=== PATIENT | male | born 1940 | race Caucasian/White ===

== ENCOUNTER → 2016-09-13 | Day surgery (SDC) | payer OTHER, MEDICARE ==
[2016-09-13 12:55] VITALS: BP 158/74; PULSE 74; RESP 18; TEMP 98.2
--- NOTE | 2016-09-13 13:55 | P.PCN ---
Date of Procedure: 09/13/16 Procedure(s) Performed: OPERATION: Intrathecal pain pump analysis, programming and reprogramming, and intrathecal pain pump refill. PREOPERATIVE DIAGNOSES: 1. near empty intrathecal pain pump time for refill. 2. 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 near empty intrathecal pain pump time for refill. 2. 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 CONDITION: Stable. Description of the procedure; Intrathecal pain pump analysed ,it showed patient currently had reservoir volume[ ] mL. The patient is receiving medication PF morphine sulfate 7 mg/ ml, and bupivacaine concentration 3 mg/ml. Patient receiving daily dose of PF morphine 1.2 mg/day and bupivacaine 0.5 mg/ day. Pain is well controlled , patient using medication for breakthrough pain Dilaudid 4 mg orally U6 hours when necessary. The location of the pump ( Right Buttuck ) Prepped with chlorhexidine x3 , then using 22-gauge needle [employer] kit advanced through the pump port, Total of 5 ml removed from the pump, the pump refills with the new medication total volume [ 20] ml . The concentration PF morphine 7 mg /ml , and the bupivacaine concentration 3 mg/ml. The patient will get the daily dose 1.3 mg/day and bupivacaine 0.5 5 mg/day ( 8 % increase in the daily dose) and patient will follow up with the pain clinic in 2 months. Patient given prescription refill for Dilaudid 4 mg every 6 hours when necessary for pain dispense 120 with 2 refills And prescription for Neurontin 300 mg every 8 hours dispense 90 with 2 refills HEENT intrathecal pain pump dose increased today because patient reported that his pain increased muscle the time around 4 to increase to 6-8 when he is doing any activity, and we discussed with the patient the option of increasing intrathecal pain medication, fully increasing the dose percent with help and with activity of daily livings, and improve his functional
== END ==
LOC: PNWHC3 12:00
PROVIDERS: ATTEND Specialist
DX: Z45.49 Encounter for adjustment and management of other implanted nervous system device (principal); M96.1 Postlaminectomy syndrome, not elsewhere classified; Z79.891 Long term (current) use of opiate analgesic
CPT/HCPCS: 62370

== ENCOUNTER → 2016-09-15 | Outpatient (CLI) | payer MEDICARE, BC ==
[2016-09-15 12:24] LABS: Basophils # (A) 0.1 k/uL (0-0.2); Basophils % (A) 1 %; CH 33.1; CHCM 34.2; Eosinophils # (A) 0.3 k/uL (0-0.7); Eosinophils % (A) 4 %; HCT 42.1 % (39.0-53.0); Luc # (Auto) 0.17; Luc % (Auto) 3; Lymphocytes # (A) 1.1 k/uL (1.0-4.8); Lymphocytes % (A) 17 %; MCH 32.6 pg (25.0-35.0); MCHC 33.4 g/dL (31.0-37.0); MCV 97.5 fL (80.0-100.0); Monocytes # (A) 0.3 k/uL (0-1.0); Monocytes % (A) 5 %; Neutrophils # (A) 4.5 k/uL (1.3-7.7); Neutrophils % (A) 71 %; RBC 4.31 m/uL (4.30-5.90); RDW 13.6 % (11.5-15.5); WBC 6.4 k/uL (3.8-10.6); WBC (Perox) 6.61
[2016-09-15 12:26] LABS: Appearance,Urine Clear (Clear); Bacteria,Urine Rare /hpf; Bilirubin,Urine Negative (Negative); Glucose,Urine (UA) Trace (Negative); Ketones,Urine Trace (Negative); Leukocyte Esterase,Urine Negative (Negative); Mucus,Urine Moderate /hpf; Nitrite,Urine Negative (Negative); PH, Urine 6.5 (5.0-8.0); Particle Count 3480; Protein,Urine 1+ (Negative); Specific Gravity,Urine 1.021 (1.001-1.035); UA Billing (MACRO vs. MICRO) MICRO; WBC,Urine <1 /hpf (0-5)
[2016-09-15 12:35] LABS: Anion Gap 10 mmol/L; Blood Urea Nitrogen 20 mg/dL (9-20); Calcium 9.3 mg/dL (8.4-10.2); Carbon Dioxide 30 mmol/L (22-30); Chloride 103 mmol/L (98-107); Glucose 96 mg/dL (74-99); Iron 87 ug/dL (49-181); Magnesium 1.6 mg/dL (1.6-2.3); Non-African American GFR(MDRD) 54 (>60 ml/min/1.73 sqM); Phosphorous 3.5 mg/dL (2.5-4.5); Potassium 4.5 mmol/L (3.5-5.1); Sodium 143 mmol/L (137-145); Uric Acid 5.7 mg/dL (3.5-8.5)
[2016-09-15 12:44] LABS: % Iron Saturation 33.3 % (20-50); Total Iron Binding Capacity 261 ug/dL (261-462)
[2016-09-18 14:37] LABS: Mis test requested (Non-blood) TP Urine 24Hr
== END | disposition home or self-care (01) ==
LOC: LABWHC1 11:44
PROVIDERS: ATTEND Nurse Practitioner Family
DX: N18.3 Chronic kidney disease, stage 3 (moderate) (principal); R80.9 Proteinuria, unspecified; D64.9 Anemia, unspecified; E55.9 Vitamin D deficiency, unspecified; E21.3 Hyperparathyroidism, unspecified; M10.9 Gout, unspecified; N39.0 Urinary tract infection, site not specified
CPT/HCPCS: 36415; 80048; 81001; 81050; 82306; 82728; 83540; 83550; 83735; 83970; 84100; 84156; 84550; 85025

== ENCOUNTER → 2016-12-06 | Day surgery (SDC) | payer OTHER, MEDICARE, BC ==
[2016-12-06 13:42] VITALS: BP 174/92; PULSE 71; RESP 16; TEMP 99.2
--- NOTE | 2016-12-06 14:20 | P.PCN ---
Date of Procedure: 12/06/16 Preoperative Diagnosis: Postoperative Diagnosis: Procedure(s) Performed: OPERATION: Intrathecal pain pump analysis, programming and reprogramming, and intrathecal pain pump refill. PREOPERATIVE DIAGNOSES: 1. near empty intrathecal pain pump time for refill. 2. 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 near empty intrathecal pain pump time for refill. 2. 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 CONDITION: Stable. Description of the procedure; Intrathecal pain pump analysed ,it showed patient currently had reservoir volume[ 4.4 ] mL. The patient is receiving medication morphine [7 ] mg/ ml, and bupivacaine concentration [ 3 ] mg/ml. Patient receiving daily dose of morphine 1.3 mg/day and bupivacaine [ 0.55 ] mg/day. Pain is well controlled , patient using medication for breakthrough pain [ Dilaudid 4 mg] orally . Every 4 hours when necessary The location of the pump ( Right Buttuck ) Prepped with chlorhexidine x3 , then using 22-gauge needle [employer] kit advanced through the pump port, Total of [ 4 ] ml removed from the pump, the pump refills with the new medication total volume [40 ] ml . The concentration morphin [ 7 ] mg /ml , and the bupivacaine concentration [ 3 ] mg/ml. The patient will continue to see the daily dose morphine 1.3 mg/day and bupivacaine [ 0.55 ] mg/day and patient will follow up with the pain clinic in 3 months. Patient denies any side effects of the medication and he reported the current management and control his pain, Discussion refill for Neurontin 300 mg every 8 hours dispense 90 with 2 refill , Dilaudid 4 mg every 4 hours dispense 120 with 2 refill Implants: Indications for Procedure: Operative Findings: Description of Procedure:
== END ==
LOC: PNWHC3 12:47
PROVIDERS: ATTEND Specialist
DX: M96.1 Postlaminectomy syndrome, not elsewhere classified (principal); Z45.1 Encounter for adjustment and management of infusion pump; Z79.891 Long term (current) use of opiate analgesic
CPT/HCPCS: 62370; 99211

== ENCOUNTER → 2017-02-21 | Day surgery (SDC) | payer MEDICARE, BC ==
[2017-02-21 12:40] VITALS: BP 170/76; PULSE 70; RESP 16; TEMP 98.5
--- NOTE | 2017-02-21 13:07 | P.PN ---
Progress Note - Text PROCEDURE: Intrathecal pain pump analysis, programming and reprogramming, and intrathecal pain pump refill. PREOPERATIVE DIAGNOSES: 1. near empty intrathecal pain pump time for refill. 2. 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 CONDITION: Stable. Description of the procedure; Intrathecal pain pump analyzed, demonstrated reservoir volume of [25.8] mL. Concentration of medications: morphine sulfate [7] mg/ ml, and bupivacaine [3 ] mg/ml. Patient receiving daily dose of morphine sulfate [1.29] mg/day and bupivacaine [0.55] mg/day. In addition to ITP, patient using medication for breakthrough pain [Dilaudid 4 mg every 6 hours when necessary] and Neurontin orally . The location of the pump ( Right Buttock ) was prepped with chlorhexidine x3, and draped in the usual sterile fashion. The 22-gauge needle from the [employer] kit was advanced through the pump port with one attempt. Total of [26] ml removed from the pump, the pump refills with the new medication total volume [40] ml. Same concentration: morphine sulfate [7] mg /ml, and the bupivacaine concentration [3] mg/ml. Today I will maintain the daily dose morphine sulfate [1.29] mg/day and bupivacaine [0.55] mg/day. New alarm date is in 2018. Prescription also given for Dilaudid 4 mg every 6 hours (#90 with two refills) and Neurontin 300 mg #90 with five refills. Patient will follow up in the pain clinic for ITP refill in 3 months.
== END ==
LOC: PNWHC3 12:03
PROVIDERS: ATTEND Anesthesiology
DX: M96.1 Postlaminectomy syndrome, not elsewhere classified (principal); Z79.891 Long term (current) use of opiate analgesic
CPT/HCPCS: 62370

== ENCOUNTER → 2017-08-08 | Day surgery (SDC) | payer MEDICARE, BC ==
[2017-08-08 11:40] VITALS: BP 151/79; PULSE 46; RESP 18; TEMP 97.6
--- NOTE | 2017-08-08 12:10 | P.PN ---
Progress Note - Text Progress Note Date: 08/08/17 PROCEDURE: Intrathecal pain pump analysis, programming and reprogramming, and intrathecal pain pump refill. PREOPERATIVE DIAGNOSES: 1. near empty intrathecal pain pump time for refill. 2. 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 POSTOPERATIVE DIAGNOSES: same ANESTHESIA: None. CONDITION: Stable. Description of the procedure; Intrathecal pain pump analyzed, demonstrated reservoir volume of [24.5] mL. Concentration of medications: morphine sulfate [7] mg/ ml, and bupivacaine [3 ] mg/ml. Patient receiving daily dose of morphine sulfate [1.29] mg/day and bupivacaine [0.55] mg/day. In addition to ITP, patient using medication for breakthrough pain [Dilaudid 4 mg every 8 hours when necessary] and Neurontin orally . The location of the pump (Right Buttock) was prepped with chlorhexidine x3, and draped in the usual sterile fashion. The 22-gauge needle from the [employer] kit was advanced through the pump port with one attempt. Total of [25] ml removed from the pump, the pump refills with the new medication total volume [32] ml. 8 ml spilled from syringe Same concentration: morphine sulfate [7] mg /ml, and the bupivacaine concentration [3] mg/ml. Today I will maintain the daily dose morphine sulfate [1.29] mg/day and bupivacaine [0.55] mg/day. New alarm date is in December 2017. Prescription also given for Dilaudid 4 mg every 8 hours (#90 with two refills) as patient has enough gabapentin. Patient will follow up in the pain clinic for ITP refill in 3 months.
== END ==
LOC: PNWHC3 11:26
PROVIDERS: ATTEND Anesthesiology
DX: M96.1 Postlaminectomy syndrome, not elsewhere classified (principal); Z45.1 Encounter for adjustment and management of infusion pump; Z79.891 Long term (current) use of opiate analgesic
CPT/HCPCS: 62370

== ENCOUNTER → 2017-10-31 | Day surgery (SDC) | payer BC, MEDICARE, OTHER ==
[2017-10-31 12:29] VITALS: BP 160/77; PULSE 72; RESP 18; TEMP 97.7
--- NOTE | 2017-10-31 12:50 | P.PN ---
Progress Note - Text Progress Note Date: 10/31/17 PROCEDURE: Intrathecal pain pump analysis, programming and reprogramming, and intrathecal pain pump refill. PREOPERATIVE DIAGNOSES: 1. near empty intrathecal pain pump time for refill. 2. 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 POSTOPERATIVE DIAGNOSES: same ANESTHESIA: None. CONDITION: Stable. Description of the procedure; Intrathecal pain pump analyzed, demonstrated reservoir volume of [16.5] mL. Concentration of medications: morphine sulfate [7] mg/ ml, and bupivacaine [3 ] mg/ml. Patient receiving daily dose of morphine sulfate [1.29] mg/day and bupivacaine [0.55] mg/day. In addition to ITP, patient using medication for breakthrough pain [Dilaudid 4 mg every 8 hours when necessary] and Neurontin orally. The location of the pump (Right Buttock) was prepped with chlorhexidine x3, and draped in the usual sterile fashion. The 22-gauge needle from the [employer] kit was advanced through the pump port with one attempt. Total of [17] ml removed from the pump, the pump refills with the new medication total volume [40] ml. Same concentration: morphine sulfate [7] mg /ml, and the bupivacaine concentration [3] mg/ml. Today I will maintain the daily dose morphine sulfate [1.29] mg/day and bupivacaine [0.55] mg/day. New alarm date is in May 2018. Prescription also given for Dilaudid 4 mg every 8 hours (#90 with two refills) and gabapentin. Patient will follow up in the pain clinic for ITP refill in 3 months.
== END ==
LOC: PNWHC3 11:55
PROVIDERS: ATTEND Anesthesiology
DX: Z45.49 Encounter for adjustment and management of other implanted nervous system device (principal); M96.1 Postlaminectomy syndrome, not elsewhere classified; Z79.891 Long term (current) use of opiate analgesic
CPT/HCPCS: 62370

== ENCOUNTER → 2018-01-30 | Day surgery (SDC) | payer OTHER ==
[2018-01-30 12:33] VITALS: BP 107/70; RESP 16
--- NOTE | 2018-01-30 14:35 | P.PCN ---
Date of Procedure: 01/30/18 Procedure(s) Performed: PROCEDURE: Intrathecal pain pump analysis, programming and reprogramming, and intrathecal pain pump refill. PREOPERATIVE DIAGNOSES: 1. near empty intrathecal pain pump time for refill. 2. 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 He reported that most of the time a few his pain increased and he complaining of pain in low back area with radiation to the lower extremity POSTOPERATIVE DIAGNOSES: same ANESTHESIA: None. CONDITION: Stable. Description of the procedure; Intrathecal pain pump analyzed, demonstrated reservoir volume of [16.5] mL. Concentration of medications: morphine sulfate [7] mg/ ml, and bupivacaine [3 ] mg/ml. Patient receiving daily dose of morphine sulfate [1.29] mg/day and bupivacaine [0.55] mg/day. In addition to ITP, patient using medication for breakthrough pain [Dilaudid 4 mg every 8 hours when necessary] and Neurontin orally. The location of the pump (Right Buttock) was prepped with chlorhexidine x3, and draped in the usual sterile fashion. The 22-gauge needle from the [employer] kit was advanced through the pump port with one attempt. Total of [23] ml removed from the pump, the pump refills with the new medication total volume [40] ml. Same concentration: morphine sulfate [7] mg /ml, and the bupivacaine concentration [3] mg/ml. Today I will increase the daily dose morphine sulfate [1.4] mg/day and bupivacaine [0.6] mg/day. New alarm date is in May 2018. Prescription also given for Dilaudid 4 mg every 8 hours (#90 with two refills) and gabapentin. Patient will follow up in the pain clinic for ITP refill in 3 months.
== END ==
LOC: PNWHC3 11:49
PROVIDERS: ATTEND Specialist
DX: Z45.49 Encounter for adjustment and management of other implanted nervous system device (principal); Z79.891 Long term (current) use of opiate analgesic; M96.1 Postlaminectomy syndrome, not elsewhere classified
CPT/HCPCS: 62370

== ENCOUNTER → 2018-05-08 | Day surgery (SDC) | payer OTHER ==
[2018-05-08 14:51] VITALS: RESP 16
--- NOTE | 2018-05-08 15:48 | P.PCN ---
Date of Procedure: 05/08/18 Procedure(s) Performed: PROCEDURE: Intrathecal pain pump analysis, programming and reprogramming, and intrathecal pain pump refill. PREOPERATIVE DIAGNOSES: 1. near empty intrathecal pain pump time for refill. 2. 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 He reported that he had some low back pain which is managed with the breakthrough medication, currently he uses Dilaudid 4 mg every 8 hours when necessary, and he is on Neurontin 300 mg 3 times a day POSTOPERATIVE DIAGNOSES: same ANESTHESIA: None. CONDITION: Stable. Description of the procedure; Intrathecal pain pump analyzed, demonstrated reservoir volume of [20.3 ] mL. Concentration of medications: morphine sulfate [7] mg/ ml, and bupivacaine [3 ] mg/ml. Patient receiving daily dose of morphine sulfate [1.29] mg/day and bupivacaine [0.55] mg/day. In addition to ITP, patient using medication for breakthrough pain [Dilaudid 4 mg every 8 hours when necessary] and Neurontin orally. The location of the pump (Right Buttock) was prepped with chlorhexidine x3, and draped in the usual sterile fashion. The 22-gauge needle from the [employer] kit was advanced through the pump port with one attempt. Total of [20] ml removed from the pump, the pump refills with the new medication total volume [40] ml. Same concentration: morphine sulfate [7] mg /ml, and the bupivacaine concentration [3] mg/ml. Today I will continue the same daily dose morphine sulfate [1.4] mg/day and bupivacaine [0.6] mg/day. New alarm date is in May 2018. Prescription also given for Dilaudid 4 mg every 8 hours (#90 with two refills) and gabapentin. Patient will follow up in the pain clinic for ITP refill in 3 months.
== END | disposition home or self-care (01) ==
LOC: PNWHC3 12:53
PROVIDERS: ATTEND Specialist
DX: Z45.1 Encounter for adjustment and management of infusion pump (principal); M96.1 Postlaminectomy syndrome, not elsewhere classified; Z79.899 Other long term (current) drug therapy
CPT/HCPCS: 62370; 99211

== ENCOUNTER → 2018-07-24 | Day surgery (SDC) | payer OTHER ==
[2018-07-24 13:42] VITALS: BP 167/83; PULSE 72; RESP 18
--- NOTE | 2018-07-25 06:04 | P.PCN ---
Date of Procedure: 07/24/18 Procedure(s) Performed: PROCEDURE: Intrathecal pain pump analysis, programming and reprogramming, and intrathecal pain pump refill. PREOPERATIVE DIAGNOSES: 1. near empty intrathecal pain pump time for refill. 2. 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 He reported that he had some low back pain which is managed with the breakthrough medication, currently he uses Dilaudid 4 mg every 8 hours when necessary, and he is on Neurontin 300 mg 3 times a day POSTOPERATIVE DIAGNOSES: same ANESTHESIA: None. CONDITION: Stable. Description of the procedure; Intrathecal pain pump analyzed, demonstrated reservoir volume of [20.3 ] mL. Concentration of medications: morphine sulfate [7] mg/ ml, and bupivacaine [3 ] mg/ml. Patient receiving daily dose of morphine sulfate [1.4] mg/day and bupivacaine [ 0.55] mg/day. In addition to ITP, patient using medication for breakthrough pain [Dilaudid 4 mg every 8 hours when necessary] and Neurontin orally. The location of the pump (Right Buttock) was prepped with chlorhexidine x3, and draped in the usual sterile fashion. The 22-gauge needle from the [employer] kit was advanced through the pump port with one attempt. Total of [24] ml removed from the pump, the pump refills with the new medication total volume [40] ml. Same concentration: morphine sulfate [7] mg /ml, and the bupivacaine concentration [3] mg/ml. Today I will continue the same daily dose morphine sulfate [1.4] mg/day and bupivacaine [0.55] mg/day. Prescription also given for Dilaudid 4 mg every 8 hours (#90 with two refills) and gabapentin. Patient will follow up in the pain clinic for ITP refill in 3 months.
== END | disposition home or self-care (01) ==
LOC: PNWHC3 12:02
PROVIDERS: ATTEND Specialist
DX: Z45.1 Encounter for adjustment and management of infusion pump (principal); M96.1 Postlaminectomy syndrome, not elsewhere classified; Z79.899 Other long term (current) drug therapy
CPT/HCPCS: 62370

== ENCOUNTER → 2018-10-16 | Day surgery (SDC) | payer OTHER ==
[2018-10-16 12:17] VITALS: BP 177/87; PULSE 90; RESP 18
--- NOTE | 2018-10-16 12:37 | P.PCN ---
Date of Procedure: 10/16/18 Operative Findings: OPERATION: Intrathecal pain pump analysis, programming and reprogramming, and intrathecal pain pump refill. PREOPERATIVE DIAGNOSES: 1. near empty intrathecal pain pump time for refill. 2. opioid tolerance POSTOPERATIVE DIAGNOSES: 1. near empty intrathecal pain pump time for refill. 2. opioid tolerance ANESTHESIA: None. CONDITION: Stable. Description of the procedure; Intrathecal pain pump analysed ,it showed patient currently had reservoir volume[23 ] mL. The patient is receiving medication morphine [ 7] mg/ ml, and bupivacaine concentration [3 ] mg/ml. Patient receiving daily dose of [1.4086 ] mg/day and bupivacaine [0.6037 ] mg/day. Pain is well controlled , patient using medication for breakthrough pain [ 4 mg of hydromorphone 3 times a day when necessary] orally . The location of the pump ( Right Buttuck ) Prepped with chlorhexidine x3 , then using 22-gauge needle [employer] kit advanced through the pump port, Total of [ 23] ml removed from the pump, the pump refilled with the new medication total volume [40 ] ml . The concentration and the dose was unchanged. For the next visit we will decrease the concentration from 7 mg of morphine to 4 mg of morphine Maps was checked, opioid start talking forms in the chart, narcotics agreement in the chart. patient will follow up with the pain clinic in 3 months.
== END ==
LOC: PNWHC3 11:55
PROVIDERS: ATTEND Hospitalist
DX: Z45.1 Encounter for adjustment and management of infusion pump (principal)
CPT/HCPCS: 62370

== ENCOUNTER → 2019-01-08 | Day surgery (SDC) | payer OTHER ==
[2019-01-08 12:11] VITALS: BP 177/77; PULSE 77; RESP 18
--- NOTE | 2019-01-08 14:26 | P.PCN ---
Date of Procedure: 01/08/19 Surgeon: Rojas Hedrick Description of Procedure: Procedure: Intrathecal pump refill with analysis and reprogramming Preoperative diagnosis: Post laminectomy syndrome, need for medication change in intrathecal pump Postoperative diagnosis: Same Surgeon: Rojas Hedrick M.D. Anesthesia: Skin local Indication for procedure: This is a pleasant 78-year-old gentleman with a history of post laminectomy syndrome who has an implanted intrathecal pump and reports that this helps control his pain. He also takes oral medication. He is near the end of his reservoir presents today for refill. Procedure in detail: After potential risks and benefits reviewed the patient, the patient signed informed consent. The area over the intrathecal pump was then prepped and draped in the usual sterile fashion. The pump was accessed using the [employer] refill kit. Their refill protocol was followed. Contents of the pump were aspirated. The new solution was then verified in then injected through a bacteriostatic filter into the pump with aspiration occurring every 3- 5 mL to confirm intrathecal placement. The needle was then withdrawn once the entire volume was injected and a Band-Aid was applied. Amount of fluid removed: 23 mL Current medications solution: Bupivacaine 3 mg per mL and morphine 7 mg per mL Current medication dosage: 1.4 mg per day. Refill solution injected: Bupivacaine 3 mg per mL and morphine 4 mg per mL Low reservoir refill date: 04/24/19
== END ==
LOC: PNWHC3 11:56
PROVIDERS: ATTEND Pain Medicine Pain Medicine
DX: Z45.1 Encounter for adjustment and management of infusion pump (principal); G89.4 Chronic pain syndrome; M96.1 Postlaminectomy syndrome, not elsewhere classified
CPT/HCPCS: 62370

== ENCOUNTER → 2019-01-14 | Outpatient (CLI) | payer MEDICARE, BC ==
--- NOTE | 2019-01-14 14:11 | US ---
EXAMINATION TYPE: US kidneys/renal and bladder DATE OF EXAM: 01/14/2019 COMPARISON: 12/22/2015 CLINICAL HISTORY: N18.3 Chronic kidney disease Stage 3. EXAM MEASUREMENTS: Right Kidney: 10.2 x 5.0 x 4.8 cm Left Kidney: 11.7 x 5.0 x 5.9 cm Right Kidney: No hydronephrosis, nephrolithiasis or masses seen Left Kidney: 1.8 x 1.5 x 1.7cm simple renal cyst. No hydronephrosis or nephrolithiasis. Renal cortex is somewhat thin bilaterally. Bladder: wnl Bilateral Jets seen: YES IMPRESSION: 1. Correlate for chronic medical renal disease. 2. Simple left renal cyst measuring 1.8 cm.
== END | disposition home or self-care (01) ==
LOC: RADUSWWP 12:53
PROVIDERS: ATTEND Internal Medicine Nephrology
DX: N28.1 Cyst of kidney, acquired (principal)
CPT/HCPCS: 76770

== ENCOUNTER → 2019-04-02 | Day surgery (SDC) | payer OTHER, MEDICARE, BC ==
--- NOTE | 2019-04-02 13:34 | P.PCN ---
Date of Procedure: 04/02/19 Procedure(s) Performed: Procedure: Intrathecal pump refill with analysis and reprogramming Preoperative diagnosis: Post laminectomy syndrome, need for medication change in intrathecal pump Postoperative diagnosis: Same Surgeon: Dom Fall M.D. Anesthesia: None Indication for procedure: This is a pleasant 78-year-old gentleman with a history of post laminectomy syndrome who has an implanted intrathecal pump and reports that this helps control his pain. He also takes oral medication. He is near the end of his reservoir presents today for refill. Procedure in detail: After potential risks and benefits reviewed the patient, the patient signed informed consent. The area over the intrathecal pump was then prepped and draped in the usual sterile fashion. The pump was accessed using the [employer] refill kit. Their refill protocol was followed. Contents of the pump were aspirated. The new solution was then verified in then injected through a bacteriostatic filter into the pump. The needle was then withdrawn once the entire volume was injected and a Band-Aid was applied. Amount of fluid removed: 13 mL Current medications solution: Bupivacaine 3 mg per mL and morphine 4 mg per mL Current medication dosage: 1.4233 mg per day. (increased by 1.5%) Refill solution injected: Bupivacaine 3 mg per mL and morphine 4 mg per mL Low reservoir refill date: 07/14/19
== END | disposition home or self-care (01) ==
LOC: PNWHC3 12:24
PROVIDERS: ATTEND Anesthesiology
DX: M96.1 Postlaminectomy syndrome, not elsewhere classified (principal); Z45.1 Encounter for adjustment and management of infusion pump
CPT/HCPCS: 62370; 99211

== ENCOUNTER 2019-04-04 10:35 | Inpatient (IN) | payer MEDICARE, BC ==
[2019-04-04] MEDS ORDERED: NITROGLYCERIN OINT 1 INCH/GM PACKET TOPICAL STA (10:59)
[2019-04-04] MEDS ORDERED: SODIUM CHLORIDE 0.9% 500 ML 500 ML IV STA (10:59)
[2019-04-04] MEDS ORDERED: ASPIRIN 81 MG PO STA (10:59)
--- NOTE | 2019-04-04 11:01 | ED ---
General Adult HPI - General Chief complaint: Chest Pain Stated complaint: Chest Pain Time Seen by Provider: 04/04/19 10:35 Source: patient, RN notes reviewed Mode of arrival: wheelchair Limitations: no limitations - History of Present Illness Initial comments: This is an 78-year-old male who presents emergency Department complaining of chest pain. Patient states he has past medical history significant for heart attack with stent placement. Patient also states he has diabetes high blood pressure high cholesterol. Patient states he's been dealing with intermittent chest pressure for the last week. Patient states that lasted last night for about 3 hours it radiated to his left shoulder and his neck. Patient states she was also short of breath diaphoretic and mildly nauseated. Patient states currently he still having some chest pain. Patient denies any abdominal pain patient denies any diarrhea. Patient denies any recent fever chills or cough per patient denies being lightheaded or dizzy. Patient denies any headache. Patient denies numbness weakness. Patient denies any leg swelling or calf tenderness. - Related Data Home Medications Medication Instructions Recorded Confirmed Aspirin 81 mg PO DAILY 12/09/13 04/04/19 Omeprazole [PriLOSEC] 20 mg PO DAILY 09/25/14 04/04/19 Metoprolol Succinate (ER) [Toprol 50 mg PO DAILY 10/29/14 04/04/19 XL] Cholecalciferol [Vitamin D3] 1,000 units PO DAILY 05/05/15 04/04/19 Intrathecal Opioid Pain Pump 1 dose INTRATHECA CONTINUOUS 07/28/15 04/04/19 metFORMIN HCL [Glucophage] 500 mg PO BID 07/28/15 04/04/19 Hydrochlorothiazide [Hydrodiuril] 25 mg PO DAILY 12/29/15 04/04/19 Vit C/E/Zn/Coppr/Lutein/Zeaxan 2 cap PO DAILY 02/21/17 04/04/19 [Preservision Areds 2 Softgel] Amitriptyline HCl [Elavil] 50 mg PO HS 10/31/17 04/04/19 Lisinopril 20 mg PO DAILY 05/08/18 04/04/19 glipiZIDE [Glucotrol] 5 mg PO AC-BRKFST 03/31/19 04/04/19 Atorvastatin Calcium [Lipitor] 80 mg PO HS 04/04/19 04/04/19 Latanoprost/Pf [Latanoprost 0.005% 2 - 3 drop BOTH EYES HS 04/04/19 04/04/19 Eye Drop] Magnesium Oxide [Mag-Ox] 400 mg PO DAILY 04/04/19 04/04/19 Testosterone Cypionate 200 mg IM Q21D 04/04/19 04/04/19 [Depo-Testosterone] Previous Rx's Medication Instructions Recorded Dicyclomine [Bentyl] 10 mg PO TID #60 cap 08/06/14 HYDROmorphone HCL [Dilaudid] 4 mg PO Q8HR PRN #90 tab 10/31/17 Gabapentin [Neurontin] 300 mg PO TID #90 cap 05/08/18 Allergies Allergy/AdvReac Type Severity Reaction Status Date / Time No Known Allergies Allergy Verified 04/04/19 11:14 Review of Systems ROS Statement: Those systems with pertinent positive or pertinent negative responses have been documented in the HPI. ROS Other: All systems not noted in ROS Statement are negative. Past Medical History Past Medical History: Coronary Artery Disease (CAD), Myocardial Infarction ([place]) Additional Past Medical History / Comment(s): back pain (has morphine pump), tinnitus, head injury, TIA, glasses, anuyrsm left groin Last Myocardial Infarction Date:: unknown History of Any Multi-Drug Resistant Organisms: None Reported Past Surgical History: Heart Catheterization With Stent Additional Past Surgical History / Comment(s): pain pump with morphine and another medication, colonoscopy. Past Anesthesia/Blood Transfusion Reactions: No Reported Reaction Date of Last Stent Placement:: 1990 Past Psychological History: No Psychological Hx Reported Smoking Status: Former smoker Past Alcohol Use History: None Reported Past Drug Use History: None Reported - Past Family History Father Family Medical History: Cancer Brother(s) Family Medical History: Cancer General Exam - General Exam Comments Initial Comments: GENERAL: Patient is well-developed and well-nourished. Patient is nontoxic and well- hydrated and is in mild distress. ENT: Neck is soft and supple. No significant lymphadenopathy is noted. Oropharynx is clear. Moist mucous membranes. Neck has full range of motion without eliciting any pain. EYES: The sclera were anicteric and conjunctiva were pink and moist. Extraocular movements were intact and pupils were equal round and reactive to light. Eyelids were unremarkable. PULMONARY: Unlabored respirations. Good breath sounds bilaterally. No audible rales rhonchi or wheezing was noted. CARDIOVASCULAR: There is a regular rate and rhythm without any murmurs gallops or rubs. Femoral pulses are equal bilaterally ABDOMEN: Soft and nontender with normal bowel sounds. No palpable organomegaly was noted. There is no palpable pulsatile mass. SKIN: Skin is clear with no lesions or rashes and otherwise unremarkable. NEUROLOGIC: Patient is alert and oriented x3. Cranial nerves II through XII are grossly in tact. Motor and sensory are also intact. Normal speech, volume and content. Symmetrical smile. MUSCULOSKELETAL: Normal extremities with adequate strength and full range of motion. No lower extremity swelling or edema. No calf tenderness. LYMPHATICS: No significant lymphadenopathy is noted PSYCHIATRIC: Normal psychiatric evaluation. Limitations: no limitations Course Vital Signs 04/04/19 04/04/19 04/04/19 10:37 10:53 11:00 Temperature 97.4 F L Pulse Rate 72 89 Pulse Rate [ 67 Heel Padder ] Respiratory 18 16 Rate Blood Pressure 116/78 101/71 O2 Sat by Pulse 91 L 85 L Oximetry 04/04/19 04/04/19 04/04/19 11:30 12:00 12:30 Temperature Pulse Rate 80 79 Pulse Rate [ Heel Padder ] Respiratory 18 14 Rate Blood Pressure 103/68 103/68 97/62 O2 Sat by Pulse 98 98 Oximetry Medical Decision Making - Medical Decision Making EKG shows sinus rhythm with occasional PAC at 93 bpm DE interval is 180 QRSs 102 QT interval 358 QTC is 445. Patient has no ST segment elevation or depression Chest x-ray shows no acute abnormality. Patient's chest pain was improved I gave the patient heparin. I spoke with Dr. Small he agreed to admit the patient admitted the patient wrote admitting orders I consult cardiology continued heparin has been Nitropaste on the floor. - Lab Data Result diagrams: 04/04/19 11:16 04/04/19 11:16 Lab Results 04/04/19 04/04/19 04/04/19 Range/Units 11:16 11:16 11:16 WBC 8.4 (3.8-10.6) k/uL RBC 4.35 (4.30-5.90) m/uL Hgb 14.3 (13.0-17.5) gm/dL Hct 40.7 (39.0-53.0) % MCV 93.4 (80.0-100.0) fL MCH 33.0 (25.0-35.0) pg MCHC 35.3 (31.0-37.0) g/dL RDW 13.7 (11.5-15.5) % Plt Count 274 (150-450) k/uL Neutrophils % 77 % Lymphocytes % 13 % Monocytes % 6 % Eosinophils % 3 % Basophils % 1 % Neutrophils # 6.5 (1.3-7.7) k/uL Lymphocytes # 1.1 (1.0-4.8) k/uL Monocytes # 0.5 (0-1.0) k/uL Eosinophils # 0.2 (0-0.7) k/uL Basophils # 0.1 (0-0.2) k/uL PT 10.2 (9.0-12.0) sec INR 0.9 (<1.2) APTT 27.3 (22.0-30.0) sec Sodium 138 (137-145) mmol/L Potassium 4.7 (3.5-5.1) mmol/L Chloride 104 (98-107) mmol/L Carbon Dioxide 21 L (22-30) mmol/L Anion Gap 13 mmol/L BUN 52 H (9-20) mg/dL Creatinine 2.07 H (0.66-1.25) mg/dL Est GFR (CKD-EPI)AfAm 34 (>60 ml/min/1.73 sqM) Est GFR (CKD-EPI)NonAf 29 (>60 ml/min/1.73 sqM) Glucose 132 H (74-99) mg/dL Calcium 9.8 (8.4-10.2) mg/dL Magnesium 1.5 L (1.6-2.3) mg/dL Total Bilirubin 0.8 (0.2-1.3) mg/dL AST 23 (17-59) U/L ALT 20 L (21-72) U/L Alkaline Phosphatase 93 (38-126) U/L Troponin I (0.000-0.034) ng/mL Total Protein 6.7 (6.3-8.2) g/dL Albumin 3.9 (3.5-5.0) g/dL 04/04/19 Range/Units 11:16 WBC (3.8-10.6) k/uL RBC (4.30-5.90) m/uL Hgb (13.0-17.5) gm/dL Hct (39.0-53.0) % MCV (80.0-100.0) fL MCH (25.0-35.0) pg MCHC (31.0-37.0) g/dL RDW (11.5-15.5) % Plt Count (150-450) k/uL Neutrophils % % Lymphocytes % % Monocytes % % Eosinophils % % Basophils % % Neutrophils # (1.3-7.7) k/uL Lymphocytes # (1.0-4.8) k/uL Monocytes # (0-1.0) k/uL Eosinophils # (0-0.7) k/uL Basophils # (0-0.2) k/uL PT (9.0-12.0) sec INR (<1.2) APTT (22.0-30.0) sec Sodium (137-145) mmol/L Potassium (3.5-5.1) mmol/L Chloride (98-107) mmol/L Carbon Dioxide (22-30) mmol/L Anion Gap mmol/L BUN (9-20) mg/dL Creatinine (0.66-1.25) mg/dL Est GFR (CKD-EPI)AfAm (>60 ml/min/1.73 sqM) Est GFR (CKD-EPI)NonAf (>60 ml/min/1.73 sqM) Glucose (74-99) mg/dL Calcium (8.4-10.2) mg/dL Magnesium (1.6-2.3) mg/dL Total Bilirubin (0.2-1.3) mg/dL AST (17-59) U/L ALT (21-72) U/L Alkaline Phosphatase (38-126) U/L Troponin I 0.068 H* (0.000-0.034) ng/mL Total Protein (6.3-8.2) g/dL Albumin (3.5-5.0) g/dL Disposition Clinical Impression: Unstable angina pectoris, Acute renal failure Disposition: ADMITTED IP TO THIS [facility] Referrals: Boom Cooper DO [Primary Care Provider] - 1-2 days Time of Disposition: 13:13
--- NOTE | 2019-04-04 11:33 | XR ---
EXAMINATION TYPE: XR chest 2V DATE OF EXAM: 04/04/2019 COMPARISON: 11/12/2015 HISTORY: Shortness of breath TECHNIQUE: Frontal and lateral views of the chest are obtained. FINDINGS: Scattered senescent parenchymal changes noted. Hyperinflation compatible with COPD. No evidence for infiltrate. No evidence for atelectasis. Heart size is stable. Mediastinal structures are stable and grossly unremarkable. No evidence for hilar prominence. Degenerative changes dorsal spine. IMPRESSION: 1. No evidence for acute pulmonary disease.
[2019-04-04 11:50] LABS: Basophils # (A) 0.1 k/uL (0-0.2); Basophils % (A) 1 %; Eosinophils # (A) 0.2 k/uL (0-0.7); Eosinophils % (A) 3 %; HCT 40.7 % (39.0-53.0); HGB 14.3 gm/dL (13.0-17.5); Lymphocytes # (A) 1.1 k/uL (1.0-4.8); Lymphocytes % (A) 13 %; MCHC 35.3 g/dL (31.0-37.0); MCV 93.4 fL (80.0-100.0); Mean Platelet Volume 7.7; Monocytes # (A) 0.5 k/uL (0-1.0); Monocytes % (A) 6 %; Neutrophils # (A) 6.5 k/uL (1.3-7.7); Neutrophils % (A) 77 %; Platelet Count 274 k/uL (150-450); RBC 4.35 m/uL (4.30-5.90); RDW 13.7 % (11.5-15.5); WBC 8.4 k/uL (3.8-10.6)
[2019-04-04 12:01] LABS: INR 0.9 (<1.2); Partial Thromboplastin Time 27.3 sec (22.0-30.0); Prothrombin Time 10.2 sec (9.0-12.0)
[2019-04-04 12:05] LABS: Albumin 3.9 g/dL (3.5-5.0); Calcium 9.8 mg/dL (8.4-10.2); Magnesium 1.5 mg/dL (1.6-2.3); Potassium 4.7 mmol/L (3.5-5.1); Total Bilirubin 0.8 mg/dL (0.2-1.3); Total Protein 6.7 g/dL (6.3-8.2)
[2019-04-04] MEDS ORDERED: HEPARIN SODIUM,PORCINE 5,000 UNIT/ML 1 ML VIAL IV ONE (13:09)
[2019-04-04] MEDS ORDERED: NITROGLYCERIN SL TABS 0.4 MG TAB SUBLINGUAL PRN (13:14)
[2019-04-04] MEDS: HEPARIN SOD,PORK IN 0.45% NACL 25,000 UNIT in 0.45% NACL 1 250ML.BAG IV SCH (13:33)
[2019-04-04] MEDS ORDERED: HYDROmorphone 2 MG TAB PO STA (17:01)
[2019-04-04] MEDS ORDERED: HYDROmorphone 4 MG TABLET PO PRN (17:26)
[2019-04-04] MEDS: NITROGLYCERIN OINT 1 INCH/GM PACKET TOPICAL SCH ×2 (18:05→23:43)
--- NOTE | 2019-04-04 18:09 | P.HPIM ---
History of Present Illness This is a pleasant 78 years old male with past medical history of coronary artery disease status post cardiac cath and stent placement, TIA, chronic back pain status post morphine pump. Presents because of chest pain of more than one week duration, chest pain central radiating to the left shoulder and arm, of one week duration about 4-5/10 in severity felt like sharp increase by walking, patient status similar to his heart attack pain in 1993, associated with dyspnea, patient has chronic dyspnea for 6 month but recently got worse for more than one week he follows up with Dr. Lundy and last time he saw him about 2-3 weeks ago for follow-up. Patient denies a smoking alcohol or illicit tracts On admission his vital signs stable, showing unremarkable CBC, INR, liver enzymes. His creatinine is elevated at 2.0, baseline 1.1-1.5. Troponin is elevated at 0.068. Patient has chronically elevated troponin ranging between 0.04-0.05. EKG showing T-wave inversion in lead 1 and aVL with heart rate of 93 sinus rhythm, QTC is 445. Chest x-ray: No acute process. In the emergency room, patient was given hydration and started on heparin drip as well as aspirin. Review of Systems CONSTITUTIONAL: No fever, no malaise, no fatigue. HEENT: No recent visual problems or hearing problems. Denied any sore throat. CARDIOVASCULAR: No orthopnea, PND, no palpitations, no syncope. PULMONARY: No shortness of breath, no cough, no hemoptysis. GASTROINTESTINAL: No diarrhea, no nausea, no vomiting, no abdominal pain. Normoactive bowel sounds. NEUROLOGICAL: No headaches, no weakness, no numbness. HEMATOLOGICAL: Denies any bleeding or petechiae. GENITOURINARY: Denies any burning micturition, frequency, or urgency. MUSCULOSKELETAL/RHEUMATOLOGICAL: Denies any joint pain, swelling, or any muscle pain. ENDOCRINE: Denies any polyuria or polydipsia. Past Medical History Past Medical History: Coronary Artery Disease (CAD), Myocardial Infarction ([place]) Additional Past Medical History / Comment(s): back pain (has morphine pump), tin nitus, head injury, TIA, glasses, anuyrsm left groin Last Myocardial Infarction Date:: unknown History of Any Multi-Drug Resistant Organisms: None Reported Past Surgical History: Heart Catheterization With Stent Additional Past Surgical History / Comment(s): pain pump with morphine and another medication, colonoscopy. Past Anesthesia/Blood Transfusion Reactions: No Reported Reaction Date of Last Stent Placement:: 1990 Past Psychological History: No Psychological Hx Reported Smoking Status: Former smoker Past Alcohol Use History: None Reported Past Drug Use History: None Reported - Past Family History Father Family Medical History: Cancer Brother(s) Family Medical History: Cancer Medications and Allergies Home Medications Medication Instructions Recorded Confirmed Type Aspirin 81 mg PO DAILY 12/09/13 04/04/19 History Dicyclomine [Bentyl] 10 mg PO TID #60 cap 08/06/14 04/04/19 Rx Omeprazole [PriLOSEC] 20 mg PO DAILY 09/25/14 04/04/19 History Metoprolol Succinate (ER) [Toprol 50 mg PO DAILY 10/29/14 04/04/19 History XL] Cholecalciferol [Vitamin D3] 1,000 units PO DAILY 05/05/15 04/04/19 History Intrathecal Opioid Pain Pump 1 dose INTRATHECA CONTINUOUS 07/28/15 04/04/19 History metFORMIN HCL [Glucophage] 500 mg PO BID 07/28/15 04/04/19 History Hydrochlorothiazide [Hydrodiuril] 25 mg PO DAILY 12/29/15 04/04/19 History Vit C/E/Zn/Coppr/Lutein/Zeaxan 2 cap PO DAILY 02/21/17 04/04/19 History [Preservision Areds 2 Softgel] Amitriptyline HCl [Elavil] 50 mg PO HS 10/31/17 04/04/19 History HYDROmorphone HCL [Dilaudid] 4 mg PO Q8HR PRN #90 tab 10/31/17 04/04/19 Rx Gabapentin [Neurontin] 300 mg PO TID #90 cap 05/08/18 04/04/19 Rx Lisinopril 20 mg PO DAILY 05/08/18 04/04/19 History glipiZIDE [Glucotrol] 5 mg PO AC-BRKFST 03/31/19 04/04/19 History Atorvastatin Calcium [Lipitor] 80 mg PO HS 04/04/19 04/04/19 History Latanoprost/Pf [Latanoprost 0.005% 2 - 3 drop BOTH EYES HS 04/04/19 04/04/19 History Eye Drop] Magnesium Oxide [Mag-Ox] 400 mg PO DAILY 04/04/19 04/04/19 History Testosterone Cypionate 200 mg IM Q21D 04/04/19 04/04/19 History [Depo-Testosterone] Allergies Allergy/AdvReac Type Severity Reaction Status Date / Time No Known Allergies Allergy Verified 04/04/19 11:14 Physical Exam Vitals: Vital Signs Temp Pulse Pulse Resp BP Pulse Ox 04/04/19 17:00 72 18 104/57 93 L 04/04/19 16:30 71 12 105/71 93 L 04/04/19 16:00 73 10 L 93/65 93 L 04/04/19 15:31 73 8 L 110/75 94 L 04/04/19 15:01 76 12 105/68 99 04/04/19 14:30 75 12 105/68 94 L 04/04/19 14:00 75 0 L 110/80 96 04/04/19 13:30 80 18 89/58 96 04/04/19 12:30 79 14 97/62 98 04/04/19 12:00 80 18 103/68 98 04/04/19 11:30 103/68 04/04/19 11:00 89 16 101/71 85 L 04/04/19 10:53 67 04/04/19 10:37 97.4 F L 72 18 116/78 91 L Intake and Output 04/04/19 04/04/19 04/04/19 06:59 14:59 22:59 Other: Weight 88.451 kg GENERAL: The patient is alert and oriented x3, not in any acute distress. Well developed, well nourished. HEENT: Pupils are round and equally reacting to light. EOMI. No scleral icterus. No conjunctival pallor. Normocephalic, atraumatic. No pharyngeal erythema. No thyromegaly. CARDIOVASCULAR: S1 and S2 present. No murmurs, rubs, or gallops. PULMONARY: Chest is clear to auscultation, no wheezing or crackles. ABDOMEN: Soft, nontender, nondistended, normoactive bowel sounds. No palpable organomegaly. MUSCULOSKELETAL: No joint swelling or deformity. EXTREMITIES: No cyanosis, clubbing, or pedal edema. NEUROLOGICAL: Gross neurological examination did not reveal any focal deficits. SKIN: No rashes. No petechiae Results CBC & Chem 7: 09/20/19 11:16 04/04/19 11:16 Labs: Abnormal Lab Results - Last 24 Hours (Table) 04/04/19 04/04/19 Range/Units 11:16 11:16 Carbon Dioxide 21 L (22-30) mmol/L BUN 52 H (9-20) mg/dL Creatinine 2.07 H (0.66-1.25) mg/dL Glucose 132 H (74-99) mg/dL Magnesium 1.5 L (1.6-2.3) mg/dL ALT 20 L (21-72) U/L Troponin I 0.068 H* (0.000-0.034) ng/mL Assessment and Plan Assessment: Chest pain, rule out cardiac causes Acute kidney injury History of coronary artery disease status post cardiac cath and stent placement TIA Chronic back pain on morphine pump Chronic kidney disease stage II to 3 Depression Plan: this is a pleasant 78 years old male who presents with chest pain and acute kidney injury. Cartilage consult, serial troponin, hold lisinopril and metformin view of his kidney injury, gentle hydration, hold diuretic, lower the dose of gabapentin. Continue with heparin drip, monitor hemoglobin rate without consult nephrologists as they have evaluated the patient for Labs and medication were reviewed.. Continue same treatment. Continue with symptomatic treatment. Resume home medication. Monitor lytes and vitals. DVT and GI prophylaxis. Further recommendations of the clinical course of the patient DVT prophylaxis: heparin GI Prophylaxis: Pepcid PT/OT: Pending Prognosis is guarded
[2019-04-04] MEDS: FAMOTIDINE 20 MG/2 ML VIAL IV SCH (20:41)
[2019-04-04] MEDS: AMITRIPTYLINE HCL 50 MG TAB PO SCH (20:41)
[2019-04-04] MEDS: ATORVASTATIN 80 MG TAB PO SCH (20:42)
[2019-04-04] MEDS: DICYCLOMINE 10 MG CAP PO SCH (20:42)
[2019-04-04] MEDS: LATANOPROST 0.005% OPHTH DROPS 2.5 ML BTL BOTH EYES SCH (20:43)
[2019-04-04] MEDS: GABAPENTIN 100 MG CAP PO SCH (20:43)
[2019-04-05 04:36] LABS: Cholesterol 142 mg/dL (<200); HDL Cholesterol 26 mg/dL (40-60); LDL Cholesterol,Calculated 58 mg/dL (0-99); Triglycerides 290 mg/dL (<150)
[2019-04-05 06:50] LABS: Basophils % (A) 1 %; Eosinophils # (A) 0.2 k/uL (0-0.7); Eosinophils % (A) 4 %; HCT 36.7 % (39.0-53.0); HGB 12.3 gm/dL (13.0-17.5); Lymphocytes # (A) 1.2 k/uL (1.0-4.8); Lymphocytes % (A) 19 %; MCH 31.8 pg (25.0-35.0); MCHC 33.6 g/dL (31.0-37.0); MCV 94.7 fL (80.0-100.0); Monocytes # (A) 0.3 k/uL (0-1.0); Monocytes % (A) 5 %; Neutrophils # (A) 4.2 k/uL (1.3-7.7); Neutrophils % (A) 70 %; Platelet Count 221 k/uL (150-450); RBC 3.88 m/uL (4.30-5.90); RDW 13.7 % (11.5-15.5)
[2019-04-05] MEDS: PANTOPRAZOLE 40 MG TABLET PO SCH (06:50)
[2019-04-05] MEDS: NITROGLYCERIN OINT 1 INCH/GM PACKET TOPICAL SCH (06:50)
[2019-04-05] MEDS ORDERED: glipiZIDE 5 MG TAB PO SCH (07:30)
[2019-04-05 07:32] LABS: Calcium 9.2 mg/dL (8.4-10.2); Potassium 4.4 mmol/L (3.5-5.1)
[2019-04-05] MEDS: DICYCLOMINE 10 MG CAP PO SCH ×3 (08:48→21:17)
[2019-04-05] MEDS: GABAPENTIN 100 MG CAP PO SCH ×3 (08:48→21:17)
[2019-04-05] MEDS: CHOLECALCIFEROL 1,000 UNIT TAB PO SCH (08:48)
[2019-04-05] MEDS: METOPROLOL SUCCINATE (ER) 50 MG TAB.ER.24H PO SCH (08:48)
[2019-04-05] MEDS: MAGNESIUM OXIDE 400 MG TAB PO SCH (08:48)
[2019-04-05] MEDS: FAMOTIDINE 20 MG/2 ML VIAL IV SCH ×2 (08:48→21:17)
--- NOTE | 2019-04-05 08:54 | P.NPCON ---
History of Present Illness - Reason for Consult Consult date: 04/05/19 acute renal failure - Chief Complaint Chest pain - History of Present Illness This is an 78-year-old male seen in consultation because of acute kidney injury, he was admitted with chest pain. He has chronic kidney disease with a baseline creatinine of about 1.[address] Kaplan in the past. The chest pain is on the left side arm as well as the neck and shoulder. Last about 15 minutes In the past she's had coronary artery disease and stenting in the remote past. Denies taking any nonsteroidals. He is on a morphine pump for the last 15 years for low back pain. No history of any prostatism. He is known with diabetes. Currently on metformin. On medication also included lisinopril. Past Medical History Past Medical History: Coronary Artery Disease (CAD), Myocardial Infarction ([place]) Additional Past Medical History / Comment(s): back pain (has morphine pump), tinnitus, head injury, TIA, glasses, anuyrsm left groin Last Myocardial Infarction Date:: unknown History of Any Multi-Drug Resistant Organisms: None Reported Past Surgical History: Heart Catheterization With Stent Additional Past Surgical History / Comment(s): pain pump with morphine and another medication, colonoscopy. Past Anesthesia/Blood Transfusion Reactions: No Reported Reaction Date of Last Stent Placement:: 1990 Past Psychological History: No Psychological Hx Reported Smoking Status: Former smoker Past Alcohol Use History: None Reported Past Drug Use History: None Reported - Past Family History Father Family Medical History: Cancer Brother(s) Family Medical History: Cancer Medications and Allergies Home Medications Medication Instructions Recorded Confirmed Type Aspirin 81 mg PO DAILY 12/09/13 04/04/19 History Dicyclomine [Bentyl] 10 mg PO TID #60 cap 08/06/14 04/04/19 Rx Omeprazole [PriLOSEC] 20 mg PO DAILY 09/25/14 04/04/19 History Metoprolol Succinate (ER) [Toprol 50 mg PO DAILY 10/29/14 04/04/19 History XL] Cholecalciferol [Vitamin D3] 1,000 units PO DAILY 05/05/15 04/04/19 History Intrathecal Opioid Pain Pump 1 dose INTRATHECA CONTINUOUS 07/28/15 04/04/19 History metFORMIN HCL [Glucophage] 500 mg PO BID 07/28/15 04/04/19 History Hydrochlorothiazide [Hydrodiuril] 25 mg PO DAILY 12/29/15 04/04/19 History Vit C/E/Zn/Coppr/Lutein/Zeaxan 2 cap PO DAILY 02/21/17 04/04/19 History [Preservision Areds 2 Softgel] Amitriptyline HCl [Elavil] 50 mg PO HS 10/31/17 04/04/19 History HYDROmorphone HCL [Dilaudid] 4 mg PO Q8HR PRN #90 tab 10/31/17 04/04/19 Rx Gabapentin [Neurontin] 300 mg PO TID #90 cap 05/08/18 04/04/19 Rx Lisinopril 20 mg PO DAILY 05/08/18 04/04/19 History glipiZIDE [Glucotrol] 5 mg PO AC-BRKFST 03/31/19 04/04/19 History Atorvastatin Calcium [Lipitor] 80 mg PO HS 04/04/19 04/04/19 History Latanoprost/Pf [Latanoprost 0.005% 2 - 3 drop BOTH EYES HS 04/04/19 04/04/19 H istory Eye Drop] Magnesium Oxide [Mag-Ox] 400 mg PO DAILY 04/04/19 04/04/19 History Testosterone Cypionate 200 mg IM Q21D 04/04/19 04/04/19 History [Depo-Testosterone] Allergies Allergy/AdvReac Type Severity Reaction Status Date / Time No Known Allergies Allergy Verified 04/04/19 11:14 Physical Exam Vitals: Vital Signs Temp Pulse Pulse Pulse Resp BP BP 04/05/19 04:35 97.6 F 65 16 118/69 04/04/19 23:35 97.7 F 65 18 109/64 04/04/19 20:10 97.7 F 75 18 117/66 04/04/19 17:00 72 18 104/57 04/04/19 16:30 71 12 105/71 04/04/19 16:00 73 10 L 93/65 04/04/19 15:31 73 8 L 110/75 04/04/19 15:01 76 12 105/68 04/04/19 14:30 75 12 105/68 04/04/19 14:00 75 0 L 110/80 04/04/19 13:30 80 18 89/58 04/04/19 12:30 79 14 97/62 04/04/19 12:00 80 18 103/68 04/04/19 11:30 103/68 04/04/19 11:00 89 16 101/71 04/04/19 10:53 67 04/04/19 10:37 97.4 F L 72 18 116/78 Pulse Ox 04/05/19 04:35 98 04/04/19 23:35 96 04/04/19 20:10 95 04/04/19 17:00 93 L 04/04/19 16:30 93 L 04/04/19 16:00 93 L 04/04/19 15:31 94 L 04/04/19 15:01 99 04/04/19 14:30 94 L 04/04/19 14:00 96 04/04/19 13:30 96 04/04/19 12:30 98 04/04/19 12:00 98 04/04/19 11:30 04/04/19 11:00 85 L 04/04/19 10:53 04/04/19 10:37 91 L Intake and Output 04/04/19 04/05/19 04/05/19 22:59 06:59 14:59 Output Total 400 Balance -400 Output: Urine 400 Other: Voiding Method Toilet Toilet Urinal # Voids 1 Weight 88.2 kg Examination is awake alert oriented comfortable pain-free currently Denies any shortness of breath HEENT exam no JVP no carotid bruit neck is supple no facial asymmetry no lymphadenopathy. Eyes are unremarkable Lungs are clear to auscultation good air entry bilaterally Heart sounds are unremarkable for any murmur rub gallop Abdomen soft nontender no organomegaly status masses Extremity exam was no edema somewhat cool to touch Neurologically awake alert oriented but has generalized weakness Results - Lab Results Most recent lab results Calcium 9.2 mg/dL (8.4-10.2) 04/05/19 06:20 Magnesium 1.5 mg/dL (1.6-2.3) L 04/04/19 11:16 04/05/19 06:20 04/05/19 06:20 Assessment and Plan Assessment: Impression 1. Acute kidney injury secondary to low blood pressure. The cause of the low blood pressures is likely from coronary artery disease with chest pain. This may add a prerenal component from the coronary artery disease and any coronary event. Creatinine went up a baseline 1.5-2.07 and is slightly better 1.79 this morning 2. Chronic kidney disease, stage III with GFR of 47 mL per minute, creatinine of 1.4, secondary to nephrosclerosis with normal urinalysis and ultrasound showing 10.2 and 11.7 cm states 01/14/2019. 3. Mild degree of non-gap acidosis from chronic kidney disease, bicarb is improved from 21-27 over night 4. Chronic low magnesium state on magnesium replacement. Likely is from diuretics no other usual causes. 5. Coronary artery disease with chest pain Recommendation 1. Continue gentle IV hydration, with lactated Ringer's at 60 an hour, and an attempt to maintain blood pressure. 2. Avoid any lowering of blood pressures. For now avoid JOVI inhibitor. 3. Cardiology workup including echocardiogram possible cardiac catheterization. 4. Monitor labs. Thank you for this consultation
[2019-04-05] MEDS ORDERED: ASPIRIN 325 MG TAB PO SCH (09:00)
--- NOTE | 2019-04-05 09:14 | P.CRDCN ---
History of Present Illness Consult date: 04/05/19 Reason for Consult (text): [place] History of present illness: This is an 78-year-old male patient of Dr. VC Lundy with history of coronary artery disease and prior myocardial infarction with PTCA in approximately [address] Sandhu, hypertension, diabetes mellitus type 2, hyperlipidemia, abdominal aortic aneurysm followed by Dr. Aragon, chronic back pain with multiple pain management procedures including pain pump, chronic kidn ey disease stage III under the care of Dr. Kaplan. The patient last saw Dr. Lundy about 3 weeks ago. At that time he did not have any new complaints. He states he has been having intermittent episodes of chest pain for the past week. Chest pain is across to his anterior chest, into left shoulder possibly both shoulders, neck along with diaphoresis, shortness of breath and nausea. Patient is having chronic pain in his right shoulder and he feels this is different from the pain in his left shoulder with chest pain. Patient states he was getting out of the shower yesterday and sometime after he left Dr. Callahan's office he was having episodes of chest pain and came into [facility] emergency center for evaluation. Initial blood pressure 116/78. His EKG was a sinus rhythm with PACs, no acute ST-T wave changes. Chest x-ray showed no acute cardio pulmonary findings. BUN 52 and creatinine 2.07. Troponin 0.068, 0.106, 0.085. Patient was started on heparin drip and admitted to the selective care unit. His last echocardiogram in 2014 revealed EF of 50-55%, mild mitral regurgitation, mild aortic regurgitation. He states he last had a stress test echocardiogram about 3 years ago and these were normal as reported by the patient. At the time of this evaluation, patient is chest pain-free. Review Of Systems: At the time of evaluation: Constitutional: No fever, no chills, no night sweats. No weight change. No weakness, fatigue or lethargy. No daytime sleepiness. EENT: No headache. No loss of Hearing, no ringing in the ears, no dizziness. Lungs: No shortness of breath, cough, no sputum production. No wheezing. Cardiovascular: No chest pain, no lower extremity edema. No palpitations. No paroxysmal nocturnal dyspnea. No orthopnea. No lightheadedness or dizziness. No syncopal episodes. Abdominal: No abdominal pain. No nausea, vomiting. No diarrhea. No constipation. No bloody or tarry stools.. No loss of appetite. Genitourinary: No dysuria, increased frequency, urgency. No urinary retention. Musculoskeletal: No myalgias. No muscle weakness, no gait dysfunction, no frequent falls. No back pain. No neck pain. Integumentary: No wounds, no lesions. No rash or pruritus. No unusual bruising. No change in hair or nails. Neurologic: No aphasia. No facial droop. No change in mentation. No head injury. No headache. No paralysis. No paresthesia. Psychiatric: No depression. No anxiety. No mood swings. Endocrine: No abnormal blood sugars. No weight change. No excessive sweating or thirst. No cold intolerance. No weight change. Afebrile, blood pressure 92/53, heart rate in the 50s and 60s, pulse ox 94% on room air. Gen: This is an 78-year-old male. He is resting in bed and appears to be comfortable and in no acute distress. HEENT: Head is atraumatic, normocephalic. Pupils equal, round. Sclerae is anicteric. NECK: Supple. No JVD. No lymphadenopathy. No thyromegaly. LUNGS: Clear to auscultation. No wheezes or rhonchi. No intercostal retractions. HEART: Regular rate and rhythm. No murmur. ABDOMEN: Soft. Bowel sounds are present. No masses. No tenderness. EXTREMITIES: No pedal edema. No calf tenderness. Dorsalis pedis +2 bilaterally. NEUROLOGICAL: Patient is awake, alert and oriented x3. Cranial nerves 2 through 12 are grossly intact. Assessment: Chest pain with abnormal troponins History of coronary artery disease with previous [place] and PTCA Hypertension Hyperlipidemia Diabetes mellitus type 2 Chronic kidney disease stage III Abdominal aortic aneurysm under the care of Dr. Aragon Chronic pain management with multiple procedures including pain pump Plan: Patient is on Nitropaste which will be transitioned to Imdur 30 mg daily. Obtain 2-D echocardiogram and Doppler study to assess cardiac structure and function Decrease aspirin to 81 mg daily Continue atorvastatin 80 mg at bedtime Hold lisinopril and hydrochlorothiazide until patient evaluated by nephrology Continue Toprol-XL 50 mg Plan to ambulate patient and if he remains chest pain free, patient is cleared for discharge from cardiology. Follow-up with Dr. VC Lundy in the next 1-2 weeks. Further recommendations to follow based upon clinical course. Thank you kindly for this consultation. Nurse practitioner note has been reviewed, I agree with documented findings and plan of care. Patient was seen and examined. Past Medical History Past Medical History: Coronary Artery Disease (CAD), Myocardial Infarction ([place]) Additional Past Medical History / Comment(s): back pain (has morphine pump), tinnitus, head injury, TIA, glasses, anuyrsm left groin Last Myocardial Infarction Date:: unknown History of Any Multi-Drug Resistant Organisms: None Reported Past Surgical History: Heart Catheterization With Stent Additional Past Surgical History / Comment(s): pain pump with morphine and another medication, colonoscopy. Past Anesthesia/Blood Transfusion Reactions: No Reported Reaction Date of Last Stent Placement:: 1990 Past Psychological History: No Psychological Hx Reported Smoking Status: Former smoker Past Alcohol Use History: None Reported Past Drug Use History: None Reported - Past Family History Father Family Medical History: Cancer Brother(s) Family Medical History: Cancer Medications and Allergies Home Medications Medication Instructions Recorded Confirmed Type Aspirin 81 mg PO DAILY 12/09/13 04/04/19 History Dicyclomine [Bentyl] 10 mg PO TID #60 cap 08/06/14 04/04/19 Rx Omeprazole [PriLOSEC] 20 mg PO DAILY 09/25/14 04/04/19 History Metoprolol Succinate (ER) [Toprol 50 mg PO DAILY 10/29/14 04/04/19 History XL] Cholecalciferol [Vitamin D3] 1,000 units PO DAILY 05/05/15 04/04/19 History Intrathecal Opioid Pain Pump 1 dose INTRATHECA CONTINUOUS 07/28/15 04/04/19 History metFORMIN HCL [Glucophage] 500 mg PO BID 07/28/15 04/04/19 History Hydrochlorothiazide [Hydrodiuril] 25 mg PO DAILY 12/29/15 04/04/19 History Vit C/E/Zn/Coppr/Lutein/Zeaxan 2 cap PO DAILY 02/21/17 04/04/19 History [Preservision Areds 2 Softgel] Amitriptyline HCl [Elavil] 50 mg PO HS 10/31/17 04/04/19 History HYDROmorphone HCL [Dilaudid] 4 mg PO Q8HR PRN #90 tab 10/31/17 04/04/19 Rx Gabapentin [Neurontin] 300 mg PO TID #90 cap 05/08/18 04/04/19 Rx Lisinopril 20 mg PO DAILY 05/08/18 04/04/19 History glipiZIDE [Glucotrol] 5 mg PO AC-BRKFST 03/31/19 04/04/19 History Atorvastatin Calcium [Lipitor] 80 mg PO HS 04/04/19 04/04/19 History Latanoprost/Pf [Latanoprost 0.005% 2 - 3 drop BOTH EYES HS 04/04/19 04/04/19 History Eye Drop] Magnesium Oxide [Mag-Ox] 400 mg PO DAILY 04/04/19 04/04/19 History Testosterone Cypionate 200 mg IM Q21D 04/04/19 04/04/19 History [Depo-Testosterone] Allergies Allergy/AdvReac Type Severity Reaction Status Date / Time No Known Allergies Allergy Verified 04/04/19 11:14 Physical Exam Vitals: Vital Signs Temp Pulse Pulse Pulse Resp BP BP 04/05/19 08:00 97.8 F 58 L 18 92/53 04/05/19 04:35 97.6 F 65 16 118/69 04/04/19 23:35 97.7 F 65 18 109/64 04/04/19 20:10 97.7 F 75 18 117/66 04/04/19 17:00 72 18 104/57 04/04/19 16:30 71 12 105/71 04/04/19 16:00 73 10 L 93/65 04/04/19 15:31 73 8 L 110/75 04/04/19 15:01 76 12 105/68 04/04/19 14:30 75 12 105/68 04/04/19 14:00 75 0 L 110/80 04/04/19 13:30 80 18 89/58 04/04/19 12:30 79 14 97/62 04/04/19 12:00 80 18 103/68 04/04/19 11:30 103/68 04/04/19 11:00 89 16 101/71 04/04/19 10:53 67 04/04/19 10:37 97.4 F L 72 18 116/78 Pulse Ox 04/05/19 08:00 94 L 04/05/19 04:35 98 04/04/19 23:35 96 04/04/19 20:10 95 04/04/19 17:00 93 L 04/04/19 16:30 93 L 04/04/19 16:00 93 L 04/04/19 15:31 94 L 04/04/19 15:01 99 04/04/19 14:30 94 L 04/04/19 14:00 96 04/04/19 13:30 96 04/04/19 12:30 98 04/04/19 12:00 98 04/04/19 11:30 04/04/19 11:00 85 L 04/04/19 10:53 04/04/19 10:37 91 L Intake and Output 04/04/19 04/05/19 04/05/19 22:59 06:59 14:59 Output Total 400 Balance -400 Output: Urine 400 Other: Voiding Method Toilet Toilet Urinal # Voids 1 Weight 88.2 kg Results 04/05/19 06:20 04/05/19 06:20 Cardiac Enzymes 04/04/19 04/04/19 04/04/19 Range/Units 11:16 11:16 18:12 AST 23 (17-59) U/L Troponin I 0.068 H* 0.106 H* (0.000-0.034) ng/mL 04/04/19 Range/Units 23:31 AST (17-59) U/L Troponin I 0.085 H* (0.000-0.034) ng/mL Coagulation 04/04/19 04/04/19 04/05/19 Range/Units 11:16 19:21 06:20 PT 10.2 (9.0-12.0) sec APTT 27.3 54.3 H 65.5 H (22.0-30.0) sec Lipids 04/04/19 Range/Units 11:16 Triglycerides 290 H (<150) mg/dL Cholesterol 142 (<200) mg/dL HDL Cholesterol 26 L (40-60) mg/dL CBC 04/04/19 04/05/19 Range/Units 11:16 06:20 WBC 8.4 6.0 (3.8-10.6) k/uL RBC 4.35 3.88 L (4.30-5.90) m/uL Hgb 14.3 12.3 L (13.0-17.5) gm/dL Hct 40.7 36.7 L (39.0-53.0) % Plt Count 274 221 (150-450) k/uL Comprehensive Metabolic Panel 04/04/19 04/05/19 Range/Units 11:16 06:20 Sodium 138 141 (137-145) mmol/L Potassium 4.7 4.4 (3.5-5.1) mmol/L Chloride 104 103 (98-107) mmol/L Carbon Dioxide 21 L 27 (22-30) mmol/L BUN 52 H 47 H (9-20) mg/dL Creatinine 2.07 H 1.79 H (0.66-1.25) mg/dL Glucose 132 H 112 H (74-99) mg/dL Calcium 9.8 9.2 (8.4-10.2) mg/dL AST 23 (17-59) U/L ALT 20 L (21-72) U/L Alkaline Phosphatase 93 (38-126) U/L Total Protein 6.7 (6.3-8.2) g/dL Albumin 3.9 (3.5-5.0) g/dL Current Medications Generic Name Dose Route Start Last Admin Trade Name Jamarcusq PRN Reason Stop Dose Admin Amitriptyline HCl 50 mg 04/04/19 21:00 04/04/19 20:41 Elavil PO 50 mg HS MICHELLE Administration Aspirin 325 mg 04/05/19 09:00 04/05/19 08:48 Aspirin PO 325 mg DAILY MICHELLE Administration Atorvastatin Calcium 80 mg 04/04/19 21:00 04/04/19 20:42 Lipitor PO 80 mg HS MICHELLE Administration Cholecalciferol 1,000 unit 04/05/19 09:00 04/05/19 08:48 Vitamin D3 (25 Mcg = 1000 Iu) PO 1,000 unit DAILY MICHELLE Administration Dicyclomine HCl 10 mg 04/04/19 22:00 04/05/19 08:48 Bentyl PO 10 mg TID MICHELLE Administration Famotidine 20 mg 04/04/19 21:00 04/05/19 08:48 Pepcid IV 20 mg Q12HR MICHELLE Administration Gabapentin 100 mg 04/04/19 22:00 04/05/19 08:48 Neurontin PO 100 mg TID MICHELLE Administration Hydromorphone HCl 4 mg 04/04/19 17:26 04/04/19 23:42 Dilaudid PO 4 mg Q8HR PRN Administration Pain Heparin Sodium/Sodium Chloride 250 mls @ 10 mls/hr 04/04/19 13:15 04/04/19 13:33 25,000 unit/ Sodium Chloride IV 11.306 units/kg/hr .Q24H MICHELLE 10 mls/hr Administration Protocol 11.306 UNITS/KG/HR Lactated Ringer's 1,000 mls @ 60 mls/hr 04/05/19 09:00 Lactated Ringers IV .[id number] [facility] Latanoprost 2 drops 04/04/19 21:00 04/04/19 20:43 Xalatan 0.005% BOTH EYES 2 drops HS MICHELLE Administration Magnesium Oxide 400 mg 04/05/19 09:00 04/05/19 08:48 Mag-Ox PO 400 mg DAILY [facility] Administration Metoprolol Succinate 50 mg 04/05/19 09:00 04/05/19 08:48 Toprol Xl PO 50 mg DAILY [facility] Administration Nitroglycerin 0.4 mg 04/04/19 13:14 Nitrostat SUBLINGUAL Q5M PRN Chest Pain Nitroglycerin 1 inch 04/04/19 18:00 04/05/19 06:50 Nitro-Bid Oint TOPICAL 1 inch Q6HR [facility] Administration Pantoprazole Sodium 40 mg 04/05/19 07:30 04/05/19 06:50 Protonix PO 40 mg AC-BRKFST [facility] Administration Testosterone Cypionate 200 mg 04/25/19 12:00 Depo-Testosterone IM Q21D [facility] Intake and Output 04/04/19 04/05/19 04/05/19 22:59 06:59 14:59 Output Total 400 Balance -400 Output: Urine 400 Other: Voiding Method Toilet Toilet Urinal # Voids 1 Weight 88.2 kg 04/05/19 06:20 04/05/19 06:20
[2019-04-05] MEDS: LACTATED RINGERS 1,000 ML IV SCH (10:27)
[2019-04-05] MEDS: ISOSORBIDE MONONITRATE ER 30 MG TAB.ER.24H PO SCH (10:53)
--- NOTE | 2019-04-05 12:34 | P.PN ---
Subjective Progress Note Date: 04/05/19 Principal diagnosis: Chest pain with elevated troponins Mr. Hanks is an 78-year-old male with a past medical history of coronary artery disease status post a cardiac cath and stent placement, TIA, chronic low back pain coming in with a chief complaint of chest pain. Patient had elevated troponins. He was also having elevated creatinine from his baseline. He is admitted to the cardiac floor for ACS rule out. This morning patient is comfortably lying in bed appears to be no acute distress. Patient states that his chest pain resolved completely. He denies having any difficulty in breathing. On review of systems constitutional he denies having any fevers chills or rigors. Respiratory no cough or difficulty in breathing. GI no abdominal pain nausea vomiting or diarrhea. no dysuria or hematuria. Patient's medications have been reviewed. Objective - Vital Signs Vital signs: Vital Signs Temp 97.8 F 04/05/19 08:00 Pulse 58 L 04/05/19 08:00 Resp 18 04/05/19 08:00 BP 92/53 04/05/19 08:00 Pulse Ox 94 L 04/05/19 08:00 Intake & Output 04/04/19 04/05/19 04/05/19 18:59 06:59 18:59 Intake Total 100 Output Total 400 400 Balance -400 -300 Weight 88.451 kg 88.2 kg Intake: Oral 100 Output: Urine 400 400 Other: Voiding Method Toilet Toilet Urinal Urinal # Voids 1 - Exam GENERAL: Well developed, well nourished. HEENT: Pupils are round and equally reacting to light. EOMI. No scleral icterus. No conjunctival pallor. Normocephalic, atraumatic. No pharyngeal erythema. No thyromegaly. CARDIOVASCULAR: S1 and S2 present. No murmurs, rubs, or gallops. PULMONARY: Chest is clear to auscultation, no wheezing or crackles. ABDOMEN: Soft, nontender, nondistended, normoactive bowel sounds. No palpable organomegaly. MUSCULOSKELETAL: No joint swelling or deformity. EXTREMITIES: No cyanosis, clubbing, or pedal edema. NEUROLOGICAL: Gross neurological examination did not reveal any focal deficits. SKIN: No rashes. No petechiae - Labs CBC & Chem 7: 04/05/19 06:20 04/05/19 06:20 Labs: Abnormal Lab Results - Last 24 Hours (Table) 04/04/19 04/04/19 04/04/19 Range/Units 11:16 18:12 19:21 RBC (4.30-5.90) m/uL Hgb (13.0-17.5) gm/dL Hct (39.0-53.0) % APTT 54.3 H (22.0-30.0) sec BUN (9-20) mg/dL Creatinine (0.66-1.25) mg/dL Glucose (74-99) mg/dL Troponin I 0.106 H* (0.000-0.034) ng/mL Triglycerides 290 H (<150) mg/dL HDL Cholesterol 26 L (40-60) mg/dL 04/04/19 04/05/19 04/05/19 Range/Units 23:31 06:20 06:20 RBC 3.88 L (4.30-5.90) m/uL Hgb 12.3 L (13.0-17.5) gm/dL Hct 36.7 L (39.0-53.0) % APTT 65.5 H (22.0-30.0) sec BUN (9-20) mg/dL Creatinine (0.66-1.25) mg/dL Glucose (74-99) mg/dL Troponin I 0.085 H* (0.000-0.034) ng/mL Triglycerides (<150) mg/dL HDL Cholesterol (40-60) mg/dL 04/05/19 Range/Units 06:20 RBC (4.30-5.90) m/uL Hgb (13.0-17.5) gm/dL Hct (39.0-53.0) % APTT (22.0-30.0) sec BUN 47 H (9-20) mg/dL Creatinine 1.79 H (0.66-1.25) mg/dL Glucose 112 H (74-99) mg/dL Troponin I (0.000-0.034) ng/mL Triglycerides (<150) mg/dL HDL Cholesterol (40-60) mg/dL Assessment and Plan Assessment: Chest pain, rule out cardiac causes Acute kidney injury - prerenal- probably secondary to hypotension History of coronary artery disease status post cardiac cath and stent placement TIA Chronic back pain on morphine pump Chronic kidney disease stage II to 3 Depression PLAN: Patient had serial troponins that are elevated. He was started on heparin that was discontinued by cardiology this morning. He was started on Imdur. Patient's creatinine started trending on with IV fluids. We will hold off on hydrochlorothiazide and lisinopril. Nephrology following the patient closely. Will repeat the lytes for tomorrow morning. Further recommendations to follow depending on the progress of the patient.
[2019-04-05] MEDS: HEPARIN SOD,PORK IN 0.45% NACL 25,000 UNIT in 0.45% NACL 1 250ML.BAG IV SCH (15:16)
--- NOTE | 2019-04-05 15:56 | ECHOF ---
Referral Reason:LVF MEASUREMENTS -------- HEIGHT: 180.3 cm WEIGHT: 88.0 kg BP: 92/53 RVIDd: 3.4 cm (< 3.3) IVSd: 1.4 cm (0.6 - 1.1) LVIDd: 4.5 cm (3.9 - 5.3) LVPWd: 1.6 cm (0.6 - 1.1) IVSs: 1.9 cm LVIDs: 2.9 cm LVPWs: 1.8 cm LA Diam: 3.4 cm (2.7 - 3.8) LAESV Index (A-L): 26.79 ml/m Ao Diam: 3.8 cm (2.0 - 3.7) AV Cusp: 2.2 cm (1.5 - 2.6) MV EXCURSION: 15.271 mm (> 18.000) MV EF SLOPE: 61 mm/s (70 - 150) EPSS: 0.5 cm MV E Saeed: 0.83 m/s MV DecT: 209 ms MV A Saeed: 0.61 m/s MV E/A Ratio: 1.35 AR PHT: 574 ms TAPSE: 10.72 mm FINDINGS -------- Sinus rhythm. This was a technically adequate study. The left ventricular size is normal. There is moderate concentric left ventricular hypertrophy. O verall left ventricular systolic function is low-normal with, an EF between 50 - 55 %. Basal inferi or LV wall motion is hypokinetic. The right ventricle is mildly enlarged. Normal LA size by volume 22+/-6 ml/m2. The right atrium is normal in size. Interatrial and interventricular septum intact. There is mild aortic valve sclerosis. There is [id number] aortic regurgitation. Mild mitral annular calcification present. Mild mitral regurgitation is present. The tricuspid valve appears structurally normal. Trace/mild (physiologic) pulmonic regurgitation. The aortic root is dilated measuring 3.8cm. Normal inferior vena cava with normal inspiratory collapse consistent with estimated right atrial pre ssure of 5 mmHg. There is no pericardial effusion. CONCLUSIONS -------- 1. Sinus rhythm. 2. This was a technically adequate study. 3. The left ventricular size is normal. 4. There is moderate concentric left ventricular hypertrophy. 5. Overall left ventricular systolic function is low-normal with, an EF between 50 - 55 %. 6. Basal inferior LV wall motion is hypokinetic. 7. The right ventricle is mildly enlarged. 8. Normal LA size by volume 22+/-6 ml/m2. 9. The right atrium is normal in size. 10. Interatrial and interventricular septum intact. 11. There is mild aortic valve sclerosis. 12. There is [id number] aortic regurgitation. 13. Mild mitral annular calcification present. 14. Mild mitral regurgitation is present. 15. The tricuspid valve appears structurally normal. 16. Trace/mild (physiologic) pulmonic regurgitation. 17. The aortic root is dilated measuring 3.8cm. 18. Normal inferior vena cava with normal inspiratory collapse consistent with estimated right atrial pressure of 5 mmHg. 19. There is no pericardial effusion. MERCHANDISER: Jerrica Francisco RDCS
[2019-04-05] MEDS: ALPRAZolam 0.25 MG TAB PO PRN (18:44)
[2019-04-05] MEDS: LATANOPROST 0.005% OPHTH DROPS 2.5 ML BTL BOTH EYES SCH (21:16)
[2019-04-05] MEDS: ATORVASTATIN 80 MG TAB PO SCH (21:17)
[2019-04-05] MEDS: AMITRIPTYLINE HCL 50 MG TAB PO SCH (21:17)
[2019-04-06] MEDS: ALPRAZolam 0.25 MG TAB PO PRN (00:22)
[2019-04-06] MEDS: LACTATED RINGERS 1,000 ML IV SCH ×2 (04:46→22:29)
[2019-04-06 05:59] LABS: Basophils % (A) 1 %; Eosinophils # (A) 0.2 k/uL (0-0.7); Eosinophils % (A) 4 %; HGB 11.6 gm/dL (13.0-17.5); Lymphocytes # (A) 1.1 k/uL (1.0-4.8); Lymphocytes % (A) 24 %; MCH 32.2 pg (25.0-35.0); MCHC 34.1 g/dL (31.0-37.0); MCV 94.4 fL (80.0-100.0); Mean Platelet Volume 6.9; Monocytes # (A) 0.3 k/uL (0-1.0); Monocytes % (A) 6 %; Neutrophils # (A) 2.9 k/uL (1.3-7.7); Neutrophils % (A) 65 %; Platelet Count 211 k/uL (150-450); RDW 13.8 % (11.5-15.5); WBC 4.5 k/uL (3.8-10.6)
[2019-04-06 06:14] LABS: Calcium 9.4 mg/dL (8.4-10.2); Potassium 4.1 mmol/L (3.5-5.1)
[2019-04-06] MEDS: PANTOPRAZOLE 40 MG TABLET PO SCH (06:48)
[2019-04-06] MEDS ORDERED: LORazepam 2 MG/ML INJ IV PRN (07:05)
[2019-04-06] MEDS ORDERED: HALOPERIDOL LACTATE 5 MG/ML 1 ML VIAL IVP ONE ×2 (09:05→13:03)
[2019-04-06] MEDS: FAMOTIDINE 20 MG/2 ML VIAL IV SCH ×2 (09:33→21:18)
--- NOTE | 2019-04-06 10:28 | P.PN ---
Subjective Progress Note Date: 04/06/19 Principal diagnosis: This is a 78-year-old male seen in consultation because of acute kidney injury and was somewhat hypotensive with blood pressures in the 80s. He came in with c hest pain. His baseline creatinine is 1.5-, went up to 2 on admission and was 1.79 yesterday and is 1.8 this morning. He has been on a chronic morphine pump for years. Yesterday he had difficulty w ith agitation and confusion and now is on Ativan and Haldol. He is somewhat obtunded arousable. The details of the morphine pump are not available His blood pressure remains somewhat low in the 80s to 120s is afebrile. He is on restraints currently Objective - Vital Signs Vital signs: Vital Signs Temp 97.7 F 04/06/19 00:00 Pulse 63 04/06/19 04:00 Resp 18 04/06/19 04:00 BP 126/64 04/06/19 00:00 Pulse Ox 98 04/05/19 20:00 Intake & Output 04/05/19 04/06/19 04/06/19 18:59 06:59 18:59 Intake Total 350 600 Output Total 400 Balance -50 600 Weight 87.5 kg Intake: Intake, IV Titration 250 600 Amount Heparin Sod,Pork in 0.45% 250 NaCl 25,000 unit In 0.45 % NaCl 1 250ml.bag @ 11. 306 UNITS/KG/HR 10 mls/hr IV .Q24H MICHELLE Rx#: [id number] Lactated Ringers 1,000 ml 600 @ 60 mls/hr IV .[id number] MICHELLE Rx#:[id number] Oral 100 Output: Urine 400 Other: Voiding Method Toilet Toilet Urinal # Voids 4 Examination sleepy but arousable is confused. HEENT exam no JVP neck is supple no facial asymmetry Lungs are clear to auscultation but less than optimal air entry because of the obtundation. Heart sounds are unremarkable for any murmur rub gallop Abdomen soft nontender Extremity exam reveals no edema Neurologically as mentioned above. Moves all his extremities but is obtunded - Labs CBC & Chem 7: 04/06/19 05:11 04/06/19 05:11 Labs: Abnormal Lab Results - Last 24 Hours (Table) 04/06/19 04/06/1904/06/19 Range/Units 05:11 05:11 05:11 RBC 3.60 L (4.30-5.90) m/uL Hgb 11.6 L (13.0-17.5) gm/dL Hct 34.0 L (39.0-53.0) % APTT 53.2 H (22.0-30.0) sec BUN 43 H (9-20) mg/dL Creatinine 1.82 H (0.66-1.25) mg/dL Glucose 147 H (74-99) mg/dL Assessment and Plan Assessment: Impression 1. Acute kidney injury secondary to low blood pressure. The cause of the low blood pressures is likely from coronary artery disease with chest pain. This may add a prerenal component from the coronary artery disease and any coronary event. Creatinine went up a baseline 1.5-2.07 and is slightly better 1.79 yesterday and is is 1.82. this morning. 2. Chronic kidney disease, stage III with GFR of 47 mL per minute, creatinine of 1.4, secondary to nephrosclerosis with normal urinalysis and ultrasound show ing 10.2 and 11.7 cm states 01/14/2019. 3. Mild degree of non-gap acidosis from chronic kidney disease, bicarb is improved from 21-27 4. Chronic low magnesium state on magnesium replacement. Likely is from diuretics no other usual causes. 5. Coronary artery disease with chest pain. Troponins minimally elevated at 0.1 max 6. New obtundation and agitation is morning. Possible morphine pump. Has chronically 7. Admitted chest pain, troponin slightly elevated cardiology is on the case. Echocardiogram shows ejection fraction 50-55% Recommendation 1. Continue gentle IV hydration, with lactated Ringer's at 60 an hour, and an attempt to maintain blood pressure. 2. Avoid any lowering of blood pressures. For now avoid JOVI inhibitor. 3. Cardiology workup including echocardiogram possible cardiac catheterization. 4. Monitor labs. 5. Consider obtaining computed tomography scan to rule out a CVA
[2019-04-06 11:32] LABS: Appearance,Urine Clear (Clear); Bilirubin,Urine Negative (Negative); Blood,Urine Negative (Negative); Color,Urine Light Yellow; Glucose,Urine (UA) Negative (Negative); Ketones,Urine Negative (Negative); Leukocyte Esterase,Urine Negative (Negative); Nitrite,Urine Negative (Negative); PH, Urine 6.5 (5.0-8.0); Protein,Urine Negative (Negative); Specific Gravity,Urine 1.008 (1.001-1.035); Urobilinogen,Urine <2.0 mg/dL (<2.0)
--- NOTE | 2019-04-06 13:15 | P.PN ---
Subjective Progress Note Date: 04/06/19 This is an 78-year-old male patient of Dr. VC Lundy with history of coronary artery disease and prior myocardial infarction with PTCA in approximately [address] Sandhu, hypertension, diabetes mellitus type 2, hyperlipidemia, abdominal aortic aneurysm followed by Dr. Aragon, chronic back pain with multiple pain management procedures including pain pump, chronic kidney disease stage III under the care of Dr. Kaplan. The patient last saw Dr. Lundy about 3 weeks ago. At that time he did not have any new complaints. He states he has been having intermittent episodes of chest pain for the past week. Chest pain is across to his anterior chest, into left shoulder possibly both shoulders, neck along with diaphoresis, shortness of breath and nausea. Patient is having chronic pain in his right shoulder and he feels this is different from the pain in his left shoulder with chest pain. Patient states he was getting out of the shower yesterday and sometime after he left Dr. Callahan's office he was having episodes of chest pain and came into [facility] emergency center for evaluation. Initial blood pressure 116/78. His EKG was a sinus rhythm with PACs, no acute ST-T wave changes. Chest x-ray showed no acute cardio pulmonary findings. BUN 52 and creatinine 2.07. Troponin 0.068, 0.106, 0.085. Patient was started on heparin drip and admitted to the selective care unit. His last echocardiogram in 2014 revealed EF of 50-55%, mild mitral regurgitation, mild aortic regurgitation. He states he last had a stress test echocardiogram about 3 years ago and these were normal as reported by the patient. At the time of this evaluation, patient is chest pain-free. 04/06: During the night, patient became very confused was pulling his IVs out. A Mr. sharp was called this morning and patient has been placed in medical restraints. He has been medicated with Haldol. Repeat lab work reveals BUN 43, creatinine 1.82, hemoglobin 11.6. He has continued on IV fluids. Heparin drip has been discontinued. Prior to mental status changes, patient was doing well after Imdur was started. He was not experiencing any chest pain and was ambulatory. At this time, patient is obtunded and unable to obtain information from the patient himself. 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 Afebrile, blood pressure 116/72, heart rate 87, pulse ox 98% on room air. Gen: This is an 78-year-old male. Patient is in bed in restraints. HEENT: Head is atraumatic, normocephalic. Pupils equal, round. Sclerae is anicteric. NECK: Supple. No JVD. No lymphadenopathy. No thyromegaly. LUNGS: Clear to auscultation. No wheezes or rhonchi. No intercostal retractions. HEART: Regular rate and rhythm. No murmur. ABDOMEN: Soft. Bowel sounds are present. No masses. No tenderness. EXTREMITIES: No pedal edema. No calf tenderness. Dorsalis pedis +2 bilaterally. NEUROLOGICAL: Patient is awake, alert and oriented x3. Cranial nerves 2 through 12 are grossly intact. Assessment: Chest pain with abnormal troponins History of coronary artery disease with previous VT and PTCA Hypertension Hyperlipidemia Diabetes mellitus type 2 Acute kidney injury and chronic kidney disease stage III Abdominal aortic aneurysm under the care of Dr. Aragon Chronic pain management with multiple procedures including pain pump Metabolic encephalopathy of unclear etiology possibly related to his morphine pump Plan: Continue Imdur 30 mg daily and aspirin to 81 mg daily Continue atorvastatin 80 mg at bedtime Hold lisinopril and hydrochlorothiazide due to renal failure Continue Toprol-XL 50 mg Plan to continue Imdur at discharge. Follow-up with Dr. VC Lundy in the next 1-2 weeks. Further recommendations to follow based upon clinical course. Thank you kindly for this consultation. Nurse practitioner note has been reviewed, I agree with documented findings and plan of care. Patient was seen and examined. Objective - Vital Signs Vital signs: Vital Signs Temp 97.6 F 04/06/19 11:56 Pulse 63 04/06/19 11:56 Resp 18 04/06/19 11:56 BP 116/72 04/06/19 11:56 Pulse Ox 98 04/06/19 11:56 Intake & Output 04/05/19 04/06/19 04/06/19 18:59 06:59 18:59 Intake Total 350 600 Output Total 400 Balance -50 600 Weight 87.5 kg Intake: Intake, IV Titration 250 600 Amount Heparin Sod,Pork in 0.45% 250 NaCl 25,000 unit In 0.45 % NaCl 1 250ml.bag @ 11. 306 UNITS/KG/HR 10 mls/hr IV .Q24H MICHELLE Rx#: [id number] Lactated Ringers 1,000 ml 600 @ 60 mls/hr IV .[id number] MICHELLE Rx#:[id number] Oral 100 Output: Urine 400 Other: Voiding Method Toilet Toilet Toilet Urinal # Voids 4 - Labs CBC & Chem 7: 04/06/19 05:11 04/06/19 05:11 Labs: Abnormal Lab Results - Last 24 Hours (Table) 04/06/19 04/06/19 04/06/19 Range/Units 05:11 05:11 05:11 RBC 3.60 L (4.30-5.90) m/uL Hgb 11.6 L (13.0-17.5) gm/dL Hct 34.0 L (39.0-53.0) % APTT 53.2 H (22.0-30.0) sec BUN 43 H (9-20) mg/dL Creatinine 1.82 H (0.66-1.25) mg/dL Glucose 147 H (74-99) mg/dL
--- NOTE | 2019-04-06 13:30 | P.PN ---
Subjective Progress Note Date: 04/06/19 Principal diagnosis: Chest pain with elevated troponins Mr. Hanks is an 78-year-old male with a past medical history of coronary artery disease status post a cardiac cath and stent placement, TIA, chronic low back pain coming in with a chief complaint of chest pain. Patient had elevated troponins. He was also having elevated creatinine from his baseline. He is admitted to the cardiac floor for ACS rule out. On 04/06/2019- last night the patient became very confused and he pulled out 6 IVs. He was given Ativan but patient became agitated. This morning patient had to be placed in 4 point restraints as he was very combative and trying to hit the staff. Patient's is at the bedside and states that he never had these complaints in the past. He does not have history of alcohol intake. The patient's looks like a completely different person compared to yesterday. Patient has a morphine pump in his right hip. He heard a stroke about the morphine pump and states that he had the pump in there for almost 12 years. He knows that he is in the hospital. On asking him how he feels he said he feels crappy. But he does not have any chest pain or difficulty in breathing. He denies having any abdominal pain. He has been tossing and turning in the bed with his restraints in place. Active Medications Amitriptyline HCl (Elavil) 50 mg PO HS [facility] Last Admin: 04/05/19 21:17 Dose: 50 mg Documented by: Aspirin (Aspirin) 81 mg PO DAILY [facility] Atorvastatin Calcium (Lipitor) 80 mg PO HS [facility] Last Admin: 04/05/19 21:17 Dose: 80 mg Documented by: Cholecalciferol (Vitamin D3 (25 Mcg = 1000 Iu)) 1,000 unit PO DAILY [facility] Last Admin: 04/05/19 08:48 Dose: 1,000 unit Documented by: Dicyclomine HCl (Bentyl) 10 mg PO TID [facility] Last Admin: 04/05/19 21:17 Dose: 10 mg Documented by: Famotidine (Pepcid) 20 mg IV Q12HR [facility] Last Admin: 04/06/19 09:33 Dose: 20 mg Documented by: Gabapentin (Neurontin) 100 mg PO TID [facility] Last Admin: 04/05/19 21:17 Dose: 100 mg Documented by: Lactated Ringer's (Lactated Ringers) 1,000 mls @ 60 mls/hr IV .[id number] [facility] Last Admin: 04/06/19 04:46 Dose: 60 mls/hr Documented by: Isosorbide Mononitrate (Imdur) 30 mg PO DAILY [facility] Last Admin: 04/05/19 10:53 Dose: 30 mg Documented by: Latanoprost (Xalatan 0.005%) 2 drops BOTH EYES HS [facility] Last Admin: 04/05/19 21:16 Dose: 2 drops Documented by: Magnesium Oxide (Mag-Ox) 400 mg PO DAILY [facility] Last Admin: 04/05/19 08:48 Dose: 400 mg Documented by: Metoprolol Succinate (Toprol Xl) 50 mg PO DAILY [facility] Last Admin: 04/05/19 08:48 Dose: 50 mg Documented by: Nitroglycerin (Nitrostat) 0.4 mg SUBLINGUAL Q5M PRN PRN Reason: Chest Pain Pantoprazole Sodium (Protonix) 40 mg PO AC-BRKFST [facility] Last Admin: 04/06/19 06:48 Dose: Not Given Documented by: Testosterone Cypionate (Depo-Testosterone) 200 mg IM Q21D [facility] Objective - Vital Signs Vital signs: Vital Signs Temp 97.6 F 04/06/19 11:56 Pulse 63 04/06/19 11:56 Resp 18 04/06/19 11:56 BP 116/72 04/06/19 11:56 Pulse Ox 98 04/06/19 11:56 Intake & Output 04/05/19 04/06/19 04/06/19 18:59 06:59 18:59 Intake Total 350 600 Output Total 400 Balance -50 600 Weight 87.5 kg Intake: Intake, IV Titration 250 600 Amount Heparin Sod,Pork in 0.45% 250 NaCl 25,000 unit In 0.45 % NaCl 1 250ml.bag @ 11. 306 UNITS/KG/HR 10 mls/hr IV .Q24H [facility] Rx#: [id number] Lactated Ringers 1,000 ml 600 @ 60 mls/hr IV .[id number] [facility] Rx#:[id number] Oral 100 Output: Urine 400 Other: Voiding Method Toilet Toilet Toilet Urinal # Voids 4 - Exam GENERAL: Agitated. He is in the 4 point restraints. His IV site is slightly bleeding. HEENT: Pupils are round and equally reacting to light. CARDIOVASCULAR: S1 and S2 present. No murmurs, rubs, or gallops. PULMONARY: Chest is clear to auscultation, no wheezing or crackles. ABDOMEN: Soft, nontender, nondistended, normoactive bowel sounds. No palpable organomegaly. MUSCULOSKELETAL: No joint swelling or deformity. EXTREMITIES: No cyanosis, clubbing, or pedal edema. He has a pump in the right hip area. Site looks okay. No redness or warmth or tenderness. NEUROLOGICAL: Patient is alert. Could not follow commands. He knows that he is in the hospital. Moving all 4 extremities. SKIN: No rashes. No petechiae - Labs CBC & Chem 7: 04/06/19 05:11 04/06/19 05:11 Labs: Abnormal Lab Results - Last 24 Hours (Table) 04/06/19 04/06/19 04/06/19 Range/Units 05:11 05:11 05:11 RBC 3.60 L (4.30-5.90) m/uL Hgb 11.6 L (13.0-17.5) gm/dL Hct 34.0 L (39.0-53.0) % APTT 53.2 H (22.0-30.0) sec BUN 43 H (9-20) mg/dL Creatinine 1.82 H (0.66-1.25) mg/dL Glucose 147 H (74-99) mg/dL Assessment and Plan Assessment: ASSESSMENT Acute encephalopathy - unclear etiology - workup in progress Chest pain, rule out cardiac causes Acute kidney injury - prerenal- probably secondary to hypotension History of coronary artery disease status post cardiac cath and stent placement TIA Chronic back pain on morphine pump Chronic kidney disease stage II to 3 Depression PLAN: Patient started to have his agitation since last night and this morning he is put in a 4 point restraints. He received 2 mg of Haldol around 9:00 this morning . Patient's medications have been reviewed, discontinued Ativan and Dilaudid. Patient had a CT of the head, the patient does not have any focal neurological deficits stress likely that it would be a stroke. We will check compensative metabolic panel. We will check ammonia levels. Patient has a m orphine pump in the right hip, so pain speciality has been consulted to evaluate the pump. Neurology consult has been placed. The treatment plan was discussed with the patient and his at the bedside in detail. Overall prognosis is guarded. Further recommendations depending on the progress of the patient.
[2019-04-06 13:55] LABS: Calcium 9.8 mg/dL (8.4-10.2); Potassium 4.1 mmol/L (3.5-5.1); Total Bilirubin 0.5 mg/dL (0.2-1.3); Total Protein 6.9 g/dL (6.3-8.2)
[2019-04-06] MEDS: DICYCLOMINE 10 MG CAP PO SCH ×3 (14:57→21:18)
[2019-04-06] MEDS: ASPIRIN 81 MG PO SCH (14:57)
[2019-04-06] MEDS: CHOLECALCIFEROL 1,000 UNIT TAB PO SCH (14:57)
[2019-04-06] MEDS: ISOSORBIDE MONONITRATE ER 30 MG TAB.ER.24H PO SCH ×2 (14:57→21:31)
[2019-04-06] MEDS: GABAPENTIN 100 MG CAP PO SCH ×3 (14:57→22:27)
[2019-04-06] MEDS: METOPROLOL SUCCINATE (ER) 50 MG TAB.ER.24H PO SCH (14:58)
[2019-04-06] MEDS: MAGNESIUM OXIDE 400 MG TAB PO SCH (14:58)
--- NOTE | 2019-04-06 20:56 | P.CNNES ---
History of Present Illness Consult date: 04/06/19 Requesting physician: Karen Samaniego Reason for Consult: Altered mental status Chief complaint: Confused since last night History of Present Illness: This is an 78 RH male h/o CAD s/p angioplasty, TIA and CLBP initially admitted for CP. The night of 04/05/19 into 04/06/19, he was noted to be confused and increasingly agitated. He pulled out 6 IVs. He was given alprazolam 0.25mg at 0022 of 04/06/19 and lorazepam at 0722am 04/06/19. He had also been receiving hydromorphone 4mg po on 04/04/19 in addition to having a MSO4 pump in place for CLBP. His benzos and opiate were all discontinued. Son at bedside states that his father is definitely not acting right and that he was perfectly fine before he went into the hospital. No report of head trauma or seizure. Many of his PO meds have had to be held today due to his confusion. Patient's AMS precludes detailed medical history taking. My historical information was obtained by reviewing medical records in EMR and discussing case with patient's son at bedside and patient's RN. Review of Systems Unable to obtain reliably from patient due to AMS Past Medical History Past Medical History: Coronary Artery Disease (CAD), Myocardial Infarction ([place]) Additional Past Medical History / Comment(s): back pain (has morphine pump), tinnitus, head injury, TIA, glasses, anuyrsm left groin Last Myocardial Infarction Date:: unknown History of Any Multi-Drug Resistant Organisms: None Reported Past Surgical History: Heart Catheterization With Stent Additional Past Surgical History / Comment(s): pain pump with morphine and another medication, colonoscopy. Past Anesthesia/Blood Transfusion Reactions: No Reported Reaction Date of Last Stent Placement:: 1990 Past Psychological History: No Psychological Hx Reported Smoking Status: Former smoker Past Alcohol Use History: None Reported Past Drug Use History: None Reported - Past Family History Father Family Medical History: Cancer Brother(s) Family Medical History: Cancer Medications and Allergies Home Medications Medication Instructions Recorded Confirmed Type Aspirin 81 mg PO DAILY 12/09/13 04/04/19 History Dicyclomine [Bentyl] 10 mg PO TID #60 cap 08/06/14 04/04/19 Rx Omeprazole [PriLOSEC] 20 mg PO DAILY 09/25/14 04/04/19 History Metoprolol Succinate (ER) [Toprol 50 mg PO DAILY 10/29/14 04/04/19 History XL] Cholecalciferol [Vitamin D3] 1,000 units PO DAILY 05/05/15 04/04/19 History Intrathecal Opioid Pain Pump 1 dose INTRATHECA CONTINUOUS 07/28/15 04/04/19 History metFORMIN HCL [Glucophage] 500 mg PO BID 07/28/15 04/04/19 History Hydrochlorothiazide [Hydrodiuril] 25 mg PO DAILY 12/29/15 04/04/19 History Vit C/E/Zn/Coppr/Lutein/Zeaxan 2 cap PO DAILY 02/21/17 04/04/19 History [Preservision Areds 2 Softgel] Amitriptyline HCl [Elavil] 50 mg PO HS 10/31/17 04/04/19 History HYDROmorphone HCL [Dilaudid] 4 mg PO Q8HR PRN #90 tab 10/31/17 04/04/19 Rx Gabapentin [Neurontin] 300 mg PO TID #90 cap 05/08/18 04/04/19 Rx Lisinopril 20 mg PO DAILY 05/08/18 04/04/19 History glipiZIDE [Glucotrol] 5 mg PO AC-BRKFST 03/31/19 04/04/19 History Atorvastatin Calcium [Lipitor] 80 mg PO HS 04/04/19 04/04/19 History Latanoprost/Pf [Latanoprost 0.005% 2 - 3 drop BOTH EYES HS 04/04/19 04/04/19 History Eye Drop] Magnesium Oxide [Mag-Ox] 400 mg PO DAILY 04/04/19 04/04/19 History Testosterone Cypionate 200 mg IM Q21D 04/04/19 04/04/19 History [Depo-Testosterone] Allergies Allergy/AdvReac Type Severity Reaction Status Date / Time No Known Allergies Allergy Verified 04/04/19 11:14 Physical Examination - Vital Signs Vital Signs: Vital Signs Temp Pulse Pulse Resp BP Pulse Ox 04/06/19 16:00 97.4 F L 63 70 18 110/78 100 04/06/19 11:56 97.6 F 63 87 18 116/72 98 04/06/19 09:30 97.9 F 75 18 120/65 98 04/06/19 04:00 63 18 04/06/19 00:00 97.7 F 65 18 126/64 Intake and Output 04/06/19 04/06/19 04/06/19 06:59 14:59 22:59 Intake Total 600 Balance 600 Intake: Intake, IV Titration 600 Amount Lactated Ringers 1,000 ml 600 @ 60 mls/hr IV .[id number] MICHELLE Rx#:[id number] Other: Voiding Method Toilet Toilet # Voids 4 2 Weight 87.5 kg Gen NAD Pleasant and cooperative HEENT NCAT Sclera without icterus O/P clear Neck Supple No carotid bruit Cor RRR no m/r/g Lungs CTAB Abd Soft NTND +BS Ext Warm to touch No edema Neuro MS A+Ox3 Able to state his birthdate, year, month, [employer] Cigar Processing correctly Also able to give thumbs up in non-dominant hand without finger agnosia or left-right disorientation. Able to follow 2-step commands Then he starts speaking about his aortic aneurysm, which his son denies patient has. Waxing and waning mental status CN PERRL VFF no APD EOMI no nystagmus or TRACI No facial asymmetry Masseter's symmetric Hearing intact to normal voice bilaterally Speech not dysarthric Equal elevation of palate Tongue midline Sym shrug and SCM bilaterally Motor Normal bulk/tone No pronator drift No tremors or asterixis Strength 5/5 sym throughout Sens Intact to LT x4 No neglect or extinction Coord No dysmetria on FTN bilaterally DTRs 2+/4 sym throughout Toes downgoing bilaterally No clonus at achilles Gait Deferred Results - Laboratory Findings CBC and BMP: 04/06/19 05:11 04/06/19 13:15 Abnormal Lab Findings: Abnormal Labs 04/04/19 04/04/19 04/04/19 11:16 11:16 11:16 RBC Hgb Hct APTT Carbon Dioxide 21 L BUN 52 H Creatinine 2.07 H Glucose 132 H Magnesium 1.5 L ALT 20 L Troponin I 0.068 H* Triglycerides 290 H HDL Cholesterol 26 L 04/04/19 04/04/19 04/04/19 18:12 19:21 23:31 RBC Hgb Hct APTT 54.3 H Carbon Dioxide BUN Creatinine Glucose Magnesium ALT Troponin I 0.106 H* 0.085 H* Triglycerides HDL Cholesterol 04/05/19 04/05/19 04/05/19 06:20 06:20 06:20 RBC 3.88 L Hgb 12.3 L Hct 36.7 L APTT 65.5 H Carbon Dioxide BUN 47 H Creatinine 1.79 H Glucose 112 H Magnesium ALT Troponin I Triglycerides HDL Cholesterol 04/06/19 04/06/19 04/06/19 05:11 05:11 05:11 RBC 3.60 L Hgb 11.6 L Hct 34.0 L APTT 53.2 H Carbon Dioxide BUN 43 H Creatinine 1.82 H Glucose 147 H Magnesium ALT Troponin I Triglycerides HDL Cholesterol 04/06/19 13:15 RBC Hgb Hct APTT Carbon Dioxide BUN 37 H Creatinine 1.69 H Glucose 126 H Magnesium ALT 20 L Troponin I Triglycerides HDL Cholesterol - Diagnostic Findings Additional findings: CT Head ordered and pending Assessment and Plan Assessment: Altered mental status- clinical presentation is consistent with toxic-metabolic encephalopathy, possibly due to benzodiazepine and extra opiate. Cannot exclude sundowning from early onset dementia, which we cannot diagnose in the acute setting and will need to follow up as outpatient Plan: -CT Head ordered and pending -EEG in am -TSH and B12; NH3 <9 -Benzodiazepine and PO opiate discontinued. Pain management consulted as he uses a MSO4 pump. Would also be careful with use of amitriptyline (which he takes as outpatient) due to its anticholinergic properties especially in the elderly -Would recommend outpatient follow-up to r/o early dementia after discharge -d/w patient's son and RN in detail. All questions answered. Thank you for this consultation. Please call with ?. Time with Patient: Greater than 30 (Time spent in direct patient care, greater than 50% of which was spent in [id number] counseling and coordination of care: 70 minutes)
[2019-04-06] MEDS: ATORVASTATIN 80 MG TAB PO SCH (21:18)
[2019-04-06] MEDS: AMITRIPTYLINE HCL 50 MG TAB PO SCH (21:18)
[2019-04-06] MEDS: LATANOPROST 0.005% OPHTH DROPS 2.5 ML BTL BOTH EYES SCH (22:28)
[2019-04-07 06:11] LABS: Basophils % (A) 1 %; Eosinophils # (A) 0.2 k/uL (0-0.7); Eosinophils % (A) 3 %; HCT 34.2 % (39.0-53.0); HGB 11.8 gm/dL (13.0-17.5); Lymphocytes # (A) 0.7 k/uL (1.0-4.8); Lymphocytes % (A) 13 %; MCH 32.3 pg (25.0-35.0); MCHC 34.5 g/dL (31.0-37.0); MCV 93.4 fL (80.0-100.0); Mean Platelet Volume 7.3; Monocytes # (A) 0.3 k/uL (0-1.0); Monocytes % (A) 6 %; Neutrophils # (A) 3.9 k/uL (1.3-7.7); Neutrophils % (A) 75 %; Platelet Count 189 k/uL (150-450); RBC 3.66 m/uL (4.30-5.90); RDW 15.3 % (11.5-15.5); WBC 5.1 k/uL (3.8-10.6)
[2019-04-07 06:59] LABS: Calcium 9.3 mg/dL (8.4-10.2); Potassium 4.5 mmol/L (3.5-5.1)
[2019-04-07] MEDS: DICYCLOMINE 10 MG CAP PO SCH ×3 (09:35→21:00)
[2019-04-07] MEDS: ISOSORBIDE MONONITRATE ER 30 MG TAB.ER.24H PO SCH (09:35)
[2019-04-07] MEDS: FAMOTIDINE 20 MG/2 ML VIAL IV SCH ×2 (09:35→21:00)
[2019-04-07] MEDS: MAGNESIUM OXIDE 400 MG TAB PO SCH (09:35)
[2019-04-07] MEDS: GABAPENTIN 100 MG CAP PO SCH ×3 (09:35→21:00)
[2019-04-07] MEDS: ASPIRIN 81 MG PO SCH (09:35)
[2019-04-07] MEDS: CHOLECALCIFEROL 1,000 UNIT TAB PO SCH (09:35)
[2019-04-07] MEDS: PANTOPRAZOLE 40 MG TABLET PO SCH (09:35)
[2019-04-07] MEDS: ENOXAPARIN 40 MG/0.4 ML SYRINGE SQ SCH (09:35)
[2019-04-07] MEDS: METOPROLOL SUCCINATE (ER) 50 MG TAB.ER.24H PO SCH (09:36)
[2019-04-07] MEDS: LACTATED RINGERS 1,000 ML IV SCH (09:36)
--- NOTE | 2019-04-07 10:34 | CT ---
EXAMINATION TYPE: CT brain wo con DATE OF EXAM: 04/07/2019 COMPARISON: 01/03/2013 INDICATION: confusion DLP: 1099.4 mGycm, Automated exposure control for dose reduction was used. CONTRAST: None CT of the brain is performed utilizing 3 mm thick sections through the posterior fossa and 3 mm thick sections through the remaining calvarium. Study is performed within 24 hours of arrival to the hosp [facility]. No abnormal hyperdensity is present to suggest an acute intracranial hemorrhage. No mass lesion is evident. No acute infarcts are evident. There is periventricular and bilateral basal ganglia and hypodensity, likely on the basis of chronic white matter ischemic changes. Ventricles and sulci are mildly prominent for the patient age. Paranasal sinuses and mastoid air cells within the [id number] are clear. IMPRESSIONS: 1. Stable mild periventricular white matter ischemic changes and mild age-related atrophy. 2. No acute intracranial process.
--- NOTE | 2019-04-07 15:31 | EEG ---
ELECTROENCEPHALOGRAM REPORT DATE OF TESTIN04/07/2019. CLINICAL PROBLEM: Altered mental status. EEG was requested to rule out epileptic activity. TYPE OF RECORDING: Bedside tracing using the 10-20 international electrode placement system. No sedation was given prior to the beginning of this recording. FINDINGS: At the beginning of this recording, there is a symmetric alpha rhythm that attenuates on eye opening and returns upon eye closure. There are scattered EMG as well as eye blink artifacts. Photic stimulation elicits a symmetric driving response. Hyperventilation is not performed in this recording. No definitive sleep architecture is seen. There is no background asymmetry, ictal or interictal patterns appreciated. IMPRESSION: This is a normal awake electroencephalogram without background asymmetry or epileptiform discharges. Clinical correlation is advised. MMODL / IJN: [id number] / MTDD
--- NOTE | 2019-04-07 15:41 | P.PAINCN ---
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 pain pump implanted several years ago, and he was on intrathecal pain therapy, patient was last seen on 04/02/2019 and patient had intrathecal pain pump refill, patient currently on intrathecal morphine sulfate concentration 4 mg per mL and bupivacaine concentration seem milligrams per mL and he is receiving a daily dose of morphine 1.42 mg per day and a daily dose of bupivacaine 1.06 mg per day, patient being on the same dose for several months, and patient was admitted 2 days ago to [facility] because of confusion, and pain management consultation was requested to rule out that this is the etiology secondary to pain medication Past Medical History Past Medical History: Coronary Artery Disease (CAD), Myocardial Infarction (DC) Additional Past Medical History / Comment(s): back pain (has morphine pump), tinnitus, head injury, TIA, glasses, anuyrsm left groin Last Myocardial Infarction Date:: unknown History of Any Multi-Drug Resistant Organisms: None Reported Past Surgical History: Heart Catheterization With Stent Additional Past Surgical History / Comment(s): pain pump with morphine and another medication, colonoscopy. Past Anesthesia/Blood Transfusion Reactions: No Reported Reaction Date of Last Stent Placement:: 1990 Past Psychological History: No Psychological Hx Reported Smoking Status: Former smoker Past Alcohol Use History: None Reported Past Drug Use History: None Reported - Past Family History Father Family Medical History: Cancer Brother(s) Family Medical History: Cancer Medications and Allergies Home Medications Medication Instructions Recorded Confirmed Type Aspirin 81 mg PO DAILY 12/09/13 04/04/19 History Dicyclomine [Bentyl] 10 mg PO TID #60 cap 08/06/14 04/04/19 Rx Omeprazole [PriLOSEC] 20 mg PO DAILY 09/25/14 04/04/19 History Metoprolol Succinate (ER) [Toprol 50 mg PO DAILY 10/29/14 04/04/19 History XL] Cholecalciferol [Vitamin D3] 1,000 units PO DAILY 05/05/15 04/04/19 History Intrathecal Opioid Pain Pump 1 dose INTRATHECA CONTINUOUS 07/28/15 04/04/19 History metFORMIN HCL [Glucophage] 500 mg PO BID 07/28/15 04/04/19 History Hydrochlorothiazide [Hydrodiuril] 25 mg PO DAILY 12/29/15 04/04/19 History Vit C/E/Zn/Coppr/Lutein/Zeaxan 2 cap PO DAILY 02/21/17 04/04/19 History [Preservision Areds 2 Softgel] Amitriptyline HCl [Elavil] 50 mg PO HS 10/31/17 04/04/19 History HYDROmorphone HCL [Dilaudid] 4 mg PO Q8HR PRN #90 tab 10/31/17 04/04/19 Rx Gabapentin [Neurontin] 300 mg PO TID #90 cap 05/08/18 04/04/19 Rx Lisinopril 20 mg PO DAILY 05/08/18 04/04/19 History glipiZIDE [Glucotrol] 5 mg PO AC-BRKFST 03/31/19 04/04/19 History Atorvastatin Calcium [Lipitor] 80 mg PO HS 04/04/19 04/04/19 History Latanoprost/Pf [Latanoprost 0.005% 2 - 3 drop BOTH EYES HS 04/04/19 04/04/19 History Eye Drop] Magnesium Oxide [Mag-Ox] 400 mg PO DAILY 04/04/19 04/04/19 History Testosterone Cypionate 200 mg IM Q21D 04/04/19 04/04/19 History [Depo-Testosterone] Allergies Allergy/AdvReac Type Severity Reaction Status Date / Time No Known Allergies Allergy Verified 04/04/19 11:14 Physical Exam Vitals: Vital Signs Temp Pulse Pulse Resp BP Pulse Ox 04/07/19 11:55 62 16 119/62 98 04/07/19 08:25 97.5 F L 80 16 106/56 93 L 04/07/19 04:00 97.7 F 79 20 90/46 94 L 04/07/19 00:00 97.5 F L 94 96 16 120/56 98 04/06/19 20:00 97.6 F 106 H 101 H 18 176/86 04/06/19 16:00 97.4 F L 63 70 18 110/78 100 Intake and Output 04/07/19 04/07/19 04/07/19 06:59 14:59 22:59 Intake Total 480 420 480 Output Total 500 300 Balance -20 120 480 Intake: Intake, IV Titration 480 480 Amount Lactated Ringers 1,000 ml 480 480 @ 60 mls/hr IV .[id number] [facility] Rx#:[id number] Oral 420 Output: Urine 500 300 Other: Voiding Method Urinal Urinal Physical Examinations : -Constitutiona : Cooperative , not in acute distress . -HEENT : nech : supple , no Lymphadenopathy , normal thyroid size . eyes : no ptosis , no icterus, no photophobia . - neurologic : Cranial nerve II to XII intact , no focal neurological deffecit . -psychatric : alert , oriented X 3 , appropriate affect , intact judgment and insight . -Lymphatic : no Lymphadenopathy . - musculoskeltal : Cervical Spine motor stregnth in the deltoid and biceps, normal right side , normal Left side motor stregnth biceps and the wrist extensors normal right side ,normal left side . motor stregnth in the triceps muscle . normal Right side , normal Left side y. Lumber spine moter stegnth lower extremities ,thigh and legs 5/5 Right side , 5/5 Left side Results CBC & Chem 7: 04/07/19 05:28 04/07/19 05:28 Labs: Abnormal Lab Results - Last 24 Hours (Table) 04/06/19 04/07/19 04/07/19 Range/Units 05:11 05:28 05:28 RBC 3.66 L (4.30-5.90) m/uL Hgb 11.8 L (13.0-17.5) gm/dL Hct 34.2 L (39.0-53.0) % Lymphocytes # 0.7 L (1.0-4.8) k/uL BUN 30 H (9-20) mg/dL Creatinine 1.52 H (0.66-1.25) mg/dL Glucose 114 H (74-99) mg/dL Vitamin B12 188.0 L (200.0-944.0) pg/mL Assessment and Plan Plan: Assessment and plan= failed back surgery syndrome lumbar area Chronic and current use of intrathecal pain medication, Confusion Patient was admitted to [facility] because of confusion , and currently today patient was completely nor mal he has no confusion is alert oriented 3 and he is totally appropriate, and patient had intrathecal pain pump filled last week , and the pain medication was increased 1.5% And this is very unlikely to cause any confusion, most likely that was metabolic cause or medication interactions because this confusion, and we did not start the patient on any new medication, PQRS Measure Charge Sheet PQRS Narrative: Smoking Status Former smoker Narcotic Agreement Date Signed 07/24/18 Blood Pressure [Right Arm] 119/62 Blood Pressure 104/57 Pain Intensity [Right Shoulder 2 ] Pain Intensity [Back] 0 Pain Intensity 0 Pain Scale Used Numeric (1 - 10) Scale Used Numeric (1 - 10) Hx Alcohol Use (MH) Yes Home Medications: Ambulatory Orders Aspirin 81 mg PO DAILY 12/09/13 Dicyclomine [Bentyl] 10 mg PO TID #60 cap 08/06/14 Omeprazole [PriLOSEC] 20 mg PO DAILY 09/25/14 Metoprolol Succinate (ER) [Toprol XL] 50 mg PO DAILY 10/29/14 Cholecalciferol [Vitamin D3] 1,000 units PO DAILY 05/05/15 Intrathecal Opioid Pain Pump 1 dose INTRATHECA CONTINUOUS 07/28/15 metFORMIN HCL [Glucophage] 500 mg PO BID 07/28/15 Hydrochlorothiazide [Hydrodiuril] 25 mg PO DAILY 12/29/15 Vit C/E/Zn/Coppr/Lutein/Zeaxan [Preservision Areds 2 Softgel] 2 cap PO DAILY 02/21/17 Amitriptyline HCl [Elavil] 50 mg PO HS 10/31/17 HYDROmorphone HCL [Dilaudid] 4 mg PO Q8HR PRN #90 tab 10/31/17 Gabapentin [Neurontin] 300 mg PO TID #90 cap 05/08/18 Lisinopril 20 mg PO DAILY 05/08/18 glipiZIDE [Glucotrol] 5 mg PO AC-BRKFST 03/31/19 Atorvastatin Calcium [Lipitor] 80 mg PO HS 04/04/19 Latanoprost/Pf [Latanoprost 0.005% Eye Drop] 2 - 3 drop BOTH EYES HS 04/04/19 Magnesium Oxide [Mag-Ox] 400 mg PO DAILY 04/04/19 Testosterone Cypionate [Depo-Testosterone] 200 mg IM Q21D 04/04/19
[2019-04-07] MEDS ORDERED: HALOPERIDOL LACTATE 5 MG/ML 1 ML VIAL IM PRN (16:49)
--- NOTE | 2019-04-07 16:55 | P.PN ---
Subjective Progress Note Date: 04/07/19 Principal diagnosis: Acute toxic encephalopathy CT Head. EEG. Pain consult. Patient feels better. No new neuro c/o. Objective - Vital Signs Vital signs: Vital Signs Temp 97.5 F L 04/07/19 08:25 Pulse 62 04/07/19 11:55 Resp 16 04/07/19 11:55 BP 119/62 04/07/19 11:55 Pulse Ox 98 04/07/19 11:55 Intake & Output 04/06/19 04/07/19 04/07/19 18:59 06:59 18:59 Intake Total 600 900 Output Total 700 300 Balance -100 600 Intake: Intake, IV Titration 600 480 Amount Lactated Ringers 1,000 ml 600 480 @ 60 mls/hr IV .[id number] [facility] Rx#:[id number] Oral 420 Output: Urine 700 300 Other: Voiding Method Toilet Urinal Urinal # Voids 2 - Exam Gen NAD Pleasant and cooperative MS A+Ox4 Normal speech Able to follow all commands CN II-XII grossly intact no nystagmus Motor Normal bulk/tone No tremors [place] x4 Sens Intact to LT x4 Coord Not tested DTRs 2+/4 sym throughout Gait Deferred - Labs CBC & Chem 7: 04/07/19 05:28 04/07/19 05:28 Labs: Abnormal Lab Results - Last 24 Hours (Table) 04/06/19 04/07/19 04/07/19 Range/Units 05:11 05:28 05:28 RBC 3.66 L (4.30-5.90) m/uL Hgb 11.8 L (13.0-17.5) gm/dL Hct 34.2 L (39.0-53.0) % Lymphocytes # 0.7 L (1.0-4.8) k/uL BUN 30 H (9-20) mg/dL Creatinine 1.52 H (0.66-1.25) mg/dL Glucose 114 H (74-99) mg/dL Vitamin B12 188.0 L (200.0-944.0) pg/mL - Imaging and Cardiology CT head wo cont 04/07/19. Mild atrophy. Small vessel disease. No ICH. Nil acute. EEG 04/07/19. Normal. I have reviewed neuroimages myself. Assessment and Plan Assessment: Altered mental status- clinical presentation is consistent with acute toxic encephalopathy from benzodiazepine and extra opiate, improved. Plan: -CT Head and EEG both unrevealing -TSH and NH3 fine -B12 low. Parenteral replacement started -Benzodiazepine and PO opiate discontinued. Pain management consulted as he uses a MSO4 pump. Would also be careful with use of amitriptyline (which he takes as outpatient) due to its anticholinergic properties especially in the elderly -Would recommend outpatient neuro follow-up to r/o early dementia -d/w patient in detail. All questions answered -No other inpatient neuro recs. May be discharged from acute neuro standpoint. Will revisit patient prn. Please call with new ?. Thank you again for this consultation. Time with Patient: Less than 30 (Time spent in direct patient care, greater than 50% of which was spent in [id number] counseling and coordination of care: 25 minutes)
[2019-04-07] MEDS ORDERED: CYANOCOBALAMIN 1,000 MCG/ML 1 ML VIAL IM ONE (17:00)
--- NOTE | 2019-04-07 17:38 | P.PN ---
Subjective Progress Note Date: 04/07/19 This 78-year-old gentleman with history of ischemic heart disease being followed by VC Lundy, hypertension, diabetes mellitus, hyperlipidemia and also abdominal aortic aneurysm was admitted to the hospital with complaints of intermittent chest pains. His EKG did not reveal any acute changes and troponin values showed inconsistent elevation of the troponins which could be related to his renal failure. However, yesterday patient developed confusion and agitation. He seemed to be much better today. He seemed to go oriented to the place and able to identify his family members. Still not oriented to time. Denies any chest pain. He was seen by neurologist and felt that his confusion could be related to medications. Otherwise patient seemed to be stable. He is off heparin. If he remains stable, patient could be discharged home to have follow- up with Dr. VC Lundy. Echo Cardigan showed an ejection fraction of about 50- 50%. There is hypokinesis of the basal inferior wall Objective - Vital Signs Vital signs: Vital Signs Temp 97.5 F L 04/07/19 08:25 Pulse 62 04/07/19 11:55 Resp 16 04/07/19 11:55 BP 119/62 04/07/19 11:55 Pulse Ox 98 04/07/19 11:55 Intake & Output 04/06/19 04/07/19 04/07/19 18:59 06:59 18:59 Intake Total 600 1140 Output Total 700 300 Balance -100 840 Intake: Intake, IV Titration 600 480 Amount Lactated Ringers 1,000 ml 600 480 @ 60 mls/hr IV .[id number] [facility] Rx#:[id number] Oral 660 Output: Urine 700 300 Other: Voiding Method Toilet Urinal Urinal # Voids 2 1 - Exam GENERAL EXAM: Patient is alert and oriented to the place HEENT: Normocephalic. Normal reaction of pupils, equal size, normal range of extraocular motion. No erythema or exudates in the throat. NECK: No masses, no nuchal rigidity. CHEST: No chest wall deformity. LUNGS: Equal air entry with no crackles or wheeze. HEART: S1 and S2 normal with no audible mumurs or gallops. Regular rhythm, femorals equal on both sides.. ABDOMEN: No hepatosplenomegaly, normal bowel sounds, no guarding or rigidity. SKIN: No rashes CENTRAL NERVOUS SYSTEM: No focal deficits. EXTREMITIES: No cyanosis, clubbing or edema. - Labs CBC & Chem 7: 04/07/19 05:28 04/07/19 05:28 Labs: Abnormal Lab Results - Last 24 Hours (Table) 04/06/19 04/07/19 04/07/19 Range/Units 05:11 05:28 05:28 RBC 3.66 L (4.30-5.90) m/uL Hgb 11.8 L (13.0-17.5) gm/dL Hct 34.2 L (39.0-53.0) % Lymphocytes # 0.7 L (1.0-4.8) k/uL BUN 30 H (9-20) mg/dL Creatinine 1.52 H (0.66-1.25) mg/dL Glucose 114 H (74-99) mg/dL Vitamin B12 188.0 L (200.0-944.0) pg/mL Assessment and Plan (1) Confusion Current Visit: Yes Status: Acute Code(s): R41.0 - DISORIENTATION, UNSPECIFIED SNOMED Code(s): 619542302 (2) CAD (coronary artery disease) Current Visit: No Status: Acute Code(s): I25.10 - ATHSCL HEART DISEASE OF [place] CORONARY ARTERY W/O ANG PCTRS SNOMED Code(s): 47407122 (3) HTN (hypertension) Current Visit: No Status: Acute Code(s): I10 - ESSENTIAL (PRIMARY) H YPERTENSION SNOMED Code(s): 49421335 Plan: At this point patient seemed to be improving. No active symptoms of angina. Echo showed an ejection fraction about 50-55% with segmental wall motion defects involving the inferior wall. He patient remains stable, could be discharged home. Follow-up with Dr. VC Lundy
[2019-04-07] MEDS: ATORVASTATIN 80 MG TAB PO SCH (21:00)
[2019-04-07] MEDS: LATANOPROST 0.005% OPHTH DROPS 2.5 ML BTL BOTH EYES SCH (21:00)
[2019-04-07] MEDS: AMITRIPTYLINE HCL 50 MG TAB PO SCH (21:00)
[2019-04-08 00:53] VITALS: RESP 18
--- NOTE | 2019-04-08 02:14 | P.PN ---
Subjective Progress Note Date: 04/07/19 Principal diagnosis: Chest pain with elevated troponins Mr. Hanks is an 78-year-old male with a past medical history of coronary artery disease status post a cardiac cath and stent placement, TIA, chronic low back pain coming in with a chief complaint of chest pain. Patient had elevated troponins. He was also having elevated creatinine from his baseline. He is admitted to the cardiac floor for ACS rule out. On 04/06/2019- last night the patient became very confused and he pulled out 6 IVs. He was given Ativan but patient became agitated. This morning patient had to be placed in 4 point restraints as he was very combative and trying to hit the staff. Patient's is at the bedside and states that he never had these complaints in the past. He does not have history of alcohol intake. The patient's looks like a completely different person compared to yesterday. Patient has a morphine pump in his right hip. He heard a stroke about the morphine pump and states that he had the pump in there for almost 12 years. He knows that he is in the hospital. On asking him how he feels he said he feels crappy. But he does not have any chest pain or difficulty in breathing. He denies having any abdominal pain. He has been tossing and turning in the bed with his restraints in place. On 04/07/19 - Today the patient is lying comfortably in the bed. He looks like a completely different person. He is off of restraints and does not have a sitter at the bedside. On arousing the patient whether he remembers what happened yesterday, he states that he basically remembers that he was agitated. But he does not remember the details. Patient denies having any chest pain. No difficulty breathing. He states that he is back to his baseline. Pain medicine evaluated the patient yesterday and he was seen by neurology as well. Patient's vitals and medications have been reviewed. His labs from this morning are reviewed. Creatinine is slowly trending down. Active Medications Amitriptyline HCl (Elavil) 50 mg PO [facility] Last Admin: 04/07/19 21:00 Dose: 50 mg Documented by: Aspirin (Aspirin) 81 mg PO DAILY [facility] Last Admin: 04/07/19 09:35 Dose: 81 mg Documented by: Atorvastatin Calcium (Lipitor) 80 mg PO HS [facility] Last Admin: 04/07/19 21:00 Dose: 80 mg Documented by: Cholecalciferol (Vitamin D3 (25 Mcg = 1000 Iu)) 1,000 unit PO DAILY [facility] Last Admin: 04/07/19 09:35 Dose: 1,000 unit Documented by: Dicyclomine HCl (Bentyl) 10 mg PO TID [facility] Last Admin: 04/07/19 21:00 Dose: 10 mg Documented by: Enoxaparin Sodium (Lovenox) 40 mg SQ DAILY [facility] Last Admin: 04/07/19 09:35 Dose: 40 mg Documented by: Famotidine (Pepcid) 20 mg IV Q12HR [facility] Last Admin: 04/07/19 21:00 Dose: 20 mg Documented by: Gabapentin (Neurontin) 100 mg PO TID [facility] Last Admin: 04/07/19 21:00 Dose: 100 mg Documented by: Haloperidol Lactate (Haldol) 1 mg IM Q8HR PRN PRN Reason: Agitation or Acute Psychosis Lactated Ringer's (Lactated Ringers) 1,000 mls @ 60 mls/hr IV .[id number] [facility] Last Admin: 04/07/19 09:36 Dose: 60 mls/hr Documented by: Isosorbide Mononitrate (Imdur) 30 mg PO DAILY [facility] Last Admin: 04/07/19 09:35 Dose: 30 mg Documented by: Latanoprost (Xalatan 0.005%) 2 drops BOTH EYES [facility] Last Admin: 04/07/19 21:00 Dose: 2 drops Documented by: Magnesium Oxide (Mag-Ox) 400 mg PO DAILY [facility] Last Admin: 04/07/19 09:35 Dose: 400 mg Documented by: Metoprolol Succinate (Toprol Xl) 50 mg PO DAILY [facility] Last Admin: 04/07/19 09:36 Dose: 50 mg Documented by: Nitroglycerin (Nitrostat) 0.4 mg SUBLINGUAL Q5M PRN PRN Reason: Chest Pain Pantoprazole Sodium (Protonix) 40 mg PO AC-BRKFST [facility] Last Admin: 04/07/19 09:35 Dose: 40 mg Documented by: Testosterone Cypionate (Depo-Testosterone) 200 mg IM Q21D [facility] Objective - Vital Signs Vital signs: Vital Signs Temp 97.6 F 04/07/19 16:15 Pulse 60 04/07/19 16:15 Resp 16 04/07/19 16:15 BP 108/65 04/07/19 16:15 Pulse Ox 93 L 04/07/19 16:15 Intake & Output 04/06/19 04/07/19 04/07/19 18:59 06:59 18:59 Intake Total 600 1140 Output Total 700 300 Balance -100 840 Intake: Intake, IV Titration 600 480 Amount Lactated Ringers 1,000 ml 600 480 @ 60 mls/hr IV .[id number] [facility] Rx#:[id number] Oral 660 Output: Urine 700 300 Other: Voiding Method Toilet Urinal Urinal # Voids 2 1 - Exam GENERAL: Agitated. He is in the 4 point restraints. His IV site is slightly bleeding. HEENT: Pupils are round and equally reacting to light. CARDIOVASCULAR: S1 and S2 present. No murmurs, rubs, or gallops. PULMONARY: Chest is clear to auscultation, no wheezing or crackles. ABDOMEN: Soft, nontender, nondistended, normoactive bowel sounds. No palpable organomegaly. MUSCULOSKELETAL: No joint swelling or deformity. EXTREMITIES: No cyanosis, clubbing, or pedal edema. NEUROLOGICAL: Patient is awake and alert. Moving all 4 extremities. SKIN: Frail - Labs CBC & Chem 7: 04/07/19 05:28 04/07/19 05:28 Labs: Abnormal Lab Results - Last 24 Hours (Table) 04/06/19 04/07/19 04/07/19 Range/Units 05:11 05:28 05:28 RBC 3.66 L (4.30-5.90) m/uL Hgb 11.8 L (13.0-17.5) gm/dL Hct 34.2 L (39.0-53.0) % Lymphocytes # 0.7 L (1.0-4.8) k/uL BUN 30 H (9-20) mg/dL Creatinine 1.52 H (0.66-1.25) mg/dL Glucose 114 H (74-99) mg/dL Vitamin B12 188.0 L (200.0-944.0) pg/mL Assessment and Plan Assessment: ASSESSMENT Acute encephalopathy - due to medications - resolved Chest pain, rule out cardiac causes Acute kidney injury - prerenal- probably secondary to hypotension History of coronary artery disease status post cardiac cath and stent placement TIA Chronic back pain on morphine pump Chronic kidney disease stage II to 3 Depression PLAN: Patient is back to his baseline. He is not confused. He is awake alert and oriented x2. Most likely the confusion/delirium that he had yesterday was secondary to polypharmacy. He had an echocardiogram done showing an ejection fraction of 50 to 50%. Overall patient seems to be doing much better compared to yesterday. Continue with the current medication regimen. Further recommendations to follow depending on progress of the patient.
[2019-04-08 05:43] VITALS: PULSE 62
[2019-04-08 05:56] LABS: Basophils # (A) 0.1 k/uL (0-0.2); Basophils % (A) 1 %; Eosinophils # (A) 0.1 k/uL (0-0.7); Eosinophils % (A) 3 %; HCT 36.5 % (39.0-53.0); HGB 12.3 gm/dL (13.0-17.5); Lymphocytes # (A) 0.8 k/uL (1.0-4.8); Lymphocytes % (A) 15 %; MCH 31.3 pg (25.0-35.0); MCHC 33.6 g/dL (31.0-37.0); MCV 93.1 fL (80.0-100.0); Monocytes # (A) 0.3 k/uL (0-1.0); Monocytes % (A) 7 %; Neutrophils # (A) 3.7 k/uL (1.3-7.7); Neutrophils % (A) 73 %; Platelet Count 216 k/uL (150-450); RBC 3.92 m/uL (4.30-5.90); RDW 13.5 % (11.5-15.5); WBC 5.1 k/uL (3.8-10.6)
[2019-04-08 06:07] LABS: Calcium 9.5 mg/dL (8.4-10.2); Potassium 4.2 mmol/L (3.5-5.1)
[2019-04-08] MEDS: PANTOPRAZOLE 40 MG TABLET PO SCH (07:09)
[2019-04-08] MEDS: FAMOTIDINE 20 MG/2 ML VIAL IV SCH (08:40)
[2019-04-08] MEDS: ENOXAPARIN 40 MG/0.4 ML SYRINGE SQ SCH (08:41)
[2019-04-08] MEDS: LACTATED RINGERS 1,000 ML IV SCH (08:41)
[2019-04-08] MEDS: GABAPENTIN 100 MG CAP PO SCH (08:41)
[2019-04-08] MEDS: METOPROLOL SUCCINATE (ER) 50 MG TAB.ER.24H PO SCH (08:41)
[2019-04-08] MEDS: CHOLECALCIFEROL 1,000 UNIT TAB PO SCH (08:41)
[2019-04-08] MEDS: ISOSORBIDE MONONITRATE ER 30 MG TAB.ER.24H PO SCH (08:41)
[2019-04-08] MEDS: DICYCLOMINE 10 MG CAP PO SCH (08:41)
[2019-04-08] MEDS: ASPIRIN 81 MG PO SCH (08:41)
[2019-04-08] MEDS: MAGNESIUM OXIDE 400 MG TAB PO SCH (08:41)
[2019-04-08 09:31] VITALS: BP 165/89; TEMP 97.7
--- NOTE | 2019-04-08 10:26 | P.DS ---
Providers Date of admission: 04/06/19 10:34 Attending physician: Cristina Small Consults: 04/04/19 13:15 Consult Physician Urgent Consulting Provider: [facility] Consult Reason/Comments: Unstable angina Do you want consulting provider notified?: Yes 04/04/19 17:35 Consult Physician Urgent Consulting Provider: Loni Kaplan Consult Reason/Comments: roney Do you want consulting provider notified?: Yes 04/06/19 12:59 Consult Physician Stat Consulting Provider: Soloomn Whittington Consult Reason/Comments: Acute confusion/recent pain pump refill Do you want consulting provider notified?: Yes Consult Physician Urgent Consulting Provider: Estrada Ibanez Consult Reason/Comments: confusion Do you want consulting provider notified?: Yes Primary care physician: [facility] Course: 78-year-old male with a past medical history of coronary artery disease status post a cardiac cath and stent placement, TIA, chronic low back pain coming in with a chief complaint of chest pain. Patient had elevated troponins. He was also having elevated creatinine from his baseline. He is admitted to the cardiac floor for ACS rule out. On 04/06/2019- last night the patient became very confused and he pulled out 6 IVs. He was given Ativan but patient became agitated. This morning patient had to be placed in 4 point restraints as he was very combative and trying to hit the staff. Patient's is at the bedside and states that he never had these complaints in the past. He does not have history of alcohol intake. The patient's looks like a completely different person compared to yesterday. Patient has a morphine pump in his right hip. He heard a stroke about the morphine pump and states that he had the pump in there for almost 12 years. He knows that he is in the hospital. On asking him how he feels he said he feels crappy. But he does not have any chest pain or difficulty in breathing. He denies having any abdominal pain. He has been tossing and turning in the bed with his restraints in place. On 04/07/19 - Today the patient is lying comfortably in the bed. He looks like a completely different person. He is off of restraints and does not have a sitter at the bedside. On arousing the patient whether he remembers what happened yesterday, he states that he basically remembers that he was agitated. But he does not remember the details. Patient denies having any chest pain. No difficulty breathing. He states that he is back to his baseline. Pain medicine evaluated the patient yesterday and he was seen by neurology as well. Patient's vitals and medications have been reviewed. His labs from this morning are reviewed. Creatinine is slowly trending down. 04/08/2019 Patient is clinically doing well will be discharged today I discussed him at length regarding Dilaudid Dilaudid the will be discontinued patient has not been taking this medication for last 3 days and patient is not having any withdrawals from opiates at this time. Patient is agreeable to discontinue Dilaudid and patient will be discharged today. Patient will follow benefit from pain management follow-up as an outpatient. Pain management evaluated the patient here no further conditions from their service. PHYSICAL EXAMINATION: GENERAL: The patient is alert and oriented x3, not in any acute distress. Well developed, well nourished. HEENT: Pupils are round and equally reacting to light. EOMI. No scleral icterus. No conjunctival pallor. Normocephalic, atraumatic. No pharyngeal erythema. No thyromegaly. CARDIOVASCULAR: S1 and S2 present. No murmurs, rubs, or gallops. PULMONARY: Chest is clear to auscultation, no wheezing or crackles. ABDOMEN: Soft, nontender, nondistended, normoactive bowel sounds. No palpable organomegaly. MUSCULOSKELETAL: No joint swelling or deformity. EXTREMITIES: No cyanosis, clubbing, or pedal edema. NEUROLOGICAL: Gross neurological examination did not reveal any focal deficits. SKIN: No rashes. 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 Plan - Discharge Summary New Discharge Prescriptions: New Isosorbide Mononitrate ER [Imdur] 30 mg PO DAILY #30 tab.er.24h Continue Aspirin 81 mg PO DAILY Dicyclomine [Bentyl] 10 mg PO TID #60 cap Omeprazole [PriLOSEC] 20 mg PO DAILY Metoprolol Succinate (ER) [Toprol XL] 50 mg PO DAILY Cholecalciferol [Vitamin D3 (25 Mcg = 1000 Iu)] 1,000 units PO DAILY Intrathecal Opioid Pain Pump 1 dose INTRATHECA CONTINUOUS Vit C/E/Zn/Coppr/Lutein/Zeaxan [Preservision Areds 2 Softgel] 2 cap PO DAILY Amitriptyline HCl [Elavil] 50 mg PO HS Gabapentin [Neurontin] 300 mg PO TID #90 cap glipiZIDE [Glucotrol] 5 mg PO AC-BRKFST Latanoprost/Pf [Latanoprost 0.005% Eye Drop] 2 - 3 drop BOTH EYES HS Atorvastatin Calcium [Lipitor] 80 mg PO HS Magnesium Oxide [Mag-Ox] 400 mg PO DAILY Testosterone Cypionate [Depo-Testosterone] 200 mg IM Q21D Discontinued metFORMIN HCL [Glucophage] 500 mg PO BID Hydrochlorothiazide [Hydrodiuril] 25 mg PO DAILY HYDROmorphone HCL [Dilaudid] 4 mg PO Q8HR PRN #90 tab PRN Reason: Pain Lisinopril 20 mg PO DAILY Discharge Medication List Aspirin 81 mg PO DAILY 12/09/13 [History] Dicyclomine [Bentyl] 10 mg PO TID #60 cap 08/06/14 [Rx] Omeprazole [PriLOSEC] 20 mg PO DAILY 09/25/14 [History] Metoprolol Succinate (ER) [Toprol XL] 50 mg PO DAILY 10/29/14 [History] Cholecalciferol [Vitamin D3 (25 Mcg = 1000 Iu)] 1,000 units PO DAILY 05/05/15 [History] Intrathecal Opioid Pain Pump 1 dose INTRATHECA CONTINUOUS 07/28/15 [History] Vit C/E/Zn/Coppr/Lutein/Zeaxan [Preservision Areds 2 Softgel] 2 cap PO DAILY 02/21/17 [History] Amitriptyline HCl [Elavil] 50 mg PO HS 10/31/17 [History] Gabapentin [Neurontin] 300 mg PO TID #90 cap 05/08/18 [Rx] glipiZIDE [Glucotrol] 5 mg PO AC-BRKFST 03/31/19 [History] Atorvastatin Calcium [Lipitor] 80 mg PO HS 04/04/19 [History] Latanoprost/Pf [Latanoprost 0.005% Eye Drop] 2 - 3 drop BOTH EYES HS 04/04/19 [History] Magnesium Oxide [Mag-Ox] 400 mg PO DAILY 04/04/19 [History] Testosterone Cypionate [Depo-Testosterone] 200 mg IM Q21D 04/04/19 [History] Isosorbide Mononitrate ER [Imdur] 30 mg PO DAILY #30 tab.er.24h 04/08/19 [Rx] Follow up Appointment(s)/Referral(s): Marybeth Caputo MD [STAFF PHYSICIAN] - 04/18/19 9:30 am Solomon Whittington MD [STAFF PHYSICIAN] - 04/14/19 11:30 am [facility], [NON-STAFF] - Boom Cooper DO [Primary Care Provider] - 04/14/19 2:00 pm Olman Lundy MD [STAFF PHYSICIAN] - 04/15/19 4:00 pm (At [facility]) Patient Instructions/Handouts: Angina (DC), Encephalopathy (DC) Discharge Disposition: HOME WITH HOME HEALTH SERVICES
--- NOTE | 2019-04-08 18:20 | P.PN ---
Subjective Progress Note Date: 04/08/19 This 78-year-old gentleman with history of ischemic heart disease being followed by VC Lundy, hypertension, diabetes mellitus, hyperlipidemia and also abdominal aortic aneurysm was admitted to the hospital with complaints of intermittent chest pains. His EKG did not reveal any acute changes and troponin values showed inconsistent elevation of the troponins which could be related to his renal failure. However, yesterday patient developed confusion and agitation. He seemed to be much better today. He seemed to go oriented to the place and able to identify his family members. Still not oriented to time. Denies any chest pain. He was seen by neurologist and felt that his confusion could be related to medications. Otherwise patient seemed to be stable. He is off heparin. If he remains stable, patient could be discharged home to have follow- up with Dr. VC Lundy. Echo Cardigan showed an ejection fraction of about 50- 50%. There is hypokinesis of the basal inferior wall. 04/08/2019: This patient has remained stable. He is much more oriented. He denied any chest pain or shortness of breath. His creatinine is about 1.6. Lungs are clear. Heart is regular. Patient is being discharged home. Follow- up with Dr. VC Lundy. Objective - Vital Signs Vital signs: Vital Signs Temp 97.7 F 04/08/19 08:00 Pulse 62 04/08/19 08:00 Resp 18 04/08/19 08:00 BP 165/89 04/08/19 08:00 Pulse Ox 96 04/08/19 08:00 Intake & Output 04/07/19 04/08/19 04/08/19 18:59 06:59 18:59 Intake Total 1140 120 240 Output Total 300 1000 500 Balance 840 -880 -260 Weight 87.2 kg Intake: Intake, IV Titration 480 120 Amount Lactated Ringers 1,000 ml 480 120 @ 60 mls/hr IV .[id number] [facility] Rx#:[id number] Oral 660 240 Output: Urine 300 1000 500 Other: Voiding Method Urinal Bedside Commode Bedside Commode Urinal Urinal # Voids 1 1 - Exam GENERAL EXAM: Patient is alert and oriented to the place HEENT: Normocephalic. Normal reaction of pupils, equal size, normal range of extraocular motion. No erythema or exudates in the throat. NECK: No masses, no nuchal rigidity. CHEST: No chest wall deformity. LUNGS: Equal air entry with no crackles or wheeze. HEART: S1 and S2 normal with no audible mumurs or gallops. Regular rhythm, femorals equal on both sides.. ABDOMEN: No hepatosplenomegaly, normal bowel sounds, no guarding or rigidity. SKIN: No rashes CENTRAL NERVOUS SYSTEM: No focal deficits. EXTREMITIES: No cyanosis, clubbing or edema. - Labs CBC & Chem 7: 04/08/19 05:17 04/08/19 05:17 Labs: Abnormal Lab Results - Last 24 Hours (Table) 04/08/19 04/08/19 Range/Units 05:17 05:17 RBC 3.92 L (4.30-5.90) m/uL Hgb 12.3 L (13.0-17.5) gm/dL Hct 36.5 L (39.0-53.0) % Lymphocytes # 0.8 L (1.0-4.8) k/uL BUN 26 H (9-20) mg/dL Creatinine 1.66 H (0.66-1.25) mg/dL Glucose 123 H (74-99) mg/dL Assessment and Plan (1) Confusion Status: Acute Code(s): R41.0 - DISORIENTATION, UNSPECIFIED SNOMED Code(s): 743739358 (2) CAD (coronary artery disease) Status: Acute Code(s): I25.10 - ATHSCL HEART DISEASE OF [place] CORONARY ARTERY W/O ANG PCTRS SNOMED Code(s): 19704307 (3) HTN (hypertension) Status: Acute Code(s): I10 - ESSENTIAL (PRIMARY) HYPERTENSION SNOMED Code(s): 97458274 Plan: Patient is clinically stable. Tolerating activity. No recurrence of chest pain. Being discharged home. Follow-up with Dr. THOMAS
--- NOTE | 2019-04-08 20:26 | PN ---
PROGRESS NOTE Patient is seen for followup for acute kidney injury. Renal function has improved, creatinine staying about 1.5 to 1.6 mg/dL, which is down from 2.0 on initial admission. Patient denies any significant complaints. He will be discharged home today. On examination this morning, blood pressure 165/89, heart rate 91 per minute. He is afebrile. EXAMINATION OF THE HEART: S1 and S2. EXAMINATION OF LUNGS: Bilateral breath sounds are heard. ABDOMEN: Soft, non-tender. Examination of lower extremities shows no significant edema. Labs show sodium 138, potassium 4.2, BUN 26, serum creatinine 1.6, hemoglobin 12.3 g/dL. ASSESSMENT: 1. Acute kidney injury associated with hypotension and hypoperfusion, currently improved. 2. Chronic kidney disease stage III, GFR about 47 mL/minute. Baseline creatinine about 1.4. Etiology nephrosclerosis. 3. Mild metabolic acidosis, improved. 4. Chest pain, resolved. Troponin was borderline elevated. PLAN: Patient is stable for discharge from nephrology standpoint. Follow up as outpatient for CKD. MMODL / IJN: [id number] /
[2019-04-25] MEDS ORDERED: TESTOSTERONE CYPIONATE 200 MG/ML 1ML VIAL IM SCH (12:00)
== END 2019-04-08 12:11 | disposition home health service (06) | DRG 92 ==
LOC: EC 10:35 → 3SCARD 13:24 → OBSVTOIN 04-06 10:34
PROVIDERS: ADMIT Internal Medicine; ATTEND Internal Medicine
DX: G92 Toxic encephalopathy (principal); E87.2 Acidosis; N17.9 Acute kidney failure, unspecified; I95.9 Hypotension, unspecified; E11.22 Type 2 diabetes mellitus with diabetic chronic kidney disease; E83.42 Hypomagnesemia; I13.10 Hypertensive heart and chronic kidney disease without heart failure, with stage 1 through stage 4 chronic kidney disease, or unspecified chronic kidney disease; N18.3 Chronic kidney disease, stage 3 (moderate); E78.00 Pure hypercholesterolemia, unspecified; E78.5 Hyperlipidemia, unspecified; F32.9 Major depressive disorder, single episode, unspecified; G89.29 Other chronic pain; I25.10 Atherosclerotic heart disease of native coronary artery without angina pectoris; I25.2 Old myocardial infarction; I71.4 Abdominal aortic aneurysm, without rupture; T42.4X5A Adverse effect of benzodiazepines, initial encounter; H93.19 Tinnitus, unspecified ear; M25.511 Pain in right shoulder; M54.5 Low back pain; R77.9 Abnormality of plasma protein, unspecified; R07.9 Chest pain, unspecified; R45.1 Restlessness and agitation; T40.2X5A Adverse effect of other opioids, initial encounter; T50.2X5A Adverse effect of carbonic-anhydrase inhibitors, benzothiadiazides and other diuretics, initial encounter; I08.0 Rheumatic disorders of both mitral and aortic valves; Z78.1 Physical restraint status; Z79.82 Long term (current) use of aspirin; Z79.84 Long term (current) use of oral hypoglycemic drugs; Z79.891 Long term (current) use of opiate analgesic; Z79.899 Other long term (current) drug therapy; Z86.73 Personal history of transient ischemic attack (TIA), and cerebral infarction without residual deficits; Z87.891 Personal history of nicotine dependence; Z95.5 Presence of coronary angioplasty implant and graft; Z80.9 Family history of malignant neoplasm, unspecified
CPT/HCPCS: 36415; 70450; 71046; 80048; 80053; 80061; 81003; 82140; 82607; 83735; 84443; 84484; 85025; 85610; 85730; 93005; 93306; 95816; 96361; 96365; 96366; 96376; 99285

== ENCOUNTER → 2019-04-14 | Outpatient (CLI) | payer MEDICARE, BC ==
[2019-04-14 12:22] VITALS: BP 193/89; PULSE 70; RESP 16
--- NOTE | 2019-04-15 13:38 | P.PAINPG ---
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 About one week ago, he was admitted to the hospital for confusion, at that time pain management was consulted and ruled out the intrathecal pump as a cause for confusion, after pump interrogation. He returns today for follow-up. His current dose of morphine is 1.42 mg per day. This was increased at the last pump refill by 1.5% on 04/02/2019. The patient reports that his pain is 4/10. He since being discharged from the hospital, he has weaned off Dilaudid. He was taking 4 mg 3 times a day when necessary. He would like a replacement medication for breakthrough pain only, and does not want to be on Dilaudid again. He reports that he is been taking Tylenol extra strength 2 tablets every 4 hours as well. He also reports that while he was in the hospital, he was restrained to the bed, and has open sores on bilateral shins from this. He is very displeased with this. Review of systems is negative for chest pain, shortness of breath, new onset weakness, numbness/tingling, abdominal pain, malaise, fever, night sweats, chills, homicidal or suicidal ideation, or bowel or bladder incontinence. Physical exam: Vitals: Reviewed in EMR GENERAL: Well appearing, in no acute distress PSYCH: Mood and affect is appropriate. Awake, alert, and oriented SKIN: Skin color, texture, turgor normal, small open sores present on bilateral shins. HEENT: Normocephalic, atraumatic. EOM intact CV: No pedal edema RESP: Respirations are unlabored, no audible wheezing GI: Abdomen non-distended MUSCULOSKELETAL: Bilateral lower extremity strength is normal and symmetric. No atrophy or tone abnormalities are noted. Extremities: Peripheral joint ROM is full and pain free without obvious instability or laxity in all four extremities. No edema or skin discolorations noted. NEUR: Bilateral lower extremity coordination and muscle stretch reflexes are physiologic and symmetric. Negative clonus bilaterally. No loss of sensation is noted. Assessment: Failed back surgery syndrome Presence of intrathecal pump and opioid dependence Plan: Medications: No changes were made to the intrathecal pump today. Since patient has discontinued Dilaudid, we discussed a replacement with oxycodone 10 mg. I advised him to take this only on an as-needed basis. I gave him a prescription for 30 tablets and informed him that this should last until his next pump refill, which is in 2.5 months. I did advise him that he is taking an extremely high amount of Tylenol per day and that this will likely eventually lead to liver toxicity and failure. I told him that the maximum dose of Tylenol that he can take is 3 g per day, which is 6 extra strength tablets. He expressed understanding. Follow-up: For pump refill in June PQRS Measure Charge Sheet Measure #130: Documentation of Current Meds in Medical Chart: Patient's medications documented in chart Measure #226: Tobacco Use: Screen & Cessation Intervention: Pt not a tobacco user Measure #111: Pneumonia Vaccination: Pneumococcal vaccine administered or previously received Measure #47: Advance Care Plan: Advance care planning discussed & documented, pt chose/unable to give Measure #412: Opioid Treatment Agreement: Documented signed opioid trtmnt agreemnt min once during opioid trtmnt Measure #408: Opioid Therapy Follow-up Evaluation: Patient had f/u eval minimum every 3 months during opioid therapy Measure #317: Preventitive Care & Scrn High Bld Press & F/U: Pre-hypertensive or hypertensive BP documented, pt will f/u with PCP Measure #128: Body Mass Index (BMI) Screening & Follow-up: BMI documented within normal parameters Measure #131: Pain Assessment & Follow-up: Pain positive & plan documented, Follow-up scheduled Measure #431: Unhealthy Alcohol Use Preventative Care & Scrn: Patient not identified as an unhealthy alcohol user PQRS Narrative: Smoking Status Former smoker Narcotic Agreement Date Signed 07/24/18 Pain Intensity [Lower Back] 5 Scale Used Numeric (1 - 10) Hx Alcohol Use (MH) No Home Medications: Ambulatory Orders Aspirin 81 mg PO DAILY 12/09/13 Dicyclomine [Bentyl] 10 mg PO TID #60 cap 08/06/14 Omeprazole [PriLOSEC] 20 mg PO DAILY 09/25/14 Metoprolol Succinate (ER) [Toprol XL] 50 mg PO DAILY 10/29/14 Cholecalciferol [Vitamin D3 (25 Mcg = 1000 Iu)] 1,000 units PO DAILY 05/05/15 Intrathecal Opioid Pain Pump 1 dose INTRATHECA CONTINUOUS 07/28/15 Vit C/E/Zn/Coppr/Lutein/Zeaxan [Preservision Areds 2 Softgel] 2 cap PO DAILY 02/21/17 Amitriptyline HCl [Elavil] 50 mg PO HS 10/31/17 Gabapentin [Neurontin] 300 mg PO TID #90 cap 05/08/18 glipiZIDE [Glucotrol] 5 mg PO AC-BRKFST 03/31/19 Latanoprost/Pf [Latanoprost 0.005% Eye Drop] 2 - 3 drop BOTH EYES HS 04/04/19 Magnesium Oxide [Mag-Ox] 400 mg PO DAILY 04/04/19 Testosterone Cypionate [Depo-Testosterone] 200 mg IM Q21D 04/04/19 Isosorbide Mononitrate ER [Imdur] 30 mg PO DAILY #30 tab.er.24h 04/08/19 Acetaminophen [Tylenol Extra Strength] 500 mg PO DAILY PRN 04/14/19 Controlled Substance Measures - Controlled Substance Measures Is patient prescribed a controlled substance at discharge?: Yes When asked, does pt state using other controlled substances?: No If prescribed controlled substance>3 days was MAPS reviewed?: Yes If Rx opioid, was Start Talking consent form obtained?: Yes If opioid is for acute pain is fill amount 7 days or less?: No Was information provided regarding opioid addiction?: Yes
== END ==
LOC: PNWHC3 11:22
PROVIDERS: ATTEND Anesthesiology
DX: M96.1 Postlaminectomy syndrome, not elsewhere classified (principal); F11.20 Opioid dependence, uncomplicated; Z96.89 Presence of other specified functional implants; Z87.891 Personal history of nicotine dependence; Z79.82 Long term (current) use of aspirin; Z79.899 Other long term (current) drug therapy; Z79.84 Long term (current) use of oral hypoglycemic drugs
CPT/HCPCS: 99211

== ENCOUNTER → 2019-04-21 | Outpatient (CLI) | payer MEDICARE, BC ==
--- NOTE | 2019-04-21 12:07 | XR ---
EXAMINATION TYPE: XR shoulder complete RT DATE OF EXAM: 04/21/2019 CLINICAL HISTORY: Right pain with no known injury. TECHNIQUE: Three views of the right shoulder are obtained. COMPARISON: None. FINDINGS: There is no acute fracture/dislocation evident in the right shoulder. The acromioclavicul ar and glenohumeral joint spaces appear aligned. There is mild acromioclavicular arthropathy with sma ll marginal osteophytes. The visualized ribs are intact and unremarkable. IMPRESSION: 1. No acute fracture or dislocation in the right shoulder. 2. Mild acromioclavicular arthropathy.
== END | disposition home or self-care (01) ==
LOC: RADXRYALE 11:51
PROVIDERS: ATTEND Family Medicine
DX: M19.011 Primary osteoarthritis, right shoulder (principal)

== ENCOUNTER 2019-06-08 14:59 | Emergency (ER) | payer MEDICARE, BC ==
[2019-06-08 15:13] VITALS: RESP 18
--- NOTE | 2019-06-08 15:20 | ED ---
Fall HPI - General Chief Complaint: Fall Stated Complaint: FALL Time Seen by Provider: 06/08/19 15:00 Source: patient, EMS, RN notes reviewed Mode of arrival: EMS - History of Present Illness Initial Comments: This is a 78-year-old male who was on a ladder straining Lasix when the ladder slipped off the patient fell backwards onto grass. He fell approximately 10 feet the ladder then fell on top of him. He denies any loss of consciousness he does have some facial pain who is brought in by [facility] with cervical collar he does complain some left shoulder pain no other new pain he is a chronic pain patient with a pain pump. No neuro deficits are noted. Modifying factors this time he does state his last tetanus shot was about 45 years ago. MD Complaint: fall - Related Data Home Medications Medication Instructions Recorded Confirmed Aspirin 81 mg PO DAILY 12/09/13 04/14/19 Omeprazole [PriLOSEC] 20 mg PO DAILY 09/25/14 04/14/19 Metoprolol Succinate (ER) [Toprol 50 mg PO DAILY 10/29/14 04/14/19 XL] Cholecalciferol [Vitamin D3 (25 1,000 units PO DAILY 05/05/15 04/14/19 Mcg = 1000 Iu)] Intrathecal Opioid Pain Pump 1 dose INTRATHECA CONTINUOUS 07/28/15 04/14/19 Vit C/E/Zn/Coppr/Lutein/Zeaxan 2 cap PO DAILY 02/21/17 04/14/19 [Preservision Areds 2 Softgel] Amitriptyline HCl [Elavil] 50 mg PO HS 10/31/17 04/14/19 glipiZIDE [Glucotrol] 5 mg PO AC-BRKFST 03/31/19 04/14/19 Latanoprost/Pf [Latanoprost 0.005% 2 - 3 drop BOTH EYES HS 04/04/19 04/14/19 Eye Drop] Magnesium Oxide [Mag-Ox] 400 mg PO DAILY 04/04/19 04/14/19 Testosterone Cypionate 200 mg IM Q21D 04/04/19 04/14/19 [Depo-Testosterone] Acetaminophen [Tylenol Extra 500 mg PO DAILY PRN 04/14/19 04/14/19 Strength] Previous Rx's Medication Instructions Recorded Dicyclomine [Bentyl] 10 mg PO TID #60 cap 08/06/14 Gabapentin [Neurontin] 300 mg PO TID #90 cap 05/08/18 Isosorbide Mononitrate ER [Imdur] 30 mg PO DAILY #30 tab.er.24h 04/08/19 Hydrocodone/Acetaminophen [[place] 1 each PO Q6HR PRN #20 tab 06/08/19 5-325] Ibuprofen 800 mg PO Q6HR PRN #20 tablet 06/08/19 Allergies Allergy/AdvReac Type Severity Reaction Status Date / Time No Known Allergies Allergy Verified 04/09/19 09:19 Review of Systems ROS Statement: Those systems with pertinent positive or pertinent negative responses have been documented in the HPI. ROS Other: All systems not noted in ROS Statement are negative. Past Medical History Past Medical History: Coronary Artery Disease (CAD), Chest Pain / Angina, CVA/TIA, Diabetes Mellitus, Eye Disorder, GERD/Reflux, Hypertension, Myocardial Infarction (PR), Osteoarthritis (OA), Renal Disease Additional Past Medical History / Comment(s): low back pain that radiates to leg s.,(has morphine pump), tinnitus, head injury, TIA, anurysm left groin, glaucoma and macular degeneration, [place]- has tubes in his ears., frequent diarrhea., chronic kidney disease., hospitalized at [facility] 04/04/19 to 04/08/18 with chest pain., uses cane. Last Myocardial Infarction Date:: unknown History of Any Multi-Drug Resistant Organisms: Unobtainable Past Surgical History: Back Surgery, Heart Catheterization With Stent Additional Past Surgical History / Comment(s): Back Surgery x5 ([place])., pain pump, colonoscopy., multiple tubes in ears. Past Anesthesia/Blood Transfusion Reactions: No Reported Reaction Date of Last Stent Placement:: 1990 Past Psychological History: Anxiety, Depression Smoking Status: Former smoker Past Alcohol Use History: None Reported Past Drug Use History: None Reported - Past Family History Father Family Medical History: Cancer Brother(s) Family Medical History: Cancer General Exam - General Exam Comments Initial Comments: Is a well-developed well-nourished awake alert oriented times female he does demonstrate a Robinson Coma Scale of 15 Limitations: no limitations General appearance: alert, anxious Head exam: Present: normocephalic, normal inspection, other (Patient seen over t he right side of the nose no definite step-off or crepitation no blood from the nares. Tenderness palpation) Eye exam: Present: normal appearance, PERRL, EOMI. Absent: scleral icterus, conjunctival injection, periorbital swelling ENT exam: Present: normal exam, mucous membranes moist Neck exam: Present: normal inspection, full ROM, other (No tenderness palpation cervical collar was removed.). Absent: tenderness, meningismus, lymphadenopathy Respiratory exam: Present: normal lung sounds bilaterally, other (Tennis palpation of left scapula. No definite step-off or crepitation). Absent: resp iratory distress, wheezes, rales, rhonchi, stridor Cardiovascular Exam: Present: regular rate, normal rhythm, normal heart sounds. Absent: systolic murmur, diastolic murmur, rubs, gallop, clicks GI/Abdominal exam: Present: soft, normal bowel sounds. Absent: distended, tenderness, guarding, rebound, rigid Extremities exam: Present: normal inspection, full ROM, normal capillary refill. Absent: tenderness, pedal edema, joint swelling, calf tenderness Back exam: Present: normal inspection Neurological exam: Present: alert, oriented X3, CN II-XII intact Psychiatric exam: Present: normal affect, normal mood Skin exam: Present: warm, dry, intact, normal color. Absent: rash Course Vital Signs 06/08/19 15:06 Temperature 97.9 F Pulse Rate 71 Respiratory 18 Rate Blood Pressure 185/89 O2 Sat by Pulse 91 L Oximetry Medical Decision Making - Medical Decision Making I did discuss findings with patient and his family. Patient be discharged with appropriate pain medication he does have her first rib fracture on the left. He did recently have 3 rib fractures in the last year or 2 he states that he is for my with rib fractures and care. - Lab Data Result diagrams: 06/08/19 15:24 06/08/19 15:24 Lab Results 06/08/19 06/08/19 06/08/19 Range/Units 15:24 15:24 15:24 WBC 7.6 (3.8-10.6) k/uL RBC 4.30 (4.30-5.90) m/uL Hgb 13.6 (13.0-17.5) gm/dL Hct 40.7 (39.0-53.0) % MCV 94.6 D (80.0-100.0) fL MCH 31.6 (25.0-35.0) pg MCHC 33.4 (31.0-37.0) g/dL RDW 14.2 (11.5-15.5) % Plt Count 262 (150-450) k/uL Neutrophils % 86 % Lymphocytes % 7 % Monocytes % 4 % Eosinophils % 1 % Basophils % 1 % Neutrophils # 6.5 (1.3-7.7) k/uL Lymphocytes # 0.6 L (1.0-4.8) k/uL Monocytes # 0.3 (0-1.0) k/uL Eosinophils # 0.1 (0-0.7) k/uL Basophils # 0.1 (0-0.2) k/uL PT 10.2 (9.0-12.0) sec INR 0.9 (<1.2) APTT 26.9 (22.0-30.0) sec Sodium 141 (137-145) mmol/L Potassium 4.4 (3.5-5.1) mmol/L Chloride 104 (98-107) mmol/L Carbon Dioxide 27 (22-30) mmol/L Anion Gap 10 mmol/L BUN 26 H (9-20) mg/dL Creatinine 1.28 H (0.66-1.25) mg/dL Est GFR (CKD-EPI)AfAm 61 (>60 ml/min/1.73 sqM) Est GFR (CKD-EPI)NonAf 53 (>60 ml/min/1.73 sqM) Glucose 119 H (74-99) mg/dL Calcium 9.7 (8.4-10.2) mg/dL Total Bilirubin 0.7 (0.2-1.3) mg/dL AST 27 (17-59) U/L ALT 29 (21-72) U/L Alkaline Phosphatase 96 (38-126) U/L Creatine Kinase 198 H (55-170) U/L Total Protein 7.5 (6.3-8.2) g/dL Albumin 4.4 (3.5-5.0) g/dL - Radiology Data Radiology results: report reviewed (I did review the imaging and report there is evidence of a first rib fracture on the left no other acute findings there is a aortic aneurysm which patient is aware of.), image reviewed Disposition Clinical Impression: Fall, Fracture of one rib, left side, initial encounter for closed fracture, Nasal abrasion Disposition: HOME SELF-CARE Condition: Good Instructions (If sedation given, give patient instructions): Abrasion (ED), Fall Prevention for Older Adults (ED), Rib Fracture (ED) Prescriptions: Ibuprofen 800 mg PO Q6HR PRN #20 tablet PRN Reason: Pain Hydrocodone/Acetaminophen [T[place] 5-325] 1 each PO Q6HR PRN #20 tab PRN Reason: Pain Is patient prescribed a controlled substance at d/c from ED?: Yes When asked, does pt state using other controlled substances?: No If prescribed controlled substance>3 days was MAPS reviewed?: Prescribed <3 Days If opioid is for acute pain is fill amount 7 days or less?: Yes If Rx opioid, was Start Talking consent form obtained?: Yes Referrals: Boom Cooper DO [Primary Care Provider] - 1-2 days
[2019-06-08 15:42] LABS: Basophils # (A) 0.1 k/uL (0-0.2); Basophils % (A) 1 %; Eosinophils # (A) 0.1 k/uL (0-0.7); Eosinophils % (A) 1 %; HCT 40.7 % (39.0-53.0); HGB 13.6 gm/dL (13.0-17.5); Lymphocytes # (A) 0.6 k/uL (1.0-4.8); Lymphocytes % (A) 7 %; MCH 31.6 pg (25.0-35.0); MCHC 33.4 g/dL (31.0-37.0); Mean Platelet Volume 6.3; Monocytes # (A) 0.3 k/uL (0-1.0); Monocytes % (A) 4 %; Neutrophils # (A) 6.5 k/uL (1.3-7.7); Neutrophils % (A) 86 %; Platelet Count 262 k/uL (150-450); RDW 14.2 % (11.5-15.5); WBC 7.6 k/uL (3.8-10.6)
[2019-06-08 15:50] LABS: INR 0.9 (<1.2); Partial Thromboplastin Time 26.9 sec (22.0-30.0); Prothrombin Time 10.2 sec (9.0-12.0)
[2019-06-08 15:52] LABS: Albumin 4.4 g/dL (3.5-5.0); Calcium 9.7 mg/dL (8.4-10.2); Potassium 4.4 mmol/L (3.5-5.1); Total Bilirubin 0.7 mg/dL (0.2-1.3); Total Protein 7.5 g/dL (6.3-8.2)
[2019-06-08 15:57] LABS: MCV 94.6 fL (80.0-100.0)
--- NOTE | 2019-06-08 16:34 | CT ---
EXAMINATION TYPE: CT brain hola english DATE OF EXAM: 06/08/2019 COMPARISON: Prior CT brain 04/07/2019 HISTORY: Fall 10 feet from ladder, ladder then fell on him. Left shoulder pain, unable to raise left arm. CT DLP: 1509.3 mGycm Automated exposure control for dose reduction was used. TECHNIQUE: CT scan of the head and cervical spine are performed without contrast. FINDINGS: Cephalhematoma present in the posterior parietal scalp There is no acute intracranial hemo rrhage, mass effect, or midline shift identified. The ventricles and sulci are within normal limits in size. The globes are intact and the visualized sinuses are clear. Brain shows a stable appearance . There are cerebral vascular calcifications, cortical atrophy, periventricular white matter shows lo w attenuation. Cervical spine is visualized in its entirety from C1 through upper thoracic levels and demonstrates s atisfactory alignment without evidence of acute fracture or dislocation. There is a spinal curvature present. There is multilevel facet arthropathy. Multilevel spondylosis is present. Loss of disc heigh t present at the intervertebral levels especially C5-6. Multilevel foraminal narrowing, or disc bulgi ng present. Prevertebral soft tissue appears within normal limits. The C1-C2 articulation is unremar kable. There is an oblique fracture through the proximal left first rib extending into the joint at the amanda culation of the transverse process at T1 IMPRESSION: 1. There is no acute fracture or dislocation evident in the cervical spine. 2. No acute intracranial hemorrhage, mass effect, or midline shift is seen. 3. There is a proximal left first rib fracture
--- NOTE | 2019-06-08 16:50 | CT ---
EXAMINATION TYPE: CT chest abdomen w con DATE OF EXAM: 06/08/2019 COMPARISON: HISTORY: Fall 10 feet from ladder, ladder then fell on him. Left shoulder pain, unable to raise left arm. CT DLP: 937.8 mGycm. Automated Exposure Control for Dose Reduction was Utilized. CONTRAST: CT scan of the thorax, abdomen and pelvis is performed with IV Contrast, patient injected with 80 mL of Isovue 300. FINDINGS: LUNGS: The lungs are grossly clear, there is no concerning parenchymal mass or nodule identified. T here are dependent atelectatic changes present. Emphysematous changes are present within the lungs. T here is no pleural effusion or pneumothorax seen. The tracheobronchial tree is patent. MEDIASTINUM: There are no greater than 1 cm hilar or mediastinal lymph nodes. No pericardial effusi on is seen. There are coronary artery calcifications present. OTHER: Root of the aorta is borderline aneurysmal. LIVER/GB: No significant abnormality is appreciate d. PANCREAS: No significant abnormality is seen. SPLEEN: No significant abnormality is seen. ADRENALS: No significant abnormality is seen. KIDNEYS: No significant abnormality is seen. Cortical cysts associated with the left kidney. BOWEL: No significant abnormality is seen. GENITAL ORGANS: No gross abnormality seen. LYMPH NODES: No greater than 1cm abdominal or pelvic lymph nodes are appreciated. OSSEOUS STRUCTURES: Proximal left first rib fracture is present with nondisplaced fracture also prese nt at the insertion of the manubrium, multiple old left-sided rib fractures are healed in the left he mithorax. Postop changes are noted to the lumbar spine. Anterior flowing osteophytes along the thorac ic spine may be indicative of diffuse idiopathic skeletal hyperostosis. 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 Small umbilical hernia contains fat IMPRESSION: Proximal left first rib fracture, associated fracture at the insertion of the first rib a nd manubrium. Aortic aneurysm.
[2019-06-08] MEDS ORDERED: KETOROLAC 30 MG/ML 1 ML VIAL IVP STA (17:21)
[2019-06-08 18:20] VITALS: BP 144/61; PULSE 72; TEMP 98.5
== END 2019-06-08 17:45 | disposition home or self-care (01) ==
LOC: EC 14:59
DX: S22.32XA Fracture of one rib, left side, initial encounter for closed fracture (principal); S00.31XA Abrasion of nose, initial encounter; F41.9 Anxiety disorder, unspecified; I25.10 Atherosclerotic heart disease of native coronary artery without angina pectoris; I25.2 Old myocardial infarction; K21.9 Gastro-esophageal reflux disease without esophagitis; M19.90 Unspecified osteoarthritis, unspecified site; F32.9 Major depressive disorder, single episode, unspecified; H35.30 Unspecified macular degeneration; I12.9 Hypertensive chronic kidney disease with stage 1 through stage 4 chronic kidney disease, or unspecified chronic kidney disease; N18.9 Chronic kidney disease, unspecified; E11.22 Type 2 diabetes mellitus with diabetic chronic kidney disease; Z79.82 Long term (current) use of aspirin; Z79.84 Long term (current) use of oral hypoglycemic drugs; Z79.899 Other long term (current) drug therapy; Z87.891 Personal history of nicotine dependence; Z86.73 Personal history of transient ischemic attack (TIA), and cerebral infarction without residual deficits; Z99.89 Dependence on other enabling machines and devices; Z95.5 Presence of coronary angioplasty implant and graft; Z96.89 Presence of other specified functional implants; W11.XXXA Fall on and from ladder, initial encounter; Y92.009 Unspecified place in unspecified non-institutional (private) residence as the place of occurrence of the external cause
CPT/HCPCS: 96374; 99284; 36415; 80053; 82550; 85025; 85610; 85730; 72125; 70450; 71260; 74160; J1885; Q9967

== ENCOUNTER → 2019-06-18 | Outpatient (CLI) | payer MEDICARE, BC ==
--- NOTE | 2019-06-18 13:44 | MR ---
EXAMINATION TYPE: MR brain wo con DATE OF EXAM: 06/18/2019 COMPARISON: NONE HISTORY: Memory loss, TIA TECHNIQUE: Multiplanar, multisequence images of the brain and brainstem is performed without IV contrast. FINDINGS: Patient motion artifact limits evaluation. Diffusion weighted images demonstrate no evidenc e of a recent infarct or other diffusion abnormality. There is no extra-axial fluid collection. Mode rate burden nonspecific white matter changes seen as confluent areas of T2/FLAIR hyperintensity in th e periventricular white matter and scattered areas of subcortical hyperintensity. The ventricular sys tem and cisternal spaces are symmetrically prominent compatible with age-related volume loss. Midline structures demonstrate normal morphology. The craniocervical junction appears within normal limits. The dural venous sinuses appear patent. The visualized sinuses are clear and the globes are i ntact. IMPRESSION: Limited evaluation secondary to patient motion. 1. No acute infarct, midline shift or mass effect. 2. Moderate burden nonspecific white matter change, likely on the basis of chronic microangiopathy. 2. Age-related volume loss, global.
--- NOTE | 2019-06-18 15:23 | P.PCN ---
Date of Procedure: 06/18/19 Procedure(s) Performed: PROCEDURE: Intrathecal pain pump analysis, programming and reprogramming, and intrathecal pain pump refill. PREOPERATIVE DIAGNOSES: 1. near empty intrathecal pain pump time for refill. 2. 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 He reported that he had some low back pain which is managed with the breakthrough medication, currently he uses oxycodone 10 mg every 8 hours when necessary, and he is on Neurontin 300 mg 3 times a day POSTOPERATIVE DIAGNOSES: same ANESTHESIA: None. CONDITION: Stable. Description of the procedure; Intrathecal pain pump analyzed, demonstrated reservoir volume of [12.6 ] mL. Concentration of medications: morphine sulfate [4] mg/ ml, and bupivacaine [3] mg/ml. Patient receiving daily dose of morphine sulfate [1.42] mg/day and bupivacaine [1.067] mg/day. In addition to ITP, patient using medication for breakthrough pain [oxycodone 10 mg Q 8 h when necessary] and Neurontin orally. The location of the pump (Right Buttock) was prepped with chlorhexidine x3, and draped in the usual sterile fashion. The 22-gauge needle from the [employer] kit was advanced through the pump port with one attempt. Total of [13] ml removed from the pump, the pump refills with the new medication total volume [40] ml. Same concentration: morphine sulfate [4] mg /ml, and the bupivacaine concentration [3] mg/ml. Today I will continue the same daily dose morphine sulfate [1.42 ] mg/day and bupivacaine [1.06 ] mg/day. Prescription also given for oxycodone 10 mg every 8 hours dispensed 30 with 1 refill, and Neurontin 300 mg 3 times a day dispense 90 with 1 refill Patient will follow up in the pain clinic for ITP refill in 2 months.
== END | disposition home or self-care (01) ==
LOC: RADMRIMAIN 12:05
PROVIDERS: ATTEND Psychiatry & Neurology Neurology
DX: R90.89 Other abnormal findings on diagnostic imaging of central nervous system (principal); R41.3 Other amnesia; G93.40 Encephalopathy, unspecified; Z86.73 Personal history of transient ischemic attack (TIA), and cerebral infarction without residual deficits
CPT/HCPCS: 70551

== ENCOUNTER → 2019-06-18 | Day surgery (SDC) | payer OTHER ==
[2019-06-18 13:40] VITALS: BP 170/91; PULSE 95; RESP 16; TEMP 98
--- NOTE | 2019-06-24 10:33 | P.PCN ---
Date of Procedure: 06/18/19 Procedure(s) Performed: PROCEDURE: Intrathecal pain pump analysis, programming and reprogramming, and intrathecal pain pump refill. PREOPERATIVE DIAGNOSES: 1. near empty intrathecal pain pump time for refill. 2. 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 He reported that he had some low back pain which is managed with the breakthrough medication, currently he uses oxycodone 10 mg every 8 hours when necessary, and he is on Neurontin 300 mg 3 times a day POSTOPERATIVE DIAGNOSES: same ANESTHESIA: None. CONDITION: Stable. Description of the procedure; Intrathecal pain pump analyzed, demonstrated reservoir volume of [12.6 ] mL. Concentration of medications: morphine sulfate [4] mg/ ml, and bupivacaine [3] mg/ml. Patient receiving daily dose of morphine sulfate [1.42] mg/day and bupivacaine [1.067] mg/day. In addition to ITP, patient using medication for breakthrough pain [oxycodone 10 mg Q 8 h when necessary] and Neurontin orally. The location of the pump (Right Buttock) was prepped with chlorhexidine x3, and draped in the usual sterile fashion. The 22-gauge needle from the [employer] kit was advanced through the pump port with one attempt. Total of [13] ml removed from the pump, the pump refills with the new medication total volume [40] ml. Same concentration: morphine sulfate [4] mg /ml, and the bupivacaine concentration [3] mg/ml. Today I will continue the same daily dose morphine sulfate [1.42 ] mg/day and bupivacaine [1.06 ] mg/day. Prescription also given for oxycodone 10 mg every 8 hours dispensed 30 with 1 refill, and Neurontin 300 mg 3 times a day dispense 90 with 1 refill Patient will follow up in the pain clinic for ITP refill in 2 months.
== END ==
LOC: PNWHC3 13:19
PROVIDERS: ATTEND Specialist
DX: Z45.1 Encounter for adjustment and management of infusion pump (principal); M96.1 Postlaminectomy syndrome, not elsewhere classified; Z79.891 Long term (current) use of opiate analgesic; Z79.899 Other long term (current) drug therapy
CPT/HCPCS: 62370

== ENCOUNTER → 2019-09-11 | Day surgery (SDC) | payer BC, MEDICARE, OTHER ==
[2019-09-11 13:16] VITALS: BP 183/78; PULSE 77; RESP 16
--- NOTE | 2019-09-11 14:34 | P.PCN ---
Date of Procedure: 09/11/19 Procedure(s) Performed: PROCEDURE: Intrathecal pain pump analysis, programming and reprogramming, and intrathecal pain pump refill. PREOPERATIVE DIAGNOSES: 1. near empty intrathecal pain pump time for refill. 2. 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 He reported that he had some low back pain which is managed with the breakthrough medication, currently he uses oxycodone 10 mg every 8 hours when necessary, and he is on Neurontin 300 mg 3 times a day POSTOPERATIVE DIAGNOSES: same ANESTHESIA: None. CONDITION: Stable. Description of the procedure; Intrathecal pain pump analyzed, demonstrated reservoir volume of [9.8 ] mL. Concentration of medications: morphine sulfate [4] mg/ ml, and bupivacaine [3] mg/ml. Patient receiving daily dose of morphine sulfate [1.42] mg/day and bupivacaine [1.067] mg/day. In addition to ITP, patient using medication for breakthrough pain [oxycodone 10 mg Q 8 h when necessary] and Neurontin orally. The location of the pump (Right Buttock) was prepped with chlorhexidine x3, and draped in the usual sterile fashion. The 22-gauge needle from the [employer] kit was advanced through the pump port with one attempt. Total of [11] ml removed from the pump, the pump refills with the new medication total volume [40] ml. Same concentration: morphine sulfate [4] mg /ml, and the bupivacaine concentration [3] mg/ml. Today I will continue the same daily dose morphine sulfate [1.42 ] mg/day and bupivacaine [1.06 ] mg/day. Prescription also given for oxycodone 10 mg every 8 hours dispensed 30 with 1 refill, and Neurontin 300 mg 3 times a day dispense 90 with 1 refill Patient will follow up in the pain clinic for ITP refill in 2 months.
== END ==
LOC: PNWHC3 12:47
PROVIDERS: ATTEND Specialist
DX: Z45.1 Encounter for adjustment and management of infusion pump (principal); M96.1 Postlaminectomy syndrome, not elsewhere classified; Z79.891 Long term (current) use of opiate analgesic
CPT/HCPCS: 62370

== ENCOUNTER → 2019-11-28 | Day surgery (SDC) | payer BC, MEDICARE, OTHER ==
--- NOTE | 2019-11-28 08:35 | P.PCN ---
Date of Procedure: 11/28/19 Procedure(s) Performed: PROCEDURE: Intrathecal pain pump analysis, programming and reprogramming, and intrathecal pain pump refill. PREOPERATIVE DIAGNOSES: 1. near empty intrathecal pain pump time for refill. 2. 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 He reported that he had some low back pain which is managed with the breakthrough medication, currently he uses oxycodone 10 mg every 8 hours when necessary, and he is on Neurontin 300 mg 3 times a day POSTOPERATIVE DIAGNOSES: same ANESTHESIA: None. CONDITION: Stable. Description of the procedure; Intrathecal pain pump analyzed, demonstrated reservoir volume of [12.4 ] mL. Concentration of medications: morphine sulfate [4] mg/ ml, and bupivacaine [3] mg/ml. Patient receiving daily dose of morphine sulfate [1.42] mg/day and bupivacaine [1.067] mg/day. In addition to intrathecal pain medication, patient using oral pain medication for breakthrough pain [oxycodone 10 mg Q 8 h when necessary] and Neurontin 300 mg 3 times a day , and Motrin 600 mg 3 times a day when necessary orally. The location of the pump (Right Buttock) was prepped with chlorhexidine x3, and draped in the usual sterile fashion. The 22-gauge needle from the [employer] kit was advanced through the pump port with one attempt. Total of [12.5 ] ml removed from the pump, the pump refills with the new medication total volume [40] ml. Same concentration: morphine sulfate [4] mg /ml, and the bupivacaine concentration [3] mg/ml. Today I will continue the same daily dose morphine sulfate [1.42 ] mg/day and bupivacaine [1.06 ] mg/day. Prescription also given for oxycodone 10 mg every 8 hours dispensed 30 with 2 refill, and Neurontin 300 mg 3 times a day dispense 90 with 2 refill , Motrin 600 mg every 8 hours when necessary dispensed 90 with 2 refills Patient will follow up in the pain clinic in 3 months for intrathecal pain pump refill.
[2019-11-28 13:16] VITALS: BP 187/80; PULSE 79; RESP 18; TEMP 97.8
== END ==
LOC: PNWHC3 07:28
PROVIDERS: ATTEND Specialist
DX: Z45.1 Encounter for adjustment and management of infusion pump (principal); M96.1 Postlaminectomy syndrome, not elsewhere classified; Z79.891 Long term (current) use of opiate analgesic; Z79.899 Other long term (current) drug therapy
CPT/HCPCS: 62370

== ENCOUNTER → 2019-12-10 | Outpatient (CLI) | payer MEDICARE, BC ==
--- NOTE | 2019-12-10 15:22 | US ---
EXAMINATION TYPE: US kidneys/renal and bladder DATE OF EXAM: 12/10/2019 COMPARISON: CT chest and abdomen June 08, 2019 CLINICAL HISTORY: N18.3 Chronic Kidney Disease Stage 3. EXAM MEASUREMENTS: Right Kidney: 10.1 x 4.8 x 4.4 cm Left Kidney: 11.5 x 6.2 x 5.3 cm Right Kidney: No hydronephrosis or masses seen, loss of corticomedullary differentiation Left Kidney: No hydronephrosis. Multiple cysts visualized, largest measuring 1.8 x 1.7 x 1.9 cm Bladder: wnl as visualized, not fully distended Bilateral Jets seen: Yes There is no evidence for hydronephrosis at this point in time bilaterally. Cortical thinning and incr eased cortical echogenicity bilaterally. The urinary bladder is greatly distended. Bilateral uret eral jets are seen. IMPRESSION: Evidence of chronic medical renal disease. No hydronephrosis noted bilaterally. Findings correlate with prior CT.
== END | disposition home or self-care (01) ==
LOC: RADUSWWP 14:44
PROVIDERS: ATTEND Family Medicine
DX: N18.3 Chronic kidney disease, stage 3 (moderate) (principal)
CPT/HCPCS: 76770

== ENCOUNTER → 2020-02-18 | Day surgery (SDC) | payer MEDICARE, BC ==
[2020-02-18 12:21] VITALS: BP 161/98; PULSE 87; RESP 20; TEMP 97.8
--- NOTE | 2020-02-18 14:36 | P.PCN ---
Date of Procedure: 02/18/20 Description of Procedure: Procedure(s) Performed: PROCEDURE: Intrathecal pain pump analysis, programming and reprogramming, and intrathecal pain pump refill. PREOPERATIVE DIAGNOSES: 1. near empty intrathecal pain pump time for refill. 2. 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 He reported that he had some low back pain which is managed with the breakthrough medication, currently he uses oxycodone 10 mg every 8 hours when necessary, and he is on Neurontin 300 mg 3 times a day POSTOPERATIVE DIAGNOSES: same ANESTHESIA: None. CONDITION: Stable. Description of the procedure; Intrathecal pain pump analyzed, demonstrated reservoir volume of [10.8 ] mL. Concentration of medications: morphine sulfate [4] mg/ ml, and bupivacaine [3] mg/ml. Patient receiving daily dose of morphine sulfate [1.42] mg/day and bupivacaine [1.067] mg/day. In addition to intrathecal pain medication, patient using oral pain medication for breakthrough pain oxycodone 10 mg Q 8 h when necessary and Neurontin 300 mg 3 times a day , and Motrin 600 mg 3 times a day when necessary orally. The location of the pump (Right Buttock) was prepped with chlorhexidine x3, and draped in the usual sterile fashion. The 22-gauge needle from the [employer] kit was advanced through the pump port with one attempt. Total of [12.5 ] ml removed from the pump, the pump refills with the new medication total volume [40] ml. Same concentration: morphine sulfate [4] mg /ml, and the bupivacaine concentration [3] mg/ml. Today I will continue the same daily dose morphine sulfate [1.42 ] mg/day and bupivacaine [1.06 ] mg/day. Prescription also given for oxycodone 10 mg every 8 hours dispensed 30 with 2 refill, and Neurontin 300 mg 3 times a day dispense 90 with 2 refill Patient will follow up in the pain clinic in 3 months for intrathecal pain pump refill.
== END ==
LOC: PNWHC3 12:08
PROVIDERS: ATTEND Anesthesiology
DX: Z45.1 Encounter for adjustment and management of infusion pump (principal); M96.1 Postlaminectomy syndrome, not elsewhere classified; Z79.891 Long term (current) use of opiate analgesic
CPT/HCPCS: 62370

== ENCOUNTER → 2020-05-05 | Day surgery (SDC) | payer MEDICARE, BC ==
[2020-05-05 12:28] VITALS: BP 198/97; PULSE 79; RESP 20; TEMP 98.3
--- NOTE | 2020-05-05 13:00 | P.PCN ---
Date of Procedure: 05/05/20 Procedure(s) Performed: PROCEDURE: Intrathecal pain pump analysis, programming and reprogramming, and intrathecal pain pump refill. PREOPERATIVE DIAGNOSES: 1. near empty intrathecal pain pump time for refill. 2. 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 He reported that he had some low back pain which is managed with the breakthrough medication, currently he uses oxycodone 10 mg every 8 hours when necessary, and he is on Neurontin 300 mg 3 times a day POSTOPERATIVE DIAGNOSES: same ANESTHESIA: None. CONDITION: Stable. Description of the procedure; Intrathecal pain pump analyzed, demonstrated reservoir volume of [12.7 ] mL. Concentration of medications: morphine sulfate [4] mg/ ml, and bupivacaine [3] mg/ml. Patient receiving daily dose of morphine sulfate [1.42] mg/day and bupivacaine [1.067] mg/day. In addition to intrathecal pain medication, patient using oral pain medication for breakthrough pain [oxycodone 10 mg Q 8 h when necessary] and Neurontin 300 mg 3 times a day , and Motrin 600 mg 3 times a day when necessary orally. The location of the pump (Right Buttock) was prepped with chlorhexidine x3, and draped in the usual sterile fashion. The 22-gauge needle from the [employer] kit was advanced through the pump port with one attempt. Total of [12.5 ] ml removed from the pump, the pump refills with the new medication total volume [40] ml. Same concentration: morphine sulfate [4] mg /ml, and the bupivacaine concentration [3] mg/ml. Today I will continue the same daily dose morphine sulfate [1.42 ] mg/day and bupivacaine [1.06 ] mg/day. Prescription also given for oxycodone 10 mg every 8 hours dispensed 30 with 2 refill, and Neurontin 300 mg 3 times a day dispense 90 with 2 refill , Motrin 600 mg every 8 hours when necessary dispensed 90 with 2 refills Patient will follow up in the pain clinic in 3 months for intrathecal pain pump refill. - PQRS measures = - Patient's medications are documented in the chart. -Tobacco use is negative and counseling.Given. -Patient's received pneumococcal vaccine. -Advanced care planning discussed, patient not eligible. -Opiate contract signed. -Pain positive and follow-up visit/procedure is scheduled. -Patient's blood pressure measured blood pressure is so high , and documented in the record ,and patient will follow up with the primary care. -Patient's weight was measured and body mass index [27 complaining ] above the normal limits and counseling was done. and patient instructed to follow-up with the primary care physician. -Patient was not identified as an unhealthy alcohol user
== END ==
LOC: PNWHC3 12:03
PROVIDERS: ATTEND Specialist
DX: M96.1 Postlaminectomy syndrome, not elsewhere classified (principal); Z79.891 Long term (current) use of opiate analgesic
CPT/HCPCS: 80307; 62370; G0482

== ENCOUNTER 2020-07-19 07:55 | Day surgery (SDC) | payer MEDICARE, BC ==
[2020-07-13 13:18] VITALS: BMI 29.8
[~2020-07-19 07:55] MED LIST: ALPRAZolam 0.25 MG TAB PO PRN; ALPRAZolam 0.5 MG TAB PO PRN; ASPIRIN 325 MG TAB PO STA; ATORVASTATIN 80 MG TAB PO STA; HEPARIN SODIUM,PORCINE 10,000 UNIT in SODIUM CHLORIDE 0.9% 1,000 ML IRRIGATION PRN; HEPARIN SODIUM,PORCINE 2,500 UNIT in SODIUM CHLORIDE 0.9% 250 ML IRRIGATION PRN; NITROGLYCERIN SL TABS 0.4 MG TAB SUBLINGUAL PRN; SODIUM CHLORIDE 0.9% 1,000 ML in EMPTY BAG 1 BAG IV ONE
[2020-07-19 08:52] LABS: Basophils % (A) 1 %; Eosinophils # (A) 0.2 k/uL (0-0.7); Eosinophils % (A) 3 %; HCT 37.7 % (39.0-53.0); HGB 13.3 gm/dL (13.0-17.5); Lymphocytes # (A) 0.8 k/uL (1.0-4.8); Lymphocytes % (A) 12 %; MCHC 35.2 g/dL (31.0-37.0); MCV 96.5 fL (80.0-100.0); Mean Platelet Volume 7.7; Monocytes # (A) 0.4 k/uL (0-1.0); Monocytes % (A) 6 %; Neutrophils % (A) 77 %; Platelet Count 192 k/uL (150-450); RBC 3.91 m/uL (4.30-5.90); RDW 14.4 % (11.5-15.5); WBC 6.4 k/uL (3.8-10.6)
[2020-07-19 08:54] VITALS: TEMP 97.9
[2020-07-19 09:02] LABS: Calcium 9.3 mg/dL (8.4-10.2); Potassium 4.2 mmol/L (3.5-5.1)
[2020-07-19 09:54] LABS: Glucose,Whole Blood 123 mg/dL (75-99)
[2020-07-19] MEDS ORDERED: MIDAZOLAM 2 MG/2 ML VIAL IVP ONE (10:38)
[2020-07-19] MEDS ORDERED: fentaNYL (PF) 50 MCG/ML 2 ML AMP IVP ONE (10:38)
[2020-07-19] MEDS ORDERED: LIDOCAINE 1% INJ 10MG/ML (20 ML MDV) SQ ONE (10:40)
[2020-07-19] MEDS: HEPARIN SODIUM 1,000 UN/ML (10ML VL) IV ONE ×2 (10:44→11:02)
[2020-07-19] MEDS ORDERED: CLOPIDOGREL 75 MG TAB PO ONE (11:18)
[2020-07-19] MEDS: NITROGLYCERIN 1000MCG/10ML SYRINGE INTRACORON ONE ×2 (11:23→11:32)
[2020-07-19] MEDS ORDERED: IOPAMIDOL-370 125ML BTL INJ ONE ×2 (11:36)
[2020-07-19] MEDS ORDERED: MAG HYDROX/AL HYDROX/SIMETH 30 ML CUP PO PRN (12:06)
[2020-07-19] MEDS ORDERED: ZOLPIDEM 5 MG TAB PO PRN (12:06)
[2020-07-19] MEDS ORDERED: NITROGLYCERIN SL TABS 0.4 MG TAB SUBLINGUAL PRN (12:06)
[2020-07-19] MEDS ORDERED: ATROPINE SULFATE 0.1 MG/ML 10ML SYRINGE IV PRN (12:06)
[2020-07-19] MEDS ORDERED: RX INFO: IV CONTRAST WAS GIVEN 1 EACH MISC MISCELLANE PRN (12:06)
[2020-07-19] MEDS ORDERED: SODIUM CHLORIDE 0.9% 1,000 ML IV SCH (12:15)
--- NOTE | 2020-07-19 12:21 | P.PRCINT ---
Percutaneous Coronary Int. 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 Therefore patient had a stress test performed which showed fixed inferior defects, likely diaphragmatic attenuation artifact given normal inferior motion on echo as well as a lateral reversible defect concerning for ischemia. CONSENT:I have discussed the risks, benefits and alternative therapies for the above-mentioned procedure and for both sedation/analgesia as well as necessary blood product administration, if indicated, as they pertain to this patient. The patient has indicated understanding and acceptance of the risks and procedures discussed. PROCEDURE: After the risks, benefits and alternatives of the above mentioned procedure explained in detail with the patient, informed consent was obtained. Patient was taken to the catheterization lab and prepped and draped in usual fashion. 1% lidocaine was used to anesthetize the right radial artery. A 6- [place]i sheath was placed in the right radial artery using modified Seldinger technique. Left coronary angiography was performed with a 5-[place] JL 3.5 catheter and right coronary angiography was performed with a 5-[place] AR2 catheter in various views. A 5-[place] JR5 catheter was inserted into the left ventricle and pressure measurements were obtained. The OM1 appear to have a proximal 60-70% stenosis and therefore iFR was performed. Heparin was given for an ACT greater than 250. A CLS 4.0 guide was used to engage the left main. The iFR wire was zeroed then normalized then advanced into the mid to distal OM1. iFR measurement was abnormal at 0.33. Lady with a 2.0 x 8 mm balloon and then a 2.25 x 12 mm noncompliant balloon. A 2.25 x 15 mm Xience ANEESH was placed and deployed at 16 atmospheres. The stent was postdilated with a 2.5 x 8 mm noncompliant balloon. Final angiograms were performed. Per intervention there was a 60-70% stenosis with MARISSA 3 flow and postintervention there was 0% stenosis with MARISSA 3 flow and no dissection. The wire and guide was then removed. The right radial sheath was removed and a TR band was placed with hemostasis achieved. The patient tolerated the procedure well. Patient was transported back to the post catheterization holding area in stable condition. Conscious Sedation: Patient was monitored under the direct supervision of vision of myself for conscious sedation using Versed and fentanyl for a total duration of 60 minutes HEMODYNAMICS: Aorta: 134/67 LV: 129/3, LVEDP 17mmHg SELECTIVE CORONARY ARTERIOGRAPHY: LEFT MAIN: The left main is a large caliber vessel which bifurcates into the LAD and circumflex. There is a 20% distal left main stenosis. LEFT ANTERIOR DESCENDING CORONARY ARTERY: LAD is a large caliber vessel which wraps around to the apex. There is a mid LAD 50% stenosis at the level of a moderate caliber diagonal 1. There are extensive left to right collaterals. LEFT CIRCUMFLEX CORONARY ARTERY: Left circumflex is a moderate caliber vessel with mild luminal irregularities. The OM1 is a small to moderate caliber vessel with a proximal 60-70% OM1 stenosis, iFR of 0.33. There are left to right collaterals. RIGHT CORONARY ARTERY: The right coronary artery is a large caliber vessel which gives off a PDA and PLV branch and is the dominant vessel. There is a 100% mid RCA stenosis. FINAL IMPRESSION: 1. CAD as described above with known 100% RCA FOOD SCIENTIST with collaterals, mild to moderate disease of the left other than a 60-70% OM1 (iFR positive at 0.33) s/p PCI of OM1 2. Successful PCI of OM1 with 2.25 x 15 mm Xience ANEESH, postdilated with a 2.5 mm noncompliant balloon 3. Mildly elevated left sided pressures PLAN: 1. Aggressive risk factor modification per most recent ACC/AHA guidelines. 2. IVF hydration for CKD 3. Follow-up in the office in 1-2 weeks.
[2020-07-19 14:55] VITALS: PULSE 63
[2020-07-19 16:09] VITALS: BP 105/57; RESP 18
[2020-07-20] MEDS ORDERED: CLOPIDOGREL 75 MG TAB PO SCH (09:00)
[2020-07-20] MEDS ORDERED: ASPIRIN 81 MG PO SCH (09:00)
== END 2020-07-19 16:30 | disposition home or self-care (01) ==
LOC: CATHCVL 07:55
PROVIDERS: ATTEND Internal Medicine
DX: I25.119 Atherosclerotic heart disease of native coronary artery with unspecified angina pectoris (principal); I25.2 Old myocardial infarction; I12.9 Hypertensive chronic kidney disease with stage 1 through stage 4 chronic kidney disease, or unspecified chronic kidney disease; E11.22 Type 2 diabetes mellitus with diabetic chronic kidney disease; N18.9 Chronic kidney disease, unspecified; E78.2 Mixed hyperlipidemia; I71.4 Abdominal aortic aneurysm, without rupture; I73.9 Peripheral vascular disease, unspecified; M54.9 Dorsalgia, unspecified; G89.29 Other chronic pain; Z79.82 Long term (current) use of aspirin; Z79.899 Other long term (current) drug therapy; Z79.84 Long term (current) use of oral hypoglycemic drugs; Z82.49 Family history of ischemic heart disease and other diseases of the circulatory system
CPT/HCPCS: 93571; 93458; 85347; 80048; 85025; C9600; C1887; C1725 ×3; C1874; C1769; C1894; J2250; J2001; J3010; J1644; Q9967

== ENCOUNTER → 2020-07-28 | Day surgery (SDC) | payer OTHER, MEDICARE, BC ==
[2020-07-28 12:34] VITALS: BP 167/87; PULSE 102; RESP 18; TEMP 97.6
--- NOTE | 2020-08-04 13:04 | P.PCN ---
Date of Procedure: 07/28/20 Procedure(s) Performed: PROCEDURE: Intrathecal pain pump analysis, programming and reprogramming, and intrathecal pain pump refill. PREOPERATIVE DIAGNOSES: 1. near empty intrathecal pain pump time for refill. 2. 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 He reported that he had some low back pain which is managed with the breakthrough medication, currently he uses oxycodone 10 mg every 8 hours when necessary, and he is on Neurontin 300 mg 3 times a day POSTOPERATIVE DIAGNOSES: same ANESTHESIA: None. CONDITION: Stable. Description of the procedure; Intrathecal pain pump analyzed, demonstrated reservoir volume of [12.7 ] mL. Concentration of medications: morphine sulfate [4] mg/ ml, and bupivacaine [3] mg/ml. Patient receiving daily dose of morphine sulfate [1.42] mg/day and bupivacaine [1.067] mg/day. In addition to intrathecal pain medication, patient using oral pain medication for breakthrough pain [oxycodone 10 mg Q 8 h when necessary] and Neurontin 300 mg 3 times a day , and Motrin 600 mg 3 times a day when necessary orally. The location of the pump (Right Buttock) was prepped with chlorhexidine x3, and draped in the usual sterile fashion. The 22-gauge needle from the [employer] kit was advanced through the pump port with one attempt. Total of [12.5 ] ml removed from the pump, the pump refills with the new medication total volume [40] ml. Same concentration: morphine sulfate [4] mg /ml, and the bupivacaine concentration [3] mg/ml. Today I will continue the same daily dose morphine sulfate [1.42 ] mg/day and bupivacaine [1.06 ] mg/day. Prescription also given for oxycodone 10 mg every 8 hours dispensed 30 with 2 refill, and Neurontin 300 mg 3 times a day dispense 90 with 2 refill , Motrin 600 mg every 8 hours when necessary dispensed 90 with 2 refills Patient will follow up in the pain clinic in 3 months for intrathecal pain pump refill. - PQRS measures = - Patient's medications are documented in the chart. -Tobacco use is negative and counseling.Given. -Patient's received pneumococcal vaccine. -Advanced care planning discussed, patient not eligible. -Opiate contract signed. -Pain positive and follow-up visit/procedure is scheduled. -Patient's blood pressure measured blood pressure is so high , and documented in the record ,and patient will follow up with the primary care. -Patient's weight was measured and body mass index [27 complaining ] above the normal limits and counseling was done. and patient instructed to follow-up with the primary care physician. -Patient was not identified as an unhealthy alcohol user
== END ==
LOC: PNWHC3 12:21
PROVIDERS: ATTEND Specialist
DX: Z45.1 Encounter for adjustment and management of infusion pump (principal); M96.1 Postlaminectomy syndrome, not elsewhere classified; Z79.891 Long term (current) use of opiate analgesic
CPT/HCPCS: 62370

== ENCOUNTER → 2020-10-18 | Outpatient (CLI) | payer MEDICARE, BC ==
--- NOTE | 2020-10-18 13:15 | CT ---
EXAMINATION TYPE: CT abdomen pelvis wo con DATE OF EXAM: 10/18/2020 COMPARISON: 06/08/2019 HISTORY: Aneurysm of iliac artery CT DLP: 771.5 mGycm Examination of the solid and hollow viscera is limited given the lack of contrast. FINDINGS: LUNG BASES: No evidence for nodule. No evidence for infiltrate. Fibrotic changes noted at the lung ba ses. LIVER/GB: The gallbladder is unremarkable. No space-occupying hepatic lesion. PANCREAS: No pancreatic mass identified. No inflammatory process seen. SPLEEN: No evidence for splenomegaly. No intrasplenic lesions seen. ADRENALS: No adrenal nodules identified. No evidence for thickening. KIDNEYS: 1.9 cm hypoattenuating lesion mid pole left kidney may reflect a cyst. No nephrolithiasis. N o hydronephrosis. BOWEL: Appendix has a normal appearance. No evidence of bowel obstruction. No inflammatory process. M oderate sigmoid diverticulosis without diverticulitis at this time. Fat-containing umbilical hernia. Lymph nodes: No evidence for adenopathy greater than 1 cm. Abdominal aorta: Atheromatous changes seen. No evidence for aneurysm. Genital organs: No significant abnormality. Other: Atheromatous and ectatic change of the abdominal aorta. Aneurysmal dilatation right common eloisa ac artery measuring 2.4 cm. Degenerative changes lumbar spine with extensive postoperative change of lumbar laminectomy. IMPRESSION: 1. No evidence for hydronephrosis. 2. Right common iliac artery aneurysm.
== END | disposition home or self-care (01) ==
LOC: RADCTMAIN 11:26
PROVIDERS: ATTEND Thoracic Surgery (Cardiothoracic Vascular Surgery)
DX: I72.3 Aneurysm of iliac artery (principal)
CPT/HCPCS: 36415; 74176; 82565; 84520

== ENCOUNTER → 2020-10-20 | Day surgery (SDC) | payer MEDICARE, BC ==
[~2020-10-20] MED LIST changes: -ALPRAZolam 0.25 MG TAB PO PRN; -ALPRAZolam 0.5 MG TAB PO PRN; -ASPIRIN 325 MG TAB PO STA; -ATORVASTATIN 80 MG TAB PO STA; +BUPIVACAINE UP TO 8 MG/ML, 31-60 ML SYRINGE MC ONE; -HEPARIN SODIUM,PORCINE 10,000 UNIT in SODIUM CHLORIDE 0.9% 1,000 ML IRRIGATION PRN; -HEPARIN SODIUM,PORCINE 2,500 UNIT in SODIUM CHLORIDE 0.9% 250 ML IRRIGATION PRN; +MORPHINE FOR ANAZAO - PER 10 MG MISCELLANE ONE; -NITROGLYCERIN SL TABS 0.4 MG TAB SUBLINGUAL PRN; -SODIUM CHLORIDE 0.9% 1,000 ML in EMPTY BAG 1 BAG IV ONE
[2020-10-20 12:38] VITALS: BP 168/80; PULSE 87; RESP 18; TEMP 98
--- NOTE | 2020-10-20 12:58 | P.PCN ---
Date of Procedure: 10/20/20 Procedure(s) Performed: PROCEDURE: Intrathecal pain pump analysis, programming and reprogramming, and intrathecal pain pump refill. PREOPERATIVE DIAGNOSES: 1. near empty intrathecal pain pump time for refill. 2. 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 He reported that he had some low back pain which is managed with the breakthrough medication, currently he uses oxycodone 10 mg every 8 hours when necessary, and he is on Neurontin 300 mg 3 times a day POSTOPERATIVE DIAGNOSES: same ANESTHESIA: None. CONDITION: Stable. Description of the procedure; Intrathecal pain pump analyzed, demonstrated reservoir volume of [10.2 ] mL. Concentration of medications: morphine sulfate [4] mg/ ml, and bupivacaine [3] mg/ml. Patient receiving daily dose of morphine sulfate [1.42] mg/day and bupivacaine [1.067] mg/day. In addition to intrathecal pain medication, patient using oral pain medication for breakthrough pain [oxycodone 10 mg Q 8 h when necessary] and Neurontin 300 mg 3 times a day , and Motrin 600 mg 3 times a day when necessary orally. The location of the pump (Right Buttock) was prepped with chlorhexidine x3, and draped in the usual sterile fashion. The 22-gauge needle from the [employer] kit was advanced through the pump port with one attempt. Total of [11 ] ml removed from the pump, the pump refills with the new medication total volume [40] ml. Same concentration: morphine sulfate [4] mg /ml, and the bupivacaine concentration [3] mg/ml. Today I will continue the same daily dose morphine sulfate [1.42 ] mg/day and bupivacaine [1.06 ] mg/day. Prescription also given for oxycodone 10 mg every 8 hours dispensed 30 with 2 refill, and Neurontin 300 mg 3 times a day dispense 90 with 2 refill , Motrin 600 mg every 8 hours when necessary dispensed 90 with 2 refills Patient will follow up in the pain clinic in 3 months for intrathecal pain pump refill. - PQRS measures = - Patient's medications are documented in the chart. -Tobacco use is negative and counseling.Given. -Patient's received pneumococcal vaccine. -Advanced care planning discussed, patient not eligible. -Opiate contract signed. -Pain positive and follow-up visit/procedure is scheduled. -Patient's blood pressure measured blood pressure is high 168/80 , and documented in the record ,and patient will follow up with the primary care. -Patient's weight was measured and body mass index [27.9 ] above the normal limits and counseling was done. and patient instructed to follow-up with the primary care physician. -Patient was not identified as an unhealthy alcohol user
== END ==
LOC: PNWHC3 12:18
PROVIDERS: ATTEND Specialist
DX: Z45.89 Encounter for adjustment and management of other implanted devices (principal); M96.1 Postlaminectomy syndrome, not elsewhere classified; Z79.891 Long term (current) use of opiate analgesic
CPT/HCPCS: 62370; J2274

== ENCOUNTER → 2021-01-12 | Day surgery (SDC) | payer MEDICARE, BC ==
[2021-01-12 12:37] VITALS: BP 150/75; PULSE 75; RESP 18; TEMP 97.5
--- NOTE | 2021-01-12 13:04 | P.PCN ---
Date of Procedure: 01/12/21 Procedure(s) Performed: PROCEDURE: Intrathecal pain pump analysis, programming and reprogramming, and intrathecal pain pump refill. PREOPERATIVE DIAGNOSES: 1. near empty intrathecal pain pump time for refill. 2. 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 He reported that he had some low back pain which is managed with the breakthrough medication, currently he uses oxycodone 10 mg every 8 hours when necessary, and he is on Neurontin 300 mg 3 times a day POSTOPERATIVE DIAGNOSES: same ANESTHESIA: None. CONDITION: Stable. Description of the procedure; Intrathecal pain pump analyzed, demonstrated reservoir volume of [10.2 ] mL. Concentration of medications: morphine sulfate [4] mg/ ml, and bupivacaine [3] mg/ml. Patient receiving daily dose of morphine sulfate [1.42] mg/day and bupivacaine [1.067] mg/day. In addition to intrathecal pain medication, patient using oral pain medication for breakthrough pain [oxycodone 10 mg Q 8 h when necessary] and Neurontin 300 mg 3 times a day , and Motrin 600 mg 3 times a day when necessary orally. The location of the pump (Right Buttock) was prepped with chlorhexidine x3, and draped in the usual sterile fashion. The 22-gauge needle from the [employer] kit was advanced through the pump port with one attempt. Total of [11 ] ml removed from the pump, the pump refills with the new medication total volume [40] ml. Same concentration: morphine sulfate [4] mg /ml, and the bupivacaine concentration [3] mg/ml. Today I will continue the same daily dose morphine sulfate [1.42 ] mg/day and bupivacaine [1.06 ] mg/day. Prescription also given for oxycodone 10 mg every 8 hours dispensed 30 with 2 refill, and Neurontin 300 mg 3 times a day dispense 90 with 2 refill Patient will follow up in the pain clinic in 3 months for intrathecal pain pump refill. - PQRS measures = - Patient's medications are documented in the chart. -Tobacco use is negative and counseling.Given. -Patient's received pneumococcal vaccine. -Advanced care planning discussed, patient not eligible. -Opiate contract signed. -Pain positive and follow-up visit/procedure is scheduled. -Patient's blood pressure measured blood pressure is high 150/75 , and documented in the record ,and patient will follow up with the primary care. -Patient's weight was measured and body mass index [27.9 ] above the normal limits and counseling was done. and patient instructed to follow-up with the primary care physician. -Patient was not identified as an unhealthy alcohol user
== END ==
LOC: PNWHC3 12:28
PROVIDERS: ATTEND Specialist
DX: Z45.1 Encounter for adjustment and management of infusion pump (principal); M96.1 Postlaminectomy syndrome, not elsewhere classified; Z79.891 Long term (current) use of opiate analgesic
CPT/HCPCS: 62370; J2274

== ENCOUNTER → 2021-04-06 | Day surgery (SDC) | payer MEDICARE, BC ==
--- NOTE | 2021-04-06 13:11 | P.PCN ---
Date of Procedure: 04/06/21 Procedure(s) Performed: PROCEDURE: Intrathecal pain pump analysis, programming and reprogramming, and intrathecal pain pump refill. PREOPERATIVE DIAGNOSES: 1. near empty intrathecal pain pump time for refill. 2. 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 He reported that he had some low back pain which is managed with the breakthrough medication, currently he uses oxycodone 10 mg every 8 hours when necessary, and he is on Neurontin 300 mg 3 times a day POSTOPERATIVE DIAGNOSES: same ANESTHESIA: None. CONDITION: Stable. Description of the procedure; Intrathecal pain pump analyzed, demonstrated reservoir volume of [10.2 ] mL. Concentration of medications: morphine sulfate [4] mg/ ml, and bupivacaine [3] mg/ml. Patient receiving daily dose of morphine sulfate [1.42] mg/day and bupivacaine [1.067] mg/day. In addition to intrathecal pain medication, patient using oral pain medication for breakthrough pain [oxycodone 10 mg Q 8 h when necessary] and Neurontin 300 mg 3 times a day , and Motrin 600 mg 3 times a day when necessary orally. The location of the pump (Right Buttock) was prepped with chlorhexidine x3, and draped in the usual sterile fashion. The 22-gauge needle from the [employer] kit was advanced through the pump port with one attempt. Total of [10 ] ml removed from the pump, the pump refills with the new medication total volume [40] ml. Same concentration: morphine sulfate [4] mg /ml, and the bupivacaine concentration [3] mg/ml. Today I will continue the same daily dose morphine sulfate [1.42 ] mg/day and bupivacaine [1.06 ] mg/day. Prescription also given for oxycodone 10 mg every 8 hours dispensed 30 with 2 refill, and Neurontin 300 mg 3 times a day dispense 90 with 2 refill Patient will follow up in the pain clinic in 3 months for intrathecal pain pump refill. - PQRS measures = - Patient's medications are documented in the chart. -Tobacco use is negative and counseling.Given. -Patient's received pneumococcal vaccine. -Advanced care planning discussed, patient not eligible. -Opiate contract signed. -Pain positive and follow-up visit/procedure is scheduled. -Patient's blood pressure measured blood pressure is high 14/70 , and documented in the record ,and patient will follow up with the primary care. -Patient's weight was measured and body mass index [27.9 ] above the normal limits and counseling was done. and patient instructed to follow-up with the primary care physician. -Patient was not identified as an unhealthy alcohol user
[2021-04-06 13:44] VITALS: BP 144/70; PULSE 55; RESP 18; TEMP 97.2
== END ==
LOC: PNWHC3 12:17
PROVIDERS: ATTEND Specialist
DX: Z45.1 Encounter for adjustment and management of infusion pump (principal); M54.5 Low back pain
CPT/HCPCS: 62370; 80307; G0482

== ENCOUNTER 2021-05-27 11:54 | Day surgery (SDC) | payer MEDICARE, BC ==
[2021-05-26 09:13] VITALS: BMI 27.6
[~2021-05-27 11:54] MED LIST changes: -BUPIVACAINE UP TO 8 MG/ML, 31-60 ML SYRINGE MC ONE; +LACTATED RINGERS 1,000 ML IV SCH; -MORPHINE FOR ANAZAO - PER 10 MG MISCELLANE ONE
[2021-05-27] MEDS ORDERED: ONDANSETRON 4 MG/2 ML VIAL ONE (12:42)
[2021-05-27 12:57] LABS: Glucose,Whole Blood 101 mg/dL (75-99)
[2021-05-27] MEDS ORDERED: LIDOCAINE 1% (10MG/ML) FOR IV START IV ONE (12:57)
[2021-05-27] MEDS ORDERED: DEXAMETHASONE SOD PHOSPHATE 4 MG/ML 1 ML VIAL IVP ONE (12:59)
[2021-05-27] MEDS ORDERED: GLYCOPYRROLATE 0.2 MG/ML 2 ML VIAL ONE (14:00)
[2021-05-27] MEDS ORDERED: ROCURONIUM 10 MG/ML (5 ML VIAL) IV ONE (14:00)
[2021-05-27] MEDS ORDERED: LIDOCAINE 1% INJ 10MG/ML (20 ML MDV) ONE (14:00)
[2021-05-27] MEDS ORDERED: NEOSTIGMINE 1 MG/ML 10 ML VIAL ONE (14:00)
[2021-05-27] MEDS ORDERED: fentaNYL (PF) 50 MCG/ML 2 ML AMP ONE (14:00)
[2021-05-27] MEDS ORDERED: PROPOFOL 10 MG/ML 20 ML VIAL IV ONE (14:00)
[2021-05-27] MEDS ORDERED: BUPIVACAIN-EPI 0.25%-1:200,000 30 ML VIAL SQ ONE ×2 (14:42)
--- NOTE | 2021-05-27 15:24 | P.PCN ---
Date of Procedure: 05/27/21 Procedure(s) Performed: Procedure= 1-Replacement of permanent intrathecal infusion pump. 2-itrathecal pain pump refill 3-electronic analysis of intrathecal pain pump. 4-replacement of intrathecal pain pump catheter connector Preoperative diagnosis=1-postlaminectomy pain syndrome lumbar area. 2-chronic pain syndrome.3-end of life of intrathecal pain pump,(time for replacement ). Postoperative diagnosis= 1-end of life of intrathecal pain pump, 2-broken intrathecal pain pump catheter connector 3-postlaminectomy pain syndrome Conditions= stable. Complications= none. Estimated blood loss= minimal. Anesthesia= general endotracheal intubation . Indication for the procedure= patient with a history of chronic pain and history of postlaminectomy pain syndrome , patient failed conservative treatment, patient failed interventional pain management, patiens and intrathecal pain pump placed several years ago ,and he is here today to have replacement of the intrathecal pin pump. Description of the procedure= patient was identified in the preop holding area risks and benefits and alternatives of the procedure discussed with the patient and consent signed . Patient placed in supine position after induction of anesthesia, by anesthesia department, the patient was given 2 g of prophylactic antibiotics , then in the Right buttuck area , at the location of the pump,the back and the Right buttuck area area prepped and draped ,then incisions mad at the locations of the pump ,then I did dissection to free the old pump, then I was able to remove the old pump, and I I found that there is eroson in the connector of the old Pump ,then I have to replaced connector withe new connector for the new Pump, ,and befoe I connected I assured that there is free flow of CSF from the catheter , the I did the irrigations ,and hemostasis obtained , and then the pump placed in the pocket and adequete hemostasis assured again , then after that the pocket was closed using 0 Vicryl and then 3.0 monoprile , then the dressing applied , then priming bolus , The intrathecal pain pump programmed and showing defecation currently on medication concentration of PF morphin sulfate 4 mg per mL and bupivacaine 3mg per mL, and patient was receiving a daily dose of morphine 1.4 mg per day, bupivacaine 1 mg per day, and because I found that there is disconnection between the catheter on the pump and I have to replace the connector (patient was receiving the intrathecal medication intrathecally and in the subcutaneous tissue for unknown period of time, for this reason I have to decrease the intrathecal dose on the pain medication and I will start her on morphine sulfate 0.7 mg /day and 0.5 mg of bupivacaine per day, and patient had reserve volume of 35 ML, he'll continue to use breakthrough medication Percocet 10/325, and patient will be seen in the pain clinic next week for incision check, and to adjust the intrathecal pain medication does . Patient will receive antibiotic Levaquin 500 mg by mouth daily for 10 days, and he will be seen in the pain clinic next week
[2021-05-27 15:28] VITALS: TEMP 97.3
[2021-05-27] MEDS ORDERED: hydrALAZINE HCL 20 MG/ML 1 ML VIAL ONE (16:02)
[2021-05-27 16:20] VITALS: RESP 16
[2021-05-27 17:00] VITALS: BP 157/73; PULSE 74
== END 2021-05-27 17:16 | disposition home or self-care (01) ==
LOC: OR 11:54
PROVIDERS: ATTEND Specialist
DX: Z45.49 Encounter for adjustment and management of other implanted nervous system device (principal); M96.1 Postlaminectomy syndrome, not elsewhere classified; G89.4 Chronic pain syndrome; Z88.5 Allergy status to narcotic agent
CPT/HCPCS: 62362; C1772; J1100; J2710; J0690; J2405; J2001; J3010; J2704

== ENCOUNTER → 2021-06-02 | Outpatient (CLI) | payer OTHER, MEDICARE, BC ==
[2021-06-02 12:04] VITALS: BP 150/81; PULSE 89; RESP 18
--- NOTE | 2021-06-02 12:12 | P.PN ---
Progress Note - Text Progress Note Date: 06/02/21 This is a follow-up visit for this 80 years old male, with a history of chronic severe low back pain is diagnosed with failed back surgery syndrome, opioid tolerance, last week we helped him for placement of intrathecal pain pump, patient here today for visit to check on his incision, and to check and adjust his intrathecal pain pump dose patient reported that his pain is very well controlled, he is able to function more without any pain and he feels that his pain control he continue to use oxycodone 10 mg when necessary every 8 hours, denies any motor or sensory deficit he denies any side effects of the treatment, last week when we replace the pump I found that there is a chronic and the connector for this reason I decreased his intrathecal dose to 50%, today of the intrathecal pain pump analyzed showed patient currently on medication morphine sulfate preservative-free concentration 4 mg per mL and ropivacaine preservative-free concentration is 3 mg per mL and patient receiving a daily dose of morphine 0.70 mg per day and daily dose of bupivacaine 0.52 mg per day, the incision on the right buttock area healed fairly well and there is no sign of infection no erythema and no discharge, tenderness no swelling, the patient will be given prescription refill for his breakthrough medication which is oxycodone 10 mg by mouth every 8 hours when necessary and he will follow up in the pain clinic in 3 months
== END ==
LOC: PNWHC3 11:34
PROVIDERS: ATTEND Anesthesiology
DX: M96.1 Postlaminectomy syndrome, not elsewhere classified (principal); Z45.1 Encounter for adjustment and management of infusion pump; Z88.5 Allergy status to narcotic agent; Z87.891 Personal history of nicotine dependence
CPT/HCPCS: 62367

== ENCOUNTER → 2021-08-16 | Day surgery (SDC) | payer OTHER, MEDICARE, BC ==
[2021-08-12 14:05] VITALS: BMI 29.0
[~2021-08-16] MED LIST changes: +BUPIVACAINE UP TO 8 MG/ML, 31-60 ML SYRINGE MC ONE; +MORPHINE FOR ANAZAO - PER 10 MG MISCELLANE ONE
--- NOTE | 2021-08-16 20:23 | P.PCN ---
Date of Procedure: 08/16/21 Description of Procedure: Preoperative diagnosis: Lumbar post laminectomy, and chronic pain syndrome Status post intrathecal pump for chronic pain management Postoperative diagnosis: Lumbar post laminectomy, and chronic pain syndrome Status post intrathecal pump for chronic pain management PROCEDURES: 1. Intrathecal pump analysis. 2. Intrathecal pump reprogramming. 3. Intrathecal pump refill ANESTHESIA: None. EBL: None. COMPLICATIONS: None. IV FLUIDS: None. PROCEDURE INDICATION: Patient is well known to pain clinic for management of intrathecal pump for his chronic pain management. Patient denied any side effects with the medications. Patient rated his pain is 2-3 out of 10 in severity. On examination lower extremity muscle strength normal, no clonus. Patient came here for pump refill of the intrathecal pump. PROCEDURE DESCRIPTION: The patient was seen and identified in the preoperative area. Risks, benefits, complications, and alternatives were discussed with the patient. The patient agreed to proceed with the procedure. Intrathecal pump was analyzed and displayed the following information: Type: SynchroMed Type II B Medication: Morphine 4 mg/ml infusion @0.7006 MG per day Bupivacaine 3 MG per mL infusion @0.5255 MG per day Pump Volume: 40 ml [place] Volume: 20.6 mL ml PTM: Disabled At this time, the area of the intrathecal pump was exposed, prepped with Ch loraPrep x2 , and draped in the usual sterile fashion. After which, the [employer] template was used to identify the area of the skin overlying the refill port. After which, a 22-gauge [place] needle attached to an extension tubing, which was clamped, attached to a syringe and inserted through the skin into the refill port. At that point, 23 mL of clear fluid was aspirated. The tubing was reclamped. This was discarded. A new medication was then identified from pharmacy . This was then attached to a filter, which was primed and subsequently injected into the pump in increments with intermittent aspiration to ensure placement into the intrathecal pump. At this point, the pump was reprogrammed. No medication adjustment made during this visit. TType: SynchroMed Type II B Medication: Morphine 4 mg/ml infusion @0.7006 MG per day Bupivacaine 3 MG per mL infusion @0.5255 MG per day Pump Volume: 40 ml [place] Volume: 40 mL ml PTM: Disabled The patient tolerated the procedure well and was sent home from the discharge area once meeting discharge criteria. Plan: The patient will follow up for further management and pump refills. note: Patient maps reviewed . Patient was given oxycodone 10 mg IR by mouth daily as needed dispense 30 with 2 refills . As he is taking only 1 oxycodone as needed per day . Neurontin 300 mg by mouth every 8 hours dispense 90 with 2 refills Naloxone 4 mg intranasal for respiratory depression and dispense #2 . We plan to decrease his intrathecal pump medications concentration in future refills. In future refill we will change morphine preservative-free 3 mg/ml Bupivacaine preservative- free 2 mg/ml
== END ==
LOC: ORPAIN 12:28
DX: G89.4 Chronic pain syndrome (principal)
CPT/HCPCS: 62370

== ENCOUNTER → 2021-11-08 | Day surgery (SDC) | payer OTHER, MEDICARE, BC ==
[2021-11-08 12:57] VITALS: BP 158/81; PULSE 79; RESP 16; TEMP 97.8
[2021-11-08 13:05] LABS: Glucose,Whole Blood 129 mg/dL (75-99)
--- NOTE | 2021-11-08 14:17 | P.PCN ---
Date of Procedure: 11/08/21 Description of Procedure: Preoperative diagnosis: Lumbar post laminectomy, and chronic pain syndrome Status post intrathecal pump for chronic pain management Postoperative diagnosis: Lumbar post laminectomy, and chronic pain syndrome Status post intrathecal pump for chronic pain management, and 3 months duration from the previous refill PROCEDURES: 1. Intrathecal pump analysis. 2. Intrathecal pump reprogramming. 3. Intrathecal pump refill ANESTHESIA: None. EBL: None. COMPLICATIONS: None. IV FLUIDS: None. PROCEDURE INDICATION: Patient is well known to pain clinic for management of intrathecal pump for chronic pain management. Patient denied any side effects with the medications. Rated his pain is 3-4 out of 10 in severity. On examination lower extremity muscle strength normal, no clonus. Patient came here for pump refill. PROCEDURE DESCRIPTION: The patient was seen and identified in the preoperative area. Risks, benefits, complications, and alternatives were discussed with the patient. The patient agreed to proceed with the procedure. Intrathecal pump was analyzed and displayed the following information: Type: SynchroMed Type II B Medication: Morphine 4mg /ml infusion at 0. 7006 mg/day Bupivacaine 3 MG per mL infusion at 0. 5255 MG per day Pump Volume: 40 ml [place] Volume: 25 ml PTM: Disabled At this time, the area of the intrathecal pump was exposed, prepped with ChloraPrep x2 , and draped in the usual sterile fashion. After which, the [employer] template was used to identify the area of the skin overlying the refill port. After which, a 22-gauge [place] needle attached to an extension tubing, which was clamped, attached to a syringe and inserted through the skin into the refill port. At that point, 25 mL of clear fluid was aspirated. The tubing was reclamped. This was discarded. A new medication was then identified from pharmacy, . This was then attached to a filter, which was primed and subsequently injected into the pump in increments with intermittent aspiration to ensure placement into the intrathecal pump. At this point, the pump was reprogrammed. The dose was adjusted: None. Type: SynchroMed Type II B Medication: Morphine 4mg /ml infusion at 0. 7006 mg/day Bupivacaine 3 MG per mL infusion at 0. 5255 MG per day Pump Volume: 40 ml [place] Volume: 40 ml Lo [place] Alarm Date: 12 weeks PTM: Disabled The patient tolerated the procedure well and was sent home from the discharge area once meeting discharge criteria. Plan: The patient will follow up for further management and pump refills. Medications given : Oxycodone immediate release 10 mg by mouth daily as needed dispense 30 with no refill. Patient using rarely as needed. Patient still have gabapentin. Note : In future refill we will change Morphine preservative-free 3 mg/ml Bupivacaine preservative-free 2 mg/ml
== END ==
LOC: ORPAIN 12:29
DX: G89.4 Chronic pain syndrome (principal)
CPT/HCPCS: 62370; J2274

== ENCOUNTER → 2022-01-31 | Day surgery (SDC) | payer OTHER, MEDICARE, BC ==
[~2022-01-31] MED LIST changes: -LACTATED RINGERS 1,000 ML IV SCH
[2022-01-31 13:24] VITALS: BP 147/76; PULSE 77; RESP 16; TEMP 98
--- NOTE | 2022-01-31 13:52 | P.PCN ---
Date of Procedure: 01/31/22 Procedure(s) Performed: Description of Procedure: Preoperative diagnosis:1- Lumbar post laminectomy, and chronic pain syndrome 2- Status post intrathecal pump for chronic pain management Postoperative diagnosis: 1-Lumbar post laminectomy, and chronic pain syndrome 2- Status post intrathecal pump for chronic pain management, and 3 months duration from the previous refill PROCEDURES: 1. Intrathecal pump analysis. 2. Intrathecal pump reprogramming. 3. Intrathecal pump refill ANESTHESIA: None. EBL: None. COMPLICATIONS: None. IV FLUIDS: None. PROCEDURE INDICATION: Patient is well known to pain clinic for management of intrathecal pump for chronic pain management. Patient denied any side effects with the medications. Rated his pain is 3-4 out of 10 in severity. On examination lower extremity muscle strength normal, no clonus. Patient came here for pump refill. PROCEDURE DESCRIPTION: The patient was seen and identified in the preoperative area. Risks, benefits, complications, and alternatives were discussed with the patient. The patient agreed to proceed with the procedure. Intrathecal pump was analyzed and displayed the following information: Type: SynchroMed Type II B Medication: Morphine 4mg /ml infusion at 0. 7006 mg/day Bupivacaine 3 MG per mL infusion at 0. 5255 MG per day Pump Volume: 40 ml [place] Volume: 25.3 ml PTM: Disabled At this time, the area of the intrathecal pump was exposed, prepped with ChloraPrep x3 , and draped in the usual sterile fashion. After which, the [employer] template was used to identify the area of the skin overlying the refill port. After which, a 22-gauge [place] needle attached to an extension tubing, which was clamped, attached to a syringe and inserted through the skin into the refill port. At that point, 26 mL of clear fluid was aspirated. The tubing was reclamped. This was discarded. A new medication was then identified from pharmacy, . This was then attached to a filter, which was primed and subsequently injected into the pump in increments with intermittent aspiration to ensure placement into the intrathecal pump. At this point, the pump was reprogrammed. The dose was adjusted: None. Type: SynchroMed Type II B Medication: Morphine 4mg /ml infusion at 0. 7006 mg/day Bupivacaine 3 MG per mL infusion at 0. 5255 MG per day Pump Volume: 40 ml [place] Volume: 40 ml Lo [place] Alarm Date: 12 weeks PTM: Disabled The patient tolerated the procedure well and was sent home from the discharge area once meeting discharge criteria. Plan: The patient will follow up for further management and pump refills. Medications given : Oxycodone immediate release 10 mg by mouth daily as needed dispense 30 with no refill. Patient using rarely as needed. gabapentin. 300 mg TID dispense 90 with 2 refills Note : In future refill we will change Morphine preservative-free 3 mg/ml Bupivacaine preservative-free 2 mg/ml
== END ==
LOC: ORPAIN 13:11
PROVIDERS: ATTEND Specialist
DX: G89.4 Chronic pain syndrome (principal); Z96.9 Presence of functional implant, unspecified; Z88.5 Allergy status to narcotic agent; Z79.82 Long term (current) use of aspirin; Z79.01 Long term (current) use of anticoagulants; Z79.84 Long term (current) use of oral hypoglycemic drugs; Z79.899 Other long term (current) drug therapy; Z87.891 Personal history of nicotine dependence; Z80.9 Family history of malignant neoplasm, unspecified
CPT/HCPCS: 62370; J2274

== ENCOUNTER → 2022-04-25 | Day surgery (SDC) | payer OTHER, MEDICARE, BC ==
[~2022-04-25] MED LIST changes: +LACTATED RINGERS 1,000 ML IV SCH
[2022-04-25 12:12] VITALS: BP 170/79; PULSE 59; RESP 18; TEMP 97.6
[2022-04-25 12:13] LABS: Glucose,Whole Blood 119 mg/dL (70-110)
--- NOTE | 2022-04-25 13:59 | P.PCN ---
Date of Procedure: 04/25/22 Description of Procedure: PROCEDURE: Intrathecal pain pump analysis, programming and reprogramming, and intrathecal pain pump refill. PREOPERATIVE DIAGNOSES: 1. near empty intrathecal pain pump 2. opioid tolerance POSTOPERATIVE DIAGNOSES: 1. near empty intrathecal pain pump 2. 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 CONDITION: Stable. DESCRIPTION OF PROCEDURE: Intrathecal pain pump analysed, it showed patient currently had reservoir volume 25 mL. The patient is receiving medication morphine 3mg/ ml, and bupivacaine concentration 4 mg/ml. Patient receiving daily dose of 0.7 mg/day and bupivacaine [0.52 ] mg/day. Pain is well controlled , patient using medication for breakthrough pain occasional oxycodone, as well as gabapentin 300 mg 3 times a day orally . The location of the pump (right buttock) Prepped with chlorhexidine x3 , then using 22-gauge needle [employer] kit advanced through the pump port, Total of [25 ] ml removed from the pump, the pump refills with the new medication total volume 40 ml . The concentration of morphine 3 mg /ml, and the bupivacaine concentration 4 mg/ml. The patient will continue to see the daily dose 0.7 mg/day and bupivacaine 0.5 to mg/day and patient will follow up with the pain clinic in 3 months. Prescription for gabapentin for 3 months was given today. The patient told me he does not need any oxycodone scripts
== END ==
LOC: ORPAIN 11:52
PROVIDERS: ATTEND Hospitalist
DX: Z45.1 Encounter for adjustment and management of infusion pump (principal); M96.1 Postlaminectomy syndrome, not elsewhere classified; Z79.891 Long term (current) use of opiate analgesic; Z88.5 Allergy status to narcotic agent
CPT/HCPCS: 62370; J2274

== ENCOUNTER → 2022-07-18 | Day surgery (SDC) | payer OTHER, MEDICARE, BC ==
[2022-07-13 14:55] VITALS: BMI 27.6
[~2022-07-18] MED LIST changes: -LACTATED RINGERS 1,000 ML IV SCH
[2022-07-18 12:37] VITALS: BP 169/89; PULSE 73; RESP 16; TEMP 97
[2022-07-18 12:40] LABS: Glucose,Whole Blood 121 mg/dL (70-110)
--- NOTE | 2022-07-18 13:04 | P.PCN ---
Date of Procedure: 07/18/22 Procedure(s) Performed: Description of Procedure: Preoperative diagnosis:1- Lumbar post laminectomy, and chronic pain syndrome 2- Status post intrathecal pump for chronic pain management Postoperative diagnosis: 1-Lumbar post laminectomy, and chronic pain syndrome 2- Status post intrathecal pump for chronic pain management, and 3 months duration from the previous refill PROCEDURES: 1. Intrathecal pump analysis. 2. Intrathecal pump reprogramming. 3. Intrathecal pump refill ANESTHESIA: None. EBL: None. COMPLICATIONS: None. IV FLUIDS: None. PROCEDURE INDICATION: Patient is well known to pain clinic for management of intrathecal pump for chronic pain management. Patient denied any side effects with the medications. Rated his pain is 3-4 out of 10 in severity. On examination lower extremity muscle strength normal, no clonus. Patient came here for pump refill. PROCEDURE DESCRIPTION: The patient was seen and identified in the preoperative area. Risks, benefits, complications, and alternatives were discussed with the patient. The patient agreed to proceed with the procedure. Intrathecal pump was analyzed and displayed the following information: Type: SynchroMed Type II B Medication: Morphine 4mg /ml infusion at 0. 7006 mg/day Bupivacaine 3 MG per mL infusion at 0. 5255 MG per day Pump Volume: 40 ml [place] Volume: 25.3 ml PTM: Disabled At this time, the area of the intrathecal pump was exposed, prepped with ChloraPrep x3 , and draped in the usual sterile fashion. After which, the [employer] template was used to identify the area of the skin overlying the refill port. After which, a 22-gauge [place] needle attached to an extension tubing, which was clamped, attached to a syringe and inserted through the skin into the refill port. At that point, 26 mL of clear fluid was aspirated. The tubing was reclamped. This was discarded. A new medication was then identified from pharmacy, . This was then attached to a filter, which was primed and subsequently injected into the pump in increments with intermittent aspiration to ensure placement into the intrathecal pump. At this point, the pump was reprogrammed. The dose was adjusted: None. Type: SynchroMed Type II B Medication: Morphine 4mg /ml infusion at 0. 7006 mg/day Bupivacaine 3 MG per mL infusion at 0. 5255 MG per day Pump Volume: 40 ml [place] Volume: 40 ml Lo [place] Alarm Date: 12 weeks PTM: Disabled The patient tolerated the procedure well and was sent home from the discharge area once meeting discharge criteria. Plan: The patient will follow up for further management and pump refills. Medications given : gabapentin. 300 mg TID dispense 90 with 2 refills Note : In future refill we will change Morphine preservative-free 3 mg/ml Bupivacaine preservative-free 2 mg/ml
== END ==
LOC: ORPAIN 12:21
PROVIDERS: ATTEND Specialist
DX: G89.4 Chronic pain syndrome (principal); Z76.0 Encounter for issue of repeat prescription
CPT/HCPCS: 62370; J2274

== ENCOUNTER → 2022-10-10 | Day surgery (SDC) | payer OTHER, MEDICARE, BC ==
[2022-10-10 13:30] VITALS: BP 136/88; PULSE 89; RESP 18; TEMP 98.4
--- NOTE | 2022-10-10 13:50 | P.PCN ---
Date of Procedure: 10/10/22 Procedure(s) Performed: Description of Procedure: Preoperative diagnosis:1- Lumbar post laminectomy, and chronic pain syndrome 2- Status post intrathecal pump for chronic pain management Postoperative diagnosis: 1-Lumbar post laminectomy, and chronic pain syndrome 2- Status post intrathecal pump for chronic pain management, and 3 months duration from the previous refill PROCEDURES: 1. Intrathecal pump analysis. 2. Intrathecal pump reprogramming. 3. Intrathecal pump refill ANESTHESIA: None. EBL: None. COMPLICATIONS: None. IV FLUIDS: None. PROCEDURE INDICATION: Patient is well known to pain clinic for management of intrathecal pump for chronic pain management. Patient denied any side effects with the medications. Rated his pain is 3-4 out of 10 in severity. On examination lower extremity muscle strength normal, no clonus. Patient came here for pump refill. PROCEDURE DESCRIPTION: The patient was seen and identified in the preoperative area. Risks, benefits, complications, and alternatives were discussed with the patient. The patient agreed to proceed with the procedure. Intrathecal pump was analyzed and displayed the following information: Type: SynchroMed Type II B Medication: Morphine 4mg /ml infusion at 0. 7006 mg/day Bupivacaine 3 MG per mL infusion at 0. 5255 MG per day Pump Volume: 40 ml [place] Volume: 25.3 ml PTM: Disabled At this time, the area of the intrathecal pump was exposed, prepped with ChloraPrep x3 , and draped in the usual sterile fashion. After which, the [employer] template was used to identify the area of the skin overlying the refill port. After which, a 22-gauge [place] needle attached to an extension tubing, which was clamped, attached to a syringe and inserted through the skin into the refill port. At that point, 25 mL of clear fluid was aspirated. The tubing was reclamped. This was discarded. A new medication was then identified from pharmacy, . This was then attached to a filter, which was primed and subsequently injected into the pump in increments with intermittent aspiration to ensure placement into the intrathecal pump. At this point, the pump was reprogrammed. The dose was adjusted: None. Type: SynchroMed Type II B Medication: Morphine 4mg /ml infusion at 0. 7006 mg/day Bupivacaine 3 MG per mL infusion at 0. 5255 MG per day Pump Volume: 40 ml [place] Volume: 40 ml Lo [place] Alarm Date: 12 weeks PTM: Disabled The patient tolerated the procedure well and was sent home from the discharge area once meeting discharge criteria. Plan: The patient will follow up for further management and pump refills. Medications given : gabapentin. 300 mg TID dispense 90 with 2 refills Note : In future refill we will change Morphine preservative-free 3 mg/ml Bupivacaine preservative-free 2 mg/ml
== END ==
LOC: ORPAIN 13:09
PROVIDERS: ATTEND Specialist
DX: G89.4 Chronic pain syndrome (principal)
CPT/HCPCS: 62370; J2274

== ENCOUNTER → 2023-01-02 | Day surgery (SDC) | payer OTHER, MEDICARE, BC ==
[2022-12-28 15:53] VITALS: BMI 27.4
[~2023-01-02] MED LIST changes: +LACTATED RINGERS 1,000 ML IV SCH
[2023-01-02 13:12] VITALS: BP 145/66; PULSE 60; RESP 16; TEMP 97.6
--- NOTE | 2023-01-02 14:31 | P.PCN ---
Date of Procedure: 01/02/23 Description of Procedure: Preoperative diagnosis: Lumbar post laminectomy, and chronic pain syndrome Status post intrathecal pump for chronic pain management Postoperative diagnosis: Lumbar post laminectomy, and chronic pain syndrome Status post intrathecal pump for chronic pain management PROCEDURES: 1. Intrathecal pump analysis. 2. Intrathecal pump reprogramming. 3. Intrathecal pump refill ANESTHESIA: None. EBL: None. COMPLICATIONS: None. IV FLUIDS: None. PROCEDURE INDICATION: Patient is well known to pain clinic for management of intrathecal pump for chronic pain management. Patient denied any side effects with the medications. Rated his pain is 4-6 out of 10 in severity. On examination lower extremity muscle strength normal, no clonus. Patient came here for pump refill. PROCEDURE DESCRIPTION: The patient was seen and identified in the preoperative area. Risks, benefits, complications, and alternatives were discussed with the patient. The patient agreed to proceed with the procedure. Intrathecal pump was analyzed and displayed the following information: Type: SynchroMed Type II B Medication: Morphine 4 mg /ml infusion at 0.7006 mg/day Bupivacaine 3 MG per mL infusion at 0.5255 MG per day Pump Volume: 40 ml [place] Volume: 25.3 ml PTM: Disabled At this time, the area of the intrathecal pump was exposed, prepped with Chlo raPrep x2 , and draped in the usual sterile fashion. After which, the [employer] template was used to identify the area of the skin overlying the refill port. After which, a 22-gauge [place] needle attached to an extension tubing, which was clamped, attached to a syringe and inserted through the skin into the refill port. At that point, 26 mL of clear fluid was aspirated. The tubing was reclamped. This was discarded. A new medication was then identified from pharmacy, . This was then attached to a filter, which was primed and subsequently injected into the pump in increments with intermittent aspiration to ensure placement into the intrathecal pump. At this point, the pump was reprogrammed. The dose was adjusted : none Type: SynchroMed Type II B Medication: Morphine 4 mg /ml infusion at 0.7006 mg/day Bupivacaine 3 MG per mL infusion at 0.5255 MG per day Pump Volume: 40 ml [place] Volume: 40 ml Lo [place] Alarm Date: 12 weeks PTM: Disabled The patient tolerated the procedure well and was sent home from the discharge area once meeting discharge criteria. Plan: The patient will follow up for further management and pump refills. Medications given : Gabapentin 300 mg by mouth every 8 hours dispense 90 with 2 refills . Note : Intrathecal pain pump medication adjustment In future refill we will change morphine preservative-free 3 mg/ml Bupivacaine preservative-free 2mg/ml
== END ==
LOC: ORPAIN 12:40
DX: G89.4 Chronic pain syndrome (principal); Z79.899 Other long term (current) drug therapy
CPT/HCPCS: 80307; 80364; 62370; J2274; 99211

== ENCOUNTER 2023-03-27 13:09 | Day surgery (SDC) | payer OTHER, MEDICARE, BC ==
[2023-03-27] MEDS ORDERED: MORPHINE FOR ANAZAO - PER 10 MG MISCELLANE ONE (13:10)
[2023-03-27] MEDS ORDERED: BUPIVACAINE UP TO 8 MG/ML, 31-60 ML SYRINGE MC ONE (13:10)
[2023-03-27 13:25] VITALS: BP 153/73; PULSE 67; RESP 16; TEMP 97.3
--- NOTE | 2023-03-27 13:58 | P.PCN ---
Date of Procedure: 03/27/23 Procedure(s) Performed: Description of Procedure: Preoperative diagnosis:1- Lumbar post laminectomy, and chronic pain syndrome 2- Status post intrathecal pump for chronic pain management Postoperative diagnosis: 1-Lumbar post laminectomy, and chronic pain syndrome 2- Status post intrathecal pump for chronic pain management, and 3 months duration from the previous refill PROCEDURES: 1. Intrathecal pump analysis. 2. Intrathecal pump reprogramming. 3. Intrathecal pump refill ANESTHESIA: None. EBL: None. COMPLICATIONS: None. IV FLUIDS: None. PROCEDURE INDICATION: Patient is well known to pain clinic for management of intrathecal pump for chronic pain management. Patient denied any side effects with the medications. Rated his pain is 3-4 out of 10 in severity. On examination lower extremity muscle strength normal, no clonus. Patient came here for pump refill. PROCEDURE DESCRIPTION: The patient was seen and identified in the preoperative area. Risks, benefits, complications, and alternatives were discussed with the patient. The patient agreed to proceed with the procedure. Intrathecal pump was analyzed and displayed the following information: Type: SynchroMed Type II B Medication: Morphine 4mg /ml infusion at 0. 7006 mg/day Bupivacaine 3 MG per mL infusion at 0. 5255 MG per day Pump Volume: 40 ml [place] Volume: 25.3 ml PTM: Disabled At this time, the area of the intrathecal pump was exposed, prepped with ChloraPrep x3 , and draped in the usual sterile fashion. After which, the [employer] template was used to identify the area of the skin overlying the refill port. After which, a 22-gauge Beckford needle attached to an extension tubing, which was clamped, attached to a syringe and inserted through the skin into the refill port. At that point, 24.5 mL of clear fluid was aspirated. The tubing was reclamped. This was discarded. A new medication was then identified from pharmacy, . This was then attached to a filter, which was primed and subsequently injected into the pump in increments with intermittent aspiration to ensure placement into the intrathecal pump. At this point, the pump was reprogrammed. The dose was adjusted: None. Type: SynchroMed Type II B Medication: Morphine 4mg /ml infusion at 0. 7006 mg/day Bupivacaine 3 MG per mL infusion at 0. 5255 MG per day Pump Volume: 40 ml [place] Volume: 40 ml Lo [place] Alarm Date: 12 weeks PTM: Disabled The patient tolerated the procedure well and was sent home from the discharge area once meeting discharge criteria. Plan: The patient will follow up for further management and pump refills. Medications given : gabapentin. 300 mg TID dispense 90 with 2 refills Note : In future refill we will change Morphine preservative-free 3 mg/ml Bupivacaine preservative-free 2 mg/ml
== END 2023-03-27 13:57 | disposition home or self-care (01) ==
LOC: ORPAIN 13:09
PROVIDERS: ATTEND Specialist
DX: G89.4 Chronic pain syndrome (principal); Z76.0 Encounter for issue of repeat prescription; Z51.81 Encounter for therapeutic drug level monitoring
CPT/HCPCS: 62370; J2274

== ENCOUNTER → 2023-06-14 | Day surgery (SDC) | payer OTHER, MEDICARE, BC ==
[2023-06-11 14:30] VITALS: BMI 27.8
[~2023-06-14] MED LIST changes: -LACTATED RINGERS 1,000 ML IV SCH
[2023-06-14 13:26] VITALS: BP 139/65; PULSE 70; RESP 18; TEMP 97.9
[2023-06-14 13:27] LABS: Glucose,Whole Blood 145 mg/dL (70-110)
--- NOTE | 2023-06-14 14:08 | P.PCN ---
Date of Procedure: 06/14/23 Procedure(s) Performed: Description of Procedure: Preoperative diagnosis:1- Lumbar post laminectomy, and chronic pain syndrome 2- Status post intrathecal pump for chronic pain management Postoperative diagnosis: 1-Lumbar post laminectomy, and chronic pain syndrome 2- Status post intrathecal pump for chronic pain management, and 3 months duration from the previous refill PROCEDURES: 1. Intrathecal pump analysis. 2. Intrathecal pump reprogramming. 3. Intrathecal pump refill ANESTHESIA: None. EBL: None. COMPLICATIONS: None. IV FLUIDS: None. PROCEDURE INDICATION: Patient is well known to pain clinic for management of intrathecal pump for chronic pain management. Patient denied any side effects with the medications. Rated his pain is 3-4 out of 10 in severity. On examination lower extremity muscle strength normal, no clonus. Patient came here for pump refill. PROCEDURE DESCRIPTION: The patient was seen and identified in the preoperative area. Risks, benefits, complications, and alternatives were discussed with the patient. The patient agreed to proceed with the procedure. Intrathecal pump was analyzed and displayed the following information: Type: SynchroMed Type II B Medication: Morphine 4mg /ml infusion at 0. 7006 mg/day Bupivacaine 3 MG per mL infusion at 0. 5255 MG per day Pump Volume: 40 ml [place] Volume: 26.2 ml PTM: Disabled At this time, the area of the intrathecal pump was exposed, prepped with ChloraPrep x3 , and draped in the usual sterile fashion. After which, the [employer] template was used to identify the area of the skin overlying the refill port. After which, a 22-gauge Beck[place] needle attached to an extension tubing, which was clamped, attached to a syringe and inserted through the skin into the refill port. At that point, 26 mL of clear fluid was aspirated. The tubing was reclamped. This was discarded. A new medication was then identified from pharmacy, . This was then attached to a filter, which was primed and subsequently injected into the pump in increments with intermittent aspiration to ensure placement into the intrathecal pump. At this point, the pump was reprogrammed. The dose was adjusted: None. Type: SynchroMed Type II B Medication: Morphine 3 mg /ml infusion at 0. 7006 mg/day Bupivacaine 2 MG per mL infusion at 0. 5255 MG per day Pump Volume: 40 ml [place] Volume: 40 ml Lo [place] Alarm Date: 12 weeks PTM: Disabled The patient tolerated the procedure well and was sent home from the discharge area once meeting discharge criteria. (he received a bridge bolus because we change the concentration of the medications ) Plan: The patient will follow up for further management and pump refills. Medications given : gabapentin. 300 mg TID dispense 90 with 2 refills
== END ==
LOC: ORPAIN 13:02
PROVIDERS: ATTEND Specialist
DX: G89.4 Chronic pain syndrome (principal); M96.1 Postlaminectomy syndrome, not elsewhere classified
CPT/HCPCS: 62370; J2274

== ENCOUNTER → 2023-09-06 | Day surgery (SDC) | payer OTHER, MEDICARE, BC ==
[2023-09-04 09:15] VITALS: BMI 28.0
[2023-09-06 13:20] LABS: Glucose,Whole Blood 112 mg/dL (70-110)
[2023-09-06 13:47] VITALS: BP 144/67; PULSE 64; RESP 16; TEMP 97.4
--- NOTE | 2023-09-06 14:06 | P.PCN ---
Date of Procedure: 09/06/23 Procedure(s) Performed: Description of Procedure: Preoperative diagnosis:1- Lumbar post laminectomy, and chronic pain syndrome 2- Status post intrathecal pump for chronic pain management Postoperative diagnosis: 1-Lumbar post laminectomy, and chronic pain syndrome 2- Status post intrathecal pump for chronic pain management, and 3 months duration from the previous refill PROCEDURES: 1. Intrathecal pump analysis. 2. Intrathecal pump reprogramming. 3. Intrathecal pump refill ANESTHESIA: None. EBL: None. COMPLICATIONS: None. IV FLUIDS: None. PROCEDURE INDICATION: Patient is well known to pain clinic for management of intrathecal pump for chronic pain management. Patient denied any side effects with the medications. Rated his pain is 3-4 out of 10 in severity. On examination lower extremity muscle strength normal, no clonus. Patient came here for pump refill. PROCEDURE DESCRIPTION: The patient was seen and identified in the preoperative area. Risks, benefits, complications, and alternatives were discussed with the patient. The patient agreed to proceed with the procedure. Intrathecal pump was analyzed and displayed the following information: Type: SynchroMed Type II B Medication: Morphine 4mg /ml infusion at 0. 7006 mg/day Bupivacaine 3 MG per mL infusion at 0. 5255 MG per day Pump Volume: 40 ml [place] Volume: 20.6 ml PTM: Disabled At this time, the area of the intrathecal pump was exposed, prepped with ChloraPrep x3 , and draped in the usual sterile fashion. After which, the [employer] template was used to identify the area of the skin overlying the refill port. After which, a 22-gauge Beckford needle attached to an extension tubing, which was clamped, attached to a syringe and inserted through the skin into the refill port. At that point, 20 mL of clear fluid was aspirated. The tubing was reclamped. This was discarded. A new medication was then identified from pharmacy, . This was then attached to a filter, which was primed and subsequently injected into the pump in increments with intermittent aspiration to ensure placement into the intrathecal pump. At this point, the pump was reprogrammed. The dose was adjusted: None. Type: SynchroMed Type II B Medication: Morphine 3 mg /ml infusion at 0.699 mg/day Bupivacaine 2 MG per mL infusion at 0.466 MG per day Pump Volume: 40 ml [place] Volume: 40 ml PTM: Disabled The patient tolerated the procedure well and was sent home from the discharge area once meeting discharge criteria. Plan: The patient will follow up for further management and pump refills. Medications given : gabapentin. 300 mg TID dispense 90 with 2 refills
== END ==
LOC: ORPAIN 12:52
PROVIDERS: ATTEND Specialist
DX: Z51.81 Encounter for therapeutic drug level monitoring (principal); G89.4 Chronic pain syndrome
CPT/HCPCS: 62367; J2274

== ENCOUNTER 2023-11-22 12:26 | Observation (INO) | payer BC, MEDICARE, OTHER ==
--- NOTE | 2023-11-22 12:34 | ED ---
General Adult HPI - General Chief complaint: Chest Pain Stated complaint: Chest Pain Time Seen by Provider: 11/22/23 12:29 Source: patient Mode of arrival: EMS Limitations: no limitations - History of Present Illness Initial comments: Dictation was produced using [employer] dictation software. please excuse any grammatical, word or spelling errors. Chief Complaint: 83-year-old male brought in by EMS for left shoulder ache History of Present Illness: Patient is 83-year-old male he has extensive history of coronary artery disease, multiple stents. States that he has an ache in his left shoulder. States it radiates down his left upper extremity. Patient did state that he did have some chest pain earlier. Denies any diaphoresis or nausea. Patient was scheduled to have a cardiac stress test soon. Patient states that this does not feel like a previous heart attack that has had in the past. States that its like a tooth ache in his left shoulder. The ROS documented in this emergency department record has been reviewed and confirmed by me. Those systems with pertinent positive or negative responses have been documented in the HPI. All other systems are other negative and/or noncontributory. - Related Data Home Medications Medication Instructions Recorded Confirmed Metoprolol Succinate (ER) [Toprol 50 mg PO QAM 10/29/14 11/22/23 XL] Latanoprost/Pf [Latanoprost 0.005% 1 drop BOTH EYES HS 04/04/19 11/22/23 Eye Drop] Atorvastatin [Lipitor] 80 mg PO HS 07/13/20 11/22/23 Tamsulosin [Flomax] 0.4 mg PO HS 04/24/22 11/22/23 lisinopriL 40 mg PO QAM 07/13/22 11/22/23 Brimonidine Tartrate [Alphagan P 1 drop BOTH EYES BID 11/22/23 11/22/23 0.15% Ophth Soln] Ketorolac 0.5% Ophth Soln [Acular 1 drop BOTH EYES BID 11/22/23 11/22/23 0.5%] Patient Own Pump 0 bag 11/22/23 Pioglitazone [Actos] 45 mg PO DAILY 11/22/23 11/22/23 Timolol 0.5% Ophth Soln [Timoptic 1 drop BOTH EYES BID 11/22/23 11/22/23 0.5% Ophth Soln] glipiZIDE XL [Glucotrol XL] 2.5 mg PO DAILY 11/22/23 11/22/23 hydroCHLOROthiazide [Hydrodiuril] 25 mg PO DAILY 11/22/23 11/22/23 prednisoLONE ACETATE 1% OPHTH 1 drop RIGHT EYE BID 11/22/23 11/22/23 [Pred Forte 1%] Previous Rx's Medication Instructions Recorded Gabapentin [Neurontin] 300 mg PO TID 30 Days #90 cap 09/06/23 Allergies Allergy/AdvReac Type Severity Reaction Status Date / Time hydromorphone [From Dilaudid] AdvReac CONFUSION, Verified 11/22/23 13:22 HALLUCINATIONS Review of Systems ROS Statement: Those systems with pertinent positive or pertinent negative responses have been documented in the HPI. ROS Other: All systems not noted in ROS Statement are negative. Past Medical History Past Medical History: Coronary Artery Disease (CAD), Chest Pain / Angina, CVA/TIA, Diabetes Mellitus, Eye Disorder, GERD/Reflux, Hyperlipidemia, Hypertension, Myocardial Infarction ([place]), Osteoarthritis (OA), Renal Disease Additional Past Medical History / Comment(s): low back pain that radiates to legs.,(has morphine pump), tinnitus, hx of head injury, TIA, aneurysm left groin, glaucoma and macular degeneration, [place]- has tubes in his ears, frequent diarrhea, chronic kidney disease. Last Myocardial Infarction Date:: 1990 History of Any Multi-Drug Resistant Organisms: MRSA Date of last positivie culture/infection: 1993 MDRO Source:: incisional after back sx Past Surgical History: Back Surgery, Heart Catheterization With Stent Additional Past Surgical History / Comment(s): Back Surgery x5 ([facility]), pain pump placed x3 colonoscopy., multiple tubes in ears. has 2 heart stents Past Anesthesia/Blood Transfusion Reactions: No Reported Reaction Additional Past Anesthesia/Blood Transfusion Reaction / Comment(s): . Date of Last Stent Placement:: 2020 Past Psychological History: No Psychological Hx Reported Smoking Status: Former smoker Past Alcohol Use History: None Reported Past Drug Use History: None Reported - Past Family History Father Family Medical History: Cancer Brother(s) Family Medical History: Cancer General Exam - General Exam Comments Initial Comments: PHYSICAL EXAM: General Impression: Alert and oriented x3, not in acute distress HEENT: Normocephalic atraumatic, extra-ocular movements intact, pupils equal and reactive to light bilaterally, mucous membranes moist. Cardiovascular: Heart regular rate and rhythm Chest: Able to complete full sentences, no retractions, no tachypnea Abdomen: abdomen soft, non-tender, non-distended, no organomegaly Musculoskeletal: Pulses present and equal in all extremities, no peripheral edema Motor: no focal deficits noted Neurological: CN II-XII grossly intact, no focal motor or sensory deficits noted Skin: Intact with no visualized rashes Psych: Normal affect and mood Limitations: no limitations Course Vital Signs 11/22/23 11/22/23 12:27 13:31 Temperature 97.8 F Pulse Rate 88 92 Respiratory 18 18 Rate Blood Pressure 164/96 141/69 O2 Sat by Pulse 98 Oximetry EKG Findings - EKG Comments: EKG Findings:: My EKG interpretation: Ventricular rate 89, A-fib, QRS 130, QTc 444. No NM prolongation, no QTC prolongation, no ST or T-wave changes noted. Patient denies any history of A-fib Medical Decision Making - Medical Decision Making Was pt. sent in by a medical professional or institution (, PA, SLITTER AND CUTTER OPERATOR, urgent care, hospital, or group home...) When possible be specific @ -No Did you speak to anyone other than the patient for history (EMS, parent, family, police, friend...)? What history was obtained from this source @ -No Did you review nursing and triage notes (agree or disagree)? Why? @ -I reviewed and agree with nursing and triage notes Were old charts reviewed (outside hosp., previous admission, EMS record, old EKG, old radiological studies, urgent care reports/EKG's, group home records)? Report findings @ -No old charts were reviewed Differential Diagnosis (chest pain, altered mental status, abdominal pain women, abdominal pain men, vaginal bleeding, musculoskeletal, weakness, fever, dyspnea, syncope, headache, dizziness, GI bleed, back pain, seizure, CVA, palpatations, mental health)? @ -Differential Chest Pain: Stable Angina, Unstable Angina, STEMI, NSTEMI Aortic Dissection, Pneumothorax, Musculoskeletal, Esophageal Spasm GERD, Cholecystitis, Pancreatitis, Zoster, this is not meant to be an all-inclusive list. EKG interpreted by me (3pts min.). @ -See above X-rays interpreted by me (1pt min.). @ -Chest x-ray shows no acute processes. Left shoulder x-ray shows no occult fractures CT interpreted by me (1pt min.). @ -None done U/S interpreted by me (1pt. min.). @ -None done What testing was considered but not performed or refused? (CT, X-rays, U/S, labs)? Why? @ -None What meds were considered but not given or refused? Why? @ -None Did you discuss the management of the patient with other professionals (professionals i.e. , PA, SLITTER AND CUTTER OPERATOR, lab, RT, psych nurse, sr. social media & mobile manager, emergency room nurse, teacher, military police officer, caser)? Give summary @ -Case discussed with hospitalist for admission Was smoking cessation discussed for >3mins.? @ -No Was critical care preformed (if so, how long)? @ -No Were there social determinants of health that impacted care today? How? (Homelessness, low income, unemployed, alcoholism, drug addiction, transportation, low edu. Level, literacy, decrease access to med. care, [facility], rehab)? @ -No Was there de-escalation of care discussed even if they declined (Discuss DNR or withdrawal of care, Hospice)? DNR status @ -No What co-morbidities impacted this encounter? (DM, HTN, Smoking, COPD, CAD, Cancer, CVA, ARF, Chemo, Hep., AIDS, mental health diagnosis, sleep apnea, morbid obesity)? @ -None Was patient admitted / discharged? Hospital course, mention meds given and route, prescriptions, significant lab abnormalities, going to OR and other pertinent info. @ -83-year-old male presents to the emergency department atypical chest pain typical features. Vital signs upon arrival are within acceptable limits. EKG does not show any signs of ischemia or infarction. Laboratory evaluation obtained. CBC, coag panel metabolic panel is unremarkable. Troponins 0.041. Patient has baseline elevated troponin. EKG shows new onset A-fib. Patient started heparin. He received aspirin by prehospital providers. Patient will be admitted consultation to cardiology. Undiagnosed new problem with uncertain prognosis? @ -No Drug Therapy requiring intensive monitoring for toxicity (Heparin, Nitro, Insulin, Cardizem)? @ -No Were any procedures done? @ -No Diagnosis/symptom? Acute, or Chronic, or Acute on Chronic? Uncomplicated (without systemic symptoms) or Complicated (systemic symptoms)? @ -New onset A-fib Side effects of treatment? @ -No Exacerbation, Progression, or Severe Exacerbation? @ -No Poses a threat to life or bodily function? How? (Chest pain, [place], [place], pneumonia, PE, COPD, DKA, ARF, appy, cholecystitis, CVA, Diverticulitis, Homicidal, Suicidal, threat to staff... and all critical care pts) @ -yes - Lab Data Result diagrams: 11/22/23 12:42 11/22/23 12:42 Lab Results 11/22/23 11/22/23 11/22/23 Range/Units 12:42 12:42 12:42 WBC 7.1 (3.8-10.6) k/uL RBC 3.75 L (4.30-5.90) m/uL Hgb 12.5 L (13.0-17.5) gm/dL Hct 36.9 L (39.0-53.0) % MCV 98.4 (80.0-100.0) fL MCH 33.4 (25.0-35.0) pg MCHC 34.0 (31.0-37.0) g/dL RDW 14.3 (11.5-15.5) % Plt Count 193 (150-450) k/uL MPV 8.1 Neutrophils % 82 % Lymphocytes % 9 % Monocytes % 5 % Eosinophils % 2 % Basophils % 0 % Neutrophils # 5.8 (1.3-7.7) k/uL Lymphocytes # 0.6 L (1.0-4.8) k/uL Monocytes # 0.4 (0-1.0) k/uL Eosinophils # 0.1 (0-0.7) k/uL Basophils # 0.0 (0-0.2) k/uL PT 11.5 (10.0-12.5) sec INR 1.1 (<1.2) APTT 27.2 (22.0-30.0) sec Sodium 138 (137-145) mmol/L Potassium 3.9 (3.5-5.1) mmol/L Chloride 106 (98-107) mmol/L Carbon Dioxide 25 (22-30) mmol/L Anion Gap 7 mmol/L BUN 34 H (9-20) mg/dL Creatinine 1.50 H (0.66-1.25) mg/dL Est GFR (CKD-EPI)AfAm 49 (>60 ml/min/1.73 sqM) Est GFR (CKD-EPI)NonAf 42 (>60 ml/min/1.73 sqM) Glucose 132 H (74-99) mg/dL Calcium 9.5 (8.4-10.2) mg/dL Magnesium 1.8 (1.6-2.3) mg/dL Total Bilirubin 0.9 (0.2-1.3) mg/dL AST 25 (17-59) U/L ALT 19 (4-49) U/L Alkaline Phosphatase 90 (38-126) U/L Troponin I (0.000-0.034) ng/mL Total Protein 6.4 (6.3-8.2) g/dL Albumin 3.7 (3.5-5.0) g/dL 11/22/23 Range/Units 12:42 WBC (3.8-10.6) k/uL RBC (4.30-5.90) m/uL Hgb (13.0-17.5) gm/dL Hct (39.0-53.0) % MCV (80.0-100.0) fL MCH (25.0-35.0) pg MCHC (31.0-37.0) g/dL RDW (11.5-15.5) % Plt Count (150-450) k/uL MPV Neutrophils % % Lymphocytes % % Monocytes % % Eosinophils % % Basophils % % Neutrophils # (1.3-7.7) k/uL Lymphocytes # (1.0-4.8) k/uL Monocytes # (0-1.0) k/uL Eosinophils # (0-0.7) k/uL Basophils # (0-0.2) k/uL PT (10.0-12.5) sec INR (<1.2) APTT (22.0-30.0) sec Sodium (137-145) mmol/L Potassium (3.5-5.1) mmol/L Chloride (98-107) mmol/L Carbon Dioxide (22-30) mmol/L Anion Gap mmol/L BUN (9-20) mg/dL Creatinine (0.66-1.25) mg/dL Est GFR (CKD-EPI)AfAm (>60 ml/min/1.73 sqM) Est GFR (CKD-EPI)NonAf (>60 ml/min/1.73 sqM) Glucose (74-99) mg/dL Calcium (8.4-10.2) mg/dL Magnesium (1.6-2.3) mg/dL Total Bilirubin (0.2-1.3) mg/dL AST (17-59) U/L ALT (4-49) U/L Alkaline Phosphatase (38-126) U/L Troponin I 0.041 H* (0.000-0.034) ng/mL Total Protein (6.3-8.2) g/dL Albumin (3.5-5.0) g/dL Disposition Clinical Impression: New onset a-fib Disposition: ADMITTED IP TO THIS HOSP Condition: Fair Referrals: None,Stated [REFERRING] - 1-2 days Decision Time: 14:54
[2023-11-22] MEDS ORDERED: HEPARIN SODIUM 1,000 UN/ML (10ML VL) IV PRN (13:05)
[2023-11-22 13:07] LABS: Basophils % (A) 0 %; Eosinophils # (A) 0.1 k/uL (0-0.7); Eosinophils % (A) 2 %; HCT 36.9 % (39.0-53.0); HGB 12.5 gm/dL (13.0-17.5); Lymphocytes # (A) 0.6 k/uL (1.0-4.8); Lymphocytes % (A) 9 %; MCH 33.4 pg (25.0-35.0); MCV 98.4 fL (80.0-100.0); Mean Platelet Volume 8.1; Monocytes # (A) 0.4 k/uL (0-1.0); Monocytes % (A) 5 %; Neutrophils # (A) 5.8 k/uL (1.3-7.7); Neutrophils % (A) 82 %; Platelet Count 193 k/uL (150-450); RBC 3.75 m/uL (4.30-5.90); RDW 14.3 % (11.5-15.5); WBC 7.1 k/uL (3.8-10.6)
[2023-11-22 13:24] LABS: INR 1.1 (<1.2); Partial Thromboplastin Time 27.2 sec (22.0-30.0); Prothrombin Time 11.5 sec (10.0-12.5)
[2023-11-22] MEDS: HEPARIN SODIUM 1,000 UN/ML (10ML VL) IV ONE (13:26)
[2023-11-22] MEDS: HEPARIN SOD,PORK IN 0.45% NACL 25,000 UNIT in 0.45% NACL 1 250ML.BAG IV SCH (13:27)
[2023-11-22 13:34] LABS: ALT 19 U/L (4-49); AST 25 U/L (17-59); African American GFR (CKD) 49 (>60 ml/min/1.73 sqM); Albumin 3.7 g/dL (3.5-5.0); Alkaline Phosphatase 90 U/L (38-126); Anion Gap 7 mmol/L; Blood Urea Nitrogen 34 mg/dL (9-20); Calcium 9.5 mg/dL (8.4-10.2); Carbon Dioxide 25 mmol/L (22-30); Chloride 106 mmol/L (98-107); Glucose 132 mg/dL (74-99); Magnesium 1.8 mg/dL (1.6-2.3); Non-African American GFR(CKD) 42 (>60 ml/min/1.73 sqM); Potassium 3.9 mmol/L (3.5-5.1); Sodium 138 mmol/L (137-145); Total Bilirubin 0.9 mg/dL (0.2-1.3); Total Protein 6.4 g/dL (6.3-8.2)
[2023-11-22] MEDS ORDERED: NALOXONE 0.4 MG/ML 1 ML VIAL IV PRN (14:51)
[2023-11-22] MEDS: SODIUM CHLORIDE 0.9% 1,000 ML IV SCH (15:06)
--- NOTE | 2023-11-22 15:31 | XR ---
EXAMINATION TYPE: XR chest 2V DATE OF EXAM: 11/22/2023 COMPARISON: 04/04/2019 HISTORY: 83-year-old male with chest pain, shortness of breath, weakness TECHNIQUE: AP and lateral views FINDINGS: Heart and lungs are normal in size. Atherosclerotic arch calcifications. Old healed left-sided rib fr acture deformities. Hazy densities related to overlying soft tissue. Strandy atelectasis at the lung bases. No consolidation or pleural effusion. [facility] throughout the thoracic spine. IMPRESSION: Some strandy basilar atelectasis. No definite acute process.
--- NOTE | 2023-11-22 15:33 | XR ---
EXAMINATION TYPE: XR shoulder complete 3 views LT DATE OF EXAM: 11/22/2023 Comparison: 01/03/2013 Clinical History: 83-year-old male left shoulder pain, ache Findings: Mild to moderate degenerative joint space narrowing at the AC joint with inferior spurring and capsul ar hypertrophy. There is loss of the subacromial space and rounded contour of the greater tuberosity. No acute fracture, subluxation, dislocation is seen. All left-sided fracture deformities. Impression: Chronic full-thickness rotator cuff tear. Secondary glenohumeral joint instability with abutment of t he humeral head with the undersurface of the acromion. [id number] AC joint. No acute osseous ab normality seen.
[2023-11-22] MEDS: ASPIRIN 81 MG PO SCH (16:10)
[2023-11-22] MEDS: MORPHINE SULFATE 4 MG/ML SYRINGE IVP PRN (16:11)
[2023-11-22] MEDS ORDERED: DEXTROSE 50% SYRINGE 50 ML IVP PRN ×2 (17:51)
--- NOTE | 2023-11-22 17:54 | P.HPIM ---
History of Present Illness H&P Date: 11/22/23 Patient is a 83-year-old male with history of CAD status post stents hypertension, dyslipidemia, diabetes, BPH, multiple back surgeries, pain pump in place presenting with chest pain/left shoulder pain. He claims that his chest pain and left shoulder pain started about 1 week ago. He thought he could manage with pain medications at home, but it persisted. He claims that it is worse with exertion, slightly improves with rest. Denies any shortness of breath, palpitations, lightheadedness, abdominal pain, nausea, vomiting, urinary or bowel complaints. He denies any recent travel history or sick contacts. In the ED, temperature 97.8, pulse 88, respiratory rate 18, blood pressure 1 64/96, saturating at 98% on room air. EKG independently interpreted, shows atrial fibrillation with right bundle branch block. Chest x-ray independently interpreted, shows no acute process. Shoulder x-ray independently interpreted, does not show any obvious fractures or deformities. WBC 7.1, hemoglobin 12.5, potassium 3.9, creatinine 1.5 from baseline, magnesium 1.8, troponin elevated at 0.041. Patient being admitted for chest pain, NSTEMI, new onset atrial fibrillation. Cardiology consulted, started on heparin drip. Pertinent positives and negatives as discussed in HPI, a complete review of systems was performed and all other systems are negative. Patient seen and examined at bedside. Vital signs reviewed General: nontoxic, no distress, appears at stated age Derm: warm, dry, pain pump in the back Head: atraumatic, normocephalic, symmetric Eyes: EOMI, no lid lag, anicteric sclera, pupils equal round reactive to light ENT: Nose and ears atraumatic Neck: No thyromegaly, supple Mouth: no lip lesion, mucus membranes moist Cardiovascular: S1S2 irregular, no murmur, no edema Lungs: clear to auscultation bilateral, no rhonchi, no rales, no wheeze, no accessory muscle use Abdominal: soft, nontender to palpation, no guarding, no appreciable organomegaly Ext: no gross muscle atrophy, muscle strength muscle strength 5 out of 5 in all 4 extremities, no contractures Neuro: CN II-XII grossly intact Psych: Alert, oriented, depressed mood Assessment/Plan: Active: Chest pain, atypical Suspected NSTEMI New onset atrial fibrillation -Rate controlled, on heparin drip, continue, monitor APTT and CBC -Aspirin 81 mg added, continue atorvastatin 80 mg, continue metoprolol 50 daily -Cardiology consulted, pending recommendations -Continue to monitor on telemetry -Trend troponin Depressed mood -Not on any therapy -He feels that he is too lonely after his about 3 years ago. He wants to continue staying at home, would benefit from senior day programs within the community. Hypertension -Continue hydrochlorothiazide 25 mg daily, lisinopril 40 mg daily Type 2 diabetes -Hold home antidiabetics, started on insulin sliding scale, monitor for hypoglycemia Chronic: Glaucoma Chronic pain has a pain pump in place The patient is admitted with an anticipated less than 2 midnight stay as observation status for evaluation of chest pain and new A-fib. Surrogate decision-maker: Son CODE STATUS: Full code DVT prophylaxis: Heparin drip Anticipated discharge date: Pending clinical course Anticipated discharge place: Pending clinical course A total of 55 minutes was spent on the care of this complex patient more than 50% of the time was spent in counseling and care coordination. Past Medical History Past Medical History: Coronary Artery Disease (CAD), Chest Pain / Angina, CVA/TIA, Diabetes Mellitus, Eye Disorder, GERD/Reflux, Hyperlipidemia, Hypertension, Myocardial Infarction ([place]), Osteoarthritis (OA), Renal Disease Additional Past Medical History / Comment(s): low back pain that radiates to legs.,(has morphine pump), tinnitus, hx of head injury, TIA, aneurysm left groin, glaucoma and macular degeneration, [place]- has tubes in his ears, frequent diarrhea, chronic kidney disease. Last Myocardial Infarction Date:: 1990 History of Any Multi-Drug Resistant Organisms: MRSA Date of last positivie culture/infection: 1993 MDRO Source:: incisional after back sx Past Surgical History: Back Surgery, Heart Catheterization With Stent Additional Past Surgical History / Comment(s): Back Surgery x5 ([place]), pain pump placed x3 colonoscopy., multiple tubes in ears. has 2 heart stents Past Anesthesia/Blood Transfusion Reactions: No Reported Reaction Additional Past Anesthesia/Blood Transfusion Reaction / Comment(s): . Date of Last Stent Placement:: 2020 Past Psychological History: No Psychological Hx Reported Smoking Status: Former smoker Past Alcohol Use History: None Reported Past Drug Use History: None Reported - Past Family History Father Family Medical History: Cancer Brother(s) Family Medical History: Cancer Medications and Allergies Home Medications Medication Instructions Recorded Confirmed Type Metoprolol Succinate (ER) [Toprol 50 mg PO QAM 10/29/14 11/22/23 History XL] Latanoprost/Pf [Latanoprost 0.005% 1 drop BOTH EYES HS 04/04/19 11/22/23 History Eye Drop] Atorvastatin [Lipitor] 80 mg PO HS 07/13/20 11/22/23 History Tamsulosin [Flomax] 0.4 mg PO HS 04/24/22 11/22/23 History lisinopriL 40 mg PO QAM 07/13/22 11/22/23 History Gabapentin [Neurontin] 300 mg PO TID 30 Days #90 cap 09/06/23 11/22/23 Rx Brimonidine Tartrate [Alphagan P 1 drop BOTH EYES BID 11/22/23 11/22/23 History 0.15% Ophth Soln] Ketorolac 0.5% Ophth Soln [Acular 1 drop BOTH EYES BID 11/22/23 11/22/23 History 0.5%] Patient Own Pump 0 bag 11/22/23 History Pioglitazone [Actos] 45 mg PO DAILY 11/22/23 11/22/23 History Timolol 0.5% Ophth Soln [Timoptic 1 drop BOTH EYES BID 11/22/23 11/22/23 History 0.5% Ophth Soln] glipiZIDE XL [Glucotrol XL] 2.5 mg PO DAILY 11/22/23 11/22/23 History hydroCHLOROthiazide [Hydrodiuril] 25 mg PO DAILY 11/22/23 11/22/23 History prednisoLONE ACETATE 1% OPHTH 1 drop RIGHT EYE BID 11/22/23 11/22/23 History [Pred Forte 1%] Allergies Allergy/AdvReac Type Severity Reaction Status Date / Time hydromorphone [From Dilaudid] AdvReac CONFUSION, Verified 11/22/23 13:22 HALLUCINATIONS Physical Exam Vitals: Vital Signs Temp Pulse Resp BP Pulse Ox 11/22/23 15:02 86 18 138/77 97 11/22/23 13:31 92 18 141/69 11/22/23 12:27 97.8 F 88 18 164/96 98 Intake and Output 11/22/23 11/22/23 11/22/23 06:59 14:59 22:59 Other: Weight 90.265 kg Results CBC & Chem 7: 11/22/23 12:42 11/22/23 12:42 Labs: Abnormal Lab Results - Last 24 Hours (Table) 11/22/23 11/22/23 11/22/23 Range/Units 12:42 12:42 12:42 RBC 3.75 L (4.30-5.90) m/uL Hgb 12.5 L (13.0-17.5) gm/dL Hct 36.9 L (39.0-53.0) % Lymphocytes # 0.6 L (1.0-4.8) k/uL BUN 34 H (9-20) mg/dL Creatinine 1.50 H (0.66-1.25) mg/dL Glucose 132 H (74-99) mg/dL Troponin I 0.041 H* (0.000-0.034) ng/mL
[2023-11-22] MEDS: PUMP MISCELLANE SCH ×2 (17:58→18:28)
[2023-11-22 18:25] LABS: Glucose,Whole Blood 223 mg/dL (70-110)
[2023-11-22 20:55] LABS: Glucose,Whole Blood 124 mg/dL (70-110)
[2023-11-22] MEDS: INSULIN ASPART (NovoLOG) 100 UNIT/ML VIAL SQ SCH (21:09)
[2023-11-22] MEDS: GABAPENTIN 300 MG CAP PO SCH (21:22)
[2023-11-22] MEDS: TAMSULOSIN 0.4 MG CAP.ER.24H PO SCH (21:22)
[2023-11-22] MEDS: ATORVASTATIN 80 MG TAB PO SCH (21:22)
[2023-11-22] MEDS: LATANOPROST 0.005% OPHTH DROPS 2.5 ML BTL BOTH EYES SCH (22:03)
[2023-11-22] MEDS: BRIMONIDINE TARTRATE 0.2% DROPS 5 ML BTL BOTH EYES SCH (22:04)
[2023-11-22] MEDS: TIMOLOL 0.5% OPHTH DROPS 5 ML BTL BOTH EYES SCH (22:05)
[2023-11-22] MEDS: KETOROLAC 0.5% OPHTH DROPS 5 ML BTL BOTH EYES SCH (22:07)
[2023-11-22] MEDS: prednisoLONE ACETATE 1% OPHTH DROPS 5 ML BTL RIGHT EYE SCH (22:07)
[2023-11-23 07:21] LABS: Glucose,Whole Blood 153 mg/dL (70-110)
[2023-11-23] MEDS: hydroCHLOROthiazide 25 MG TAB PO SCH (09:07)
[2023-11-23] MEDS: METOPROLOL SUCCINATE (ER) 50 MG TAB.ER.24H PO SCH (09:08)
[2023-11-23] MEDS: lisinopriL 20 MG TAB PO SCH (09:08)
[2023-11-23 09:30] LABS: Basophils % (A) 1 %; Eosinophils # (A) 0.2 k/uL (0-0.7); Eosinophils % (A) 3 %; HCT 34.9 % (39.0-53.0); HGB 11.6 gm/dL (13.0-17.5); Lymphocytes # (A) 0.7 k/uL (1.0-4.8); Lymphocytes % (A) 11 %; MCH 33.3 pg (25.0-35.0); MCHC 33.2 g/dL (31.0-37.0); MCV 100.4 fL (80.0-100.0); Macrocytosis Slight; Mean Platelet Volume 8.3; Monocytes # (A) 0.3 k/uL (0-1.0); Monocytes % (A) 5 %; Neutrophils # (A) 5.2 k/uL (1.3-7.7); Neutrophils % (A) 80 %; Platelet Count 177 k/uL (150-450); RBC 3.47 m/uL (4.30-5.90); RDW 14.6 % (11.5-15.5); WBC 6.6 k/uL (3.8-10.6)
[2023-11-23 09:36] LABS: INR 1.1 (<1.2); Prothrombin Time 11.9 sec (10.0-12.5)
[2023-11-23 09:48] LABS: African American GFR (CKD) 48 (>60 ml/min/1.73 sqM); Anion Gap 2 mmol/L; Blood Urea Nitrogen 38 mg/dL (9-20); Carbon Dioxide 30 mmol/L (22-30); Chloride 107 mmol/L (98-107); Glucose 129 mg/dL (74-99); Magnesium 1.8 mg/dL (1.6-2.3); Non-African American GFR(CKD) 41 (>60 ml/min/1.73 sqM); Potassium 3.7 mmol/L (3.5-5.1); Sodium 139 mmol/L (137-145)
[2023-11-23] MEDS ORDERED: REGADENOSON 0.4 MG/5 ML SYRINGE IV PRN (10:26)
[2023-11-23] MEDS ORDERED: CAFFEINE CITRATE 60 MG/3 ML VIAL IV PRN (10:26)
[2023-11-23] MEDS ORDERED: AMINOPHYLLINE 500 MG/20 ML VIAL IV PRN (10:26)
--- NOTE | 2023-11-23 11:31 | CA ---
Transthoracic Echo Report Name: Arturo Hanks Age: 83 Gender: M : 1940 Exam Date: 11/23/2023 08:01 Exam Location: [facility] Ht (in): 71 Wt (lb): 199 Ordering Physician: Daron Longoria MD Attending/Referring Phys: Assistant Nurse Manager Jerrica Francisco RDCS Procedure CPT: Indications: afib, nstemi Cardiac Hx: Technical Quality: Poor Contrast 1: Definity Total Dose (mL): 2 Contrast 2: Total Dose (mL): MEASUREMENTS (Male / Female) Normal Values 2D ECHO LV Diastolic Diameter PLAX 4.3 cm 4.2 - 5.9 / 3.9 - 5.3 cm LV Systolic Diameter PLAX 3.4 cm IVS Diastolic Thickness 1.5 cm 0.6 - 1.0 / 0.6 - 0.9 cm LVPW Diastolic Thickness 1.5 cm 0.6 - 1.0 / 0.6 - 0.9 cm LV Relative Wall Thickness 0.7 RV Internal Dim ED PLAX 3.3 cm LVOT Diameter 2.6 cm LA Systolic Diameter LX 3.7 cm 3.0 - 4.0 / 2.7 - 3.8 cm LA Volume 80.1 cm??? 18 - 58 / 22 - 52 cm??? LA Volume Index 37.4 cm???/m??? 16 - 28 cm???/m??? M-MODE Aortic Root Diameter MM 4.0 cm AV Cusp Separation MM 2.6 cm DOPPLER AV Peak Velocity 148.1 cm/s AV Peak Gradient 8.8 mmHg AV Mean Velocity 92.6 cm/s AV Mean Gradient 4.0 mmHg AV Velocity Time Integral 29.2 cm AI Peak Velocity 401.4 cm/s AI Peak Gradient 64.5 mmHg AI Pressure Half Time 897.1 ms MV Area PHT 3.1 cm??? MV Deceleration Time 288.9 ms TR Peak Velocity 292.3 cm/s TR Peak Gradient 34.2 mmHg Right Ventricular Systolic Press 39.2 mmHg FINDINGS Left Ventricle Left ventricular ejection fraction is estimated at 45-50 %. Left ventricular cavity size normal. Moderately increased septal wall thickness. Right Ventricle Mild right ventricular dilatation. Mild pulmonary hypertension. Right Atrium Normal right atrial size. No right atrial thrombus or mass seen. Left Atrium Moderately increased left atrial volume. Mildly increased left atrial area. Mitral Valve Structurally normal mitral valve. No mitral stenosis, regurgitation or prolapse. Aortic Valve Trileaflet aortic valve. Mild aortic regurgitation. Tricuspid Valve Structurally normal tricuspid valve. Mild tricuspid regurgitation. Pulmonic Valve Pulmonic valve not well visualized. Pericardium No pericardial effusion. No pleural effusion. Aorta Ascending aorta aneurysm. Mild aortic dilatation at the level of the sinuses of valsalva 40 mm CONCLUSIONS Poorly visualized the endocardium and poorly visualized intracardiac valves Mildly impaired LV function with EF between 45-50% Previewed by: Dr. Vincenzo Small MD (Electronically Signed) Final Date: 23 Nov 2023 11:30
[2023-11-23 12:03] LABS: Glucose,Whole Blood 158 mg/dL (70-110)
--- NOTE | 2023-11-23 12:39 | P.CRDCN ---
History of Present Illness Consult date: 11/23/23 Reason for Consult (text): New onset atrial fibrillation History of present illness: History of present illness: This is an 83-year-old male patient of Dr. Cordova with past medical history of chronic back pain status post a number of back surgeries, morphine pump and other procedures, CAD with [employer] as well as PCI of the OM branch in July 2020, diabetes mellitus type 2, hypertension, hyperlipidemia, chronic kidney disease, report of AAA, however, more iliac aneurysms, and PAD. We have been asked to evaluate the patient for new onset of atrial fibrillation. Patient states that he has been feeling weak for the past couple of days and can gradually worsening. He also has shortness of breath is progressively worsening. Regarding chest tightness he does have at times and seems to be in the back of the right shoulder. He is scheduled for outpatient stress testing in the office on November 27. He denies having any black stools. Patient is seen today in the emergency center waiting for a bed on the cardiac stepdown unit. Telemetry is sinus rhythm with PACs. Patient has been started on heparin drip. He is now and in a sinus rhythm on telemetry. EKG atrial fibrillation with right bundle branch block at ventricular rate of 89 bpm Chest x-ray: Some stranding basilar atelectasis. No definite acute process. Right shoulder x-ray chronic rotator cuff tear. No acute osseous WBC 7.1, hemoglobin 12.5. Potassium 3.9, BUN 34 creatinine 1.5 which is patient's baseline. Troponin 0.041. Magnesium 1.8. Home cardiac medications: Atorvastatin 80 mg at bedtime, hydrochlorothiazide 25 mg daily, lisinopril 40 mg daily, Toprol-XL 50 mg daily. Echocardiogram performed in the office on 06/19/2023 revealed EF of 50 to 55%. Small hypokinetic area of the inferior lateral wall with base to mid wall. Small hypokinetic area in the inferior wall at the base. Grade 2 diastolic dysfunction. Mild concentric left ventricular hypertrophy. Moderate aortic regurgitation. Mild mitral regurgitation. Mild tricuspid regurgitation. Lexiscan Cardiolite stress test performed in the office on 06/08/2020 revealed abnormal stress test with fixed inferior perfusion defect and inferior hypokinesis likely consistent with prior [place]. As well, reversible inferior lateral perfusion defect concerning for ischemia. Reduced EF of 40% with infer ior hypokinesis. Cardiac catheterization performed on 07/19/2020 that revealed CAD with 100% [employer] with collaterals, mild to moderate disease of the left, 67% OM1 with IFR positive at 0.33 status post PCI of the OM1. Review Of Systems: At the time of my exam: CONSTITUTIONAL: Denies fever or chills. HEENT: Denies blurred vision, vision changes, or eye pain. Denies hemoptysis CARDIOVASCULAR: Denies chest pain. Denies orthopnea. Denies PND. Denies palpitations RESPIRATORY: Denies shortness of breath. GASTROINTESTINAL: Denies abdominal pain. Denies nausea or vomiting. HEMATOLOGIC: Denies bleeding disorders. GENITOURINARY: Denies any blood in urine. SKIN: Denies pruitis. Denies rash. Physical examination: Gen: This is a an 83-year-old male in no acute distress VS: reviewed, blood pressure 108/69, heart rate 75, pulse ox 96% on room air. HEENT: Head is atraumatic, normocephalic. Pupils equal, round. Sclerae is anicteric. NECK: Supple. No JVD. LUNGS: Clear to auscultation. No wheezes or rhonchi. No intercostal retractions. HEART: Regular rate and rhythm. No murmur. ABDOMEN: Soft No tenderness. EXTREMITIES: No pedal edema. No calf tenderness. NEUROLOGICAL: Patient is awake, alert and oriented x3. Assessment: New onset paroxysmal atrial fibrillation with controlled rate Chest pain Coronary artery disease Diabetes mellitus type 2 Hypertension Hyperlipidemia Chronic kidney disease PAD Plan: Resume patient's home cardiac medications Plan was for Lexiscan stress test but patient ate this morning so this has been canceled Continue heparin drip Obtain 2-D echocardiogram and Doppler study to assess cardiac structure and function Further recommendations to follow based upon clinical course Thank you kindly for this consultation. Nurse practitioner note has been reviewed, I agree with documented findings and plan of care. Patient was seen and examined. Past Medical History Past Medical History: Coronary Artery Disease (CAD), Chest Pain / Angina, CVA/TIA, Diabetes Mellitus, Eye Disorder, GERD/Reflux, Hyperlipidemia, Hypertens ion, Myocardial Infarction ([place]), Osteoarthritis (OA), Renal Disease Additional Past Medical History / Comment(s): low back pain that radiates to legs.,(has morphine pump), tinnitus, hx of head injury, TIA, aneurysm left groin, glaucoma and macular degeneration, [place]- has tubes in his ears, frequent diarrhea, chronic kidney disease. Last Myocardial Infarction Date:: 1990 History of Any Multi-Drug Resistant Organisms: MRSA Date of last positivie culture/infection: 1993 MDRO Source:: incisional after back sx Past Surgical History: Back Surgery, Heart Catheterization With Stent Additional Past Surgical History / Comment(s): Back Surgery x5 ([place]), pain pump placed x3 colonoscopy., multiple tubes in ears. has 2 heart stents Past Anesthesia/Blood Transfusion Reactions: No Reported Reaction Additional Past Anesthesia/Blood Transfusion Reaction / Comment(s): . Date of Last Stent Placement:: 2020 Past Psychological History: No Psychological Hx Reported Smoking Status: Former smoker Past Alcohol Use History: None Reported Past Drug Use History: None Reported - Past Family History Father Family Medical History: Cancer Brother(s) Family Medical History: Cancer Medications and Allergies Home Medications Medication Instructions Recorded Confirmed Type Metoprolol Succinate (ER) [Toprol 50 mg PO QAM 10/29/14 11/22/23 History XL] Latanoprost/Pf [Latanoprost 0.005% 1 drop BOTH EYES HS 04/04/19 11/22/23 History Eye Drop] Atorvastatin [Lipitor] 80 mg PO HS 07/13/20 11/22/23 History Tamsulosin [Flomax] 0.4 mg PO HS 04/24/22 11/22/23 History lisinopriL 40 mg PO QAM 07/13/22 11/22/23 History Gabapentin [Neurontin] 300 mg PO TID 30 Days #90 cap 09/06/23 11/22/23 Rx Brimonidine Tartrate [Alphagan P 1 drop BOTH EYES BID 11/22/23 11/22/23 History 0.15% Ophth Soln] Ketorolac 0.5% Ophth Soln [Acular 1 drop BOTH EYES BID 11/22/23 11/22/23 History 0.5%] Patient Own Pump 0 bag 11/22/23 History Pioglitazone [Actos] 45 mg PO DAILY 11/22/23 11/22/23 History Timolol 0.5% Ophth Soln [Timoptic 1 drop BOTH EYES BID 11/22/23 11/22/23 History 0.5% Ophth Soln] glipiZIDE XL [Glucotrol XL] 2.5 mg PO DAILY 11/22/23 11/22/23 History hydroCHLOROthiazide [Hydrodiuril] 25 mg PO DAILY 11/22/23 11/22/23 History prednisoLONE ACETATE 1% OPHTH 1 drop RIGHT EYE BID 11/22/23 11/22/23 History [Pred Forte 1%] Allergies Allergy/AdvReac Type Severity Reaction Status Date / Time hydromorphone [From Dilaudid] AdvReac CONFUSION, Verified 11/22/23 13:22 HALLUCINATIONS Physical Exam Vitals: Vital Signs Temp Pulse Resp BP Pulse Ox 11/23/23 06:00 75 16 108/69 96 11/23/23 04:00 85 16 125/57 95 11/23/23 00:00 86 16 101/64 96 11/22/23 20:45 81 20 132/77 96 11/22/23 19:00 85 18 122/88 95 11/22/23 18:21 95 19 110/83 96 11/22/23 15:02 86 18 138/77 97 11/22/23 13:31 92 18 141/69 11/22/23 12:27 97.8 F 88 18 164/96 98 Results 11/23/23 08:44 11/23/23 08:44 Cardiac Enzymes 11/22/23 11/22/23 Range/Units 12:42 12:42 AST 25 (17-59) U/L Troponin I 0.041 H* (0.000-0.034) ng/mL Coagulation 11/22/23 11/22/23 Range/Units 12:42 19:34 PT 11.5 (10.0-12.5) sec APTT 27.2 54.0 H (22.0-30.0) sec CBC 11/22/23 Range/Units 12:42 WBC 7.1 (3.8-10.6) k/uL RBC 3.75 L (4.30-5.90) m/uL Hgb 12.5 L (13.0-17.5) gm/dL Hct 36.9 L (39.0-53.0) % Plt Count 193 (150-450) k/uL Comprehensive Metabolic Panel 11/22/23 Range/Units 12:42 Sodium 138 (137-145) mmol/L Potassium 3.9 (3.5-5.1) mmol/L Chloride 106 (98-107) mmol/L Carbon Dioxide 25 (22-30) mmol/L BUN 34 H (9-20) mg/dL Creatinine 1.50 H (0.66-1.25) mg/dL Glucose 132 H (74-99) mg/dL Calcium 9.5 (8.4-10.2) mg/dL AST 25 (17-59) U/L ALT 19 (4-49) U/L Alkaline Phosphatase 90 (38-126) U/L Total Protein 6.4 (6.3-8.2) g/dL Albumin 3.7 (3.5-5.0) g/dL Current Medications Generic Name Dose Route Start Last Admin Trade Name Freq PRN Reason Stop Dose Admin Aspirin 81 mg 11/22/23 16:15 11/22/23 16:10 Aspirin 81 Mg PO Not Given DAILY MICHELLE Atorvastatin Calcium 80 mg 11/22/23 21:00 11/22/23 21:22 Atorvastatin 80 Mg Tab PO 80 mg HS MICHELLE Administration Brimonidine Tartrate 1 drops 11/22/23 21:00 11/22/23 22:04 Brimonidine Tartrate 0.2% Drops 5 Ml Btl BOTH EYES 1 drops BID MICHELLE Administration Dextrose/Water 25 ml 11/22/23 17:51 Dextrose 50% Syringe 50 Ml IVP PER PROTOCOL PRN Hypoglycemia Protocol Dextrose/Water 50 ml 11/22/23 17:51 Dextrose 50% Syringe 50 Ml IVP PER PROTOCOL PRN Hypoglycemia Protocol Gabapentin 300 mg 11/22/23 22:00 11/22/23 21:22 Gabapentin 300 Mg Cap PO 300 mg TID MICHELLE Administration Heparin Sodium (Porcine) 0 unit 11/22/23 13:05 Heparin Sodium 1,000 Un/Ml (10ml Vl) IV PER PROTOCOL PRN Low PTT Protocol Hydrochlorothiazide 25 mg 11/23/23 09:00 Hydrochlorothiazide 25 Mg Tab PO DAILY MICHELLE Heparin Sodium/Sodium Chloride 250 mls @ 10.832 mls/hr 11/22/23 13:15 11/22/23 13:27 25,000 unit/ Sodium Chloride IV 12 units/kg/hr .Q23H5M MICHELLE 10.832 mls/hr Administration Protocol 12 UNITS/KG/HR Sodium Chloride 1,000 mls @ 20 mls/hr 11/22/23 15:00 11/22/23 15:06 Saline 0.9% IV 20 mls/hr .Q24H MICHELLE Administration Insulin Aspart 0 unit 11/22/23 21:00 11/22/23 21:09 Insulin Aspart (Novolog) 100 Unit/Ml Vial SQ Not Given ACHS MICHELLE Protocol Ketorolac Tromethamine 1 drops 11/22/23 21:00 11/22/23 22:07 Ketorolac 0.5% Ophth Drops 5 Ml Btl BOTH EYES 1 drops BID MICHELLE Administration Latanoprost 1 drops 11/22/23 21:00 11/22/23 22:03 Latanoprost 0.005% Ophth Drops 2.5 Ml Btl BOTH EYES 1 drops HS MICHELLE Administration Lisinopril 40 mg 11/23/23 09:00 Lisinopril 20 Mg Tab PO QAM MICHELLE Metoprolol Succinate 50 mg 11/23/23 09:00 Metoprolol Succinate (Er) 50 Mg Tab.Er.24h PO QAM MICHELLE Naloxone HCl 0.2 mg 11/22/23 14:51 Naloxone 0.4 Mg/Ml 1 Ml Vial IV Q2M PRN Opioid Reversal Non-Formulary Medication 0 bag 11/22/23 18:03 11/22/23 18:28 Patient Own Pump [Patient Own Pump] MISCELLANE Not Given CONTINUOUS [facility] Prednisolone Acetate 1 drops 11/22/23 21:00 11/22/23 22:07 Prednisolone Acetate 1% Ophth Drops 5 Ml Btl RIGHT EYE 1 drops BID MICHELLE Administration Tamsulosin HCl 0.4 mg 11/22/23 21:00 11/22/23 21:22 Tamsulosin 0.4 Mg Cap.Er.24h PO 0.4 mg HS MICHELLE Administration Timolol Maleate 1 drops 11/22/23 21:00 11/22/23 22:05 Timolol 0.5% Ophth Drops 5 Ml Btl BOTH EYES 1 drops BID MICHELLE Administration 11/22/23 12:42 11/22/23 12:42
[2023-11-23] MEDS: MORPHINE SULFATE 2 MG/ML SYRINGE IVP PRN (14:39)
--- NOTE | 2023-11-23 16:11 | P.PN ---
Subjective Progress Note Date: 11/23/23 Patient is a 83-year-old male with history of CAD status post stents hypertension, dyslipidemia, diabetes, BPH, multiple back surgeries, pain pump in place presenting with chest pain/left shoulder pain. He claims that his chest pain and left shoulder pain started about 1 week ago. He thought he could ma nage with pain medications at home, but it persisted. He claims that it is worse with exertion, slightly improves with rest. In the ED, temperature 97.8, pulse 88, respiratory rate 18, blood pressure 164/96, saturating at 98% on room air. EKG shows atrial fibrillation with right bundle branch block. Chest x-ray shows no acute process. Shoulder x-ray does not show any obvious fractures or deformities. WBC 7.1, hemoglobin 12.5, potassium 3.9, creatinine 1.5 from baseline, magnesium 1.8, troponin elevated at 0.041. Patient being admitted for chest pain, NSTEMI, new onset atrial fibrillation. Cardiology consulted, started on heparin drip. 11/22 Patient was seen and examined. He reports improved chest pain. Complains of right neck and shoulder pain. Echo EF 45-50%, mild AR/TR. Cardiology consulted, Heparin drip, stress test but unable to today because patient ate. CBC Hg 11.6, Hct 34.9, MCV 100.4. Coag panel INR 1.1. BMP BUN 38, Cr 1.52, glu 129. A1c 7.1. Trop 0.057, 0.054. TSH within normal limits. General: non toxic, no distress, appears at stated age Derm: warm, dry Head: atraumatic, normocephalic, symmetric Eyes: EOMI, no lid lag, anicteric sclera Mouth: no lip lesion, mucus membranes moist Cardiovascular: S1S2 irreg, no murmur Lungs: CTA bilateral, no rhonchi, no rales , no accessory muscle use Ext: no gross muscle atrophy, no edema, no contractures Neuro: no focal neuro deficits Psych: Alert, oriented, appropriate affect Chest pain, atypical Suspected NSTEMI: ASA 81 mg PO QD. Lipitor 80 mg PO QHS. Heparin drip 12 units/kg/hr. Monitor daily coag panel while on heparin. New onset atrial fibrillation: Metoprolol 50 mg PO QD. Heparin drip for AC. Telemetry monitoring. TSH within normal limits. Depressed mood Hypertension: HCTZ 25 mg PO QD. Lisinopril 40 mg PO QD. Diabetes mellitus: ISS. Accuchecks ACHS. Hypoglycemic precautions. Glaucoma: Brimonidine eye drops. Ketorolac eye drops. Latanoprost eye drops. Prednisolone eye drops. Timolol eye drops. Chronic pain: Pain pump in place. Morphine 2 mg IV Q4H PRN for pain. CODE STATUS: FULL CODE DVT Prophylaxis: Heparin drip GI Prophylaxis: Designated medical POA if patient is not able to make medical decisions for themselves: I have reviewed the following warehouse consultant notes: Cardiology I have reviewed the results of the following tests: CBC, BMP, Trop x 2, Echo, TSH, coag panel. I have ordered the following tests: Coag panel I have discussed the care of this patient with the following independent hist orian: I have independently interpreted the following test below: I have discussed the management of this patient with the following physician: Objective - Vital Signs Vital signs: Vital Signs Temp 98.2 F 11/23/23 11:33 Pulse 74 11/23/23 11:33 Resp 18 11/23/23 11:33 BP 84/54 11/23/23 11:33 Pulse Ox 95 11/23/23 11:33 FiO2 Intake & Output 11/22/23 11/23/23 11/23/23 18:59 06:59 18:59 Weight 90.265 kg - Labs CBC & Chem 7: 11/23/23 08:44 11/23/23 08:44 Labs: Abnormal Lab Results - Last 24 Hours (Table) 11/22/23 11/22/23 11/22/23 Range/Units 18:24 19:34 20:53 RBC (4.30-5.90) m/uL Hgb (13.0-17.5) gm/dL Hct (39.0-53.0) % MCV (80.0-100.0) fL Lymphocytes # (1.0-4.8) k/uL APTT 54.0 H (22.0-30.0) sec BUN (9-20) mg/dL Creatinine (0.66-1.25) mg/dL Glucose (74-99) mg/dL POC Glucose (mg/dL) 223 H 124 H (70-110) mg/dL Hemoglobin A1c (<=6.0) % Troponin I (0.000-0.034) ng/mL 11/23/23 11/23/23 11/23/23 Range/Units 07:20 08:44 08:44 RBC 3.47 L (4.30-5.90) m/uL Hgb 11.6 L (13.0-17.5) gm/dL Hct 34.9 L (39.0-53.0) % MCV 100.4 H (80.0-100.0) fL Lymphocytes # 0.7 L (1.0-4.8) k/uL APTT (22.0-30.0) sec BUN (9-20) mg/dL Creatinine (0.66-1.25) mg/dL Glucose (74-99) mg/dL POC Glucose (mg/dL) 153 H (70-110) mg/dL Hemoglobin A1c 7.1 H (<=6.0) % Troponin I (0.000-0.034) ng/mL 11/23/23 11/23/23 11/23/23 Range/Units 08:44 08:44 12:02 RBC (4.30-5.90) m/uL Hgb (13.0-17.5) gm/dL Hct (39.0-53.0) % MCV (80.0-100.0) fL Lymphocytes # (1.0-4.8) k/uL APTT (22.0-30.0) sec BUN 38 H (9-20) mg/dL Creatinine 1.52 H (0.66-1.25) mg/dL Glucose 129 H (74-99) mg/dL POC Glucose (mg/dL) 158 H (70-110) mg/dL Hemoglobin A1c (<=6.0) % Troponin I 0.057 H* (0.000-0.034) ng/mL 11/23/23 Range/Units 13:10 RBC (4.30-5.90) m/uL Hgb (13.0-17.5) gm/dL Hct (39.0-53.0) % MCV (80.0-100.0) fL Lymphocytes # (1.0-4.8) k/uL APTT (22.0-30.0) sec BUN (9-20) mg/dL Creatinine (0.66-1.25) mg/dL Glucose (74-99) mg/dL POC Glucose (mg/dL) (70-110) mg/dL Hemoglobin A1c (<=6.0) % Troponin I 0.054 H* (0.000-0.034) ng/mL
[2023-11-23 16:26] LABS: Glucose,Whole Blood 195 mg/dL (70-110)
[2023-11-23 19:56] LABS: Glucose,Whole Blood 176 mg/dL (70-110)
[2023-11-23 21:10] LABS: Chol/HDL Ratio 3.44 Ratio; LDL Cholesterol,Calculated 58.2 mg/dL (0.0-131.0)
[2023-11-24 04:45] VITALS: RESP 18
[2023-11-24 06:02] LABS: Glucose,Whole Blood 160 mg/dL (70-110)
--- NOTE | 2023-11-24 11:03 | P.PN ---
Subjective Progress Note Date: 11/24/23 Patient is a 83-year-old male with history of CAD status post stents hypertension, dyslipidemia, diabetes, BPH, multiple back surgeries, pain pump in place presenting with chest pain/left shoulder pain. He claims that his chest pain and left shoulder pain started about 1 week ago. He thought he could ma nage with pain medications at home, but it persisted. He claims that it is worse with exertion, slightly improves with rest. In the ED, temperature 97.8, pulse 88, respiratory rate 18, blood pressure 164/96, saturating at 98% on room air. EKG shows atrial fibrillation with right bundle branch block. Chest x-ray shows no acute process. Shoulder x-ray does not show any obvious fractures or deformities. WBC 7.1, hemoglobin 12.5, potassium 3.9, creatinine 1.5 from baseline, magnesium 1.8, troponin elevated at 0.041. Patient being admitted for chest pain, NSTEMI, new onset atrial fibrillation. Cardiology consulted, started on heparin drip. 11/22 Patient was seen and examined. He reports improved chest pain. Complains of right neck and shoulder pain. Echo EF 45-50%, mild AR/TR. Cardiology consulted, Heparin drip, stress test but unable to today because patient ate. CBC Hg 11.6, Hct 34.9, MCV 100.4. Coag panel INR 1.1. BMP BUN 38, Cr 1.52, glu 129. A1c 7.1. Trop 0.057, 0.054. TSH within normal limits. 11/23 Patient was seen and examined. No more chest pain but reports lightheadedness with changes in position. BP 80/42 HR 71. Lipid panel T. Chol 131, LDL 58.2. Maintained on heparin drip at 12 units/kg/hr. APTT 58.1. Awaiting Cardiology recommendations. General: non toxic, no distress, appears at stated age Derm: warm, dry Head: atraumatic, normocephalic, symmetric Eyes: EOMI, no lid lag, anicteric sclera Mouth: no lip lesion, mucus membranes moist Cardiovascular: S1S2 irreg, no murmur Lungs: CTA bilateral, no rhonchi, no rales , no accessory muscle use Ext: no gross muscle atrophy, no edema, no contractures Neuro: no focal neuro deficits Psych: Alert, oriented, appropriate affect Lightheadedness: Likely orthostatic hypotension. Lisinopril discontinued. Metoprolol decreased from 50 to 25 mg PO QD. Obtain Orthostats. PT and OT consult. Fall precautions. Chest pain, atypical Suspected NSTEMI: ASA 81 mg PO QD. Lipitor 80 mg PO QHS. Heparin drip 12 units/kg/hr. Monitor daily coag panel while on heparin. Cardiology on board. New onset atrial fibrillation: Metoprolol as above. Heparin drip for AC. Telemetry monitoring. TSH within normal limits. Depressed mood Hypertension: Now hypotensive. Medication adjusted as above. Diabetes mellitus: ISS. Accuchecks ACHS. Hypoglycemic precautions. Glaucoma: Brimonidine eye drops. Ketorolac eye drops. Latanoprost eye drops. Prednisolone eye drops. Timolol eye drops. Chronic pain: Pain pump in place. Morphine 2 mg IV Q4H PRN for pain. CODE STATUS: FULL CODE DVT Prophylaxis: Heparin drip GI Prophylaxis: Designated medical POA if patient is not able to make medical decisions for themselves: I have reviewed the following economic consultant notes: Cardiology I have reviewed the results of the following tests: Coag panel, Lipid panel I have ordered the following tests: Stress test pending. Daily Coag monitoring. I have discussed the care of this patient with the following independent historian: I have independently interpreted the following test below: I have discussed the management of this patient with the following physician: Objective - Vital Signs Vital signs: Vital Signs Temp 97.8 F 11/24/23 04:00 Pulse 60 11/24/23 04:00 Resp 18 11/24/23 04:00 BP 101/64 11/24/23 04:00 Pulse Ox 95 11/24/23 04:00 FiO2 Intake & Output 11/23/23 11/24/23 11/24/23 18:59 06:59 18:59 Intake Total 250 Output Total 300 275 Balance -50 -275 Weight 90.265 kg Intake: Intake, IV Titration 250 Amount Heparin Sod,Pork in 0.45% 250 NaCl 25,000 unit In 0.45 % NaCl 1 250ml.bag @ 12 UNITS/KG/HR 10.832 mls/hr IV .Q23H5M [facility] Rx#: [id number] Output: Urine 300 275 Other: Voiding Method Urinal Urinal # Voids 1 - Labs CBC & Chem 7: 11/23/23 08:44 11/23/23 08:44 Labs: Abnormal Lab Results - Last 24 Hours (Table) 11/23/23 11/23/23 11/23/23 Range/Units 08:44 08:44 08:44 RBC 3.47 L (4.30-5.90) m/uL Hgb 11.6 L (13.0-17.5) gm/dL Hct 34.9 L (39.0-53.0) % MCV 100.4 H (80.0-100.0) fL Lymphocytes # 0.7 L (1.0-4.8) k/uL APTT (22.0-30.0) sec BUN 38 H (9-20) mg/dL Creatinine 1.52 H (0.66-1.25) mg/dL Glucose 129 H (74-99) mg/dL POC Glucose (mg/dL) (70-110) mg/dL Hemoglobin A1c 7.1 H (<=6.0) % Troponin I (0.000-0.034) ng/mL HDL Cholesterol 35.20 L (40.00-60.00) mg/dL 11/23/23 11/23/23 11/23/23 Range/Units 08:44 12:02 13:10 RBC (4.30-5.90) m/uL Hgb (13.0-17.5) gm/dL Hct (39.0-53.0) % MCV (80.0-100.0) fL Lymphocytes # (1.0-4.8) k/uL APTT (22.0-30.0) sec BUN (9-20) mg/dL Creatinine (0.66-1.25) mg/dL Glucose (74-99) mg/dL POC Glucose (mg/dL) 158 H (70-110) mg/dL Hemoglobin A1c (<=6.0) % Troponin I 0.057 H* 0.054 H* (0.000-0.034) ng/mL HDL Cholesterol (40.00-60.00) mg/dL 11/23/23 11/23/23 11/23/23 Range/Units 16:25 18:09 19:54 RBC (4.30-5.90) m/uL Hgb (13.0-17.5) gm/dL Hct (39.0-53.0) % MCV (80.0-100.0) fL Lymphocytes # (1.0-4.8) k/uL APTT 52.9 H (22.0-30.0) sec BUN (9-20) mg/dL Creatinine (0.66-1.25) mg/dL Glucose (74-99) mg/dL POC Glucose (mg/dL) 195 H 176 H (70-110) mg/dL Hemoglobin A1c (<=6.0) % Troponin I (0.000-0.034) ng/mL HDL Cholesterol (40.00-60.00) mg/dL 11/24/23 Range/Units 06:01 RBC (4.30-5.90) m/uL Hgb (13.0-17.5) gm/dL Hct (39.0-53.0) % MCV (80.0-100.0) fL Lymphocytes # (1.0-4.8) k/uL APTT (22.0-30.0) sec BUN (9-20) mg/dL Creatinine (0.66-1.25) mg/dL Glucose (74-99) mg/dL POC Glucose (mg/dL) 160 H (70-110) mg/dL Hemoglobin A1c (<=6.0) % Troponin I (0.000-0.034) ng/mL HDL Cholesterol (40.00-60.00) mg/dL
[2023-11-24 11:39] LABS: Glucose,Whole Blood 256 mg/dL (70-110)
[2023-11-24 12:35] VITALS: BMI 27.7
[2023-11-24] MEDS: APIXABAN 2.5 MG TABLET PO SCH (12:41)
--- NOTE | 2023-11-24 15:17 | P.PN ---
Subjective Progress Note Date: 11/24/23 Reason for Consult (text): New onset atrial fibrillation History of present illness: History of present illness: This is an 83-year-old male patient of Dr. Cordova with past medical history of chronic back pain status post a number of back surgeries, morphine pump and other procedures, CAD with RCA [employer]BAG [employer] CUTTER as well as PCI of the OM branch in July 2020, diabetes mellitus type 2, hypertension, hyperlipidemia, chronic kidney disease, report of AAA, however, more iliac aneurysms, and PAD. We have been asked to evaluate the patient for new onset of atrial fibrillation. Patient states that he has been feeling weak for the past couple of days and can gradually worsening. He also has shortness of breath is progressively worsening. Regarding chest tightness he does have at times and seems to be in the back of the right shoulder. He is scheduled for outpatient stress testing in the office on November 27. He denies having any black stools. Patient is seen today in the emergency center waiting for a bed on the cardiac stepdown unit. Telemetry is sinus rhythm with PACs. Patient has been started on heparin drip. He is now and in a sinus rhythm on telemetry. EKG atrial fibrillation with right bundle branch block at ventricular rate of 89 bpm Chest x-ray: Some stranding basilar atelectasis. No definite acute process. Right shoulder x-ray chronic rotator cuff tear. No acute osseous WBC 7.1, hemoglobin 12.5. Potassium 3.9, BUN 34 creatinine 1.5 which is patient's baseline. Troponin 0.041. Magnesium 1.8. Home cardiac medications: Atorvastatin 80 mg at bedtime, hydrochlorothiazide 25 mg daily, lisinopril 40 mg daily, Toprol-XL 50 mg daily. Echocardiogram performed in the office on 06/19/2023 revealed EF of 50 to 55%. Small hypokinetic area of the inferior lateral wall with base to mid wall. Small hypokinetic area in the inferior wall at the base. Grade 2 diastolic dysfunction. Mild concentric left ventricular hypertrophy. Moderate aortic regurgitation. Mild mitral regurgitation. Mild tricuspid regurgitation. Lexiscan Cardiolite stress test performed in the office on 06/08/2020 revealed abnormal stress test with fixed inferior perfusion defect and inferior hypokinesis likely consistent with prior MS. As well, reversible inferior lateral perfusion defect concerning for ischemia. Reduced EF of 40% with inferior hypokinesis. Cardiac catheterization performed on 07/19/2020 that revealed CAD with 100% RCA [employer] C[employer]TER with collaterals, mild to moderate disease of the left, 67% OM1 with IFR positive at 0.33 status post PCI of the OM1. 11/23 Patient complains of dizziness and nausea when he gets out of bed. He states he has a little shortness of breath. He states he is eating okay. He has been on a heparin drip. Blood pressure 80/42, heart rate 71, pulse ox 92% on room air. Telemetry is sinus rhythm. Echocardiogram reveals EF of 45 to 50%. Poorly visualized endocardium and poorly visualized intracardiac valves. Physical examination: Gen: This is a an 83-year-old male in no acute distress VS: reviewed HEENT: Head is atraumatic, normocephalic. Pupils equal, round. Sclerae is anicteric. NECK: Supple. No JVD. LUNGS: Clear to auscultation. No wheezes or rhonchi. No intercostal retractions. HEART: Regular rate and rhythm. No murmur. ABDOMEN: Soft No tenderness. EXTREMITIES: No pedal edema. No calf tenderness. NEUROLOGICAL: Patient is awake, alert and oriented x3. Assessment: New onset paroxysmal atrial fibrillation with controlled rate Chest pain Coronary artery disease Diabetes mellitus type 2 Hypertension Hyperlipidemia Chronic kidney disease PAD Plan: Discontinue heparin drip and start patient on Eliquis 2.5 mg twice daily Discontinue lisinopril and hydrochlorothiazide Decrease Toprol-XL to 25 mg daily Further recommendations to follow based upon clinical course Nurse practitioner note has been reviewed, I agree with documented findings and plan of care. Patient was seen and examined. Objective - Vital Signs Vital signs: Vital Signs Temp 98 F 11/24/23 08:10 Pulse 71 11/24/23 08:10 Resp 18 11/24/23 08:10 BP 80/42 11/24/23 08:10 Pulse Ox 92 L 11/24/23 08:10 FiO2 Intake & Output 11/23/23 11/24/23 11/24/23 18:59 06:59 18:59 Intake Total 250 118 Output Total 300 275 Balance -50 -275 118 Weight 90.265 kg Intake: Intake, IV Titration 250 Amount Heparin Sod,Pork in 0.45% 250 NaCl 25,000 unit In 0.45 % NaCl 1 250ml.bag @ 12 UNITS/KG/HR 10.832 mls/hr IV .Q23H5M [facility] Rx#: [id number] Oral 118 Output: Urine 300 275 Other: Voiding Method Urinal Urinal # Voids 1 - Labs CBC & Chem 7: 11/23/23 08:44 11/23/23 08:44 Labs: Abnormal Lab Results - Last 24 Hours (Table) 11/23/23 11/23/23 11/23/23 Range/Units 08:44 08:44 12:02 APTT (22.0-30.0) sec POC Glucose (mg/dL) 158 H (70-110) mg/dL Hemoglobin A1c 7.1 H (<=6.0) % Troponin I (0.000-0.034) ng/mL HDL Cholesterol 35.20 L (40.00-60.00) mg/dL 11/23/23 11/23/23 11/23/23 Range/Units 13:10 16:25 18:09 APTT 52.9 H (22.0-30.0) sec POC Glucose (mg/dL) 195 H (70-110) mg/dL Hemoglobin A1c (<=6.0) % Troponin I 0.054 H* (0.000-0.034) ng/mL HDL Cholesterol (40.00-60.00) mg/dL 11/23/23 11/24/23 11/24/23 Range/Units 19:54 06:01 07:46 APTT 58.1 H (22.0-30.0) sec POC Glucose (mg/dL) 176 H 160 H (70-110) mg/dL Hemoglobin A1c (<=6.0) % Troponin I (0.000-0.034) ng/mL HDL Cholesterol (40.00-60.00) mg/dL
[2023-11-24 16:14] LABS: Glucose,Whole Blood 103 mg/dL (70-110)
[2023-11-24 20:12] LABS: Glucose,Whole Blood 206 mg/dL (70-110)
[2023-11-25 06:05] LABS: Glucose,Whole Blood 155 mg/dL (70-110)
[2023-11-25] MEDS: METOPROLOL SUCCINATE (ER) 25 MG TAB.ER.24H PO SCH (08:38)
[2023-11-25 10:25] VITALS: BP 113/63; PULSE 85; TEMP 97.6
--- NOTE | 2023-11-25 11:18 | P.DS ---
Providers Date of admission: 11/22/23 15:14 Expected date of discharge: 11/25/23 Attending physician: Daron Longoria MD Consults: 11/22/23 13:05 Consult Physician Routine Consulting Provider: Antonio Cordova Consult Reason/Comments: new onset afib Do you want consulting provider notified?: Yes Primary care physician: [place] [facility] Course: Patient is a 83-year-old male with history of CAD status post stents hypertension, dyslipidemia, diabetes, BPH, multiple back surgeries, pain pump in place presenting with chest pain/left shoulder pain. He claims that his chest pain and left shoulder pain started about 1 week ago. He thought he could manage with pain medications at home, but it persisted. He claims that it is worse with exertion, slightly improves with rest. In the ED, temperature 97.8, pulse 88, respiratory rate 18, blood pressure 164/96, saturating at 98% on room air. EKG shows atrial fibrillation with right bundle branch block. Chest x-ray shows no acute process. Shoulder x-ray does not show any obvious fractures or deformities. WBC 7.1, hemoglobin 12.5, potassium 3.9, creatinine 1.5 from baseline, magnesium 1.8, troponin elevated at 0.041. Patient being admitted for chest pain, NSTEMI, new onset atrial fibrillation. Cardiology consulted, started on heparin drip. 11/22 Echo EF 45-50%, mild AR/TR. Cardiology consulted, Heparin drip, stress test but unable to today because patient ate. Trop 0.057, 0.054. TSH within normal limits. 11/23 No more chest pain but reports lightheadedness with changes in position. BP 80/42 HR 71. Lipid panel T. Chol 131, LDL 58.2. Maintained on heparin drip at 12 units/kg/hr. Orthostats are positive, HCTZ and Lisinopril discontinued, Metoprolol dose reduced to 25 mg PO QD. 11/24 Patient was seen and examined. Dizziness resolved. Orthostats are negative. Discussed with RN, ambulating the hallways without difficulties, cleared by Cardiology for possible outpatient stress. He is looking forward to going home. Prescriptions for Eliquis, Metoprolol and ASA will be sent to the pharmacy. Follow up with Cardiology within 1 week of discharge. General: non toxic, no distress, appears at stated age Derm: warm, dry Head: atraumatic, normocephalic, symmetric Eyes: EOMI, no lid lag, anicteric sclera Mouth: no lip lesion, mucus membranes moist Cardiovascular: S1S2 irreg, no murmur Lungs: CTA bilateral, no rhonchi, no rales , no accessory muscle use Ext: no gross muscle atrophy, no edema, no contractures Neuro: no focal neuro deficits Psych: Alert, oriented, appropriate affect Discharge Diagnosis: Lightheadedness Chest pain, atypical Suspected NSTEMI New onset atrial fibrillation Depressed mood Hypertension Diabetes mellitus Glaucoma Chronic pain This complex discharge took 35 minutes to complete. Patient Condition at Discharge: Stable Plan - Discharge Summary Discharge Rx Participant: No New Discharge Prescriptions: New Aspirin 81 mg PO DAILY #30 tab Apixaban [Eliquis] 2.5 mg PO BID #60 tab Metoprolol Succinate (ER) [Toprol XL] 25 mg PO QAM #30 tab Continue Latanoprost/Pf [Latanoprost 0.005% Eye Drop] 1 drop BOTH EYES HS Atorvastatin [Lipitor] 80 mg PO HS Tamsulosin [Flomax] 0.4 mg PO HS Gabapentin [Neurontin] 300 mg PO TID 30 Days #90 cap glipiZIDE XL [Glucotrol XL] 2.5 mg PO DAILY Pioglitazone [Actos] 45 mg PO DAILY Brimonidine Tartrate [Alphagan P 0.15% Ophth Soln] 1 drop BOTH EYES BID Patient Own Pump 0 bag prednisoLONE ACETATE 1% OPHTH [Pred Forte 1%] 1 drop RIGHT EYE BID Timolol 0.5% Ophth Soln [Timoptic 0.5% Ophth Soln] 1 drop BOTH EYES BID Ketorolac 0.5% Ophth Soln [Acular 0.5%] 1 drop BOTH EYES BID Discontinued Metoprolol Succinate (ER) [Toprol XL] 50 mg PO QAM hydroCHLOROthiazide [Hydrodiuril] 25 mg PO DAILY lisinopriL 40 mg PO QAM Discharge Medication List Latanoprost/Pf [Latanoprost 0.005% Eye Drop] 1 drop BOTH EYES HS 04/04/19 [History] Atorvastatin [Lipitor] 80 mg PO HS 07/13/20 [History] Tamsulosin [Flomax] 0.4 mg PO HS 04/24/22 [History] Gabapentin [Neurontin] 300 mg PO TID 30 Days #90 cap 09/06/23 [Rx] Brimonidine Tartrate [Alphagan P 0.15% Ophth Soln] 1 drop BOTH EYES BID 11/22/23 [History] Ketorolac 0.5% Ophth Soln [Acular 0.5%] 1 drop BOTH EYES BID 11/22/23 [History] Patient Own Pump 0 bag 11/22/23 [History] Pioglitazone [Actos] 45 mg PO DAILY 11/22/23 [History] Timolol 0.5% Ophth Soln [Timoptic 0.5% Ophth Soln] 1 drop BOTH EYES BID 11/22/23 [History] glipiZIDE XL [Glucotrol XL] 2.5 mg PO DAILY 11/22/23 [History] prednisoLONE ACETATE 1% OPHTH [Pred Forte 1%] 1 drop RIGHT EYE BID 11/22/23 [History] Apixaban [Eliquis] 2.5 mg PO BID #60 tab 11/25/23 [Rx] Aspirin 81 mg PO DAILY #30 tab 11/25/23 [Rx] Metoprolol Succinate (ER) [Toprol XL] 25 mg PO QAM #30 tab 11/25/23 [Rx] Follow up Appointment(s)/Referral(s): Antonio Cordova DO [STAFF PHYSICIAN] - 1 Week Boom Cooper DO [Primary Care Provider] - 1-2 Days Patient Instructions/Handouts: A-fib (Atrial Fibrillation) (DC) Discharge Disposition: HOME SELF-CARE
--- NOTE | 2023-11-25 11:23 | P.PN ---
Subjective Progress Note Date: 11/25/23 Reason for Consult (text): New onset atrial fibrillation History of present illness: History of present illness: This is an 83-year-old male patient of Dr. Cordova with past medical history of chronic back pain status post a number of back surgeries, morphine pump and other procedures, CAD with RCA RANGE EXAMINER as well as PCI of the OM branch in July 2020, diabetes mellitus type 2, hypertension, hyperlipidemia, chronic kidney disease, report of AAA, however, more iliac aneurysms, and PAD. We have been asked to evaluate the patient for new onset of atrial fibrillation. Patient states that he has been feeling weak for the past couple of days and can gradually worsening. He also has shortness of breath is progressively worsening. Regarding chest tightness he does have at times and seems to be in the back of the right shoulder. He is scheduled for outpatient stress testing in the office on November 27. He denies having any black stools. Patient is seen today in the emergency center waiting for a bed on the cardiac stepdown unit. Telemetry is sinus rhythm with PACs. Patient has been started on heparin drip. He is now and in a sinus rhythm on telemetry. EKG atrial fibrillation with right bundle branch block at ventricular rate of 89 bpm Chest x-ray: Some stranding basilar atelectasis. No definite acute process. Right shoulder x-ray chronic rotator cuff tear. No acute osseous WBC 7.1, hemoglobin 12.5. Potassium 3.9, BUN 34 creatinine 1.5 which is patient's baseline. Troponin 0.041. Magnesium 1.8. Home cardiac medications: Atorvastatin 80 mg at bedtime, hydrochlorothiazide 25 mg daily, lisinopril 40 mg daily, Toprol-XL 50 mg daily. Echocardiogram performed in the office on 06/19/2023 revealed EF of 50 to 55%. Small hypokinetic area of the inferior lateral wall with base to mid wall. Small hypokinetic area in the inferior wall at the base. Grade 2 diastolic dysfunction. Mild concentric left ventricular hypertrophy. Moderate aortic regurgitation. Mild mitral regurgitation. Mild tricuspid regurgitation. Lexiscan Cardiolite stress test performed in the office on 06/08/2020 revealed abnormal stress test with fixed inferior perfusion defect and inferior hypokinesis likely consistent with prior CT. As well, reversible inferior lateral perfusion defect concerning for ischemia. Reduced EF of 40% with inferior hypokinesis. Cardiac catheterization performed on 07/19/2020 that revealed CAD with 100% RCA RANGE EXAMINER with collaterals, mild to moderate disease of the left, 67% OM1 with IFR positive at 0.33 status post PCI of the OM1. 11/23 Patient complains of dizziness and nausea when he gets out of bed. He states he has a little shortness of breath. He states he is eating okay. He has been on a heparin drip. Blood pressure 80/42, heart rate 71, pulse ox 92% on room air. Telemetry is sinus rhythm. Echocardiogram reveals EF of 45 to 50%. Poorly visualized endocardium and poorly visualized intracardiac valves. 11/24 Patient states that he is feeling better. He denies having any weakness or dizziness. Heart rate is in the 60s and 70s. Blood pressure is 113/55. Pulse ox 93% on room air. Physical examination: Gen: This is a an 83-year-old male in no acute distress VS: reviewed HEENT: Head is atraumatic, normocephalic. Pupils equal, round. Sclerae is anicteric. NECK: Supple. No JVD. LUNGS: Clear to auscultation. No wheezes or rhonchi. No intercostal retractions. HEART: Regular rate and rhythm. No murmur. ABDOMEN: Soft No tenderness. EXTREMITIES: No pedal edema. No calf tenderness. NEUROLOGICAL: Patient is awake, alert and oriented x3. Assessment: New onset paroxysmal atrial fibrillation with controlled rate Chest pain Coronary artery disease Diabetes mellitus type 2 Hypertension Hyperlipidemia Chronic kidney disease PAD Plan: Continue patient on Eliquis 2.5 mg twice daily Discontinue lisinopril and hydrochlorothiazide Decrease Toprol-XL to 25 mg daily Patient to monitor blood pressure at home Patient instructed to monitor for lower extremity edema and he may use the hydrochlorothiazide as needed for edema Patient will follow-up in the office for outpatient stress testing at a later time Nurse practitioner note has been reviewed, I agree with documented findings and plan of care. Patient was seen and examined. Objective - Vital Signs Vital signs: Vital Signs Temp 98 F 11/25/23 04:00 Pulse 66 11/25/23 04:00 Resp 18 11/25/23 04:00 BP 98/54 11/25/23 04:00 Pulse Ox 97 11/25/23 04:00 FiO2 Intake & Output 11/24/23 11/25/23 11/25/23 18:59 06:59 18:59 Intake Total 416 Output Total 425 Balance 416 -425 Weight 90.265 kg Intake: Intake, IV Titration 180 Amount Sodium Chloride 0.9% 1, 180 000 ml @ 20 mls/hr IV . Q24H MICHELLE Rx#:[id number] Oral 236 Output: Urine 425 Other: Voiding Method Urinal # Voids 1 - Labs CBC & Chem 7: 11/23/23 08:44 11/23/23 08:44 Labs: Abnormal Lab Results - Last 24 Hours (Table) 11/24/23 11/24/23 11/24/23 Range/Units 07:46 11:34 20:07 APTT 58.1 H (22.0-30.0) sec POC Glucose (mg/dL) 256 H 206 H (70-110) mg/dL 11/25/23 Range/Units 06:01 APTT (22.0-30.0) sec POC Glucose (mg/dL) 155 H (70-110) mg/dL
[2023-11-25 12:08] LABS: Glucose,Whole Blood 136 mg/dL (70-110)
== END 2023-11-25 15:25 | disposition home or self-care (01) ==
LOC: EC 12:26 → 1SOBS 15:14 → 3SCARD 17:48
PROVIDERS: ADMIT Student in an Organized Health Care Education/Training Program; ATTEND Student in an Organized Health Care Education/Training Program
DX: I48.0 Paroxysmal atrial fibrillation (principal); I25.10 Atherosclerotic heart disease of native coronary artery without angina pectoris; I12.9 Hypertensive chronic kidney disease with stage 1 through stage 4 chronic kidney disease, or unspecified chronic kidney disease; N18.9 Chronic kidney disease, unspecified; E11.22 Type 2 diabetes mellitus with diabetic chronic kidney disease; I08.3 Combined rheumatic disorders of mitral, aortic and tricuspid valves; N40.0 Benign prostatic hyperplasia without lower urinary tract symptoms; E78.5 Hyperlipidemia, unspecified; I45.10 Unspecified right bundle-branch block; M75.102 Unspecified rotator cuff tear or rupture of left shoulder, not specified as traumatic; E11.51 Type 2 diabetes mellitus with diabetic peripheral angiopathy without gangrene; I49.1 Atrial premature depolarization; I95.9 Hypotension, unspecified; I71.40 Abdominal aortic aneurysm, without rupture, unspecified; I72.3 Aneurysm of iliac artery; J98.11 Atelectasis; M54.2 Cervicalgia; G89.29 Other chronic pain; M54.50 Low back pain, unspecified; H40.9 Unspecified glaucoma; I25.2 Old myocardial infarction; F32.A Depression, unspecified; Z79.84 Long term (current) use of oral hypoglycemic drugs; Z79.899 Other long term (current) drug therapy; Z88.5 Allergy status to narcotic agent; Z87.891 Personal history of nicotine dependence; Z95.5 Presence of coronary angioplasty implant and graft; Z97.8 Presence of other specified devices
CPT/HCPCS: 96376 ×3; 96366 ×4; 96365; 96375; 99285; 36415; 93005; 80061; 80053; 80048; 84443; 83735 ×2; 84484 ×2; 85025 ×2; 85610 ×2; 85730 ×3; 83036; 73030; 71046; G0378 ×5; C8929; J2270 ×3; Q9957; J1644 ×3; 93306

== ENCOUNTER 2023-11-30 12:22 | Day surgery (SDC) | payer MEDICARE ==
[~2023-11-30 12:22] MED LIST changes: -BUPIVACAINE UP TO 8 MG/ML, 31-60 ML SYRINGE MC ONE; +LACTATED RINGERS 1,000 ML IV SCH; -MORPHINE FOR ANAZAO - PER 10 MG MISCELLANE ONE
[2023-11-30] MEDS ORDERED: BUPIVACAINE UP TO 8 MG/ML, 31-60 ML SYRINGE MC ONE (12:23)
[2023-11-30] MEDS ORDERED: MORPHINE FOR ANAZAO - PER 10 MG MISCELLANE ONE (12:23)
--- NOTE | 2023-11-30 13:18 | P.PCN ---
Date of Procedure: 11/30/23 Description of Procedure: Preoperative diagnosis: 1. Lumbar postlaminectomy syndrome 2. Lumbar radiculopathy 3. Intrathecal pump for chronic pain management Postoperative diagnosis: 1. Lumbar postlaminectomy syndrome 2. Lumbar radiculopathy 3. Intrathecal pump for chronic pain management PROCEDURES: 1. Intrathecal pump analysis. 2. Intrathecal pump reprogramming. 3. Intrathecal pump refill ANESTHESIA: None. EBL: None. COMPLICATIONS: None. IV FLUIDS: None. Specimen removed: 20 ML of intrathecal pump solution. PROCEDURE INDICATION: The patient is well known to the pain clinic for management of intrathecal pump. Intrathecal pump pain medications helping her for her pain management. She is doing more activities with intrathecal pump medications. She denied any red flag symptoms including bowel or bladder problems. On examination no clonus in her lower extremities. Vital signs are stable. Pain score was 4 /10. PROCEDURE DESCRIPTION: The patient was seen and identified in the preoperative area. Risks, benefits, complications, and alternatives were discussed with the patient. The patient agreed to proceed with the procedure. Intrathecal pump was analyzed and displayed the following information: Type: SynchroMed Type II B Medication: Morphine 3 mg/ml infusion at 0.6998 mg/day Bupivacaine 2 mg/ml infusion at 0.4665 mg /day Pump Volume: 20.2 ml Barlow Volume: 40ml PTM: Disabled At this time, the area of the abdomen was exposed, prepped with ChloraPrep x2, and draped in the usual sterile fashion. After which, the [employer] template was used to identify the area of the skin overlying the refill port. After which, a 22-gauge Beckford needle attached to an extension tubing, which was clamped, attached to a syringe and inserted through the skin into the refill port. At that point, 20 mL of clear fluid was aspirated. The tubing was reclamped. This was discarded. A new vial of medication was then identified from pharmacy. Drug was identified as: Morphine 3 Mg per mL, and bupivacaine 2 Mg per mL Syringe Volume: 40 ml This was then attached to a filter, which was primed and subsequently injected into the pump in increments with intermittent aspiration to ensure placement into the intrathecal pump. At the end again 5 mL of solution aspirated from the pump and reinjected into the intrathecal pump. At this point, the pump was reprogrammed. Type: SynchroMed Type II B Medication: Morphine 3 mg/ml infusion at 0.6998 mg/day Bupivacaine 2 mg/ml infusion at 0.4665 mg /day Pump Volume: 40 ml Barlow Volume: 40 ml Low Barlow Alarm Date: 05/06/24 PTM: Disabled The patient tolerated the procedure well and was sent home from the discharge area once meeting the recovery discharge criteria. Plan: The patient will follow up for further management and pump refills in 12 weeks duration. Note: Patient was given naloxone 4 mg intranasal prescription for respiratory depression if needed dispense #2
[2023-11-30 13:24] VITALS: BP 133/66; PULSE 64; RESP 16; TEMP 97.2
== END 2023-11-30 13:14 | disposition home or self-care (01) ==
LOC: ORPAIN 12:22
DX: M96.1 Postlaminectomy syndrome, not elsewhere classified (principal); M54.16 Radiculopathy, lumbar region; G89.4 Chronic pain syndrome; I12.9 Hypertensive chronic kidney disease with stage 1 through stage 4 chronic kidney disease, or unspecified chronic kidney disease; N18.9 Chronic kidney disease, unspecified; E78.00 Pure hypercholesterolemia, unspecified; I25.10 Atherosclerotic heart disease of native coronary artery without angina pectoris; I73.9 Peripheral vascular disease, unspecified; Z86.73 Personal history of transient ischemic attack (TIA), and cerebral infarction without residual deficits; Z88.5 Allergy status to narcotic agent; Z79.01 Long term (current) use of anticoagulants; Z79.899 Other long term (current) drug therapy; Z98.890 Other specified postprocedural states
CPT/HCPCS: 62370; J2274

== ENCOUNTER 2023-12-16 13:22 | Inpatient (IN) | payer MEDICARE, BC ==
--- NOTE | 2023-12-16 13:44 | ED ---
General Adult HPI - General Chief complaint: Chest Pain Stated complaint: Chest pain Time Seen by Provider: 12/16/23 13:37 Source: patient, EMS, RN notes reviewed Mode of arrival: EMS Limitations: no limitations - History of Present Illness Initial comments: Arturo is an 83-year-old male presenting to the emergency department with chest discomfort. Onset was this morning prior to arrival. Discomfort is mild at this time and near resolved. Discomfort was more severe earlier. Discomfort feels like an ache. Discomfort is left chest near the shoulder. Patient does feel a little bit short of breath. No nausea. No diaphoresis. Patient does have a recent diagnosis of atrial fibrillation. No calf pain or swelling. - Related Data Home Medications Medication Instructions Recorded Confirmed Latanoprost/Pf [Latanoprost 0.005% 1 drop BOTH EYES HS 04/04/19 12/16/23 Eye Drop] Atorvastatin [Lipitor] 80 mg PO HS 07/13/20 12/16/23 Tamsulosin [Flomax] 0.4 mg PO HS 04/24/22 12/16/23 Brimonidine Tartrate [Alphagan P 1 drop BOTH EYES BID 11/22/23 12/16/23 0.15% Ophth Soln] Ketorolac 0.5% Ophth Soln [Acular 1 drop BOTH EYES BID 11/22/23 12/16/23 0.5%] Patient Own Pump 0 bag DIRECTED 11/22/23 12/16/23 Pioglitazone [Actos] 45 mg PO DAILY 11/22/23 12/16/23 Timolol 0.5% Ophth Soln [Timoptic 1 drop BOTH EYES BID 11/22/23 12/16/23 0.5% Ophth Soln] glipiZIDE XL [Glucotrol XL] 2.5 mg PO DAILY 11/22/23 12/16/23 prednisoLONE ACETATE 1% OPHTH 1 drop RIGHT EYE BID 11/22/23 12/16/23 [Pred Forte 1%] Metoprolol Succinate (ER) [Toprol 25 mg PO DAILY 12/16/23 12/16/23 XL] hydroCHLOROthiazide [Hydrodiuril] 25 mg PO DAILY 12/16/23 12/16/23 lisinopriL [Zestril] 40 mg PO DAILY 12/16/23 12/16/23 Previous Rx's Medication Instructions Recorded Gabapentin [Neurontin] 300 mg PO TID 30 Days #90 cap 09/06/23 Apixaban [Eliquis] 2.5 mg PO BID #60 tab 11/25/23 Aspirin 81 mg PO DAILY #30 tab 11/25/23 Allergies Allergy/AdvReac Type Severity Reaction Status Date / Time hydromorphone [From Dilaudid] AdvReac CONFUSION, Verified 12/16/23 15:09 HALLUCINATIONS Review of Systems ROS Statement: Those systems with pertinent positive or pertinent negative responses have been documented in the HPI. ROS Other: All systems not noted in ROS Statement are negative. Constitutional: Denies: fever Eyes: Denies: eye pain ENT: Denies: ear pain Respiratory: Reports: as per HPI Cardiovascular: Reports: as per HPI, chest pain Endocrine: Denies: fatigue Gastrointestinal: Denies: vomiting Genitourinary: Denies: dysuria Past Medical History Past Medical History: Atrial Fibrillation, Coronary Artery Disease (CAD), Chest Pain / Angina, CVA/TIA, Diabetes Mellitus, Eye Disorder, GERD/Reflux, Hyperlipidemia, Hypertension, Myocardial Infarction ([place]), Osteoarthritis (OA), Renal Disease Additional Past Medical History / Comment(s): low back pain that radiates to legs.,(has morphine pump), tinnitus, hx of head injury, TIA, aneurysm left groin, glaucoma and macular degeneration, [place]- has tubes in his ears, frequent diarrhea, chronic kidney disease. recent adm. to [facility] for new onset atrial fib. Last Myocardial Infarction Date:: 1990 History of Any Multi-Drug Resistant Organisms: MRSA Date of last positivie culture/infection: 1993 MDRO Source:: incisional after back sx Past Surgical History: Back Surgery, Heart Catheterization With Stent Additional Past Surgical History / Comment(s): Back Surgery x5 ([place]), pain pump placed x3 colonoscopy., multiple tubes in ears. has 2 heart stents Past Anesthesia/Blood Transfusion Reactions: No Reported Reaction Additional Past Anesthesia/Blood Transfusion Reaction / Comment(s): . Date of Last Stent Placement:: 2020 Past Psychological History: No Psychological Hx Reported Smoking Status: Former smoker - Past Family History Father Family Medical History: Cancer Brother(s) Family Medical History: Cancer General Exam Limitations: no limitations General appearance: alert, in no apparent distress Head exam: Present: normocephalic Eye exam: Present: normal appearance Neck exam: Present: normal inspection Respiratory exam: Present: normal lung sounds bilaterally Cardiovascular Exam: Present: regular rate, normal rhythm, normal heart sounds Expanded Peripheral pulses: 2+: Radial (R), Radial (L), Dorsalis Pedis (R), Dorsalis Pedis (L) GI/Abdominal exam: Present: soft. Absent: tenderness Extremities exam: Present: normal inspection. Absent: pedal edema, calf tenderness Neurological exam: Present: alert Psychiatric exam: Present: normal affect, normal mood Skin exam: Present: normal color Course Vital Signs 12/16/23 13:27 Temperature 97.8 F Pulse Rate 67 Respiratory 18 Rate Blood Pressure 152/77 O2 Sat by Pulse 96 Oximetry EKG Findings - EKG Results: EKG: interpreted by CAROL (Left axis. Right bundle branch block.), sinus rhythm, normal ST/T Medical Decision Making - Medical Decision Making Was pt. sent in by a medical professional or institution (, PA, LICENSED PROSTHETIST/ORTHOTIST, urgent care, hospital, or custodial...) When possible be specific @ -No Did you speak to anyone other than the patient for history (EMS, parent, family, police, friend...)? What history was obtained from this source @ -No Did you review nursing and triage notes (agree or disagree)? Why? @ -I reviewed and agree with nursing and triage notes Were old charts reviewed (outside hosp., previous admission, EMS record, old EKG, old radiological studies, urgent care reports/EKG's, custodial records)? Report findings @ -No old charts were reviewed Differential Diagnosis (chest pain, altered mental status, abdominal pain women, abdominal pain men, vaginal bleeding, weakness, fever, dyspnea, syncope, headache, dizziness, GI bleed, back pain, seizure, CVA, palpatations, mental health, musculoskeletal)? @ -Differential Chest Pain: Stable Angina, Unstable Angina, STEMI, NSTEMI Aortic Dissection, Pneumothorax, Musculoskeletal, Esophageal Spasm GERD, Cholecystitis, Pancreatitis, Zoster, this is not meant to be an all-inclusive list. EKG interpreted by me (3pts min.). @ -As above X-rays interpreted by me (1pt min.). @ -Chest x-ray shows no acute process CT interpreted by me (1pt min.). @ -None done U/S interpreted by me (1pt. min.). @ -None done What testing was considered but not performed or refused? (CT, X-rays, U/S, labs)? Why? @ -None What meds were considered but not given or refused? Why? @ -None Did you discuss the management of the patient with other professionals (professionals i.e. , PA, LICENSED PROSTHETIST/ORTHOTIST, lab, RT, psych nurse, social media community manager, agile java developer, teacher, biosecurity officer, patient case coordinator)? Give summary @ -Case was discussed with Dr. Barth who will admit covering Dr. Cooper Was smoking cessation discussed for >3mins.? @ -No Was critical care preformed (if so, how long)? @ -No Were there social determinants of health that impacted care today? How? (Homelessness, low income, unemployed, alcoholism, drug addiction, t ransportation, low edu. Level, literacy, decrease access to med. care, fci, rehab)? @ -No Was there de-escalation of care discussed even if they declined (Discuss DNR or withdrawal of care, Hospice)? DNR status @ -No What co-morbidities impacted this encounter? (DM, HTN, Smoking, COPD, CAD, Cance r, CVA, ARF, Chemo, Hep., AIDS, mental health diagnosis, sleep apnea, morbid obesity)? @ -None Was patient admitted / discharged? Hospital course, mention meds given and route, prescriptions, significant lab abnormalities, going to OR and other pertinent info. @ -Patient reevaluated and symptom-free. Patient does have some back pain which is chronic and request medication for this. Patient will be admitted with cardiology consult. [place] orders written. Undiagnosed new problem with uncertain prognosis? @ -No Drug Therapy requiring intensive monitoring for toxicity (Heparin, Nitro, Insul in, Cardizem)? @ -No Were any procedures done? @ -No Diagnosis/symptom? @ -Chest pain Acute, or Chronic, or Acute on Chronic? @ -Acute Uncomplicated (without systemic symptoms) or Complicated (systemic symptoms)? @ -Default Side effects of treatment? @ -No Exacerbation, Progression, or Severe Exacerbation? @ -No Poses a threat to life or bodily function? How? (Chest pain, [place], [place], pneumonia, PE, COPD, DKA, ARF, appy, cholecystitis, CVA, Diverticulitis, Homicidal, Suicidal, threat to staff... and all critical care pts) @ -No - Lab Data Result diagrams: 12/16/23 13:51 12/16/23 14:00 Lab Results 12/16/23 12/16/23 12/16/23 Range/Units 13:51 14:00 14:00 WBC 4.4 (3.8-10.6) k/uL RBC 3.20 L (4.30-5.90) m/uL Hgb 10.8 L (13.0-17.5) gm/dL Hct 31.7 L (39.0-53.0) % MCV 99.2 (80.0-100.0) fL MCH 33.7 (25.0-35.0) pg MCHC 33.9 (31.0-37.0) g/dL RDW 14.7 (11.5-15.5) % Plt Count 178 (150-450) k/uL MPV 9.0 Neutrophils % 77 % Lymphocytes % 13 % Monocytes % 5 % Eosinophils % 3 % Basophils % 1 % Neutrophils # 3.4 (1.3-7.7) k/uL Lymphocytes # 0.6 L (1.0-4.8) k/uL Monocytes # 0.2 (0-1.0) k/uL Eosinophils # 0.1 (0-0.7) k/uL Basophils # 0.0 (0-0.2) k/uL Macrocytosis Slight PT (10.0-12.5) sec INR (<1.2) APTT (22.0-30.0) sec Sodium 138 (137-145) mmol/L Potassium 4.0 (3.5-5.1) mmol/L Chloride 109 H (98-107) mmol/L Carbon Dioxide 23 (22-30) mmol/L Anion Gap 6 mmol/L BUN 39 H (9-20) mg/dL Creatinine 1.22 (0.66-1.25) mg/dL Est GFR (CKD-EPI)AfAm 62 (>60 ml/min/1.73 sqM) Est GFR (CKD-EPI)NonAf 54 (>60 ml/min/1.73 sqM) Glucose 97 (74-99) mg/dL Calcium 9.2 (8.4-10.2) mg/dL Magnesium 1.9 (1.6-2.3) mg/dL Total Bilirubin 0.9 (0.2-1.3) mg/dL AST 23 (17-59) U/L ALT 16 (4-49) U/L Alkaline Phosphatase 76 (38-126) U/L Troponin I 0.023 (0.000-0.034) ng/mL NT-Pro-B Natriuret Pep 2330 pg/mL Total Protein 6.2 L (6.3-8.2) g/dL Albumin 3.8 (3.5-5.0) g/dL 12/16/23 Range/Units 14:00 WBC (3.8-10.6) k/uL RBC (4.30-5.90) m/uL Hgb (13.0-17.5) gm/dL Hct (39.0-53.0) % MCV (80.0-100.0) fL MCH (25.0-35.0) pg MCHC (31.0-37.0) g/dL RDW (11.5-15.5) % Plt Count (150-450) k/uL MPV Neutrophils % % Lymphocytes % % Monocytes % % Eosinophils % % Basophils % % Neutrophils # (1.3-7.7) k/uL Lymphocytes # (1.0-4.8) k/uL Monocytes # (0-1.0) k/uL Eosinophils # (0-0.7) k/uL Basophils # (0-0.2) k/uL Macrocytosis PT 11.7 (10.0-12.5) sec INR 1.1 (<1.2) APTT 31.2 H (22.0-30.0) sec Sodium (137-145) mmol/L Potassium (3.5-5.1) mmol/L Chloride (98-107) mmol/L Carbon Dioxide (22-30) mmol/L Anion Gap mmol/L BUN (9-20) mg/dL Creatinine (0.66-1.25) mg/dL Est GFR (CKD-EPI)AfAm (>60 ml/min/1.73 sqM) Est GFR (CKD-EPI)NonAf (>60 ml/min/1.73 sqM) Glucose (74-99) mg/dL Calcium (8.4-10.2) mg/dL Magnesium (1.6-2.3) mg/dL Total Bilirubin (0.2-1.3) mg/dL AST (17-59) U/L ALT (4-49) U/L Alkaline Phosphatase (38-126) U/L Troponin I (0.000-0.034) ng/mL NT-Pro-B Natriuret Pep pg/mL Total Protein (6.3-8.2) g/dL Albumin (3.5-5.0) g/dL Disposition Clinical Impression: Chest pain Disposition: ADMITTED IP TO THIS HOSP Is patient prescribed a controlled substance at d/c from ED?: No Referrals: Boom Cooper DO [Primary Care Provider] - 1-2 days Time of Disposition: 15:55
[2023-12-16] MEDS: NITROGLYCERIN OINT 1 INCH/GM PACKET TOPICAL STA (13:56)
[2023-12-16] MEDS: ASPIRIN 81 MG PO STA (13:57)
[2023-12-16 14:00] LABS: Basophils % (A) 1 %; Eosinophils # (A) 0.1 k/uL (0-0.7); Eosinophils % (A) 3 %; HCT 31.7 % (39.0-53.0); HGB 10.8 gm/dL (13.0-17.5); Lymphocytes # (A) 0.6 k/uL (1.0-4.8); Lymphocytes % (A) 13 %; MCH 33.7 pg (25.0-35.0); MCHC 33.9 g/dL (31.0-37.0); MCV 99.2 fL (80.0-100.0); Macrocytosis Slight; Monocytes # (A) 0.2 k/uL (0-1.0); Monocytes % (A) 5 %; Neutrophils # (A) 3.4 k/uL (1.3-7.7); Neutrophils % (A) 77 %; Platelet Count 178 k/uL (150-450); RDW 14.7 % (11.5-15.5); WBC 4.4 k/uL (3.8-10.6)
--- NOTE | 2023-12-16 14:20 | XR ---
EXAMINATION TYPE: XR chest 2V DATE OF EXAM: 12/16/2023 2:05 PM CLINICAL INDICATION:Male, 83 years old with history of Chest Pain; COMPARISON: Chest radiographs from 11/22/2023 TECHNIQUE: XR chest 2V Frontal and lateral views of the chest. FINDINGS: Lungs/Pleura: There is no evidence of pleural effusion, focal consolidation, or pneumothorax. Pulmonary vascularity: Unremarkable. Heart/mediastinum: Cardiomediastinal silhouette is unremarkable. Musculoskeletal: Degenerative changes of the shoulder joints. IMPRESSION: No acute cardiopulmonary disease/process.
[2023-12-16 14:26] LABS: INR 1.1 (<1.2); Partial Thromboplastin Time 31.2 sec (22.0-30.0); Prothrombin Time 11.7 sec (10.0-12.5)
[2023-12-16 14:37] LABS: ALT 16 U/L (4-49); AST 23 U/L (17-59); African American GFR (CKD) 62 (>60 ml/min/1.73 sqM); Albumin 3.8 g/dL (3.5-5.0); Alkaline Phosphatase 76 U/L (38-126); Anion Gap 6 mmol/L; Blood Urea Nitrogen 39 mg/dL (9-20); Calcium 9.2 mg/dL (8.4-10.2); Carbon Dioxide 23 mmol/L (22-30); Chloride 109 mmol/L (98-107); Glucose 97 mg/dL (74-99); Magnesium 1.9 mg/dL (1.6-2.3); Non-African American GFR(CKD) 54 (>60 ml/min/1.73 sqM); Sodium 138 mmol/L (137-145); Total Bilirubin 0.9 mg/dL (0.2-1.3); Total Protein 6.2 g/dL (6.3-8.2)
[2023-12-16 14:46] LABS: NT-Pro-B-Type Natriuretic Pept 2330 pg/mL
[2023-12-16] MEDS ORDERED: NITROGLYCERIN SL TABS 0.4 MG TAB SUBLINGUAL PRN (15:55)
[2023-12-16] MEDS ORDERED: DEXTROSE 50% SYRINGE 50 ML IVP PRN ×2 (16:11)
[2023-12-16] MEDS: MORPHINE SULFATE 4 MG/ML SYRINGE IVP STA (16:31)
[2023-12-16] MEDS: GABAPENTIN 300 MG CAP PO SCH (16:31)
[2023-12-16] MEDS ORDERED: NALOXONE 0.4 MG/ML 1 ML VIAL IVP PRN (17:27)
[2023-12-16] MEDS ORDERED: MELATONIN 3 MG TABLET PO PRN (17:27)
--- NOTE | 2023-12-16 17:32 | P.HPIM ---
History of Present Illness H&P Date: 12/16/23 Chief Complaint: chest pain Patient is an 83-year-old male with history of atrial fibrillation, coronary artery disease, diabetes, hypertension, dyslipidemia, prior TIA, and multiple other comorbid conditions who presented to the ER with complaints of pain in the left side of his chest which radiated into his shoulders. In the ER he underwent extensive evaluation. Initial troponin was 0.023 and BNP was 2330. His CBC, CMP, and coags were within normal. EKG showed no signs of acute ischemia but prior known right bundle branch block. Chest x-ray showed no acute process. Patient was given a dose of aspirin and morphine as well as having Nitropaste placed. Arrangements are made for observation. Patient seen and examined at bedside. He reports that for the last 3 days he has had left-sided chest discomfort associated with radiation into the left shoulder with some shortness of breath. It has been coming and going but is happening more frequently. He denies any lightheadedness or dizziness. Most significantly he is no longer able to get out of bed or function due to progressive right lower extremity weakness. Initially he stated this happened 3 days ago, but it appears that it may have been progressing over the last month. He can no longer lift his leg. He is having extreme pain from the bottom of his right foot up and through his right thigh and into his right groin. He also reports decreased sensation of the right lower extremity. He has a history of bad lumbar spine degenerative disc disease. He has had multiple surgeries as one of them became infected with staph. His most recent surgeon was out of [facility]. He also follows with Dr. Ponce for chronic pain and has a implanted pain pump which was last filled 3 weeks ago Vital signs reviewed General: nontoxic, no distress, appears at stated age Derm: warm, dry -Right posterior hip with healing stage II half dollar sized ulceration, with opening less than dime sized Eyes: EOMI, no lid lag, anicteric sclera, pupils equal round reactive to light ENT: Nose and ears atraumatic Cardiovascular: S1S2 reg, no murmur, no edema Lungs: clear to auscultation bilateral, no rhonchi, no rales, no wheeze, no accessory muscle use Abdominal: soft, nontender to palpation, no guarding Ext: no gross muscle atrophy, no contractures Neuro: CN II-XII grossly intact, decreased sensation in right leg, intact in the left leg and bilateral upper extremities, right leg muscle strength 2 out of 5 with flexion at the hip and ankle. Muscle strength intact in bilateral upper e xtremities and left lower extremity. Musculoskeletal: Pain to palpation over L5-S1 area. Psych: Alert, oriented, appropriate affect Assessment/Plan: Chest pain Coronary artery disease status post stenting x 2 Discovered paroxysmal atrial fibrillation, currently in sinus rhythm Hypertension Dyslipidemia -Serial troponins, telemetry -Aspirin 81 mg daily, Lipitor 80 mg daily, metoprolol 25 mg daily -Has Nitropatch in place -Cardiology consultation -Echocardiogram was recently completed on 11/23/2023 which demonstrated ejection fraction 45 to 50%. -Patient scheduled to have outpatient stress testing completed on 12/21/2023. Will make n.p.o. after midnight pending cardiology evaluation. Right lower extremity weakness and pain Possible hx of fall 3 weeks ago Known severe lumbar disc disease with hx of multiple surgeries for stap infection Has pain pump in place, last filled 3 weeks ago follows alicia Stanton -Check CT head to rule out stroke. There should be sufficient given that symptoms have been present for greater than 48 hours -MRI lumbar spine to evaluate for progressive generative disc disease with spinal canal stenosis -Check pelvic x-ray and right hip x-ray -Morphine 4 mg IV push every 4 hours as needed for pain, [place] 5/325 as needed for pain -Increase home Neurontin from 300 mg 3 times daily to 450 mg 3 times daily -PT/OT evaluation -Low threshold for orthopedic surgery consultation DM 2 - Hold pioglitazone and glipizide -Sliding scale insulin - follow blood sugars Right hip stage II pressure ulcer -Appears healing -Honey -Cover with foam dressing Chronic: Coronary artery disease GERD Chronic kidney disease Imaging: EKG is reviewed by myself reveals right bundle branch block with left anterior fascicular block. These are known. Data Review: As per HPI The patient is placed in observation with an anticipated less than 2 midnight stay for evaluation of chest pain and right lower extremity weakness. Surrogate decision-maker: Son CODE STATUS: Full code, would not want prolonged mechanical ventilation DVT prophylaxis: Eliqubalaji Anticipated discharge date: Pending clinical course Anticipated discharge place: Pending clinical course This dictation was prepared using [employer]ALT[employer] voice recognition software. [facility] every attempt is made to correct errors during dictation some may still exist. Past Medical History Past Medical History: Atrial Fibrillation, Coronary Artery Disease (CAD), Chest Pain / Angina, CVA/TIA, Diabetes Mellitus, Eye Disorder, GERD/Reflux, Hyperlipidemia, Hypertension, Myocardial Infarction ([place]), Osteoarthritis (OA), Renal Disease Additional Past Medical History / Comment(s): low back pain that radiates to legs.,(has morphine pump), tinnitus, hx of head injury, TIA, aneurysm left groin, glaucoma and macular degeneration, [place]- has tubes in his ears, frequent diarrhea, chronic kidney disease. recent adm. to [facility] for new onset atrial fib. Last Myocardial Infarction Date:: 1990 History of Any Multi-Drug Resistant Organisms: MRSA Date of last positivie culture/infection: 1993 MDRO Source:: incisional after back sx Past Surgical History: Back Surgery, Heart Catheterization With Stent Additional Past Surgical History / Comment(s): Back Surgery x5 ([facility]), pain pump placed x3 colonoscopy., multiple tubes in ears. has 2 heart stents Past Anesthesia/Blood Transfusion Reactions: No Reported Reaction Additional Past Anesthesia/Blood Transfusion Reaction / Comment(s): . Date of Last Stent Placement:: 2020 Past Psychological History: No Psychological Hx Reported Smoking Status: Former smoker - Past Family History Father Family Medical History: Cancer Brother(s) Family Medical History: Cancer Medications and Allergies Home Medications Medication Instructions Recorded Confirmed Type Latanoprost/Pf [Latanoprost 0.005% 1 drop BOTH EYES HS 04/04/19 12/16/23 History Eye Drop] Atorvastatin [Lipitor] 80 mg PO HS 07/13/20 12/16/23 History Tamsulosin [Flomax] 0.4 mg PO HS 04/24/22 12/16/23 History Gabapentin [Neurontin] 300 mg PO TID 30 Days #90 cap 09/06/23 12/16/23 Rx Brimonidine Tartrate [Alphagan P 1 drop BOTH EYES BID 11/22/23 12/16/23 History 0.15% Ophth Soln] Ketorolac 0.5% Ophth Soln [Acular 1 drop BOTH EYES BID 11/22/23 12/16/23 History 0.5%] Patient Own Pump 0 bag DIRECTED 11/22/23 12/16/23 History Pioglitazone [Actos] 45 mg PO DAILY 11/22/23 12/16/23 History Timolol 0.5% Ophth Soln [Timoptic 1 drop BOTH EYES BID 11/22/23 12/16/23 History 0.5% Ophth Soln] glipiZIDE XL [Glucotrol XL] 2.5 mg PO DAILY 11/22/23 12/16/23 History prednisoLONE ACETATE 1% OPHTH 1 drop RIGHT EYE BID 11/22/23 12/16/23 History [Pred Forte 1%] Apixaban [Eliquis] 2.5 mg PO BID #60 tab 11/25/23 12/16/23 Rx Aspirin 81 mg PO DAILY #30 tab 11/25/23 12/16/23 Rx Metoprolol Succinate (ER) [Toprol 25 mg PO DAILY 12/16/23 12/16/23 History XL] hydroCHLOROthiazide [Hydrodiuril] 25 mg PO DAILY 12/16/23 12/16/23 History lisinopriL [Zestril] 40 mg PO DAILY 12/16/23 12/16/23 History Allergies Allergy/AdvReac Type Severity Reaction Status Date / Time hydromorphone [From Dilaudid] AdvReac CONFUSION, Verified 12/16/23 15:09 HALLUCINATIONS Physical Exam Osteopathic Statement: *. No significant issues noted on an osteopathic structural exam other than those noted in the History and Physical/Consult. Vitals: Vital Signs Temp Pulse Resp BP Pulse Ox 12/16/23 13:27 97.8 F 67 18 152/77 96 Intake and Output 12/16/23 12/16/23 12/16/23 06:59 14:59 22:59 Other: Weight 86.183 kg Results CBC & Chem 7: 12/16/23 13:51 12/16/23 14:00 Labs: Abnormal Lab Results - Last 24 Hours (Table) 12/16/23 12/16/23 12/16/23 Range/Units 13:51 14:00 14:00 RBC 3.20 L (4.30-5.90) m/uL Hgb 10.8 L (13.0-17.5) gm/dL Hct 31.7 L (39.0-53.0) % Lymphocytes # 0.6 L (1.0-4.8) k/uL APTT 31.2 H (22.0-30.0) sec Chloride 109 H (98-107) mmol/L BUN 39 H (9-20) mg/dL Total Protein 6.2 L (6.3-8.2) g/dL
--- NOTE | 2023-12-16 17:45 | XR ---
EXAMINATION TYPE: XR Hip RT and AP Pelvis DATE OF EXAM: 12/16/2023 5:31 PM CLINICAL INDICATION:Male, 83 years old with history of pain and weakness; PHH COMPARISON: None. TECHNIQUE: XR Hip RT and AP Pelvis; hip was examined in the frontal and lateral projections and a AP pelvis. FINDINGS: Fixation hardware in the distal spine appears intact. Electronic device projects over the f emur limits evaluation. Where visualized there is degeneration with osteophyte formation and joint sp vibha loss. No fracture definitely seen. The entire right femoral neck and head are not visualized. Severe atherosclerosis of the arterial vasculature. IMPRESSION: 1. Limited evaluation of the right hip secondary to Electronic device. No evidence for acute process. 2. Mild bilateral hip osteoarthrosis.
[2023-12-16] MEDS: NITROGLYCERIN OINT 1 INCH/GM PACKET TOPICAL SCH (18:07)
--- NOTE | 2023-12-16 20:17 | CT ---
EXAMINATION TYPE: CT brain wo con DATE OF EXAM: 12/16/2023 COMPARISON: INDICATION: weakness DLP: 1242.8 mGycm, Automated exposure control for dose reduction was used. CONTRAST: None CT of the brain is performed utilizing 3 mm thick sections through the posterior fossa and 3 mm thick sections through the remaining calvarium. Study is performed within 24 hours of arrival to the hosp ital. No abnormal hyperdensity is present to suggest an acute intracranial hemorrhage. No mass lesion is evident. No acute infarcts are evident. Some mild periventricular white matter hypodensity is present, likely on the basis of chronic white matter ischemic changes. Ventricles and sulci are prominent for the patient age. Paranasal sinuses and mastoid air cells within the [id number] are clear. IMPRESSION: 1. Atrophy. 2. No acute intracranial process radiographically apparent. Follow-up MRI can be performed as clinica lly indicated.
[2023-12-16] MEDS: INSULIN ASPART (NovoLOG) 100 UNIT/ML VIAL SQ SCH (20:49)
[2023-12-16] MEDS: APIXABAN 2.5 MG TABLET PO SCH (21:07)
[2023-12-16] MEDS: TAMSULOSIN 0.4 MG CAP.ER.24H PO SCH (21:08)
[2023-12-16] MEDS: ATORVASTATIN 80 MG TAB PO SCH (21:08)
[2023-12-16] MEDS: LATANOPROST 0.005% OPHTH DROPS 2.5 ML BTL BOTH EYES SCH (21:10)
[2023-12-16] MEDS: TIMOLOL 0.5% OPHTH DROPS 5 ML BTL BOTH EYES SCH (21:10)
[2023-12-16] MEDS: KETOROLAC 0.5% OPHTH DROPS 5 ML BTL BOTH EYES SCH (21:10)
[2023-12-16] MEDS: BRIMONIDINE TARTRATE 0.2% DROPS 5 ML BTL BOTH EYES SCH (21:10)
[2023-12-16] MEDS: prednisoLONE ACETATE 1% OPHTH DROPS 5 ML BTL RIGHT EYE SCH (21:10)
[2023-12-16 21:51] LABS: Glucose,Whole Blood 96 mg/dL (70-110)
--- NOTE | 2023-12-17 08:29 | CONS ---
CONSULTATION CHIEF COMPLAINT: Chest pain. HISTORY OF PRESENT ILLNESS: Arturo is an 83-year-old gentleman with history of coronary artery disease status post angioplasty with stent placement of the right coronary artery for chronic total occlusion, angioplasty with stent placement of the OM branch, diabetes, hypertension, dyslipidemia, chronic renal insufficiency iliac aneurysm, peripheral arterial disease, chronic back pain status post multiple back surgeries who has a morphine pump, comes in complaining of chest pain. He also had an episode of atrial fibrillation for which he was admitted to hospital on 11/22/2023. An echocardiogram in June 2023 revealed normal LV systolic function with hypokinetic inferior and inferolateral kinsey. Since his symptom seem musculoskeletal in origin, he complains of discomfort involving his lower extremities, upper extremities, left shoulder and front and back of the chest, very similar to some of the symptoms that he had at last admission. Three sets of cardiac enzymes are negative. EKG shows sinus rhythm, intraventricular conduction delay, left axis deviation, and right bundle-branch block. The patient's chest pain is probably musculoskeletal. He had an echocardiogram done on 11/23/2023 that revealed an LV systolic function with an ejection fraction of 45% with a mildly dilated aortic root. PAST MEDICAL HISTORY: Significant for coronary artery disease status post multivessel angioplasty, hypertension, dyslipidemia, paroxysmal atrial fibrillation, and chronic back pain. MEDICATIONS: 1. Apixaban. 2. Aspirin. 3. Lipitor. 4. HydroDIURIL. 5. Insulin. 6. Zestril. 7. Toprol. ALLERGIES: To Dilaudid. FAMILY HISTORY: Negative for premature coronary artery disease. SOCIAL HISTORY: Negative for smoking, EtOH abuse, or drug abuse. REVIEW OF SYSTEMS: A review of systems has been performed, pertinences are as documented. PHYSICAL EXAMINATION: GENERAL: Comfortable at rest. VITAL SIGNS: Stable. NECK: There is no jugular venous distention. Carotid upstroke is normal. There is no bruit. CHEST: Reveals good air entry bilaterally. HEART: Reveals first and second heart sounds. No gallop. Has a systolic murmur at the left lower sternal border. ABDOMEN: Soft. EXTREMITIES: Did not reveal any edema. Peripheral pulses are felt. ASSESSMENT AND PLAN: 1. Chest pain. 2. CAD, status post angioplasty. 3. Paroxysmal atrial fibrillation. 4. Chronic back pain. The patient's chest discomfort is musculoskeletal, no other cardiac workup at this time. Treat him, ambulate him, hopefully home tomorrow. ELIZ / ALOKN: [id number] /
[2023-12-17 08:36] LABS: Glucose,Whole Blood 107 mg/dL (70-110)
[2023-12-17] MEDS ORDERED: PIOGLITAZONE 45 MG TAB PO SCH (09:00)
[2023-12-17] MEDS ORDERED: ASPIRIN 325 MG TAB PO SCH (09:00)
[2023-12-17] MEDS: lisinopriL 20 MG TAB PO SCH (09:50)
[2023-12-17] MEDS: ASPIRIN 81 MG PO SCH (09:50)
[2023-12-17] MEDS: hydroCHLOROthiazide 25 MG TAB PO SCH (09:50)
[2023-12-17] MEDS: METOPROLOL SUCCINATE (ER) 25 MG TAB.ER.24H PO SCH (09:50)
[2023-12-17 10:44] LABS: Chol/HDL Ratio 3.86 Ratio
[2023-12-17 11:57] LABS: Glucose,Whole Blood 222 mg/dL (70-110)
--- NOTE | 2023-12-17 14:04 | P.PN ---
Progress Note - Text Patient is scheduled for outpatient stress testing on December 20 which we will continue with that as scheduled. No further inpatient recommendations from a cardiac standpoint
[2023-12-17] MEDS: MORPHINE SULFATE 4 MG/ML SYRINGE IVP PRN (14:24)
--- NOTE | 2023-12-17 16:20 | MR ---
EXAMINATION TYPE: MR lumbar spine wo con DATE OF EXAM: 12/17/2023 3:11 PM CLINICAL INDICATION:Male, 83 years old with history of pain and right lower extremity weakness; PHH, Pain and Right lower extremity weakness COMPARISON: 10/18/2020 TECHNIQUE: Multi planar, multi sequence imaging was performed utilizing: T1-weighted, T2-weighted, a nd turbo inversion recovery imaging of the lumbar spine. IV Contrast: cc . (None if empty) FINDINGS: Alignment: The lumbar vertebral bodies have preserved heights and alignment. Cord: The conus medullaris and the distal spinal cord appear unremarkable with regards to their signa l intensity and morphology. Bones/Discs: Postsurgical changes throughout the lumbar spine with hardware extending from L2, L3 and L4. This limits evaluation at these levels. T12-L1: No evidence of significant spinal canal stenosis or neural foraminal stenosis. L1-L2: There is severe spinal canal stenosis secondary to degeneration of the disc space and facet isadora int hypertrophy. There is severe bilateral neural foraminal stenosis. L2-L3: Susceptibility artifact limits evaluation at this level the spinal canal and neural foramen ap pear patent. L3-L4: Susceptibility artifact limits evaluation at this level the spinal canal and neural foramen ap pear patent. L4-L5: Susceptibility artifact limits evaluation at this level the spinal canal and neural foramen ap pear patent. L5-S1: Disc bulge and facet joint arthropathy result in mild spinal canal and mild bilateral neural f oraminal stenosis. No significant spinal canal or neural foraminal stenosis in the remainder of the visualized levels. Other findings: Surgical bed high T2 signal fluid collection measuring 71 x 20 x 34 mm. No obvious c ommunication to the thecal sac. IMPRESSION: Limited evaluation due to motion and surgical change. 1. L1-L2 severe spinal canal stenosis secondary to degeneration of the disc space and facet joint hy pertrophy. There is severe bilateral neural foraminal stenosis. 2. Surgical bed seroma. e
--- NOTE | 2023-12-17 16:22 | P.PN ---
Subjective Progress Note Date: 12/17/23 Hospital Course: 83-year-old male with history of atrial fibrillation, coronary artery disease, diabetes, hypertension, dyslipidemia, prior TIA, and multiple other comorbid conditions who presented to the ER with complaints of pain in the left side of his chest which radiated into his shoulders. In the ER he underwent extensive evaluation. Initial troponin was 0.023 and BNP was 2330. His CBC, CMP, and coags were within normal. EKG showed no signs of acute ischemia but prior known right bundle branch block. Chest x-ray showed no acute process. Patient was given a dose of aspirin and morphine as well as having Nitropaste placed. Arrangements are made for observation. Seen by cardiology, recommended outpatient stress testing. Already scheduled. He has a history of bad lumbar spine degenerative disc disease. He has had multiple surgeries as one of them became infected with staph. His most recent surgeon was out of [facility]. He also follows with Dr. Ponce for chronic pain and has a implanted pain pump which was last filled 3 weeks ago. MRI lumbar spine pendin g. CT head did not show any acute process. Subjective: Patient seen and examined at bedside. No acute events overnight. Still having low back pain. No CP. Pertinent positives and negatives as discussed above, a complete review of systems was performed and all other systems are negative. Vitals Signs Reviewed. General: Nontoxic, no distress, appears at stated age Derm: Warm, dry Head: Atraumatic, normocephalic, symmetric Eyes: EOMI, no lid lag, anicteric sclera Mouth: No lip lesion, mucus membranes moist Cardiovascular: S1S2 reg, no murmur Lungs: CTA bilateral, no rhonchi, no rales, no accessory muscle use Abdominal: Soft, nontender to palpation, no guarding, no appreciable organom egaly Ext: No gross muscle atrophy, no edema, no contractures Neuro: CN II-XI grossly intact, no focal neuro deficits Psych: Alert, oriented, appropriate affect Data Reviewed Today: Pertinent Labs: A1c 6.4, blood sugars range between 96-222 Imaging: EKG independently interpreted, shows right bundle branch block, otherwise sinus rhythm. Assessment and Plan: Chest pain, ACS ruled out Coronary artery disease status post stenting x 2 Discovered paroxysmal atrial fibrillation, currently in sinus rhythm Hypertension Dyslipidemia -Discussed management with cardiology, patient to get outpatient stress testing -Continue telemetry monitoring -Aspirin 81 mg daily, Lipitor 80 mg daily, metoprolol 25 mg daily -Echocardiogram was recently completed on 11/23/2023 which demonstrated ejection fraction 45 to 50%. Right lower extremity weakness and pain Possible hx of fall 3 weeks ago Known severe lumbar disc disease with hx of multiple surgeries for stap infection Has pain pump in place, last filled 3 weeks ago follows alicia Stanton -CT head showed no acute process -MRI lumbar spine to evaluate for progressive generative disc disease with spinal canal stenosis, pending -Hip and pelvic x-rays showed no acute process. -Morphine 4 mg IV push every 4 hours as needed for pain, [place] 5/325 as needed for pain -Continue increase Neurontin to 450 3 times daily -PT/OT evaluation -Low threshold for orthopedic surgery consultation DM 2 - Hold pioglitazone and glipizide -Sliding scale insulin, monitor for hypoglycemia Right hip stage II pressure ulcer -Appears healing -Honey -Cover with foam dressing Chronic: Coronary artery disease GERD Chronic kidney disease DVT ppx: Subcu heparin Code status: Full code Anticipated discharge place: pending clinical course Anticipated discharge time: pending clinical course Objective - Vital Signs Vital signs: Vital Signs Temp 98.3 F 12/17/23 08:23 Pulse 65 12/17/23 08:23 Resp 17 12/17/23 08:23 BP 186/82 12/17/23 08:23 Pulse Ox 94 L 12/17/23 08:23 FiO2 Intake & Output 12/16/23 12/17/23 12/17/23 18:59 06:59 18:59 Weight 86.183 kg Other: Voiding Method Toilet Urinal # Voids 2 - Labs CBC & Chem 7: 12/16/23 13:51 12/16/23 14:00 Labs: Abnormal Lab Results - Last 24 Hours (Table) 12/16/23 12/16/23 12/17/23 Range/Units 14:00 20:30 11:56 POC Glucose (mg/dL) 222 H (70-110) mg/dL Hemoglobin A1c 6.4 H (<=6.0) % HDL Cholesterol 34.20 L (40.00-60.00) mg/dL
[2023-12-17 17:04] LABS: Glucose,Whole Blood 137 mg/dL (70-110)
[2023-12-17 20:45] LABS: Glucose,Whole Blood 194 mg/dL (70-110)
[2023-12-18 06:06] LABS: Glucose,Whole Blood 124 mg/dL (70-110)
[2023-12-18] MEDS: HYDROcodone/APAP 5-325MG 1 EACH TAB PO PRN (09:09)
[2023-12-18 10:23] LABS: Basophils # (A) 0.03 X 10*3/uL (0.00-0.10); Basophils % (A) 0.5 %; Eosinophils # (A) 0.22 X 10*3/uL (0.04-0.35); Eosinophils % (A) 3.6 %; HCT 31.8 % (39.6-50.0); HGB 10.5 g/dL (13.0-17.0); Lymphocytes # (A) 0.83 X 10*3/uL (0.90-5.00); Lymphocytes % (A) 13.6 %; MCH 32.9 pg (27.0-32.0); MCV 99.7 FL (80.0-97.0); Mean Platelet Volume 10.4 FL (9.5-12.2); Monocytes # (A) 0.53 X 10*3/uL (0.20-1.00); Monocytes % (A) 8.7 %; NRBC Per 100 WBC 0 X 10*3/uL (0.00-0.01); Neutrophils # (A) 4.49 X 10*3/uL (1.80-7.70); Neutrophils % (A) 73.3 %; Platelet Count 170 X 10*3/uL (140-440); RBC 3.19 X 10*6/uL (4.40-5.60); WBC 6.12 X 10*3/uL (4.50-10.00)
[2023-12-18 10:29] LABS: BUN/Creat Ratio 27.62 Ratio (12.00-20.00); Blood Urea Nitrogen 35.9 mg/dL (9.0-27.0); Calcium 9.2 mg/dL (8.7-10.3); Carbon Dioxide 25.1 mmol/L (21.6-31.8); Chloride 104 mmol/L (96-109); Glucose 120 mg/dL (70-110); Sodium 140 mmol/L (135-145)
--- NOTE | 2023-12-18 11:32 | P.PN ---
Subjective HISTORY OF PRESENT ILLNESS: Patient examined this morning at the bedside. Patient currently denies any chest pain or pressure. He denies any shortness of breath. Patient complains of back pain and leg pain this morning. Vital signs are stable. He is maintaining sinus mechanism. PHYSICAL EXAM: VITAL SIGNS: Reviewed. GENERAL: Well-developed in no acute distress. NECK: Supple. No JVD or thyromegaly LUNGS: Respirations even and unlabored. Lungs essentially clear to auscultation bilaterally. HEART: Regular rate and rhythm. S1 and S2 heard. EXTREMITIES: Normal range of motion. No clubbing or cyanosis. Peripheral pulses intact. No lower extremity edema ASSESSMENT: Chest pain, atypical, acute coronary syndrome ruled out Acute on chronic back pain L1-L2 severe spinal canal stenosis Severe bilateral neural foraminal stenosis Surgical bed seroma at T2 measuring 71 x 20 x 34 mm Coronary artery disease with previous stenting Paroxysmal atrial fibrillation Hypertension Hyperlipidemia Diabetes Known right bundle branch block PLAN: Continue current cardiac medications Orthopedics has been consulted for further evaluation. Patient's pain is atypical and appears to be more musculoskeletal. Possibly related to his degenerative disc disease. Await further evaluation by orthopedics. Plan is for outpatient stress testing on 12/21/2023. This may be rescheduled if patient remains in the hospital secondary to his back issues. Stable from a cardiac perspective No further inpatient recommendations from a cardiac standpoint. We will sign off. Please reconsult if needed. Nurse practitioner note has been reviewed by physician. Signing provider agrees with the documented findings, assessment, and plan of care documented by COMMUNICATION CENTER COORDINATOR as a scribe. Objective - Vital Signs Vital signs: Vital Signs Temp 98.3 F 12/18/23 07:00 Pulse 62 12/18/23 07:00 Resp 16 12/18/23 07:00 BP 133/73 12/18/23 07:00 Pulse Ox 98 12/18/23 07:00 FiO2 Intake & Output 12/17/23 12/18/23 12/18/23 18:59 06:59 18:59 Intake Total 118 Output Total 650 Balance -650 118 Weight 86.183 kg Intake: Oral 118 Output: Urine 650 Other: Voiding Method Toilet Toilet Urinal Urinal # Voids 2 1 - Labs CBC & Chem 7: 12/18/23 07:39 12/18/23 07:39 Labs: Abnormal Lab Results - Last 24 Hours (Table) 12/17/23 12/17/23 12/17/23 Range/Units 11:56 17:02 20:44 RBC (4.40-5.60) X 10*6/uL Hgb (13.0-17.0) g/dL Hct (39.6-50.0) % MCV (80.0-97.0) FL MCH (27.0-32.0) pg RDW (11.5-14.5) % Lymphocytes # (0.90-5.00) X 10*3/uL BUN (9.0-27.0) mg/dL Est GFR (CKD-EPI) (>=60) BUN/Creatinine Ratio (12.00-20.00) Ratio Glucose (70-110) mg/dL POC Glucose (mg/dL) 222 H 137 H 194 H (70-110) mg/dL 12/18/23 12/18/23 12/18/23 Range/Units 06:03 07:39 07:39 RBC 3.19 L (4.40-5.60) X 10*6/uL Hgb 10.5 L (13.0-17.0) g/dL Hct 31.8 L (39.6-50.0) % MCV 99.7 H (80.0-97.0) FL MCH 32.9 H (27.0-32.0) pg RDW 15.0 H (11.5-14.5) % Lymphocytes # 0.83 L (0.90-5.00) X 10*3/uL BUN 35.9 H (9.0-27.0) mg/dL Est GFR (CKD-EPI) 54 L (>=60) BUN/Creatinine Ratio 27.62 H (12.00-20.00) Ratio Glucose 120 H (70-110) mg/dL POC Glucose (mg/dL) 124 H (70-110) mg/dL
[2023-12-18 12:13] LABS: Glucose,Whole Blood 128 mg/dL (70-110)
--- NOTE | 2023-12-18 14:23 | P.CNOR ---
History of Present Illness - [facility] Consult date: 12/18/23 Requesting physician: Daron Longoria Consult reason: other (Lumbar seroma, RLE radiculopathy) History of present illness: History of Presenting Illness Patient is a pleasant 83-year-old male who presented to the ER for chest pain. Patient had a thorough workup and was admitted to [facility]. Our services were consulted due to worsening low back pain and lumbar seroma. Patient seen and examined this morning. Patient states he does have a history of multiple back surgeries, most recent was L2L4 decompression and fusion performed years ago (patient unsure of date and year) by Dr. Sotelo at [facility]. Patient states approximately 6 months ago after his passed he did have a fall at home. Since this incident patient states that he developed worsening low back pain that progressed to a sharp lumbar pain that radiates into his right lower extremity, associated with numbness and tingling. Patient states that his right foot is completely numb. Patient is able to perform bed exercises with mild difficulty. Patient states that he is normally independent without any assistive devices. He states he does live at home alone. Patient does have a past medical history of atrial fibrillation, CAD, diabetes, hypertension, prior TIA and multiple comorbidities. Patient denies any other orthopedic history other than the x4 back surgeries. MRI of the lumbar spine taken on 12/17/2023 demonstrates L1-L2 severe spinal canal stenosis secondary to degeneration of the disc space and facet joint hypertrophy. There is severe bilateral neuroforaminal stenosis. Surgical bed seroma is also demonstrated. Review of Systems Pertinent positives and negatives as discussed in HPI, a complete review of systems was performed and all other systems are negative. Physical Examination General: The patient is awake and alert, in no acute distress Skin: Skin is warm and dry with no obvious rashes or lesions. There is a stage 1 pressure wound to the right hip. Eye: Pupils are equal, round and reactive to light, extra-ocular movements are intact; there is normal conjunctiva bilaterally. Neck: The neck is supple, there is no tenderness and ROM intact. Gastrointestinal: Soft, non-distended, non-tender abdomen. Back: There is no tenderness to palpation in the midline, paralumbar, parathoracic or buttocks region. There is no obvious deformity. Musculoskeletal: ROM limited secondary to pain and stiffness. Shoulder abduction 5/5, elbow flexors 5/5, wrist dorsiflexors 5/5. finger abductor 5/5, oil well cable tool operator 5/5, hip flexor 5/5, knee flexor 5/5, ankle dorsiflexor 5/5, ankle plantarflexion 5/5 and extensor hallucis 5/5. Neurological: CN 2-12 intact. There are no obvious motor or sensory deficits. Movement and coordination equal and intact. Sensory exam to light touch intact C5-T1 and intact from L2-S1. Reflexes 2/4 in bilateral upper and lower extremities. Negative Hoffmans, babinski, and clonus signs. Psychiatric: Cooperative, appropriate mood & affect, normal judgment. Assessment and Plan Previous fall L1-L2 AO type B3 fracture Right lower extremity radiculopathy h/o L2-L4 decompression and fusion h/o L4-L5,L5-S1 fusion Multiple complex comorbidities At this time we do recommend surgical intervention of L1-L2 open treatment of fracture with decompression and stabilization T11L2 to stabilize fracture and decompress spinal stenosis. Patient has been tentatively scheduled for 12/21/2023. Patient will be n.p.o. at midnight on , 12/20/2023. 2. Appreciate medical management 3. Pain management -continue with oral and IV pain medications. 4. GI prophylaxis -senna and MiraLAX 5. DVT prophylaxis -currently on Eliquis 6. PT/OT - weightbearing as tolerated with a walker as needed. Prescription for LSO brace has been placed in chart. 7. Appreciate consult I reviewed and discussed this case with my attending Dr. Portillo, whom has reviewed this chart and films and is in agreement with assessment and plan of care as outlined above. I have personally seen and examined the patient, performed the documentation and the assessment and plan as written. Number of minutes spent on the visit: 35m. Past Medical History Past Medical History: Atrial Fibrillation, Coronary Artery Disease (CAD), Chest Pain / Angina, CVA/TIA, Diabetes Mellitus, Eye Disorder, GERD/Reflux, Hyperlipidemia, Hypertension, Myocardial Infarction (OR), Osteoarthritis (OA), Renal Disease Additional Past Medical History / Comment(s): low back pain that radiates to l egs.,(has morphine pump), tinnitus, hx of head injury, TIA, aneurysm left groin, glaucoma and macular degeneration, [place]- has tubes in his ears, frequent diarrhea, chronic kidney disease. recent adm. to [facility] for new onset atrial fib. Last Myocardial Infarction Date:: 1990 History of Any Multi-Drug Resistant Organisms: MRSA Year Discovered:: 1993 MDRO Source:: incisional after back sx Past Surgical History: Back Surgery, Heart Catheterization With Stent Additional Past Surgical History / Comment(s): Back Surgery x5 ([facility]), pain pump placed x3 colonoscopy., multiple tubes in ears. has 2 heart stents Past Anesthesia/Blood Transfusion Reactions: No Reported Reaction Additional Past Anesthesia/Blood Transfusion Reaction / Comm: . Date of Last Stent Placement:: 2020 Past Psychological History: No Psychological Hx Reported Additional Psychological History / Comment(s): . Smoking Status: Former smoker Past Alcohol Use History: None Reported Additional Past Alcohol Use History / Comment(s): quit smoking 1990, smoked 3ppd Past Drug Use History: None Reported - Past Family History Father Family Medical History: Cancer Brother(s) Family Medical History: Cancer Medications and Allergies Home Medications Medication Instructions Recorded Confirmed Type Latanoprost/Pf [Latanoprost 0.005% 1 drop BOTH EYES HS 04/04/19 12/16/23 History Eye Drop] Atorvastatin [Lipitor] 80 mg PO HS 07/13/20 12/16/23 History Tamsulosin [Flomax] 0.4 mg PO HS 04/24/22 12/16/23 History Gabapentin [Neurontin] 300 mg PO TID 30 Days #90 cap 09/06/23 12/16/23 Rx Brimonidine Tartrate [Alphagan P 1 drop BOTH EYES BID 11/22/23 12/16/23 History 0.15% Ophth Soln] Ketorolac 0.5% Ophth Soln [Acular 1 drop BOTH EYES BID 11/22/23 12/16/23 History 0.5%] Patient Own Pump 0 bag DIRECTED 11/22/23 12/16/23 History Pioglitazone [Actos] 45 mg PO DAILY 11/22/23 12/16/23 History Timolol 0.5% Ophth Soln [Timoptic 1 drop BOTH EYES BID 11/22/23 12/16/23 History 0.5% Ophth Soln] glipiZIDE XL [Glucotrol XL] 2.5 mg PO DAILY 11/22/23 12/16/23 History prednisoLONE ACETATE 1% OPHTH 1 drop RIGHT EYE BID 11/22/23 12/16/23 History [Pred Forte 1%] Apixaban [Eliquis] 2.5 mg PO BID #60 tab 11/25/23 12/16/23 Rx Aspirin 81 mg PO DAILY #30 tab 11/25/23 12/16/23 Rx Metoprolol Succinate (ER) [Toprol 25 mg PO DAILY 12/16/23 12/16/23 History XL] hydroCHLOROthiazide [Hydrodiuril] 25 mg PO DAILY 12/16/23 12/16/23 History lisinopriL [Zestril] 40 mg PO DAILY 12/16/23 12/16/23 History Allergies Allergy/AdvReac Type Severity Reaction Status Date / Time hydromorphone [From Dilaudid] AdvReac CONFUSION, Verified 12/16/23 15:09 HALLUCINATIONS Results - Labs Labs: Abnormal Lab Results - Last 24 Hours (Table) 12/16/23 12/16/23 12/17/23 Range/Units 14:00 20:30 11:56 POC Glucose (mg/dL) 222 H (70-110) mg/dL Hemoglobin A1c 6.4 H (<=6.0) % HDL Cholesterol 34.20 L (40.00-60.00) mg/dL 12/17/23 12/17/23 12/18/23 Range/Units 17:02 20:44 06:03 POC Glucose (mg/dL) 137 H 194 H 124 H (70-110) mg/dL Hemoglobin A1c (<=6.0) % HDL Cholesterol (40.00-60.00) mg/dL H & H 12/16/23 Range/Units 13:51 Hgb 10.8 L (13.0-17.5) gm/dL Hct 31.7 L (39.0-53.0) % Coagulation 12/16/23 Range/Units 14:00 INR 1.1 (<1.2) Result Diagrams: 12/18/23 07:39 12/18/23 07:39
--- NOTE | 2023-12-18 15:08 | P.PN ---
Subjective Progress Note Date: 12/18/23 Hospital Course: 83-year-old male with history of atrial fibrillation, coronary artery disease, diabetes, hypertension, dyslipidemia, prior TIA, and multiple other comorbid conditions who presented to the ER with complaints of pain in the left side of his chest which radiated into his shoulders. In the ER he underwent extensive evaluation. Initial troponin was 0.023 and BNP was 2330. His CBC, CMP, and coags were within normal. EKG showed no signs of acute ischemia but prior known right bundle branch block. Chest x-ray showed no acute process. Patient was given a dose of aspirin and morphine as well as having Nitropaste placed. Arrangements are made for observation. Seen by cardiology, recommended outpatient stress testing. Already scheduled. He has a history of bad lumbar spine degenerative disc disease. He has had multiple surgeries as one of them became infected with staph. His most recent surgeon was out of [facility]. He also follows with Dr. Ponce for chronic pain and has a implanted pain pump which was last filled [address] head did not show any acute process. MRI lumbar spine shows findings consistent with L1-L2 severe spinal canal stenosis secondary to degeneration of the disc base, severe bilateral neuroforaminal stenosis, surgical bed seroma. Subjective: Patient seen and examined at bedside. No acute events overnight. Still having low back pain radiating to his right leg.. No CP. Pertinent positives and negatives as discussed above, a complete review of systems was performed and all other systems are negative. Vitals Signs Reviewed. General: Nontoxic, no distress, appears at stated age Derm: Warm, dry Head: Atraumatic, normocephalic, symmetric Eyes: EOMI, no lid lag, anicteric sclera Mouth: No lip lesion, mucus membranes moist Cardiovascular: S1S2 reg, no murmur Lungs: CTA bilateral, no rhonchi, no rales, no accessory muscle use Abdominal: Soft, nontender to palpation, no guarding, no appreciable organomegaly Ext: No gross muscle atrophy, no edema, no contractures Neuro: CN II-XI grossly intact, no focal neuro deficits Psych: Alert, oriented, appropriate affect Data Reviewed Today: Pertinent Labs: Hemoglobin 10.5, creatinine 1.3, glucose range between 1 20-1 94 Imaging: MRI lumbar spine shows findings consistent with L1-L2 severe spinal canal stenosis secondary to degeneration of the disc base, severe bilateral neuroforaminal stenosis, surgical bed seroma. Assessment and Plan: L1-L2 severe spinal stenosis Severe bilateral neural foraminal stenosis Surgical bed seroma Right lower extremity weakness and pain Possible hx of fall 3 weeks ago Known severe lumbar disc disease with hx of multiple surgeries for stap infection Has pain pump in place, last filled 3 weeks ago follows alicia Stanton -Orthopedic surgery note reviewed, tentatively plan for surgery on Sunday -Morphine 4 mg IV push every 4 hours as needed for pain, [place] 5/325 as needed for pain -Continue increase Neurontin to 450 3 times daily -PT/OT evaluation -Hold Eliquis tomorrow Chest pain, ACS ruled out Coronary artery disease status post stenting x 2 Discovered paroxysmal atrial fibrillation, currently in sinus rhythm Hypertension Dyslipidemia -Cardiology note reviewed, patient to get outpatient stress testing, signed off -Continue telemetry monitoring -Aspirin 81 mg daily, Lipitor 80 mg daily, metoprolol 25 mg daily -Echocardiogram was recently completed on 11/23/2023 which demonstrated ejection fraction 45 to 50%. DM 2 - Hold pioglitazone and glipizide -Sliding scale insulin, monitor for hypoglycemia Right hip stage II pressure ulcer -Appears healing -Honey -Cover with foam dressing Chronic: Coronary artery disease GERD Chronic kidney disease DVT ppx: Subcu heparin Code status: Full code Anticipated discharge place: pending clinical course Anticipated discharge time: pending clinical course Objective - Vital Signs Vital signs: Vital Signs Temp 97.9 F 12/18/23 14:25 Pulse 53 L 12/18/23 14:25 Resp 16 12/18/23 14:25 BP 106/64 12/18/23 14:25 Pulse Ox 97 12/18/23 14:25 FiO2 Intake & Output 12/17/23 12/18/23 12/18/23 18:59 06:59 18:59 Intake Total 118 Output Total 650 300 Balance -650 -182 Weight 86.183 kg Intake: Oral 118 Output: Urine 650 300 Other: Voiding Method Toilet Toilet Urinal Urinal # Voids 2 0 - Labs CBC & Chem 7: 12/18/23 07:39 12/18/23 07:39 Labs: Abnormal Lab Results - Last 24 Hours (Table) 12/17/23 12/17/23 12/18/23 Range/Units 17:02 20:44 06:03 RBC (4.40-5.60) X 10*6/uL Hgb (13.0-17.0) g/dL Hct (39.6-50.0) % MCV (80.0-97.0) FL MCH (27.0-32.0) pg RDW (11.5-14.5) % Lymphocytes # (0.90-5.00) X 10*3/uL BUN (9.0-27.0) mg/dL Est GFR (CKD-EPI) (>=60) BUN/Creatinine Ratio (12.00-20.00) Ratio Glucose (70-110) mg/dL POC Glucose (mg/dL) 137 H 194 H 124 H (70-110) mg/dL 12/18/23 12/18/23 12/18/23 Range/Units 07:39 07:39 12:09 RBC 3.19 L (4.40-5.60) X 10*6/uL Hgb 10.5 L (13.0-17.0) g/dL Hct 31.8 L (39.6-50.0) % MCV 99.7 H (80.0-97.0) FL MCH 32.9 H (27.0-32.0) pg RDW 15.0 H (11.5-14.5) % Lymphocytes # 0.83 L (0.90-5.00) X 10*3/uL BUN 35.9 H (9.0-27.0) mg/dL Est GFR (CKD-EPI) 54 L (>=60) BUN/Creatinine Ratio 27.62 H (12.00-20.00) Ratio Glucose 120 H (70-110) mg/dL POC Glucose (mg/dL) 128 H (70-110) mg/dL
[2023-12-18 17:23] LABS: Glucose,Whole Blood 206 mg/dL (70-110)
[2023-12-18 20:44] LABS: Glucose,Whole Blood 121 mg/dL (70-110)
[2023-12-19 05:36] LABS: Glucose,Whole Blood 128 mg/dL (70-110)
[2023-12-19 07:58] LABS: African American GFR (CKD) 58 (>60 ml/min/1.73 sqM); Anion Gap 5 mmol/L; Blood Urea Nitrogen 43 mg/dL (9-20); Calcium 9.3 mg/dL (8.4-10.2); Carbon Dioxide 25 mmol/L (22-30); Chloride 108 mmol/L (98-107); Glucose 107 mg/dL (74-99); Non-African American GFR(CKD) 50 (>60 ml/min/1.73 sqM); Potassium 3.9 mmol/L (3.5-5.1); Sodium 138 mmol/L (137-145)
[2023-12-19 08:30] LABS: Basophils % (A) 1 %; Eosinophils # (A) 0.2 k/uL (0-0.7); Eosinophils % (A) 4 %; HCT 34.2 % (39.0-53.0); HGB 11.6 gm/dL (13.0-17.5); Lymphocytes # (A) 0.9 k/uL (1.0-4.8); Lymphocytes % (A) 16 %; MCH 33.5 pg (25.0-35.0); MCHC 33.8 g/dL (31.0-37.0); MCV 99.2 fL (80.0-100.0); Macrocytosis Slight; Mean Platelet Volume 9.7; Monocytes # (A) 0.4 k/uL (0-1.0); Monocytes % (A) 6 %; Neutrophils # (A) 4.1 k/uL (1.3-7.7); Neutrophils % (A) 72 %; Platelet Count 177 k/uL (150-450); RBC 3.45 m/uL (4.30-5.90); RDW 14.8 % (11.5-15.5); WBC 5.6 k/uL (3.8-10.6)
--- NOTE | 2023-12-19 09:03 | P.PN ---
Subjective Progress Note Date: 12/19/23 Principal diagnosis: Worsening low back pain Right lower extremity radiculopathy Patient seen and examined this morning. Patient is resting comfortably in bed. Patient states he did work with physical therapy yesterday and sat in chair for approximately 30 minutes. Patient does report that his pain is controlled on current regimen. Patient continues to report right lower extremity radiculopathy. He states he is looking forward to surgery to resolve his symptoms. Patient surgery has been rescheduled for tomorrow 12/20/2023, Eliquis has been stopped at this time. Patient will be n.p.o. at midnight. Objective - Vital Signs Vital signs: Vital Signs Temp 97.4 F L 12/19/23 07:00 Pulse 63 12/19/23 07:00 Resp 22 12/19/23 07:00 BP 117/58 12/19/23 07:00 Pulse Ox 95 12/19/23 07:00 FiO2 Intake & Output 12/18/23 12/19/23 12/19/23 18:59 06:59 18:59 Intake Total 236 Output Total 400 200 Balance -164 -200 Intake: Oral 236 Output: Urine 400 200 Other: Voiding Method Toilet Urinal # Voids 0 2 - Exam General: The patient is awake and alert, in no acute distress Skin: Skin is warm and dry with no obvious rashes or lesions. There is a stage 1 pressure wound to the right hip. Eye: Pupils are equal, round and reactive to light, extra-ocular movements are intact; there is normal conjunctiva bilaterally. Neck: The neck is supple, there is no tenderness and ROM intact. Gastrointestinal: Soft, non-distended, non-tender abdomen. Back: There is no tenderness to palpation in the midline, paralumbar, parathoracic or buttocks region. There is no obvious deformity. Musculoskeletal: ROM limited secondary to pain and stiffness. Shoulder abduction 5/5, elbow flexors 5/5, wrist dorsiflexors 5/5. finger abductor 5/5, spinning supervisor 5/5, hip flexor 5/5, knee flexor 5/5, ankle dorsiflexor 5/5, ankle plantarflexion 5/5 and extensor hallucis 5/5. Neurological: CN 2-12 intact. There are no obvious motor or sensory deficits. Movement and coordination equal and intact. Sensory exam to light touch intact C5-T1 and intact from L2-S1. Reflexes 2/4 in bilateral upper and lower extremit ies. Negative Hoffmans, babinski, and clonus signs. Psychiatric: Cooperative, appropriate mood & affect, normal judgment. - Labs CBC & Chem 7: 12/19/23 06:46 12/19/23 06:46 Labs: Abnormal Lab Results - Last 24 Hours (Table) 12/18/23 12/18/23 12/18/23 Range/Units 07:39 07:39 12:09 RBC 3.19 L (4.40-5.60) X 10*6/uL Hgb 10.5 L (13.0-17.0) g/dL Hct 31.8 L (39.6-50.0) % MCV 99.7 H (80.0-97.0) FL MCH 32.9 H (27.0-32.0) pg RDW 15.0 H (11.5-14.5) % Lymphocytes # 0.83 L (0.90-5.00) X 10*3/uL Chloride (98-107) mmol/L BUN 35.9 H (9.0-27.0) mg/dL Creatinine (0.66-1.25) mg/dL Est GFR (CKD-EPI) 54 L (>=60) BUN/Creatinine Ratio 27.62 H (12.00-20.00) Ratio Glucose 120 H (70-110) mg/dL POC Glucose (mg/dL) 128 H (70-110) mg/dL 12/18/23 12/18/23 12/19/23 Range/Units 17:19 20:42 05:34 RBC (4.40-5.60) X 10*6/uL Hgb (13.0-17.0) g/dL Hct (39.6-50.0) % MCV (80.0-97.0) FL MCH (27.0-32.0) pg RDW (11.5-14.5) % Lymphocytes # (0.90-5.00) X 10*3/uL Chloride (98-107) mmol/L BUN (9.0-27.0) mg/dL Creatinine (0.66-1.25) mg/dL Est GFR (CKD-EPI) (>=60) BUN/Creatinine Ratio (12.00-20.00) Ratio Glucose (70-110) mg/dL POC Glucose (mg/dL) 206 H 121 H 128 H (70-110) mg/dL 12/19/23 Range/Units 06:46 RBC (4.40-5.60) X 10*6/uL Hgb (13.0-17.0) g/dL Hct (39.6-50.0) % MCV (80.0-97.0) FL MCH (27.0-32.0) pg RDW (11.5-14.5) % Lymphocytes # (0.90-5.00) X 10*3/uL Chloride 108 H (98-107) mmol/L BUN 43 H (9.0-27.0) mg/dL Creatinine 1.30 H (0.66-1.25) mg/dL Est GFR (CKD-EPI) (>=60) BUN/Creatinine Ratio (12.00-20.00) Ratio Glucose 107 H (70-110) mg/dL POC Glucose (mg/dL) (70-110) mg/dL Assessment and Plan Assessment: Previous fall L1-L2 AO type B3 fracture Right lower extremity radiculopathy h/o L2-L4 decompression and fusion h/o L4-L5,L5-S1 fusion Multiple complex comorbidities Plan: At this time we do recommend surgical intervention of L1-L2 open treatment of fracture with decompression and stabilization T11L3 to stabilize fracture and decompress spinal stenosis. Patient has been scheduled for , 12/20/2023. Patient will be n.p.o. at midnight on, 12/20/2023. 2. Appreciate medical management 3. Pain management -continue with oral and IV pain medications. 4. GI prophylaxis -senna and MiraLAX 5. DVT prophylaxis -Mechanical, Eliquis is on hold. 6. PT/OT - weightbearing as tolerated with a walker as needed. Prescription for LSO brace has been placed in chart. 7. Appreciate consult I reviewed and discussed this case with my attending Dr. Portillo, whom has reviewed this chart and films and is in agreement with assessment and plan of care as outlined above. I have personally seen and examined the patient, performed the documentation and the assessment and plan as written. Number of minutes spent on the visit: 35m.
[2023-12-19 12:27] LABS: Glucose,Whole Blood 176 mg/dL (70-110)
--- NOTE | 2023-12-19 14:44 | P.PN ---
Subjective Progress Note Date: 12/19/23 Hospital Course: 83-year-old male with history of atrial fibrillation, coronary artery disease, diabetes, hypertension, dyslipidemia, prior TIA, and multiple other comorbid conditions who presented to the ER with complaints of pain in the left side of his chest which radiated into his shoulders. In the ER he underwent extensive evaluation. Initial troponin was 0.023 and BNP was 2330. His CBC, CMP, and coags were within normal. EKG showed no signs of acute ischemia but prior known right bundle branch block. Chest x-ray showed no acute process. Patient was given a dose of aspirin and morphine as well as having Nitropaste placed. Arrangements are made for observation. Seen by cardiology, recommended outpatient stress testing. Already scheduled. He has a history of bad lumbar spine degenerative disc disease. He has had multiple surgeries as one of them became infected with staph. His most recent surgeon was out of [facility]. He also follows with Dr. Ponce for chronic pain and has a implanted pain pump which was last filled [address] head did not show any acute process. MRI lumbar spine shows findings consistent with L1-L2 severe spinal canal stenosis secondary to degeneration of the disc base, severe bilateral neuroforaminal stenosis, surgical bed seroma. Pending surgery tomorrow. Subjective: Patient seen and examined at bedside. No acute events overnight. Still having low back pain radiating to his right leg. Pertinent positives and negatives as discussed above, a complete review of systems was performed and all other systems are negative. Vitals Signs Reviewed. General: Nontoxic, no distress, appears at stated age Derm: Warm, dry Head: Atraumatic, normocephalic, symmetric Eyes: EOMI, no lid lag, anicteric sclera Mouth: No lip lesion, mucus membranes moist Cardiovascular: S1S2 reg, no murmur Lungs: CTA bilateral, no rhonchi, no rales, no accessory muscle use Abdominal: Soft, nontender to palpation, no guarding, no appreciable organomegaly Ext: No gross muscle atrophy, no edema, no contractures Neuro: CN II-XI grossly intact, no focal neuro deficits Psych: Alert, oriented, appropriate affect Data Reviewed Today: Pertinent Labs: Hemoglobin 11.6, creatinine 1.3, blood sugars range between 10 7-1 76 Imaging: No new imaging Assessment and Plan: L1-L2 severe spinal stenosis Severe bilateral neural foraminal stenosis Surgical bed seroma Right lower extremity weakness and pain Possible hx of fall 3 weeks ago Known severe lumbar disc disease with hx of multiple surgeries for stap infection Has pain pump in place, last filled 3 weeks ago follows alicia Stanton -Orthopedic surgery note reviewed, plan for surgery tomorrow, Eliquis has been held -Morphine 4 mg IV push every 4 hours as needed for pain, [place] 5/325 as needed for pain -Continue increase Neurontin to 450 3 times daily -PT/OT evaluation -Per NSQIP risk calculator, patient has 8.1% risk of , 25.4% risk of serious complication, 22.6% risk of any complication, and 67.1% risk of discharge to rehab facility -Although there are no absolute contraindications to surgery, patient is considered high risk given his age and multiple comorbidities -Patient is medically optimized for surgical procedure Hypertension -Hold hydrochlorothiazide and lisinopril for tomorrow given he is will be getting surgical interventions -Restart the following day Chest pain, ACS ruled out Coronary artery disease status post stenting x 2 paroxysmal atrial fibrillation, currently in sinus rhythm Dyslipidemia -Cardiology signed off, patient to get outpatient stress testing, signed off -Continue telemetry monitoring -Aspirin 81 mg daily, Lipitor 80 mg daily, metoprolol 25 mg daily -Echocardiogram was recently completed on 11/23/2023 which demonstrated ejection fraction 45 to 50%. DM 2 - Hold pioglitazone and glipizide -Sliding scale insulin, monitor for hypoglycemia Right hip stage II pressure ulcer -Appears healing -Honey -Cover with foam dressing Chronic: Coronary artery disease GERD Chronic kidney disease DVT ppx: Subcu heparin Code status: Full code Anticipated discharge place: pending clinical course Anticipated discharge time: pending clinical course Objective - Vital Signs Vital signs: Vital Signs Temp 97.4 F L 12/19/23 07:00 Pulse 63 12/19/23 14:00 Resp 22 12/19/23 14:00 BP 117/58 12/19/23 07:00 Pulse Ox 95 12/19/23 07:00 FiO2 Intake & Output 12/18/23 12/19/23 12/19/23 18:59 06:59 18:59 Intake Total 236 Output Total 400 200 100 Balance -164 -200 -100 Intake: Oral 236 Output: Urine 400 200 100 Other: Voiding Method Toilet Toilet Urinal Urinal # Voids 0 2 - Labs CBC & Chem 7: 12/19/23 06:46 12/19/23 06:46 Labs: Abnormal Lab Results - Last 24 Hours (Table) 12/18/23 12/18/23 12/19/23 Range/Units 17:19 20:42 05:34 RBC (4.30-5.90) m/uL Hgb (13.0-17.5) gm/dL Hct (39.0-53.0) % Lymphocytes # (1.0-4.8) k/uL Chloride (98-107) mmol/L BUN (9-20) mg/dL Creatinine (0.66-1.25) mg/dL Glucose (74-99) mg/dL POC Glucose (mg/dL) 206 H 121 H 128 H (70-110) mg/dL 12/19/23 12/19/23 12/19/23 Range/Units 06:46 06:46 12:14 RBC 3.45 L (4.30-5.90) m/uL Hgb 11.6 L (13.0-17.5) gm/dL Hct 34.2 L (39.0-53.0) % Lymphocytes # 0.9 L (1.0-4.8) k/uL Chloride 108 H (98-107) mmol/L BUN 43 H (9-20) mg/dL Creatinine 1.30 H (0.66-1.25) mg/dL Glucose 107 H (74-99) mg/dL POC Glucose (mg/dL) 176 H (70-110) mg/dL
[2023-12-19 17:14] LABS: Glucose,Whole Blood 134 mg/dL (70-110)
[2023-12-19 20:47] LABS: Glucose,Whole Blood 169 mg/dL (70-110)
[2023-12-19] MEDS: DEXAMETHASONE SOD PHOSPHATE 4 MG/ML 1 ML VIAL IV ONE (21:53)
[2023-12-20] MEDS: LACTATED RINGERS 1,000 ML IV SCH (03:14)
[2023-12-20 06:01] LABS: Glucose,Whole Blood 216 mg/dL (70-110)
[2023-12-20] MEDS ORDERED: Potassium Replacement Protocol 1 EACH MISC MISCELLANE PRN (06:54)
--- NOTE | 2023-12-20 06:56 | P.PN ---
Progress Note - Text Progress Note Date: 12/20/23 Patient seen this morning. Patient is resting comfortably in bed. Patient has remained n.p.o. since midnight. He states he is looking forward to his surgery later this morning to start progressing towards his recovery to go home. His questions and concerns have been addressed. No acute concerns at this time.
[2023-12-20] MEDS ORDERED: HYDROmorphone 0.5 MG/0.5 ML SYRINGE IVP PRN (07:00)
[2023-12-20] MEDS: POTASSIUM CHLORIDE ER 20 MEQ TAB.ER PO SCH (09:02)
[2023-12-20 09:46] LABS: Basophils # (A) 0.02 X 10*3/uL (0.00-0.10); Basophils % (A) 0.3 %; Eosinophils # (A) 0.01 X 10*3/uL (0.04-0.35); Eosinophils % (A) 0.2 %; HCT 32.4 % (39.6-50.0); HGB 10.7 g/dL (13.0-17.0); Lymphocytes # (A) 0.46 X 10*3/uL (0.90-5.00); Lymphocytes % (A) 7.3 %; MCH 33.6 pg (27.0-32.0); MCV 101.9 FL (80.0-97.0); Mean Platelet Volume 10.9 FL (9.5-12.2); Monocytes # (A) 0.11 X 10*3/uL (0.20-1.00); Monocytes % (A) 1.8 %; NRBC Per 100 WBC 0 X 10*3/uL (0.00-0.01); Neutrophils # (A) 5.64 X 10*3/uL (1.80-7.70); Neutrophils % (A) 89.9 %; Platelet Count 195 X 10*3/uL (140-440); RBC 3.18 X 10*6/uL (4.40-5.60); RDW 14.9 % (11.5-14.5); WBC 6.27 X 10*3/uL (4.50-10.00)
[2023-12-20 10:17] LABS: BUN/Creat Ratio 32.93 Ratio (12.00-20.00); Blood Urea Nitrogen 46.1 mg/dL (9.0-27.0); Calcium 9.2 mg/dL (8.7-10.3); Carbon Dioxide 24.2 mmol/L (21.6-31.8); Chloride 104 mmol/L (96-109); Glucose 198 mg/dL (70-110); Potassium 4.4 mmol/L (3.5-5.5); Sodium 140 mmol/L (135-145)
[2023-12-20 10:35] LABS: Glucose,Whole Blood 195 mg/dL (70-110)
[2023-12-20] MEDS: ONDANSETRON 4 MG/2 ML VIAL IVP PRN (10:44)
--- NOTE | 2023-12-20 10:49 | P.PN ---
Progress Note - Text Progress Note Date: 12/20/23 Spine Surgery Clinical and Risk Review ALTON HINTON is a 83 YO MALE presenting for evaluation of SEVERE BACK PAIN AFTER A FALL FROM STANDING WITH PREVIOUS LUMBAR SURGERY HX. It was my pleasure to have seen and examined ALTON HINTON. In our visit today we have had a chance to go over subjective complaints, physical examination findings and treatments including the natural course hist ory without intervention and various interventional options. The patients imaging demonstrates: MRI, CT AND XRAYS REVIEWED. POST SURGICAL CHANGES WITH DECOMPRESSION AND FUSION CONSTRUCT AT THE L2-S1 LEVELS WITH PAIN PUMP ENTERING AT L2. THERE IS FLUID COLLECTION AROUND THE HARDWARE. THERE IS SEVERE STENOSIS AT L1-2 WITH AO TYPE B3 FRACTURE THROUGH THE DISC SPACE WITH INSTABILITY, EPIDURAL COMPRESSION AND STENOSIS THAT IS SEVERE. 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 THERE ARE NO OTHER FRACTURES NOTED AT THIS TIME. MULTILEVEL DEGENERATIVE CHANGES NOTED. On physical exam, ALTON HINTON demonstrates SEVERE BACK PAIN LIMITING HIM FROM ANY ADL OR MOVEMENTS. HE IS NORMALLY FUNCTIONAL AND TAKES CARE OF HIMSELF AT HOME AND HAS NOT BEEN ABLE TO SINCE THE FALL AND FRACTURE. HIS LEGS HAVE GOTTEN WEAKER ACUTELY AND MORE PAINFUL AND NEUROGENIC . 4-/5 LE B/L WITH 3/5 IN HF ON THE RIGHT. THERE IS 4+/5 IN UE B/L. GENERAL WEAKNESS OVERALL. DECREASED LT SENSATION LE GLOBAL AND OVER L1-3 REGION. NEG HOFFMANS, CLONUS, BABINSKI AT THIS TIME. TTP MIDLINE SPINE OVER L1-2. PARASPINAL TTP LUMBAR. I have explained to the patient that as their condition progresses it will cause further neurological deficits and eventual paralysis. Based on the patients imaging, physical exam, and the rapid progression and disabling nature of their symptoms, at this time I recommend surgery in the form or a: L1-2 OPEN TREATMENT FRACTURE WITH STABILIZATION T11-L3. I discussed the risk and benefits of this procedure at length with ALTON HINTON. The patient [significant other] agreed to considered pursuing the procedure abovementioned. Prior to surgery, she should follow up with her PCP (Cardio, ID, IM etc) for clearance. Questions were invited and answered, and the patient wishes to proceed as outlined below. DIAGNOSIS: Previous fall L1-L2 AO type B3 fracture Right lower extremity radiculopathy h/o L2-L4 decompression and fusion h/o L4-L5,L5-S1 fusion Multiple complex comorbidities Currently, I am recommendin. L1-2 OPEN TREATMENT FRACTURE WITH STABILIZATION T11-L3 2. Follow up with PCP for surgical clearance 3. Review of surgical risks and benefits as well as an educational packet on the proposed surgical procedure. Risks: All surgical procedures come with inherent risks, including those related to positioning, anesthesia, intraoperative findings, and postoperative complications. It is important to understand that surgery does not come with any guarantee of a successful outcome as complications and adverse events are always possible. The patient was given a handout in office today discussing the surgical procedure and risks associated with the intervention, both of which were d iscussed with the patient. These risks include but are not limited to the following: * Experiencing same, different or even worse symptoms in back, neck, arms, or legs compared to before surgery. * Requiring further surgery or other forms of treatment presently or at some time in the future at same or other levels of the intended spine surgery. * On an extreme but fortunately relatively rare basis severe complication such as blindness, stroke, heart attack, temporary and/or permanent nerve injury, paralysis, coma, or may occur, sometimes without known explanation. * Surgical complications may include but are not limited to risk of infection, fluid accumulation in the surgical dissection site, including a seroma or hematoma, that requires additional surgery, wound drainage, bleeding, new numbness or weakness, vision changes/loss, spinal fluid leakage, non-healing and/or infected incision, headaches, difficulty or inability to swallow, hoarseness, hemopneumothorax, pneumothorax, impotence, retrograde ejaculation, vaginal dryness; injury to nerves, spinal cord, blood vessels, lymphatics or other vital organs (i.e., bowel injury, injury to the great vessels); heterotopic bone formation; complications related to the hardware such as screws, rods, cages including misplaced hardware, device failure, instrumentation at the wrong spine level, hardware fracture/breakage, or hardware loosening; vertebral failure of the spinal column above or below the newly placed hardware; retained surgical instrumentations or devices and the need for further surgery. * Medical risks of the planned spine surgery include but are not limited to generalized Infections to the whole body or local areas outside of the surgical site (sepsis), heart attack, bleeding, anaphylaxis, meningitis, seizure, epilepsy, hearing loss, burn salomon, laceration of the head or other areas of the body, bruising, hypersensitivity of the skin, bladder over distension; allergic reaction; shoulder injury related to positioning; fat, blood and air clots to other areas of the body like heart, lungs, brain; failure of internal organs such as lungs, kidneys, liver and excessive bleeding. If blood transfusions are necessary, note that transfusions may cause intolerance reactions such as anaphylaxis or other complex reactions. * Despite best efforts, the results of spine surgery might not heal in terms of bone, soft tissues such as skin, fascia, ligaments, and joints. Additionally, in order to achieve best possible results, spine surgery may be carried out beyond the initially planned levels and involve decompression, fusion including insertion of hardware at levels other than the original intended area of surgical interest change some portions of the procedure in order to ensure the best possible outcomes. * With spine surgery and spinal fusion, there are different off label uses of instrumentation (devices, implants and hardware) as well as biological substances (bone morphogenic proteins, demineralized bone matrix) as well as using extra bone from allograft sources (i.e. cadaver bone) or autograft (iliac crest bone, ribs, or the spine itself). The patient has been given information about these practices and their inherent risks and benefits. The patient has had a chance to review all the listed information, has been given print outs detailing this information, and has had all his/her questions answered to their satisfaction. It was my pleasure to have seen and examined ALTON HINTON. In our visit today we have had a chance to go over my understanding of our patient's current condition, the natural course history without intervention and various interventional options. Questions were invited and answered, and the patient wishes to proceed as outlined above. I have seen and examined the patient for 25 minutes and we have spent more than 50% of the time in repeat and detailed counseling about the patient's condition, its natural course history with out and as much as can be predicted with surgery and re-review of various surgical treatment options. In conclusion, ALTON HINTON and FAMILY requested we proceed with the above suggested surgery and are willing to accept risks and limitations of the suggested surgery as nature of the disease process and our best attempts at treatment for the condition. Thank you again for allowing us to be part of your patient's care. Please don't hesitate to contact me if you have any further questions. Signed and authenticated by: [facility] [address] [place] [address]
[2023-12-20] MEDS: MIDAZOLAM 2 MG/2 ML VIAL IV STA (10:50)
[2023-12-20] MEDS ORDERED: TRANEXAMIC 1,000 MG/100ML-NACL 1,000 MG in SALINE 1 100ML.BAG IVPB PRN (11:00)
[2023-12-20] MEDS: IV FLUID CONTINUATION 1,000 ML IV ONE ×2 (11:00)
--- NOTE | 2023-12-20 11:31 | P.ANPRN ---
Procedure Note - Anesthesia - Invasive Line Left Arterial Line Time Out Performed: Yes Date of Procedure: 12/20/23 Time of Procedure: 10:59 Location of Patient: PreOp Preparation: Sterile Prep Arterial Line Location: Radial Ultrasound Used: No Purpose - Visualization and Identification of Vasculature: No Image Stored and Saved: No Narrative: Invasive line placement per sterile protocol utilized.
[2023-12-20] MEDS ORDERED: PHENYLEPHRINE 10 MG/ML VIAL ONE (11:38)
[2023-12-20] MEDS ORDERED: TRANEXAMIC 1,000 MG/100ML-NACL PREMIX BAG ONE (11:38)
[2023-12-20] MEDS ORDERED: PROPOFOL 10 MG/ML 20 ML VIAL IV ONE (11:38)
[2023-12-20] MEDS ORDERED: SUCCINYLCHOLINE CHLORIDE 200 MG/10 ML VIAL IV ONE (11:38)
[2023-12-20] MEDS ORDERED: fentaNYL (PF) 50 MCG/ML 2 ML AMP ONE (11:38)
[2023-12-20] MEDS ORDERED: LIDOCAINE 1% INJ 10MG/ML (20 ML MDV) ONE (11:38)
[2023-12-20] MEDS: THROMBIN (BOVINE) 5,000 UNIT VIAL TOPICAL ONE (12:21)
[2023-12-20] MEDS: ceFAZolin 3,000 MG in SODIUM CHLORIDE 0.9% IRRIGATIO 3,000 ML IRRIGATION ONE (12:21)
[2023-12-20] MEDS: GENTAMICIN 80 MG in SODIUM CHLORIDE 0.9% IRRIGATIO 3,000 ML IRRIGATION ONE (12:21)
[2023-12-20] MEDS: LACTATED RINGERS 1,000 ML IV ONE (14:37)
[2023-12-20] MEDS: VANCOMYCIN 1,000 MG VIAL MISCELLANE ONE (14:54)
--- NOTE | 2023-12-20 15:39 | P.PN ---
Subjective Progress Note Date: 12/20/23 Hospital Course: 83-year-old male with history of atrial fibrillation, coronary artery disease, diabetes, hypertension, dyslipidemia, prior TIA, and multiple other comorbid conditions who presented to the ER with complaints of pain in the left side of his chest which radiated into his shoulders. In the ER he underwent extensive evaluation. Initial troponin was 0.023 and BNP was 2330. His CBC, CMP, and coags were within normal. EKG showed no signs of acute ischemia but prior known right bundle branch block. Chest x-ray showed no acute process. Patient was given a dose of aspirin and morphine as well as having Nitropaste placed. Arrangements are made for observation. Seen by cardiology, recommended outpatient stress testing. Already scheduled. He has a history of bad lumbar spine degenerative disc disease. He has had multiple surgeries as one of them became infected with staph. His most recent surgeon was out of [facility]. He also follows with Dr. Ponce for chronic pain and has a implanted pain pump which was last filled [address] head did not show any acute process. MRI lumbar spine shows findings consistent with L1-L2 severe spinal canal stenosis secondary to degeneration of the disc base, severe bilateral neuroforaminal stenosis, surgical bed seroma. Pending surgery today Subjective: Patient seen and examined at bedside. No acute events overnight. Still having low back pain radiating to his right leg. Pertinent positives and negatives as discussed above, a complete review of systems was performed and all other systems are negative. Vitals Signs Reviewed. General: Nontoxic, no distress, appears at stated age Derm: Warm, dry Head: Atraumatic, normocephalic, symmetric Eyes: EOMI, no lid lag, anicteric sclera Mouth: No lip lesion, mucus membranes moist Cardiovascular: S1S2 reg, no murmur Lungs: CTA bilateral, no rhonchi, no rales, no accessory muscle use Abdominal: Soft, nontender to palpation, no guarding, no appreciable or ganomegaly Ext: No gross muscle atrophy, no edema, no contractures Neuro: CN II-XI grossly intact, no focal neuro deficits Psych: Alert, oriented, appropriate affect Data Reviewed Today: Pertinent Labs: Hemoglobin 6.27, hemoglobin 10.7, creatinine 1.4, blood sugars range between 1 69-1 98 Imaging: No new imaging Assessment and Plan: L1-L2 severe spinal stenosis Severe bilateral neural foraminal stenosis Surgical bed seroma Right lower extremity weakness and pain Possible hx of fall 3 weeks ago Known severe lumbar disc disease with hx of multiple surgeries for stap infection Has pain pump in place, last filled 3 weeks ago follows alicia Stanton -Orthopedic surgery note reviewed, plan for surgery today, Eliquis has been held -Morphine 4 mg IV push every 4 hours as needed for pain, Bynum 5/325 as needed for pain -Continue increase Neurontin to 450 3 times daily -PT/OT evaluation -Per NSQIP risk calculator, patient has 8.1% risk of , 25.4% risk of serious complication, 22.6% risk of any complication, and 67.1% risk of discharge to rehab facility -Although there are no absolute contraindications to surgery, patient is considered high risk given his age and multiple comorbidities -Patient is medically optimized for surgical procedure Hypertension -Hold hydrochlorothiazide and lisinopril for today given he is will be getting surgical interventions -Restart the following day Chest pain, ACS ruled out Coronary artery disease status post stenting x 2 paroxysmal atrial fibrillation, currently in sinus rhythm Dyslipidemia -Cardiology signed off, patient to get outpatient stress testing, signed off -Continue telemetry monitoring -Aspirin 81 mg daily, Lipitor 80 mg daily, metoprolol 25 mg daily -Echocardiogram was recently completed on 11/23/2023 which demonstrated ejection fraction 45 to 50%. DM 2 - Hold pioglitazone and glipizide -Sliding scale insulin, monitor for hypoglycemia Right hip stage II pressure ulcer -Appears healing -Honey -Cover with foam dressing Chronic: Coronary artery disease GERD Chronic kidney disease DVT ppx: Subcu heparin Code status: Full code Anticipated discharge place: pending clinical course Anticipated discharge time: pending clinical course Objective - Vital Signs Vital signs: Vital Signs Temp 97.5 F L 12/20/23 10:08 Pulse 62 12/20/23 11:20 Resp 16 12/20/23 11:20 BP 140/65 12/20/23 11:20 Pulse Ox 100 12/20/23 11:20 FiO2 Intake & Output 12/19/23 12/20/23 12/20/23 18:59 06:59 18:59 Intake Total 118 2152 Output Total 500 300 375 Balance -382 -300 1777 Intake: IV 2152 Oral 118 Output: Urine 500 300 225 Estimated Blood Loss 150 Other: Voiding Method Toilet Toilet Urinal Urinal Urinal # Voids 1 - Labs CBC & Chem 7: 12/20/23 05:12 12/20/23 05:12 Labs: Abnormal Lab Results - Last 24 Hours (Table) 12/19/23 12/19/23 12/20/23 Range/Units 17:12 20:46 05:12 RBC 3.18 L (4.40-5.60) X 10*6/uL Hgb 10.7 L (13.0-17.0) g/dL Hct 32.4 L (39.6-50.0) % MCV 101.9 H (80.0-97.0) FL MCH 33.6 H (27.0-32.0) pg RDW 14.9 H (11.5-14.5) % Lymphocytes # 0.46 L (0.90-5.00) X 10*3/uL Monocytes # 0.11 L (0.20-1.00) X 10*3/uL Eosinophils # 0.01 L (0.04-0.35) X 10*3/uL BUN (9.0-27.0) mg/dL Est GFR (CKD-EPI) (>=60) BUN/Creatinine Ratio (12.00-20.00) Ratio Glucose (70-110) mg/dL POC Glucose (mg/dL) 134 H 169 H (70-110) mg/dL 12/20/23 12/20/23 12/20/23 Range/Units 05:12 06:00 10:34 RBC (4.40-5.60) X 10*6/uL Hgb (13.0-17.0) g/dL Hct (39.6-50.0) % MCV (80.0-97.0) FL MCH (27.0-32.0) pg RDW (11.5-14.5) % Lymphocytes # (0.90-5.00) X 10*3/uL Monocytes # (0.20-1.00) X 10*3/uL Eosinophils # (0.04-0.35) X 10*3/uL BUN 46.1 H (9.0-27.0) mg/dL Est GFR (CKD-EPI) 49 L (>=60) BUN/Creatinine Ratio 32.93 H (12.00-20.00) Ratio Glucose 198 H (70-110) mg/dL POC Glucose (mg/dL) 216 H 195 H (70-110) mg/dL
[2023-12-20] MEDS ORDERED: MORPHINE SULFATE 2 MG/ML SYRINGE IVP PRN (15:40)
[2023-12-20] MEDS ORDERED: NA PHOS,M-B/NA PHOS,DI-BA 133 ML ENEMA RECTAL PRN (15:40)
[2023-12-20] MEDS ORDERED: MAGNESIUM HYDROXIDE 2,400 MG/30 ML CUP PO PRN (15:40)
[2023-12-20] MEDS ORDERED: bisacodyL 10 MG SUPP RECTAL PRN (15:40)
[2023-12-20] MEDS ORDERED: ONDANSETRON 4 MG/2 ML VIAL IVP PRN (15:45)
[2023-12-20] MEDS: fentaNYL (PF) 50 MCG/ML 2 ML AMP IV PRN (15:55)
[2023-12-20 17:45] LABS: Glucose,Whole Blood 176 mg/dL (70-110)
[2023-12-20] MEDS: KETOROLAC 15 MG/ML 1 ML VIAL IVP SCH (18:04)
--- NOTE | 2023-12-20 20:02 | XR ---
EXAMINATION TYPE: XR lumbar spine 2 or 3V, FL guidance operating room DATE OF EXAM: 12/20/2023 FLUOROSCOPY PLDF Fluoro time: 31 sec DAP: 2026.33 Gycm2 No images submitted. Postoperative CT pending.
[2023-12-20 20:59] LABS: Glucose,Whole Blood 149 mg/dL (70-110)
[2023-12-20] MEDS: polyethylene glycoL 3350 17 GM POWD.PACK PO SCH (21:34)
[2023-12-21] MEDS: CYCLOBENZAPRINE 5 MG TAB PO PRN (04:46)
[2023-12-21 06:10] LABS: Glucose,Whole Blood 163 mg/dL (70-110)
[2023-12-21 07:35] LABS: Basophils % (A) 0 %; Eosinophils % (A) 0 %; HCT 29.1 % (39.0-53.0); Lymphocytes # (A) 0.4 k/uL (1.0-4.8); Lymphocytes % (A) 5 %; MCH 33.8 pg (25.0-35.0); MCHC 34.2 g/dL (31.0-37.0); MCV 98.7 fL (80.0-100.0); Macrocytosis Slight; Mean Platelet Volume 8.5; Monocytes # (A) 0.5 k/uL (0-1.0); Monocytes % (A) 6 %; Neutrophils # (A) 6.6 k/uL (1.3-7.7); Neutrophils % (A) 88 %; Platelet Count 175 k/uL (150-450); RBC 2.94 m/uL (4.30-5.90); RDW 14.8 % (11.5-15.5); WBC 7.5 k/uL (3.8-10.6)
[2023-12-21 07:54] LABS: HGB 9.9 gm/dL (13.0-17.5)
[2023-12-21 08:03] LABS: African American GFR (CKD) 61 (>60 ml/min/1.73 sqM); Anion Gap 5 mmol/L; Blood Urea Nitrogen 49 mg/dL (9-20); Calcium 8.9 mg/dL (8.4-10.2); Carbon Dioxide 26 mmol/L (22-30); Chloride 106 mmol/L (98-107); Glucose 143 mg/dL (74-99); Non-African American GFR(CKD) 53 (>60 ml/min/1.73 sqM); Potassium 3.9 mmol/L (3.5-5.1); Sodium 137 mmol/L (137-145)
--- NOTE | 2023-12-21 09:13 | CT ---
EXAMINATION TYPE: CT thor lumbar spine wo con CT DLP: 1696.8 mGycm, Automated exposure control for dose reduction was used. DATE OF EXAM: 12/21/2023 8:06 AM CLINICAL INDICATION:Male, 83 years old with history of s/p L1-L2 open fixation with stabilization T11 -L3; s/p L1-L2 open fixation with stabilization T11-L3 COMPARISON: 10/18/2020, 02/25/2015, 06/08/2019 TECHNIQUE: Axial images of the thoracic and lumbar spine were obtained without contrast. Coronal and sagittal reformats were performed. CT Contrast: Contrast used: mL of , none. Oral contrast used: none. FINDINGS: Postsurgical changes to the lumbar spine with fixation hardware at T12-L4. Discectomy at and L1-L2. T here is vertebroplasty changes at T12 and L1. Hardware limits evaluation at these levels. Hardware ap pears intact. No evidence of fracture. There are stimulator leads terminating in the posterior thecal sac. Skin abdullahi are seen along the subcutaneous tissues of the back. Postsurgical changes in the s oft tissues with foci of gas present. Drainage catheter with tubing in the surgical bed. Bridging ost eophytes along the anterior spine. Atelectasis changes in the lung bases. Atherosclerosis of the arterial vasculature. Protuberant filli ng defect within the right main bronchus lesion seen in a similar location on 06/08/2019 exam. Scatte red colonic diverticula. Small saccular protuberance of the aorta series 202 image image 129 measurin g 8 mm. IMPRESSION: 1. Postsurgical changes without evidence of immediate post operative complication. 2. possible masslike protuberance in the right main bronchus. Lesion seen in similar location on consider bronchoscopy and tissue sampling. 3. Small posterior left lateral protuberance off the aorta possibly representing saccular aneurysm. Further evaluation with CTA angiogram of the abdomen recommended. 4. Bridging anterior longitudinal osteophytes compatible with diffuse idiopathic skeletal hyperostos is.
--- NOTE | 2023-12-21 10:36 | P.PN ---
Subjective Progress Note Date: 12/21/23 Principal diagnosis: Previous fall L1-L2 AO type B3 fracture Right lower extremity radiculopathy h/o L2-L4 decompression and fusion h/o L4-L5,L5-S1 fusion Multiple complex comorbidities Patient seen and examined this morning. Patient is resting comfortably in bed. He currently states that his pain is managed on current regimen. Patient does state that he has not been up since procedure. Informed patient that physical t herapy will begin to work with him this morning. Patient is to be up to chair with all meals. Michaud catheter can be discontinued this morning. Surgical incision to the thoracolumbar spine, dressing is intact with Hemovac present with 200 mL output documented overnight. Patient does report improvement of his radicular pain to the right lower extremity since the procedure. Patient states he is looking forward to working with physical therapy to see if there is improvement with his stability. Continue to encourage patient changing his position throughout the day to prevent further breakdown of his pressure wound on the right hip. Encourage use of incentive spirometer 10 times per hour while awake. No acute concerns. Objective - Vital Signs Vital signs: Vital Signs Temp 98.4 F 12/21/23 07:17 Pulse 88 12/21/23 07:17 Resp 14 12/21/23 07:17 BP 111/45 12/21/23 07:17 Pulse Ox 94 L 12/21/23 07:17 FiO2 Intake & Output 12/20/23 12/21/23 12/21/23 18:59 06:59 18:59 Intake Total 2252 Output Total 575 200 Balance 1677 -200 Intake: IV 2252 Output: Drainage 200 Back 200 Urine 425 Estimated Blood Loss 150 Other: Voiding Method Urinal Indwelling Catheter # Voids 2 - Exam Physical Examination General: The patient is awake and alert, in no acute distress Skin: Skin is warm and dry with no obvious rashes or lesions. Surgical in cision to the thoracolumbar spine, dressing is intact with Hemovac present, 200 mL output documented overnight. Eye: Pupils are equal, round and reactive to light, extra-ocular movements are intact; there is normal conjunctiva bilaterally. Neck: The neck is supple, there is no tenderness and ROM intact. Cardiovascular: There is a regular rate and rhythm. No murmur, rub or gallop is appreciated. Respiratory: Lungs are clear to auscultation, respirations are non-labored, breath sounds are equal. Gastrointestinal: Soft, non-distended, non-tender abdomen. Back: There is no tenderness to palpation in the midline, paralumbar, parathoracic or buttocks region. There is no obvious deformity . Musculoskeletal: ROM limited secondary to pain and stiffness from surgical procedure. Muscle strength in all major muscle groups of bilateral upper extremities 5/5, bilateral lower extremities 4/5. Neurological: CN 2-12 intact. There are no obvious motor or sensory deficits. Movement and coordination equal and intact. Sensory exam to light touch intact C5-T1 and intact from L2-S1. Reflexes 2/4 in bilateral upper and lower extremities. Negative Hoffmans, babinski, and clonus signs. Psychiatric: Cooperative, appropriate mood & affect, normal judgment. - Labs CBC & Chem 7: 12/21/23 06:21 12/21/23 06:21 Labs: Abnormal Lab Results - Last 24 Hours (Table) 12/20/23 12/20/23 12/20/23 Range/Units 05:12 05:12 10:34 RBC 3.18 L (4.40-5.60) X 10*6/uL Hgb 10.7 L (13.0-17.0) g/dL Hct 32.4 L (39.6-50.0) % MCV 101.9 H (80.0-97.0) FL MCH 33.6 H (27.0-32.0) pg RDW 14.9 H (11.5-14.5) % Lymphocytes # 0.46 L (0.90-5.00) X 10*3/uL Monocytes # 0.11 L (0.20-1.00) X 10*3/uL Eosinophils # 0.01 L (0.04-0.35) X 10*3/uL BUN 46.1 H (9.0-27.0) mg/dL Est GFR (CKD-EPI) 49 L (>=60) BUN/Creatinine Ratio 32.93 H (12.00-20.00) Ratio Glucose 198 H (70-110) mg/dL POC Glucose (mg/dL) 195 H (70-110) mg/dL 12/20/23 12/20/23 12/21/23 Range/Units 17:44 20:58 06:07 RBC (4.40-5.60) X 10*6/uL Hgb (13.0-17.0) g/dL Hct (39.6-50.0) % MCV (80.0-97.0) FL MCH (27.0-32.0) pg RDW (11.5-14.5) % Lymphocytes # (0.90-5.00) X 10*3/uL Monocytes # (0.20-1.00) X 10*3/uL Eosinophils # (0.04-0.35) X 10*3/uL BUN (9.0-27.0) mg/dL Est GFR (CKD-EPI) (>=60) BUN/Creatinine Ratio (12.00-20.00) Ratio Glucose (70-110) mg/dL POC Glucose (mg/dL) 176 H 149 H 163 H (70-110) mg/dL 12/21/23 12/21/23 Range/Units 06:21 06:21 RBC 2.94 L (4.40-5.60) X 10*6/uL Hgb 9.9 L D (13.0-17.0) g/dL Hct 29.1 L (39.6-50.0) % MCV (80.0-97.0) FL MCH (27.0-32.0) pg RDW (11.5-14.5) % Lymphocytes # 0.4 L (0.90-5.00) X 10*3/uL Monocytes # (0.20-1.00) X 10*3/uL Eosinophils # (0.04-0.35) X 10*3/uL BUN 49 H (9.0-27.0) mg/dL Est GFR (CKD-EPI) (>=60) BUN/Creatinine Ratio (12.00-20.00) Ratio Glucose 143 H (70-110) mg/dL POC Glucose (mg/dL) (70-110) mg/dL Assessment and Plan Assessment: Postop day 1: Open treatment of fracture L1-L2 with stabilization T11-L3 Previous fall L1-L2 AO type B3 fracture Right lower extremity radiculopathy h/o L2-L4 decompression and fusion h/o L4-L5,L5-S1 fusion Multiple complex comorbidities Plan: -Appreciate implementation consultant and team management. -Activity: Ambulate QID, OOB all meals, up and about, limit lifting bending twisting to less than 5 lbs. Use walker or cane if needed for stability. -Daily PT/OT, increase ambulation strength and balance. -Pain control: Adequate at this time -Meds: reviewed -GI ppx: Aditya sullivanalax -ANNABELLA michaud this am. -DVT PPX: OK to restart Heparin tonight, may restart Eliquis on 12/23/23. -Hygiene: Shower today. Maintain dressing clean and dry. Meticulous cleaning after BMs away from the incision site -Drains: Maintain for now. Continue to monitor and record output q shift. -Encourage IS 10x/hr -Dispo: Anticipate discharge home with homecare vs [facility]. *I reviewed and discussed this case with my attending Dr. Portillo, whom has reviewed this chart and films and is in agreement with assessment and plan of care as outlined above. I have personally seen and examined the patient, performed the documentation and the assessment and plan as written. Number of minutes spent on the visit: 20m.
[2023-12-21] MEDS: SENNOSIDES-DOCUSATE SODIUM 1 EACH TAB PO SCH (10:56)
[2023-12-21] MEDS: lisinopriL 20 MG TAB PO SCH (10:57)
[2023-12-21] MEDS: hydroCHLOROthiazide 25 MG TAB PO SCH (10:58)
[2023-12-21 11:04] LABS: Glucose,Whole Blood 132 mg/dL (70-110)
--- NOTE | 2023-12-21 11:38 | P.OP ---
Date of Procedure: 12/20/23 Preoperative Diagnosis: 1. L1-2 AO TYPE B3 FRACTURE, DISC SPACE, UNSTABLE 2. 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 RLE RADICULOPATHY, WEAKNESS, PARAPLEGIA 4. BACK PAIN, SEVERE 5. S/P FALL DOWN STAIRS 6. COMPLEX MEDICAL PATIENT Postoperative Diagnosis: 1. L1-2 AO TYPE B3 FRACTURE, DISC SPACE, UNSTABLE 2. 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 RLE RADICULOPATHY, WEAKNESS, PARAPLEGIA 4. BACK PAIN, SEVERE 5. S/P FALL DOWN STAIRS 6. COMPLEX MEDICAL PATIENT Procedure(s) Performed: 1. OPEN TREATMENT L1-2 FRACTURE () 2. L1-2 VERTEBRAL BODY OSTEOTOMY FOR DEFORMITY CORRECTION (72957, 68286) 3. T12-L3 POSTEROLATERAL FUSION (14473, 02543) 4. L1-2 INTERBODY FUSION (72619) 5. T12-L2 BILATERAL LAMINECTOMY, COMPLETE FACETECTOMY AND FORAMINOTOMY FOR NEURAL DECOMPRESSION WELL DEFORMITY CORRECTION (74238, 75423 or 62061, 71681) 6. T12-L3 SEGMENTAL INSTRUMENTATION AND STABILIZATION OF FRACTURE (41938) 7. INSERTION OF BIOMECHANICAL DEVICE L1-2, CAGE (77946) 8. EXPLORATION OF FUSION L3-5 WITHOUT MODIFICATION (52376) 9. USE OF [employer] NAVIGATION FOR SCREW PLACEMENT (02603) USE OF IONM CPTMOD 22 THIS CASE TOOK 75% LONGER THAN EXPECTED DUE TO CORMORBID CONDITIONS, EXTENT OF DISEASE AND FRACTURE WELL SCAR TISSUE, WORKING AROUND A MORPHINE PUMP AND HIGH TECHNICALITY OF THE CASE. Implants: -YAMILKA EVEREST KENYON AND SCREWS -MAGNATOS, DBM, AUTOGRAFT Anesthesia: GETA Surgeon: Galo Portillo Speed Operator #1: Cleopatra Mckeon (WAS PRESENT AND ASSISTED WITH ALL ASPECTS OF THE CASE FROM POSITION TO DRESSING PLACEMENT) Estimated Blood Loss (ml): 150 IV fluids (ml): 1,200 Urine output (ml): 250 Pathology: none sent Condition: stable Disposition: PACU Indications for Procedure: ALTON HINTON is a 83 YO MALE presenting for evaluation of SEVERE BACK PAIN AFTER A FALL FROM STANDING WITH PREVIOUS LUMBAR SURGERY HX. It was my pleasure to have seen and examined ALTON HINTON. In our visit today we have had a chance to go over subjective complaints, physical examination findings and treatments including the natural course history without intervention and various interventional options. The patients imaging demonstrates: MRI, CT AND XRAYS REVIEWED. POST SURGICAL CHANGES WITH DECOMPRESSION AND FUSION CONSTRUCT AT THE L2-S1 LEVELS WITH PAIN PUMP ENTERING AT L2. THERE IS FLUID COLLECTION AROUND THE HARDWARE. THERE IS SEVERE STENOSIS AT L1-2 WITH AO TYPE B3 FRACTURE THROUGH THE DISC SPACE WITH INSTABILITY, EPIDURAL COMPRESSION AND STENOSIS THAT IS SEVERE. 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 THERE ARE NO OTHER FRACTURES NOTED AT THIS TIME. MULTILEVEL DEGENERATIVE CHANGES NOTED. On physical exam, ALTON HINTON demonstrates SEVERE BACK PAIN LIMITING HIM FROM ANY ADL OR MOVEMENTS. HE IS NORMALLY FUNCTIONAL AND TAKES CARE OF HIMSELF AT HOME AND HAS NOT BEEN ABLE TO SINCE THE FALL AND FRACTURE. HIS LEGS HAVE GOTTEN WEAKER ACUTELY AND MORE PAINFUL AND NEUROGENIC . 4-/5 LE B/L WITH 3/5 IN HF ON THE RIGHT. THERE IS 4+/5 IN UE B/L. GENERAL WEAKNESS OVERALL. DECREASED LT SENSATION LE GLOBAL AND OVER L1-3 REGION. NEG HOFFMANS, CLONUS, BABINSKI AT THIS TIME. TTP MIDLINE SPINE OVER L1-2. PARASPINAL TTP LUMBAR. I have explained to the patient that as their condition progresses it will cause further neurological deficits and eventual paralysis. Based on the patients imaging, physical exam, and the rapid progression and disabling nature of their symptoms, at this time I recommend surgery in the form or a: L1-2 OPEN TREATMENT FRACTURE WITH STABILIZATION T11-L3. I discussed the risk and benefits of this procedure at length with ALTON HINTON. The patient [significant other] agreed to considered pursuing the procedure abovementioned. Prior to surgery, she should follow up with her PCP (Cardio, ID, IM etc) for clearance. Questions were invited and answered, and the patient wishes to proceed as outlined below. DIAGNOSIS: Previous fall L1-L2 AO type B3 fracture Right lower extremity radiculopathy h/o L2-L4 decompression and fusion h/o L4-L5,L5-S1 fusion Multiple complex comorbidities Currently, I am recommendin. L1-2 OPEN TREATMENT FRACTURE WITH STABILIZATION T11-L3 Description of Procedure: The patient was seen and examined in the preoperative area. All preoperative protocols were followed. Informed consent was obtained risks and benefits of the procedure were discussed at length. Risks including bleeding infection damage to the surrounding tissue and risk of reoperation were discussed with the patient. Risk of anesthesia up to and including was a discussed with the patient. These are outlined in the risk review. They were willing to accept these risks and all of the risks of surgery. The patient was given a weight- based dose of antibiotics in the form of 2 g Ancef. The patient was seen and evaluated by the anesthesia team who deemed them fit for surgery. The site was marked, the patient was willing to proceed with the procedure. The patient was transferred to the operative suite by the Department of anesthesia. They were then drifted off to sleep by the department anesthesia and GETA was performed. The patient tolerated this well. [Crisostomo catheter was placed by nursing staff, atraumatically]. Once confirmation of lines and ventilation the patient was transferred to a [prone Vlad table very carefully]. All bony prominences including wrists, elbows, axilla, chest, hips, and thighs, and feet were padded very well. Special attention was paid to the genitalia and these were padded accordingly. SCDs were placed on bilateral lower extremities and were connected. Arms were well padded and placed [on arm boards up and out in the 90/90 position]. Once in position, again we confirmed good ventilation capabilities and that lines were running appropriately. The patient's thoracic or lumbar spine was then exposed. 1010s were placed outlining the incision site. Standard alcohol was used to clean the incision site and allowed to dry. C-arm was used to biomark the patient and confirm level for incision which was marked with a skin marker. Operative briefing was performed with all teams and everyone in agreement to proceed. The patient was then prepped and draped in a normal sterile fashion. Timeout was then performed and all parties were in agreement with the procedure to be performed. Midline skin incision was made over the previously marked area dissection taken down midline over the subcutaneous tissue and fascia which was then identified and cleaned with a Velásquez. Extensive scar tissue is noted in this area due to his previous surgeries in the lower portion of the incision. Midline fasciotomy was then made. Palpable spinous process over the likely L1-L2 region due to the kyphotic segment from fracture was noted and midline fasciotomy made and subperiosteal dissection taken down over the lamina facet joints and TPs of T11 through L4. Hardware was identified from L3 through L5 and fusion was explored in this area. There was good fusion bed noted distally as well as around L3 and L4 region. L2-L3 region and good fusion bed as well and bony overgrowth of the rods and screws. The bony overgrowth was taken down to allow access to the kenyon between L3 and L4 screws for our planned for cup to his previous hardware. There is exuberant amounts of scar tissue around this area due to his for previous surgeries in the area. This made it very difficult to clean off of the lamina safely in this area. However this was accomplished. Once this was explored and there was a large area of fluid which is noted midline and this was evacuated and cleaned. His morphine pump was identified as it entered underneath the lamina of L2-L3 and this was maintained throughout the entire case. Once the exposure was complete we confirmed levels on AP and lateral imaging and then placed a spinous processes clamp on the T12 spinous process for the [employer] navigation. A 3-D intraoperative computed tomography scan was ob tained and registered the [place] navigation and confirmed to be accurate once confirmed to be accurate screws were placed bilaterally into the pedicles of T12-L1 and L2 for stabilization purposes. Screws were placed using a navigated bur and a navigated screwdriver with a measured screw. In between each step the pedicle was felt with the ball probe to ensure with the 4 pedicle kinsey and this was accomplished. Once the screws were placed AP lateral imaging confirmed good placement of screws. Intraoperative neuro monitoring confirmed no changes during screw placement. We then proceeded with reduction decompression and osteotomy in this area of L1-L2 fracture. Bilateral laminectomy complete facetectomy and foraminotomies were performed at T12-L1 L1-L2 and L2-L3. This is for decompressive purposes as well as mobilization purposes and reduction purposes. L1-L2 is extremely unstable due to fracture. Once decompression was accomplished I we are able to access the L1-L2 interspace due to the fracture position osteotomy was performed of the L1 vertebral body as well as the L2 vertebral body. The left pedicle of L2 was subtracted for decompression purposes as well as fracture reduction. Once this was accomplished the bony fragments were removed and any free bony fragments were tamped forward into the disc space the disc space was prepared using halina curettes and scrapers to allow for bleeding endplates. Once this was accomplished reduction was performed using reduction instruments. An interbody device was then selected and measured and sized for this disc space. Autograft allograft DBM and magnum toss were then placed anteriorly within the disc space. This was impacted forward and while protecting neural elements the cage was selected and placed anteriorly within the disc space. Cage had good bite was stable chemical lab supervisor was removed. There was good reduction of the fracture as well as height yarsani in this area. The wound was then copiously irrigated with normal sterile saline. We then proceeded further decompression distally to allow for complete decompression in this area this was followed up by placement of rods for reduction and stabilization of the fracture. Kenyon connectors were placed on the existing construct create caudally and rods were selected and bent appropriately. They were then reduced into the cranial screws very carefully set screws were placed and were final tightened position. AP lateral confirm good placement of hardware as well as reduction of fracture and yarsani of alignment. The wound was then copiously irrigated with normal sterile saline and meticulous hemostasis was performed. Betadine solution was run through the wound as well as an Irricept solution followed by 3 L of an Ancef solution 3 L of gentamicin solution and normal sterile saline. Once this was accomplished the posterior lateral gutters were decorticated and a mixture of DBM autograft and allograft placed in the posterior lateral gutters along with maybe toss. Surgicel was placed over the dura a deep drain was placed subfascially and solid position and the skin 2 g of vancomycin powder were placed deep in the wound. We then proceeded to layered closure. Deep fascia was closed with #1 PDS [id number] fashion. Deep subcu tissue closed with 0 Vicryl superficial subcu tissue closed with 2-0 Vicryl and skin closed with skin abdullahi. The wound edges approximated very well. The wound was then cleaned and dressed sterilely with Adaptic 4 x 4 ABDs and foam tape. The patient was transferred back to their hospital bed atraumatically. [Drain continued to hold suction and were in good position]. Patient was then awakened and extubated by the department of anesthesia having tolerated the procedure very well with no complications. They were transferred to the postoperative care unit in stable condition.
--- NOTE | 2023-12-21 11:38 | P.PN ---
Subjective Progress Note Date: 12/21/23 Hospital Course: 83-year-old male with history of atrial fibrillation, coronary artery disease, diabetes, hypertension, dyslipidemia, prior TIA, and multiple other comorbid conditions who presented to the ER with complaints of pain in the left side of his chest which radiated into his shoulders. In the ER he underwent extensive evaluation. Initial troponin was 0.023 and BNP was 2330. His CBC, CMP, and coags were within normal. EKG showed no signs of acute ischemia but prior known right bundle branch block. Chest x-ray showed no acute process. Patient was given a dose of aspirin and morphine as well as having Nitropaste placed. Arrangements are made for observation. Seen by cardiology, recommended outpatient stress testing. Already scheduled. He has a history of bad lumbar spine degenerative disc disease. He has had multiple surgeries as one of them became infected with staph. His most recent surgeon was out of [facility]. He also follows with Dr. Ponce for chronic pain and has a implanted pain pump which was last filled [address] head did not show any acute process. MRI lumbar spine shows findings consistent with L1-L2 severe spinal canal stenosis secondary to degeneration of the disc base, severe bilateral neuroforaminal stenosis, surgical bed seroma. He is status post lumbar surgery. Subjective: Patient seen and examined at bedside. No acute events overnight. Pertinent positives and negatives as discussed above, a complete review of sy stems was performed and all other systems are negative. Vitals Signs Reviewed. General: Nontoxic, no distress, appears at stated age Derm: Warm, dry, back dressing not observed Head: Atraumatic, normocephalic, symmetric Eyes: EOMI, no lid lag, anicteric sclera Mouth: No lip lesion, mucus membranes moist Cardiovascular: S1S2 reg, no murmur Lungs: CTA bilateral, no rhonchi, no rales, no accessory muscle use Abdominal: Soft, nontender to palpation, no guarding, no appreciable organomegaly Ext: No gross muscle atrophy, no edema, no contractures Neuro: CN II-XI grossly intact, no focal neuro deficits Psych: Alert, oriented, appropriate affect Data Reviewed Today: Pertinent Labs: Hemoglobin 9.9, creatinine 1.25, blood sugars range between 1 32-1 63 Imaging: CT thoracic lumbar spine shows postsurgical changes, masslike protuberance in the right main bronchus seen previously in 2019, 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 Assessment and Plan: L1-L2 severe spinal stenosis status post lumbar surgery Severe bilateral neural foraminal stenosis Surgical bed seroma Right lower extremity weakness and pain Possible hx of fall 3 weeks ago Known severe lumbar disc disease with hx of multiple surgeries for stap infection Has pain pump in place, last filled 3 weeks ago follows alicia Stanton -Orthopedic surgery note reviewed, restart Eliquis on 12/22 -Pain control with oral Flexeril as needed, gabapentin 300 3 times daily, oral [place] as needed, IV Toradol 15 every 6 hours, IV morphine as needed, monitor for sedation -Senna daily, MiraLAX nightly, bisacodyl as needed, milk of magnesium as needed for bowel regimen -PT/OT Hypertension -Continue hydrochlorothiazide 25 mg daily, lisinopril 40 mg daily Chest pain, ACS ruled out Coronary artery disease status post stenting x 2 paroxysmal atrial fibrillation, currently in sinus rhythm Dyslipidemia -Cardiology signed off, patient to get outpatient stress testing, signed off -Continue telemetry monitoring -Aspirin 81 mg daily, Lipitor 80 mg daily, metoprolol 25 mg daily -Echocardiogram was recently completed on 11/23/2023 which demonstrated ejection fraction 45 to 50%. DM 2 - Hold pioglitazone and glipizide -Sliding scale insulin, monitor for hypoglycemia Right hip stage II pressure ulcer -Appears healing -Honey -Cover with foam dressing Chronic: Coronary artery disease GERD Chronic kidney disease DVT ppx: Subcu heparin Code status: Full code Anticipated discharge place: pending clinical course Anticipated discharge time: pending clinical course Objective - Vital Signs Vital signs: Vital Signs Temp 98.4 F 12/21/23 07:17 Pulse 88 12/21/23 07:17 Resp 14 12/21/23 07:17 BP 111/45 12/21/23 07:17 Pulse Ox 94 L 12/21/23 07:17 FiO2 Intake & Output 12/20/23 12/21/23 12/21/23 18:59 06:59 18:59 Intake Total 2252 Output Total 575 200 Balance 1677 -200 Intake: IV 2252 Output: Drainage 200 Back 200 Urine 425 Estimated Blood Loss 150 Other: Voiding Method Urinal Indwelling Catheter # Voids 2 - Labs CBC & Chem 7: 12/21/23 06:21 12/21/23 06:21 Labs: Abnormal Lab Results - Last 24 Hours (Table) 12/20/23 12/20/23 12/21/23 Range/Units 17:44 20:58 06:07 RBC (4.30-5.90) m/uL Hgb (13.0-17.5) gm/dL Hct (39.0-53.0) % Lymphocytes # (1.0-4.8) k/uL BUN (9-20) mg/dL Glucose (74-99) mg/dL POC Glucose (mg/dL) 176 H 149 H 163 H (70-110) mg/dL 12/21/23 12/21/23 12/21/23 Range/Units 06:21 06:21 11:01 RBC 2.94 L (4.30-5.90) m/uL Hgb 9.9 L D (13.0-17.5) gm/dL Hct 29.1 L (39.0-53.0) % Lymphocytes # 0.4 L (1.0-4.8) k/uL BUN 49 H (9-20) mg/dL Glucose 143 H (74-99) mg/dL POC Glucose (mg/dL) 132 H (70-110) mg/dL
[2023-12-21] MEDS: LACTATED RINGERS 1,000 ML IV ONE (14:57)
[2023-12-21 16:21] LABS: Glucose,Whole Blood 153 mg/dL (70-110)
[2023-12-21] MEDS: HEPARIN SODIUM,PORCINE 5,000 UNIT/ML 1 ML VIAL SQ SCH (18:03)
[2023-12-21 20:24] LABS: Glucose,Whole Blood 219 mg/dL (70-110)
[2023-12-22 01:10] LABS: Glucose,Whole Blood 154 mg/dL (70-110)
[2023-12-22 06:04] LABS: Glucose,Whole Blood 188 mg/dL (70-110)
[2023-12-22 07:54] LABS: HCT 28.8 % (39.0-53.0); HGB 9.5 gm/dL (13.0-17.5); MCH 33.4 pg (25.0-35.0); MCHC 32.9 g/dL (31.0-37.0); MCV 101.5 fL (80.0-100.0); Macrocytosis Slight; Platelet Count 153 k/uL (150-450); RBC 2.83 m/uL (4.30-5.90); RDW 14.5 % (11.5-15.5); WBC 6.1 k/uL (3.8-10.6)
[2023-12-22 08:24] LABS: African American GFR (CKD) 64 (>60 ml/min/1.73 sqM); Anion Gap 2 mmol/L; Blood Urea Nitrogen 59 mg/dL (9-20); Calcium 8.6 mg/dL (8.4-10.2); Carbon Dioxide 26 mmol/L (22-30); Chloride 109 mmol/L (98-107); Glucose 151 mg/dL (74-99); Non-African American GFR(CKD) 55 (>60 ml/min/1.73 sqM); Sodium 137 mmol/L (137-145)
--- NOTE | 2023-12-22 10:15 | P.PN ---
Subjective Progress Note Date: 12/22/23 Principal diagnosis: Previous fall L1-L2 AO type B3 fracture Right lower extremity radiculopathy h/o L2-L4 decompression and fusion h/o L4-L5,L5-S1 fusion Multiple complex comorbidities Patient seen and examined this morning. Patient is resting comfortably in bed. He currently states that his pain is managed on current regimen. Patient reports he did work with physical therapy yesterday and sat in chair at bedside. Patient states he tolerated activity well. Patient is to be up to chair with all meals. Surgical incision to the thoracolumbar spine, edges are well approximated with abdullahi intact. Hemovac drain had been pulled out, no longer holding compression. Drain has been discontinued and new dressing applied. Patient does report improvement of his radicular pain to the right lower extremity since the procedure. Continue to encourage patient changing his position throughout the day to prevent further breakdown of his pressure wound on the right hip. Encourage use of incentive spirometer 10 times per hour while awake. No acute concerns. Objective - Vital Signs Vital signs: Vital Signs Temp 98.8 F 12/22/23 07:19 Pulse 97 12/22/23 07:19 Resp 19 12/22/23 07:19 BP 117/56 12/22/23 07:19 Pulse Ox 98 12/22/23 07:19 FiO2 Intake & Output 12/21/23 12/22/23 12/22/23 18:59 06:59 18:59 Output Total 303 Balance -303 Output: Drainage 3 Back 3 Urine 300 Other: Voiding Method Indwelling Catheter - Exam Physical Examination General: The patient is awake and alert, in no acute distress Skin: Skin is warm and dry with no obvious rashes or lesions. Surgical incision to the thoracolumbar spine, edges are well approximated with abdullahi intact. No active drainage. Hemovac drain discontinued and new surgical dressing applied. Eye: Pupils are equal, round and reactive to light, extra-ocular movements are intact; there is normal conjunctiva bilaterally. Neck: The neck is supple, there is no tenderness and ROM intact. Cardiovascular: There is a regular rate and rhythm. No murmur, rub or gallop is appreciated. Respiratory: Lungs are clear to auscultation, respirations are non-labored, breath sounds are equal. Gastrointestinal: Soft, non-distended, non-tender abdomen. Back: There is no tenderness to palpation in the midline, paralumbar, parathoracic or buttocks region. There is no obvious deformity . Musculoskeletal: ROM limited secondary to pain and stiffness from surgical procedure. Muscle strength in all major muscle groups of bilateral upper e xtremities 5/5, bilateral lower extremities 4/5. Neurological: CN 2-12 intact. There are no obvious motor or sensory deficits. Movement and coordination equal and intact. Sensory exam to light touch intact C5-T1 and intact from L2-S1. Reflexes 2/4 in bilateral upper and lower extremities. Negative Hoffmans, babinski, and clonus signs. Psychiatric: Cooperative, appropriate mood & affect, normal judgment. - Labs CBC & Chem 7: 12/22/23 07:12/22/23 07:29 Labs: Abnormal Lab Results - Last 24 Hours (Table) 12/21/23 12/21/23 12/21/23 Range/Units 11:01 16:19 20:21 RBC (4.30-5.90) m/uL Hgb (13.0-17.5) gm/dL Hct (39.0-53.0) % MCV (80.0-100.0) fL Chloride (98-107) mmol/L BUN (9-20) mg/dL Glucose (74-99) mg/dL POC Glucose (mg/dL) 132 H 153 H 219 H (70-110) mg/dL 12/22/23 12/22/23 12/22/23 Range/Units 01:09 06:02 07:29 RBC 2.83 L (4.30-5.90) m/uL Hgb 9.5 L (13.0-17.5) gm/dL Hct 28.8 L (39.0-53.0) % MCV 101.5 H (80.0-100.0) fL Chloride (98-107) mmol/L BUN (9-20) mg/dL Glucose (74-99) mg/dL POC Glucose (mg/dL) 154 H 188 H (70-110) mg/dL 12/22/23 Range/Units 07:29 RBC (4.30-5.90) m/uL Hgb (13.0-17.5) gm/dL Hct (39.0-53.0) % MCV (80.0-100.0) fL Chloride 109 H (98-107) mmol/L BUN 59 H (9-20) mg/dL Glucose 151 H (74-99) mg/dL POC Glucose (mg/dL) (70-110) mg/dL Assessment and Plan Assessment: Postop day 2: Open treatment of fracture L1-L2 with stabilization T11-L3 Previous fall L1-L2 AO type B3 fracture Right lower extremity radiculopathy h/o L2-L4 decompression and fusion h/o L4-L5,L5-S1 fusion Multiple complex comorbidities Plan: -Appreciate corporate health consultant and team management. -Activity: Ambulate QID, OOB all meals, up and about, limit lifting bending twisting to less than 5 lbs. Use walker or cane if needed for stability. -Daily PT/OT, increase ambulation strength and balance. -Pain control: Adequate at this time -Meds: reviewed -GI ppx: senna, Miralax -DVT PPX: Heparin, may restart Eliquis on 12/23/23. -Hygiene: Shower today. Maintain dressing clean and dry. Meticulous cleaning after BMs away from the incision site -Encourage IS 10x/hr -Dispo: Anticipate discharge home with homecare vs [facility]. *I reviewed and discussed this case with my attending Dr. Portillo, whom has reviewed this chart and films and is in agreement with assessment and plan of care as outlined above. I have personally seen and examined the patient, performed the documentation and the assessment and plan as written. Number of minutes spent on the visit: 20m.
[2023-12-22 11:24] LABS: Glucose,Whole Blood 174 mg/dL (70-110)
--- NOTE | 2023-12-22 12:23 | P.PN ---
Subjective Progress Note Date: 12/22/23 Hospital Course: 83-year-old male with history of atrial fibrillation, coronary artery disease, diabetes, hypertension, dyslipidemia, prior TIA, and multiple other comorbid conditions who presented to the ER with complaints of pain in the left side of his chest which radiated into his shoulders. In the ER he underwent extensive evaluation. Initial troponin was 0.023 and BNP was 2330. His CBC, CMP, and coags were within normal. EKG showed no signs of acute ischemia but prior known right bundle branch block. Chest x-ray showed no acute process. Patient was given a dose of aspirin and morphine as well as having Nitropaste placed. Arrangements are made for observation. Seen by cardiology, recommended outpatient stress testing. Already scheduled. He has a history of bad lumbar spine degenerative disc disease. He has had multiple surgeries as one of them became infected with staph. His most recent surgeon was out of [facility]. He also follows with Dr. Ponce for chronic pain and has a implanted pain pump which was last filled [address] head did not show any acute process. MRI lumbar spine shows findings consistent with L1-L2 severe spinal canal stenosis secondary to degeneration of the disc base, severe bilateral neuroforaminal stenosis, surgical bed seroma. He is status post lumbar surgery. Pending rehab, likely Sunday. Subjective: Patient seen and examined at bedside. No acute events overnight. Denies any significant pain Pertinent positives and negatives as discussed above, a complete review of systems was performed and all other systems are negative. Vitals Signs Reviewed. General: Nontoxic, no distress, appears at stated age Derm: Warm, dry, back dressing not observed Head: Atraumatic, normocephalic, symmetric Eyes: EOMI, no lid lag, anicteric sclera Mouth: No lip lesion, mucus membranes moist Cardiovascular: S1S2 reg, no murmur Lungs: CTA bilateral, no rhonchi, no rales, no accessory muscle use Abdominal: Soft, nontender to palpation, no guarding, no appreciable organomegaly Ext: No gross muscle atrophy, no edema, no contractures Neuro: CN II-XI grossly intact, no focal neuro deficits Psych: Alert, oriented, appropriate affect Data Reviewed Today: Pertinent Labs: Hemoglobin 9.5, creatinine 1.19, blood sugars range between 1 51-1 88 Imaging: No new imaging Assessment and Plan: L1-L2 severe spinal stenosis status post lumbar surgery Severe bilateral neural foraminal stenosis Surgical bed seroma Right lower extremity weakness and pain Possible hx of fall 3 weeks ago Known severe lumbar disc disease with hx of multiple surgeries for stap infection Has pain pump in place, follows with Dr. Stanton -Orthopedic surgery note reviewed, restart Eliquis on 12/22 -Pain control with oral Flexeril as needed, gabapentin 300 3 times daily, oral [place] as needed, IV Toradol 15 every 6 hours, IV morphine as needed, monitor for sedation -Senna daily, MiraLAX nightly, bisacodyl as needed, milk of magnesium as needed for bowel regimen -PT/OT Hypertension -Continue hydrochlorothiazide 25 mg daily, lisinopril 40 mg daily Chest pain, ACS ruled out Coronary artery disease status post stenting x 2 paroxysmal atrial fibrillation, currently in sinus rhythm Dyslipidemia -Cardiology signed off, patient to get outpatient stress testing, signed off -Continue telemetry monitoring -Aspirin 81 mg daily, Lipitor 80 mg daily, metoprolol 25 mg daily -Echocardiogram was recently completed on 11/23/2023 which demonstrated ejection fraction 45 to 50%. DM 2 - Hold pioglitazone and glipizide -Sliding scale insulin, monitor for hypoglycemia Right hip stage II pressure ulcer -Appears healing -Honey -Cover with foam dressing Chronic: Coronary artery disease GERD Chronic kidney disease DVT ppx: Subcu heparin Code status: Full code Anticipated discharge place: Rehab Anticipated discharge time: Sunday Objective - Vital Signs Vital signs: Vital Signs Temp 98.8 F 12/22/23 07:19 Pulse 97 12/22/23 07:19 Resp 19 12/22/23 07:19 BP 117/56 12/22/23 07:19 Pulse Ox 98 12/22/23 07:19 FiO2 Intake & Output 12/21/23 12/22/23 12/22/23 18:59 06:59 18:59 Output Total 303 Balance -303 Output: Drainage 3 Back 3 Urine 300 Other: Voiding Method Indwelling Catheter - Labs CBC & Chem 7: 12/22/23 07:29 12/22/23 07:29 Labs: Abnormal Lab Results - Last 24 Hours (Table) 12/21/23 12/21/23 12/22/23 Range/Units 16:19 20:21 01:09 RBC (4.30-5.90) m/uL Hgb (13.0-17.5) gm/dL Hct (39.0-53.0) % MCV (80.0-100.0) fL Chloride (98-107) mmol/L BUN (9-20) mg/dL Glucose (74-99) mg/dL POC Glucose (mg/dL) 153 H 219 H 154 H (70-110) mg/dL 12/22/23 12/22/23 12/22/23 Range/Units 06:02 07:29 07:29 RBC 2.83 L (4.30-5.90) m/uL Hgb 9.5 L (13.0-17.5) gm/dL Hct 28.8 L (39.0-53.0) % MCV 101.5 H (80.0-100.0) fL Chloride 109 H (98-107) mmol/L BUN 59 H (9-20) mg/dL Glucose 151 H (74-99) mg/dL POC Glucose (mg/dL) 188 H (70-110) mg/dL 12/22/23 Range/Units 11:23 RBC (4.30-5.90) m/uL Hgb (13.0-17.5) gm/dL Hct (39.0-53.0) % MCV (80.0-100.0) fL Chloride (98-107) mmol/L BUN (9-20) mg/dL Glucose (74-99) mg/dL POC Glucose (mg/dL) 174 H (70-110) mg/dL
[2023-12-22] MEDS: FERROUS SULFATE 325 MG TAB PO SCH (12:49)
[2023-12-22 16:42] LABS: Glucose,Whole Blood 188 mg/dL (70-110)
[2023-12-22 19:59] LABS: Glucose,Whole Blood 181 mg/dL (70-110)
[2023-12-23 05:34] LABS: Basophils % (A) 0 %; Eosinophils # (A) 0.2 k/uL (0-0.7); Eosinophils % (A) 4 %; Lymphocytes # (A) 0.4 k/uL (1.0-4.8); Lymphocytes % (A) 6 %; MCH 33.6 pg (25.0-35.0); MCHC 33.2 g/dL (31.0-37.0); MCV 101.4 fL (80.0-100.0); Macrocytosis Slight; Mean Platelet Volume 8.3; Monocytes # (A) 0.5 k/uL (0-1.0); Monocytes % (A) 8 %; Neutrophils # (A) 4.9 k/uL (1.3-7.7); Neutrophils % (A) 81 %; Platelet Count 160 k/uL (150-450); RBC 2.66 m/uL (4.30-5.90); RDW 14.3 % (11.5-15.5)
[2023-12-23 05:49] LABS: African American GFR (CKD) 67 (>60 ml/min/1.73 sqM); Anion Gap 3 mmol/L; Blood Urea Nitrogen 58 mg/dL (9-20); Calcium 8.5 mg/dL (8.4-10.2); Carbon Dioxide 25 mmol/L (22-30); Chloride 108 mmol/L (98-107); Glucose 144 mg/dL (74-99); Magnesium 1.8 mg/dL (1.6-2.3); Non-African American GFR(CKD) 58 (>60 ml/min/1.73 sqM); Sodium 136 mmol/L (137-145)
[2023-12-23 05:54] LABS: Glucose,Whole Blood 186 mg/dL (70-110)
--- NOTE | 2023-12-23 09:33 | P.PN ---
Subjective Progress Note Date: 12/23/23 Principal diagnosis: Previous fall L1-L2 AO type B3 fracture Right lower extremity radiculopathy h/o L2-L4 decompression and fusion h/o L4-L5,L5-S1 fusion Multiple complex comorbidities Patient seen and examined this morning. Patient is resting comfortably in bed. He currently states that his pain is managed on current regimen. Patient is demonstrating use of his incentive spirometer reaching 1000 on the meter. RN reports she will be assisting patient to chair this morning. Patient is to be up to chair with all meals. Surgical incision to the thoracolumbar spine, dressing is CDI. Patient does report improvement of his radicular pain to the right lower extremity since the procedure. Continue to encourage patient changing his position throughout the day to prevent further breakdown of his pressure wound on the right hip. Encourage use of incentive spirometer 10 times per hour while awake. Patient will benefit from ANTHONY at discharge. Objective - Vital Signs Vital signs: Vital Signs Temp 97.8 F 12/23/23 07:15 Pulse 75 12/23/23 07:15 Resp 20 12/23/23 07:15 BP 115/61 12/23/23 07:15 Pulse Ox 95 12/23/23 07:15 FiO2 Intake & Output 12/22/23 12/23/23 12/23/23 18:59 06:59 18:59 Output Total 700 Balance -700 Output: Urine 700 Other: # Voids 4 - Exam Physical Examination General: The patient is awake and alert, in no acute distress Skin: Skin is warm and dry with no obvious rashes or lesions. Surgical incision to the thoracolumbar spine, dressing is CDI. Eye: Pupils are equal, round and reactive to light, extra-ocular movements are intact; there is normal conjunctiva bilaterally. Neck: The neck is supple, there is no tenderness and ROM intact. Cardiovascular: There is a regular rate and rhythm. No murmur, rub or gallop is appreciated. Respiratory: Lungs are clear to auscultation, respirations are non-labored, breath sounds are equal. Gastrointestinal: Soft, non-distended, non-tender abdomen. Back: There is no tenderness to palpation in the midline, paralumbar, parathoracic or buttocks region. There is no obvious deformity . Musculoskeletal: ROM limited secondary to pain and stiffness from surgical procedure. Muscle strength in all major muscle groups of bilateral upper extremities 5/5, bilateral lower extremities 4/5. Neurological: CN 2-12 intact. There are no obvious motor or sensory deficits. Movement and coordination equal and intact. Sensory exam to light touch intact C5-T1 and intact from L2-S1. Reflexes 2/4 in bilateral upper and lower e xtremities. Negative Hoffmans, babinski, and clonus signs. Psychiatric: Cooperative, appropriate mood & affect, normal judgment. - Labs CBC & Chem 7: 12/23/23 04:34 12/23/23 04:34 Labs: Abnormal Lab Results - Last 24 Hours (Table) 12/22/23 12/22/23 12/22/23 Range/Units 11:23 16:41 19:54 RBC (4.30-5.90) m/uL Hgb (13.0-17.5) gm/dL Hct (39.0-53.0) % MCV (80.0-100.0) fL Lymphocytes # (1.0-4.8) k/uL Sodium (137-145) mmol/L Chloride (98-107) mmol/L BUN (9-20) mg/dL Glucose (74-99) mg/dL POC Glucose (mg/dL) 174 H 188 H 181 H (70-110) mg/dL 12/23/23 12/23/23 12/23/23 Range/Units 04:34 04:34 05:51 RBC 2.66 L (4.30-5.90) m/uL Hgb 9.0 L (13.0-17.5) gm/dL Hct 27.0 L (39.0-53.0) % MCV 101.4 H (80.0-100.0) fL Lymphocytes # 0.4 L (1.0-4.8) k/uL Sodium 136 L (137-145) mmol/L Chloride 108 H (98-107) mmol/L BUN 58 H (9-20) mg/dL Glucose 144 H (74-99) mg/dL POC Glucose (mg/dL) 186 H (70-110) mg/dL Assessment and Plan Assessment: Postop day 3: Open treatment of fracture L1-L2 with stabilization T11-L3 Previous fall L1-L2 AO type B3 fracture Right lower extremity radiculopathy h/o L2-L4 decompression and fusion h/o L4-L5,L5-S1 fusion Multiple complex comorbidities Plan: -Appreciate library consultant and team management. -Activity: Ambulate QID, OOB all meals, up and about, limit lifting bending twisting to less than 5 lbs. Use walker or cane if needed for stability. -Daily PT/OT, increase ambulation strength and balance. -Pain control: Adequate at this time -Meds: reviewed -GI ppx: senna, Miralax -DVT PPX: Eliquis -Hygiene: Shower today. Maintain dressing clean and dry. Meticulous cleaning after BMs away from the incision site -Encourage IS 10x/hr -Dispo: Anticipate discharge to [facility], hopeful for 12/24/23 *I reviewed and discussed this case with my attending Dr. Portillo, whom has reviewed this chart and films and is in agreement with assessment and plan of care as outlined above. I have personally seen and examined the patient, performed the documentation and the assessment and plan as written. Number of minutes spent on the visit: 20m.
--- NOTE | 2023-12-23 10:38 | P.PN ---
Subjective Progress Note Date: 12/23/23 Hospital Course: 83-year-old male with history of atrial fibrillation, coronary artery disease, diabetes, hypertension, dyslipidemia, prior TIA, and multiple other comorbid conditions who presented to the ER with complaints of pain in the left side of his chest which radiated into his shoulders. In the ER he underwent extensive evaluation. Initial troponin was 0.023 and BNP was 2330. His CBC, CMP, and coags were within normal. EKG showed no signs of acute ischemia but prior known right bundle branch block. Chest x-ray showed no acute process. Patient was given a dose of aspirin and morphine as well as having Nitropaste placed. Arrangements are made for observation. Seen by cardiology, recommended outpatient stress testing. Already scheduled. He has a history of bad lumbar spine degenerative disc disease. He has had multiple surgeries as one of them became infected with staph. His most recent surgeon was out of [facility]. He also follows with Dr. Ponce for chronic pain and has a implanted pain pump which was last filled [address] head did not show any acute process. MRI lumbar spine shows findings consistent with L1-L2 severe spinal canal stenosis secondary to degeneration of the disc base, severe bilateral neuroforaminal stenosis, surgical bed seroma. He is status post lumbar surgery. Pending rehab, likely Sunday. Subjective: Patient seen and examined at bedside. No acute events overnight. Denies any significant pain Pertinent positives and negatives as discussed above, a complete review of systems was performed and all other systems are negative. Vitals Signs Reviewed. General: Nontoxic, no distress, appears at stated age Derm: Warm, dry, back dressing not observed Head: Atraumatic, normocephalic, symmetric Eyes: EOMI, no lid lag, anicteric sclera Mouth: No lip lesion, mucus membranes moist Cardiovascular: S1S2 reg, no murmur Lungs: CTA bilateral, no rhonchi, no rales, no accessory muscle use Abdominal: Soft, nontender to palpation, no guarding, no appreciable organomegaly Ext: No gross muscle atrophy, no edema, no contractures Neuro: CN II-XI grossly intact, no focal neuro deficits Psych: Alert, oriented, appropriate affect Data Reviewed Today: Pertinent Labs: Hemoglobin 9, creatinine 1.16, glucose range between 144-186, magnesium 1 point Imaging: No new imaging Assessment and Plan: L1-L2 severe spinal stenosis status post lumbar surgery Severe bilateral neural foraminal stenosis Surgical bed seroma Right lower extremity weakness and pain Possible hx of fall 3 weeks ago Known severe lumbar disc disease with hx of multiple surgeries for stap infection Has pain pump in place, follows with Dr. Stanton -Orthopedic surgery note reviewed, restart Eliquis on 12/22 -Pain control with oral Flexeril as needed, gabapentin 300 3 times daily, oral [place] as needed, IV Toradol 15 every 6 hours, IV morphine as needed, monitor for sedation -Senna daily, MiraLAX nightly, bisacodyl as needed, milk of magnesium as needed for bowel regimen -PT/OT Hypertension -Continue hydrochlorothiazide 25 mg daily, lisinopril 40 mg daily Chest pain, ACS ruled out Coronary artery disease status post stenting x 2 paroxysmal atrial fibrillation, currently in sinus rhythm Dyslipidemia -Cardiology signed off, patient to get outpatient stress testing, signed off -Continue telemetry monitoring -Aspirin 81 mg daily, Lipitor 80 mg daily, metoprolol 25 mg daily -Echocardiogram was recently completed on 11/23/2023 which demonstrated ejection fraction 45 to 50%. DM 2 - Hold pioglitazone and glipizide -Sliding scale insulin, monitor for hypoglycemia Right hip stage II pressure ulcer -Appears healing -Honey -Cover with foam dressing Chronic: Coronary artery disease GERD Chronic kidney disease DVT ppx: Subcu heparin Code status: Full code Anticipated discharge place: Rehab Anticipated discharge time: Sunday Objective - Vital Signs Vital signs: Vital Signs Temp 97.8 F 12/23/23 07:15 Pulse 75 12/23/23 07:15 Resp 20 12/23/23 07:15 BP 115/61 12/23/23 07:15 Pulse Ox 95 12/23/23 09:47 FiO2 Intake & Output 12/22/23 12/23/23 12/23/23 18:59 06:59 18:59 Output Total 700 Balance -700 Output: Urine 700 Other: # Voids 4 - Labs CBC & Chem 7: 12/23/23 04:34 12/23/23 04:34 Labs: Abnormal Lab Results - Last 24 Hours (Table) 12/22/23 12/22/23 12/22/23 Range/Units 11:23 16:41 19:54 RBC (4.30-5.90) m/uL Hgb (13.0-17.5) gm/dL Hct (39.0-53.0) % MCV (80.0-100.0) fL Lymphocytes # (1.0-4.8) k/uL Sodium (137-145) mmol/L Chloride (98-107) mmol/L BUN (9-20) mg/dL Glucose (74-99) mg/dL POC Glucose (mg/dL) 174 H 188 H 181 H (70-110) mg/dL 12/23/23 12/23/23 12/23/23 Range/Units 04:34 04:34 05:51 RBC 2.66 L (4.30-5.90) m/uL Hgb 9.0 L (13.0-17.5) gm/dL Hct 27.0 L (39.0-53.0) % MCV 101.4 H (80.0-100.0) fL Lymphocytes # 0.4 L (1.0-4.8) k/uL Sodium 136 L (137-145) mmol/L Chloride 108 H (98-107) mmol/L BUN 58 H (9-20) mg/dL Glucose 144 H (74-99) mg/dL POC Glucose (mg/dL) 186 H (70-110) mg/dL
[2023-12-23 11:32] LABS: Glucose,Whole Blood 149 mg/dL (70-110)
[2023-12-23] MEDS: APIXABAN 5 MG TAB PO SCH (14:10)
[2023-12-23 16:44] LABS: Glucose,Whole Blood 151 mg/dL (70-110)
[2023-12-23 20:47] LABS: Glucose,Whole Blood 166 mg/dL (70-110)
[2023-12-24 05:31] LABS: HCT 28.3 % (39.0-53.0); HGB 9.5 gm/dL (13.0-17.5); MCH 33.6 pg (25.0-35.0); MCHC 33.7 g/dL (31.0-37.0); MCV 99.8 fL (80.0-100.0); Macrocytosis Slight; Mean Platelet Volume 9.3; Platelet Count 182 k/uL (150-450); RBC 2.84 m/uL (4.30-5.90); RDW 14.4 % (11.5-15.5); WBC 7.4 k/uL (3.8-10.6)
[2023-12-24 05:51] LABS: Glucose,Whole Blood 170 mg/dL (70-110)
--- NOTE | 2023-12-24 07:06 | P.PN ---
Subjective Progress Note Date: 12/24/23 Principal diagnosis: Previous fall L1-L2 AO type B3 fracture Right lower extremity radiculopathy h/o L2-L4 decompression and fusion h/o L4-L5,L5-S1 fusion Multiple complex comorbidities Patient seen and examined this morning. Patient is resting comfortably in bed. He currently states that his pain is managed on current regimen. Surgical incision to the thoracolumbar spine, dressing is intact, mild shadowing at the inferior portion of the dressing. Dressing to be changed this morning. Patient continues to report improvement of his radicular pain to the right lower extremity since the procedure. Continue to encourage activity and to be up and about. Encourage use of incentive spirometer 10 times per hour while awake. Patient is cleared from Orthopedic standpoint for discharge to [facility] when bed available. Objective - Vital Signs Vital signs: Vital Signs Temp 97.5 F L 12/24/23 01:02 Pulse 94 12/24/23 01:02 Resp 18 12/24/23 01:02 BP 118/70 12/24/23 01:02 Pulse Ox 92 L 12/24/23 01:02 FiO2 Intake & Output 12/23/23 12/24/23 12/24/23 18:59 06:59 18:59 Output Total 425 Balance -425 Output: Urine 425 Other: # Voids 3 - Exam Physical Examination General: The patient is awake and alert, in no acute distress Skin: Skin is warm and dry with no obvious rashes or lesions. Surgical incision to the thoracolumbar spine, dressing to be changed this morning. Eye: Pupils are equal, round and reactive to light, extra-ocular movements are intact; there is normal conjunctiva bilaterally. Neck: The neck is supple, there is no tenderness and ROM intact. Cardiovascular: There is a regular rate and rhythm. No murmur, rub or gallop is appreciated. Respiratory: Lungs are clear to auscultation, respirations are non-labored, breath sounds are equal. Gastrointestinal: Soft, non-distended, non-tender abdomen. Back: There is no tenderness to palpation in the midline, paralumbar, parath oracic or buttocks region. There is no obvious deformity . Musculoskeletal: ROM limited secondary to pain and stiffness from surgical procedure. Muscle strength in all major muscle groups of bilateral upper extremities 5/5, bilateral lower extremities 4/5. Neurological: CN 2-12 intact. There are no obvious motor or sensory deficits. Movement and coordination equal and intact. Sensory exam to light touch intact C5-T1 and intact from L2-S1. Reflexes 2/4 in bilateral upper and lower extremities. Negative Hoffmans, babinski, and clonus signs. Psychiatric: Cooperative, appropriate mood & affect, normal judgment. - Labs CBC & Chem 7: 12/24/23 04:43 12/23/23 04:34 Labs: Abnormal Lab Results - Last 24 Hours (Table) 12/23/23 12/23/23 12/23/23 Range/Units 11:30 16:40 20:41 RBC (4.30-5.90) m/uL Hgb (13.0-17.5) gm/dL Hct (39.0-53.0) % POC Glucose (mg/dL) 149 H 151 H 166 H (70-110) mg/dL 12/24/23 12/24/23 Range/Units 04:43 05:49 RBC 2.84 L (4.30-5.90) m/uL Hgb 9.5 L (13.0-17.5) gm/dL Hct 28.3 L (39.0-53.0) % POC Glucose (mg/dL) 170 H (70-110) mg/dL Assessment and Plan Assessment: Postop day 4: Open treatment of fracture L1-L2 with stabilization T11-L3 Previous fall L1-L2 AO type B3 fracture Right lower extremity radiculopathy h/o L2-L4 decompression and fusion h/o L4-L5,L5-S1 fusion Multiple complex comorbidities Plan: -Appreciate center lead consultant and team management. -Activity: Ambulate QID, OOB all meals, up and about, limit lifting bending twisting to less than 5 lbs. Use walker or cane if needed for stability. -Daily PT/OT, increase ambulation strength and balance. -Pain control: Adequate at this time -Meds: reviewed -GI ppx: senna, Miralax -DVT PPX: Eliquis -Hygiene: Shower today. Maintain dressing clean and dry. Meticulous cleaning after BMs away from the incision site -Encourage IS 10x/hr -Dispo: Patient is cleared from orthopedic standpoint for discharge to subacute rehab when bed available. *I reviewed and discussed this case with my attending Dr. Portillo, whom has reviewed this chart and films and is in agreement with assessment and plan of care as outlined above. I have personally seen and examined the patient, performed the documentation and the assessment and plan as written. Number of minutes spent on the visit: 20m.
[2023-12-24 07:27] VITALS: TEMP 97.6
--- NOTE | 2023-12-24 10:53 | P.DS ---
Providers Date of admission: 12/18/23 14:44 Expected date of discharge: 12/24/23 Attending physician: Veena Mendoza DO Consults: 12/17/23 17:03 Consult Physician Routine Consulting Provider: Galo Portillo Consult Reason/Comments: worsening low back pain, seroma Do you want consulting provider notified?: Yes Primary care physician: [facility] Course: Discharge Diagnosis: L1-L2 severe spinal stenosis status post lumbar surgery Severe bilateral neural foraminal stenosis Surgical bed seroma Hypertension Chest pain Coronary artery disease status post stenting x 2 Paroxysmal atrial fibrillation, currently in sinus rhythm Dyslipidemia DM 2 Right hip stage II pressure ulcer Hospital Course: 83-year-old male with history of atrial fibrillation, coronary artery disease, diabetes, hypertension, dyslipidemia, prior TIA, and multiple other comorbid conditions who presented to the ER with complaints of pain in the left side of his chest which radiated into his shoulders. In the ER he underwent extensive evaluation. Initial troponin was 0.023 and BNP was 2330. His CBC, CMP, and coags were within normal. EKG showed no signs of acute ischemia but prior known right bundle branch block. Chest x-ray showed no acute process. Patient was given a dose of aspirin and morphine as well as having Nitropaste placed. Arrangements are made for observation. Seen by cardiology, recommended outpatient stress testing. Already scheduled. He has a history of bad lumbar spine degenerative disc disease. He has had multiple surgeries as one of them b ecame infected with staph. His most recent surgeon was out of [facility]. He also follows with Dr. Ponce for chronic pain and has a implanted pain pump which was last filled [address] head did not show any acute process. MRI lumbar spine shows findings consistent with L1-L2 severe spinal canal stenosis secondary to degeneration of the disc base, severe bilateral neuroforaminal stenosis, surgical bed seroma. He is status post lumbar surgery. Discharge to rehab Patient seen and examined at bedside. Vital signs reviewed and stable. General: Nontoxic, no distress, appears at stated age Derm: Warm, dry, back dressing not observed Head: Atraumatic, normocephalic, symmetric Eyes: EOMI, no lid lag, anicteric sclera Mouth: No lip lesion, mucus membranes moist Cardiovascular: S1S2 reg, no murmur Lungs: CTA bilateral, no rhonchi, no rales, no accessory muscle use Abdominal: Soft, nontender to palpation, no guarding, no appreciable organomegaly Ext: No gross muscle atrophy, no edema, no contractures Neuro: CN II-XI grossly intact, no focal neuro deficits Psych: Alert, oriented, appropriate affect A total of 33 minutes of time were spent preparing this complex discharge summary. Patient was discharged on 12/24/2023 at 957. Patient Condition at Discharge: Stable Plan - Discharge Summary Discharge Rx Participant: Yes New Discharge Prescriptions: New HYDROcodone/APAP 5-325MG [[place] 5-325] 1 tab PO Q6HR PRN #28 tab PRN Reason: Pain cefaDROXiL [Duricef] 500 mg PO Q12HR #10 cap Cyclobenzaprine [Flexeril] 5 mg PO TID PRN #20 tablet PRN Reason: Muscle Spasm Gabapentin 300 mg PO TID #90 cap Sennosides/Docusate Sodium [Senna Plus 8.6-50 mg Tablet] 1 each PO DAILY PRN #20 tablet PRN Reason: Constipation Apixaban [Eliquis] 5 mg PO BID tab Ferrous Sulfate [Iron (65 MG Elemental)] 325 mg PO BID-W/MEALS tab polyethylene glycoL 3350 [Miralax] 17 gm PO HS packet Nitroglycerin Sl Tabs [Nitrostat] 0.4 mg SUBLINGUAL Q5M PRN tab PRN Reason: Chest Pain Continue Latanoprost/Pf [Latanoprost 0.005% Eye Drop] 1 drop BOTH EYES HS Atorvastatin [Lipitor] 80 mg PO HS Tamsulosin [Flomax] 0.4 mg PO HS glipiZIDE XL [Glucotrol XL] 2.5 mg PO DAILY Pioglitazone [Actos] 45 mg PO DAILY Brimonidine Tartrate [Alphagan P 0.15% Ophth Soln] 1 drop BOTH EYES BID Patient Own Pump 0 bag DIRECTED Aspirin 81 mg PO DAILY #30 tab Metoprolol Succinate (ER) [Toprol XL] 25 mg PO DAILY prednisoLONE ACETATE 1% OPHTH [Pred Forte 1%] 1 drop RIGHT EYE BID Timolol 0.5% Ophth Soln [Timoptic 0.5% Ophth Soln] 1 drop BOTH EYES BID Ketorolac 0.5% Ophth Soln [Acular 0.5%] 1 drop BOTH EYES BID Discontinued Gabapentin [Neurontin] 300 mg PO TID 30 Days #90 cap Apixaban [Eliquis] 2.5 mg PO BID #60 tab lisinopriL [Zestril] 40 mg PO DAILY hydroCHLOROthiazide [Hydrodiuril] 25 mg PO DAILY Discharge Medication List Latanoprost/Pf [Latanoprost 0.005% Eye Drop] 1 drop BOTH EYES HS 04/04/19 [History] Atorvastatin [Lipitor] 80 mg PO HS 07/13/20 [History] Tamsulosin [Flomax] 0.4 mg PO HS 04/24/22 [History] Brimonidine Tartrate [Alphagan P 0.15% Ophth Soln] 1 drop BOTH EYES BID 11/22/23 [History] Ketorolac 0.5% Ophth Soln [Acular 0.5%] 1 drop BOTH EYES BID 11/22/23 [History] Patient Own Pump 0 bag DIRECTED 11/22/23 [History] Pioglitazone [Actos] 45 mg PO DAILY 11/22/23 [History] Timolol 0.5% Ophth Soln [Timoptic 0.5% Ophth Soln] 1 drop BOTH EYES BID 11/22/23 [History] glipiZIDE XL [Glucotrol XL] 2.5 mg PO DAILY 11/22/23 [History] prednisoLONE ACETATE 1% OPHTH [Pred Forte 1%] 1 drop RIGHT EYE BID 11/22/23 [History] Aspirin 81 mg PO DAILY #30 tab 11/25/23 [Rx] Metoprolol Succinate (ER) [Toprol XL] 25 mg PO DAILY 12/16/23 [History] Apixaban [Eliquis] 5 mg PO BID tab 12/24/23 [Rx] Cyclobenzaprine [Flexeril] 5 mg PO TID PRN #20 tablet 12/24/23 [Rx] Ferrous Sulfate [Iron (65 MG Elemental)] 325 mg PO BID-W/MEALS tab 12/24/23 [Rx] Gabapentin 300 mg PO TID #90 cap 12/24/23 [Rx] HYDROcodone/APAP 5-325MG [[place] 5-325] 1 tab PO Q6HR PRN #28 tab 12/24/23 [Rx] Nitroglycerin Sl Tabs [Nitrostat] 0.4 mg SUBLINGUAL Q5M PRN tab 12/24/23 [Rx] Sennosides/Docusate Sodium [Senna Plus 8.6-50 mg Tablet] 1 each PO DAILY PRN #20 tablet 12/24/23 [Rx] cefaDROXiL [Duricef] 500 mg PO Q12HR #10 cap 12/24/23 [Rx] polyethylene glycoL 3350 [Miralax] 17 gm PO HS packet 12/24/23 [Rx] Follow up Appointment(s)/Referral(s): Vincenzo Small MD [STAFF PHYSICIAN] - 1 Week Galo Portillo DO [Doctor of Osteopathic Medicine] - 10 Days Boom Cooper DO [Primary Care Provider] - 1-2 days Patient Instructions/Handouts: Chest Pain (DC), Lumbar Radiculopathy (ED) Activity/Diet/Wound Care/Special Instructions: Spine Discharge and Recovery Instructions Date of Surgery: 12/20/2023 Diagnosis: L1-L2 fracture with stenosis Procedure: Open treatment L1-L2 fracture with T11-L2 decompression and stabilization Medications: See medication list All medication refills should be obtained through your primary care doctor or your clinic spine surgeon. Please discuss prescription refills at your follow up appointment. Do not call the hospital for medication refills. Activity: Encourage ambulation with assist of walker, Up and about 6-8x daily PT/OT daily work on balance, strength and mobility Up in chair with all meals Shower daily Brace: Use brace when up and about, do not wear in bed or shower Dressing: Leave your dressing in place for a total of 3 days post operatively. Then you may remove your dressing and leave open to air. Keep the area clean and if not able to keep area clean, then cover with sterile gauze and tape. Showering: You may shower 3 days after your procedure allowing soap and water to run over incision. Do not scrub. Do not soak. Blot dry. Follow up: Please confirm a follow up appointment with your surgeon 2 weeks post operatively. Please make an appointment to follow up with your PCP in 1-2 weeks after surgery for evaluation `3 phase, 3-week plan POST OP WEEKS 1-3 1. Lifting/carrying/pushing/pulling limited to less than 5 pounds. 2. Do not sit for longer than 15 minutes at one time. Get up and walk around. Prolonged sitting is NOT advised. If you lay down, see if you can tolerate laying down on you front (belly side) 3. Walk for periods of 15 minutes = 1 mile but no longer; do it multiple times times each day. 4. Ice your low back after activity. POST OP WEEKS 3-6 1. Lifting limited to less than 20 pounds. 2. Do not sit for longer than 30 minutes at a time. Frequently change positions. Use a sit-to stand workstation or take frequent breaks from sitting if you have returned to work. 3. Walk for 30 minutes each day. If possible, do these three or more times a day POST OP WEEKS 6+ At your 6-week appointment we will give you a physical therapy referral to focus on a core stabilization and strengthening program. You should also work on leg & buttock strengthening, hamstring & quadriceps stretching, and continue a low impact aerobic activity program such as swimming, walking, or riding a stat ionary bicycle. During the initial 6 weeks after your surgery, you are at the highest risk of re-injuring your spine. You should generally avoid BLTs (bending, lifting and twisting combination motions) and follow the above guidelines to reduce the chance of reinjury. You can anticipate post op appointments in our office at approximately 3 weeks and 6 weeks after your surgery. INCISION CARE: If your incision is not draining you do NOT need to cover it with a dressing. Keep your incision clean, dry and intact. In most cases, we apply skin glue, abdullahi or sutures to the incision at the time of surgery. This will be like a crust or have the appearance of a scab and will fall off in time on its own. The stitches or abdullahi need to be removed at 3 weeks post op appointment. You may begin to shower 3 days after surgery (this allows the glue to stewart well). However, please avoid scrubbing the incision site or peeling off any of the skin glue. This will ensure optimal healing of your incision. Also, during this time avoid soaking the incision area in water - this includes swimming pools, hot tubs or baths. No ointments, lotions or oils on the incision until your surgeon allows. Leave abdullahi, sutures or glue in place. Neurological dysfunction that comes on suddenly can also be a sign of a stroke. Below some common symptoms of a stroke are listed: B - balance difficulty such as sudden onset walking or leaning to one side - NEW E - eye problem such as sudden double vision or trouble seeing on one side - NEW F - Facial weakness or numbness on one side - NEW A - Arm or leg weakness or numbness on one side - NEW S - Slurred speech or difficulty with word finding - NEW T - Time is BRAIN! Call 911 as soon as you recognize these symptoms Diet: Consume a regular diet rich in vegetables and lean protein such as chicken or fish. You should consume in a ratio of approximately 20% fats|40% carboh ydrates|40%protein. Vegetables, sweet potatoes, brown rice or quinoa are examples of good carbohydrates. Chips, white bread, cookies and sweets/sugar are examples of bad carbohydrates. Limit your bad carbs, go wild with good carbs. "Life's Simple 7" Guidelines as per [place] [employer] These will help you reclaim your life after surgery and drop forger helper in your recovery, keeping in mind your restrictions. (1) Get Active. Physical activity can help people lose weight, control high blood pressure and cholesterol, feel emotionally better, and sleep better. (2) Control Cholesterol. Avoid a diet high in saturated fat, trans fat, & cholesterol. Limit whole milk & cream, ice cream, butter, egg yolks, processed meats (like sausage and hot dogs), and fatty meats. Choose healthy foods that are low in saturated fat, trans fat and cholesterol which include: Fruits and vegetables, fiber rich grain products (like whole grain pasta and brown rice), lean meat such as chicken, fish, nuts, seeds, and legumes. (3) Eat Better. Eat small portions. Shop at the grocery with a list and do not stray from it. Tips for a healthy diet include: Limit sodium intake to less than 1500mg daily, avoid prepackaged, processed, and fast foods, choose a diet rich in fruits, vegetables, and whole grain, high fiber foods, and limit saturated & cholesterol in your diet. (4) Manage Blood Pressure. If you have high blood pressure, you should have a cuff at home so that you can check your blood pressure regularly. Be sure you have a good cuff. An arm one is generally better than a wrist one. Bring the cuff to a doctor's appointment to validate that the measurements that your cuff are taking are accurate. Take your blood pressure twice daily when you are sitting down and relaxing. Record the numbers in a log and bring this log with you to your doctors' appointments. (5) Lose Weight if your BMI is above 25. A healthy BMI is between 19-25. To calculate Your BMI, you may use a Standard BMI Calculator on the NIH BMI website: <www.nhlbi.nih.gov/guidelines/obesity/BMI/bmicalc.htm>. Weigh oneself daily. If you are overweight, set a goal to lose weight. A pound a week loss if needed is a good target. (6) Reduce Blood Sugar. Limit foods and liquids with "added sugars." (Added sugars include sucrose, fructose, glucose, maltose, dextrose, high fructose corn syrup, corn syrup, concentrated fruit juice and honey). (7) Stop Smoking. If you smoke, quitting smoking is one of the best things that you can do for your health. Smoking increases your risk of heart attack, stroke, and peripheral vascular disease, which is a build-up of plaque in your arteries. Please discard all the cigarettes and lighters in your house. Have a plan for what you will do when you have the urge to smoke. Direct and second- hand smoke shortens your life as well as the lives of your family, friends and others around you. For your health and the health of those around you, please consider quitting! Proper Bending Body Mechanics: Maintain a wide stance with one foot slightly in front of the other. Keep your back straight. Bend utilizing the strength in your hips and knees. Do not bend at the waist. Maintain the lifted object at your waist-level close to your body. Avoid lifting weight that causes immediately pain or pain anywhere in the body afterwards. Smoking/Nicotine If there was ever one thing that you could do to increase your overall health, decrease your risk of cardiovascular problems by about 39% the second you make the choice, it is to STOP SMOKING. Your body's most instant gratification is the second you stop smoking. We have all heard the studies, read the articles but it is true, smoking is extremely bad for your overall health, and moreover it is detrimental to your bone health. Nicotine, IN ANY FORM, kills bone cells, prevents your body from healing fractu res, and significantly prolongs healing after surgery. In spine surgery specifically, it increases your risk of not healing your bones to create a fusion and increases your risk of having a revision surgery due to this up to 60%. I know it is hard. I know it feels impossible. But there are ways. Take control of your life. We are here to help you through it. And when you are ready, ask us and we can direct you to help if you desire. Use the START Plan to Quit Smoking (please visit the [employer] website listed below for more information): S = Set a quit date. Choose a date within the next 2 weeks, so you have enough time to prepare without losing your motivation to quit. If you mainly smoke at work, quit on the weekend, so you have a few days to adjust to the change. T = Tell family, friends, and co-workers that you plan to quit. Let your friends and family in on your plan to quit smoking and tell them you need their support and encouragement to stop. Look for a quit beryl who wants to stop smoking as well. You can help each other get through the rough times. A = Anticipate and plan for the challenges you'll face while quitting. Most people who begin smoking again do so within the first 3 months. You can help yourself make it through by preparing ahead for common challenges, such as nicotine withdrawal and cigarette cravings. R = Remove cigarettes and other tobacco products from your home, car, and work. Throw away all your cigarettes (no emergency pack!), lighters, ashtrays, and matches. Wash your clothes and freshen up anything that smells like smoke. Shampoo your car, clean your drapes and carpet, and steam your furniture. T = Talk to your doctor about getting help to quit. Your doctor can prescribe medication to help with withdrawal and suggest other alternatives. If you can't see a doctor, you can get many products over the counter at your local pharmacy or grocery store, including the nicotine patch, nicotine lozenges, and nicotine gum. Resources for Quitting Smoking: <https://www.[place].gov/documents/[facility]/Quit_Tobacco_Resources_for_patients_313 480_7.pdf> Supplementation: Take recommended dosages of Vitamin D and Calcium to help fortify your bones and help them to heal. See your health maintenance packet for dosages and recommended levels. DVT/VTE prophylaxis: You will be given compression stockings from the hospital. Wear these daily for the first two weeks after surgery. You may take them off at night. You may be prescribed a medication to help thin your blood. Take this as directed. If you are not prescribed this medication, early and frequent ambulation has been shown to be the best prophylaxis to deep vein thrombosis and sequelae related to this event. Please see cardiology for stress test. Please see your PCP as well. 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
[2023-12-24 11:09] LABS: Glucose,Whole Blood 211 mg/dL (70-110)
[2023-12-24 14:49] VITALS: BP 122/62; PULSE 81; RESP 16
[2023-12-24 15:08] VITALS: BMI 26.4
--- NOTE | 2023-12-25 23:15 | CDI ---
Documentation Clarification Form Date: 12/25/2023 11:04:10 PM From: Carolann Chester Phone: Admit Date: 12/18/2023 02:44:00 PM Patient Name: Arturo Hanks Visit Number: [id number] Discharge Date: 12/24/2023 04:22:00 PM ATTENTION: The Clinical Documentation Specialists (CDI) and [facility] Coding Staff appreciate your assistance in clarifying documentation. Please respond to the clarification below the line at the bottom and electronically sign. The CDI & [facility] Coding staff will review the response and follow-up if needed. Please note: Queries are made part of the Legal Health Record. If you have any questions, please contact the author of this message via ITS. Dr. Daron Longoria Unspecified CKD is documented per ED Note and Progress Notes. Additional clarification regarding the stage of CKD is requested. History/Risk Factors: 83yo M, L1-L2 severespinal stenosisw radiculopathy, kym neuralforaminal stenosis, HTN, CP, CAD w stents, PAF, HLD, DMII, surgical bedseroma, Rt hip stage II pressure ulcer, RBBB, painpump status Clinical Indicators: BUN: 39 BUN/Creatinine Ratio 27.62 CR: 1.22 eGFR: 54 Treatment: monitored Please clarify the stage of the CKD, if known: [ ] CKD Stage 2 [ x ] CKD Stage 3 [ ] Other, please specify [ ] Unable to determine Reference: National Kidney [employer] Stage 1 eGFR = 90 and kidney damage for =3 months Stage 2 eGFR 60-89 and kidney damage for =3 months Stage 3a eGFR 45-59 and kidney damage for =3 months Stage 3b eGFR 30-44 and kidney damage for =3 months Stage 4 eGFR 15-29 r and kidney damage for =3 months Stage 5 eGFR <15 and kidney damage for =3 months (Template last revised: July 2023) MTDD
== END 2023-12-24 16:22 | DRG 454 ==
LOC: EC 13:22 → 6NMEDSUR 15:56 → OBSVTOIN 12-18 14:44 → 4SSUR 12-19 19:16
PROVIDERS: ADMIT Internal Medicine; ATTEND Internal Medicine
PROC: 0RGA071 Fusion of Thoracolumbar Vertebral Joint with Autologous Tissue Substitute, Posterior Approach, Posterior Column, Open Approach (ICD-10-PCS; 2023-12-20)
PROC: 0SG1071 Fusion of 2 or more Lumbar Vertebral Joints with Autologous Tissue Substitute, Posterior Approach, Posterior Column, Open Approach (ICD-10-PCS; 2023-12-20)
PROC: 0SG30AJ Fusion of Lumbosacral Joint with Interbody Fusion Device, Posterior Approach, Anterior Column, Open Approach (ICD-10-PCS; 2023-12-20)
PROC: 0SG3071 Fusion of Lumbosacral Joint with Autologous Tissue Substitute, Posterior Approach, Posterior Column, Open Approach (ICD-10-PCS; 2023-12-20)
PROC: 01NB0ZZ Release Lumbar Nerve, Open Approach (ICD-10-PCS; 2023-12-20)
PROC: 01NR0ZZ Release Sacral Nerve, Open Approach (ICD-10-PCS; 2023-12-20)
PROC: 0QS004Z Reposition Lumbar Vertebra with Internal Fixation Device, Open Approach (ICD-10-PCS; 2023-12-20)
PROC: 0RGA0AJ Fusion of Thoracolumbar Vertebral Joint with Interbody Fusion Device, Posterior Approach, Anterior Column, Open Approach (ICD-10-PCS; 2023-12-20)
PROC: 8E0WXBZ Computer Assisted Procedure of Trunk Region (ICD-10-PCS; 2023-12-20)
PROC: 0SG10AJ Fusion of 2 or more Lumbar Vertebral Joints with Interbody Fusion Device, Posterior Approach, Anterior Column, Open Approach (ICD-10-PCS; principal; 2023-12-20 10:45)
DX: S32.018A Other fracture of first lumbar vertebra, initial encounter for closed fracture (principal); G82.20 Paraplegia, unspecified; I48.21 Permanent atrial fibrillation; L76.34 Postprocedural seroma of skin and subcutaneous tissue following other procedure; I72.3 Aneurysm of iliac artery; L89.212 Pressure ulcer of right hip, stage 2; E11.22 Type 2 diabetes mellitus with diabetic chronic kidney disease; E11.51 Type 2 diabetes mellitus with diabetic peripheral angiopathy without gangrene; S32.028A Other fracture of second lumbar vertebra, initial encounter for closed fracture; I48.0 Paroxysmal atrial fibrillation; N18.30 Chronic kidney disease, stage 3 unspecified; I12.9 Hypertensive chronic kidney disease with stage 1 through stage 4 chronic kidney disease, or unspecified chronic kidney disease; I25.10 Atherosclerotic heart disease of native coronary artery without angina pectoris; E78.5 Hyperlipidemia, unspecified; I45.10 Unspecified right bundle-branch block; M51.36 Other intervertebral disc degeneration, lumbar region; M48.061 Spinal stenosis, lumbar region without neurogenic claudication; M47.26 Other spondylosis with radiculopathy, lumbar region; H91.93 Unspecified hearing loss, bilateral; G89.29 Other chronic pain; Y83.8 Other surgical procedures as the cause of abnormal reaction of the patient, or of later complication, without mention of misadventure at the time of the procedure; W10.9XXA Fall (on) (from) unspecified stairs and steps, initial encounter; Z97.8 Presence of other specified devices; Z79.891 Long term (current) use of opiate analgesic; Z79.82 Long term (current) use of aspirin; Z79.01 Long term (current) use of anticoagulants; Z91.81 History of falling; Z87.820 Personal history of traumatic brain injury; Z79.84 Long term (current) use of oral hypoglycemic drugs; Z79.899 Other long term (current) drug therapy; Z88.5 Allergy status to narcotic agent; Z95.5 Presence of coronary angioplasty implant and graft; Z86.73 Personal history of transient ischemic attack (TIA), and cerebral infarction without residual deficits; I25.2 Old myocardial infarction; Z86.14 Personal history of Methicillin resistant Staphylococcus aureus infection; Z87.891 Personal history of nicotine dependence
CPT/HCPCS: 36415; 70450; 71046; 72100; 72128; 72131; 72148; 73502; 80048; 80053; 80061; 83036; 83735; 83880; 84484; 85025; 85027; 85610; 85730; 86850; 86900; 86901; 93005; 94760; 96374; 99285

== ENCOUNTER 2024-02-15 12:21 | Inpatient (IN) | payer MEDICARE, BC ==
--- NOTE | 2024-02-15 12:33 | ED ---
General Adult HPI - General Source: patient, RN notes reviewed Mode of arrival: ambulatory Limitations: no limitations <Boom Richard - Last Filed: 02/15/24 12:29> - History of Present Illness -: minutes(s) <Modesta Francis - Last Filed: 02/17/24 14:50> - General Stated complaint: SOB Time Seen by Provider: 02/15/24 12:25 - History of Present Illness Initial comments: 83-year-old male presents emergency department complaint of shortness of breath. Patient presented from cardiology office. Patient saw Dr. Cordova today. Patient has no history of CHF but is been having exertional dyspnea, leg swelling. Patient denies any chest pain denies any fevers or chills denies abdominal pain denies taken Lasix or any other diuretics (Boom Richard) Patient is an 83-year-old gentleman presenting today for shortness of breath, presents from his facility examiner office, Dr. Cordova. No history of CHF. Has been having "spells" of standing up and becoming extremely dyspneic. Patient states has been going on for "a while". Unable to specify further. He has had associated lower extremity swelling. Denies any episodes of chest pain, diaphoresis or nausea. Patient is not on any type of Lasix or diuretics. No fevers, chills, cough, hemoptysis, cough productive of sputum. Denies abdominal pain. Does state that he has had black stools but was told that this is from his stool softeners. Patient does take Eliquis 5 mg twice daily. (Modesta Francis) - Related Data Home Medications Medication Instructions Recorded Confirmed Latanoprost/Pf [Latanoprost 0.005% 1 drop BOTH EYES HS@199904/04/19 02/15/24 Eye Drop] Atorvastatin [Lipitor] 80 mg PO HS@199907/13/20 02/15/24 Tamsulosin [Flomax] 0.4 mg PO HS@199904/24/22 02/15/24 Brimonidine Tartrate [Alphagan P 1 drop BOTH EYES BID@799,199911/22/23 02/15/24 0.15% Ophth Soln] Pioglitazone [Actos] 67.5 mg PO DAILY@79911/22/23 02/15/24 Timolol 0.5% Ophth Soln [Timoptic 1 drop BOTH EYES BID@0800,199911/22/23 0809/08 0.5% Ophth Soln] glipiZIDE XL [Glucotrol XL] 2.5 mg PO DAILY@79911/22/23 02/15/24 Apixaban [Eliquis] 5 mg PO BID@799,199902/15/24 02/15/24 Aspirin 81 mg PO DAILY@79902/15/24 02/15/24 Cyclobenzaprine [Flexeril] 2.5 mg PO TID PRN 02/15/24 02/15/24 Ferrous Sulfate [Iron (65 MG 325 mg PO BID@0800,179902/15/24 02/15/24 Elemental)] Gabapentin 300 mg PO TID@0800,1399,199902/15/24 02/15/24 HYDROcodone/APAP 10-325MG [Yermo 1 tab PO Q6HR PRN 02/15/24 02/15/24 10-325] Metoprolol Tartrate [Lopressor] 25 mg PO DAILY@79902/15/24 02/15/24 Patient Own Pump 0 bag 02/15/24 Sennosides [Senokot] 8.6 mg PO DAILY PRN 02/15/24 02/15/24 Sennosides/Docusate Sodium [Senna 1 tab PO DAILY PRN 02/15/24 02/15/24 Plus 8.6-50 mg Tablet] Vit C/E/Zn/Coppr/Lutein/Zeaxan 1 cap PO BID@799,199902/15/24 02/15/24 [Preservision Areds 2 Softgel] polyethylene glycoL 3350 [Miralax] 17 gm PO DAILY PRN 02/15/24 02/15/24 Previous Rx's Medication Instructions Recorded Nitroglycerin Sl Tabs [Nitrostat] 0.4 mg SUBLINGUAL Q5M PRN tab 12/24/23 Omeprazole [PriLOSEC] 20 mg PO AC-BRKFST #90 cap 02/17/24 Allergies Allergy/AdvReac Type Severity Reaction Status Date / Time hydromorphone [From Dilaudid] AdvReac CONFUSION, Verified 02/15/24 14:36 HALLUCINATIONS Review of Systems ROS Other: All systems not noted in ROS Statement are negative. <Boom Richard - Last Filed: 02/15/24 12:29> ROS Other: All systems not noted in ROS Statement are negative. <Modesta Francis - Last Filed: 02/17/24 14:50> ROS Statement: Those systems with pertinent positive or pertinent negative responses have been documented in the HPI. Past Medical History Past Medical History: Atrial Fibrillation, Coronary Artery Disease (CAD), Chest Pain / Angina, CVA/TIA, Diabetes Mellitus, Eye Disorder, GERD/Reflux, Hyperlipidemia, Hypertension, Myocardial Infarction ([place]), Osteoarthritis (OA), Renal Disease Additional Past Medical History / Comment(s): low back pain that radiates to legs.,(has morphine pump), tinnitus, hx of head injury, TIA, aneurysm left groin, glaucoma and macular degeneration, SOBOBA- has tubes in his ears, frequent diarrhea, chronic kidney disease. recent adm. to [facility] for new onset atrial fib. Last Myocardial Infarction Date:: 1990 History of Any Multi-Drug Resistant Organisms: MRSA Date of last positivie culture/infection: 1993 MDRO Source:: incisional after back sx Past Surgical History: Back Surgery, Heart Catheterization With Stent Additional Past Surgical History / Comment(s): Back Surgery x5 ([facility]), pain pump placed x3 colonoscopy., multiple tubes in ears. has 2 heart stents Past Anesthesia/Blood Transfusion Reactions: No Reported Reaction Additional Past Anesthesia/Blood Transfusion Reaction / Comment(s): . Date of Last Stent Placement:: 2020 Past Psychological History: No Psychological Hx Reported Additional Psychological History / Comment(s): . Smoking Status: Former smoker Past Alcohol Use History: None Reported Additional Past Alcohol Use History / Comment(s): quit smoking 1990, smoked 3ppd Past Drug Use History: None Reported - Past Family History Father Family Medical History: Cancer Brother(s) Family Medical History: Cancer <Boom Richard - Last Filed: 02/15/24 12:29> General Exam Limitations: no limitations General appearance: alert, in no apparent distress Head exam: Present: atraumatic, normocephalic, normal inspection <Boom Richard - Last Filed: 02/15/24 12:29> <Modesta Francis - Last Filed: 02/17/24 14:50> - General Exam Comments Initial Comments: Visual Physical Exam Vital signs reviewed General: Well-appearing, nontoxic, no acute distress. Head: Normocephalic, atraumatic Eyes: PERRLA, EOMI ENT: Airway patent Chest: Nonlabored breathing Skin: No visual rash, normal skin tone Neuro: Alert and oriented 3 Musculoskeletal: No gross abnormalities (Boom Richard) PE: CONSTITUTIONAL: [no apparent distress, ill-appearing, nontoxic] SKIN: [Cool, pale, dry, no jaundice, hives or petechiae] EYES:[ pupils are equally round, extraocular movements intact without nystagmus, pale conjunctiva, non-icteric sclera] HENT: [normocephalic, atraumatic, moist mucus membranes, oropharynx clear witho ut exudates] NECK: , [Full range of motion, normal appearance] PULMONARY: [Crackles in the bilateral lung bases, mild tachypnea, no accessory muscle use or stridor, no wheezes or rhonchi, normal excursion ] CARDIOVASCULAR:[ regular rate, rhythm, normal S1 and S2. No appreciated murmurs, rubs or gallops. Strong radial pulses with intact distal perfusion. 3+ lower extremity edema extending up to thighs] GASTROINTESTINAL: [soft, non-tender, non-distended, no palpable masses, no rebound or guarding. No hepatosplenomegaly] MUSCULOSKELETAL: [Extremities have no gross deformity, redness, or swelling. ] NEUROLOGIC: [_a/o x 3, GCS 15, normal mentation and speech. Moves all extremities x 4 without motor or sensory deficit] PSYCHIATRIC:[ _normal mood and affect, thought process is clear and linear] (Modesta Francis) Course <Modesta Francis - Last Filed: 02/17/24 14:50> Vital Signs 02/15/24 02/15/24 02/15/24 12:43 13:45 15:00 Temperature 97.7 F 97.1 F L Pulse Rate 73 77 82 Pulse Rate [ Pulse Oximetery ] Respiratory 20 18 16 Rate Blood Pressure 113/57 110/52 99/66 Blood Pressure [Left Arm] O2 Sat by Pulse 85 L 98 Oximetry 02/15/24 02/15/24 02/15/24 15:15 15:35 15:45 Temperature 97.1 F L 97.2 F L Pulse Rate 84 73 73 Pulse Rate [ Pulse Oximetery ] Respiratory 16 16 16 Rate Blood Pressure 104/55 118/52 106/56 Blood Pressure [Left Arm] O2 Sat by Pulse 98 98 Oximetry 02/15/24 02/15/24 02/15/24 16:00 17:25 17:36 Temperature 98.2 F 98.2 F Pulse Rate 80 77 74 Pulse Rate [ Pulse Oximetery ] Respiratory 18 16 18 Rate Blood Pressure 125/68 111/62 105/56 Blood Pressure [Left Arm] O2 Sat by Pulse 98 99 Oximetry 02/15/24 02/15/24 02/16/24 19:40 23:30 00:00 Temperature 97.8 F 97.7 F Pulse Rate 67 67 Pulse Rate [ 58 L Pulse Oximetery ] Respiratory 16 16 17 Rate Blood Pressure 124/61 114/66 Blood Pressure 104/61 [Left Arm] O2 Sat by Pulse 99 99 92 L Oximetry 02/16/24 02/16/24 02/16/24 00:20 04:51 07:08 Temperature 97.8 F Pulse Rate 70 56 L 67 Pulse Rate [ Pulse Oximetery ] Respiratory 16 16 16 Rate Blood Pressure 130/59 104/56 109/58 Blood Pressure [Left Arm] O2 Sat by Pulse 98 94 L 98 Oximetry 02/16/24 02/16/24 02/16/24 11:17 16:00 18:38 Temperature Pulse Rate 70 58 L 53 L Pulse Rate [ Pulse Oximetery ] Respiratory 18 16 16 Rate Blood Pressure 106/52 85/49 104/64 Blood Pressure [Left Arm] O2 Sat by Pulse 97 99 98 Oximetry 02/16/24 19:30 Temperature Pulse Rate 19 L Pulse Rate [ Pulse Oximetery ] Respiratory 60 H Rate Blood Pressure 112/62 Blood Pressure [Left Arm] O2 Sat by Pulse 98 Oximetry - Reevaluation(s) Reevaluation #1: hemoglobin 6.4, compared to prior on 12/24/2023 was 9.5. Ordered 2 units PRBC, requested they be given slowly, over 4 hours, to avoid fluid overload. Updated patient, obtained informed consent to administer blood transfusion. Patient is agreeable with plan. 02/15/24 13:34 02/17/24 14:48 (Modesta Francis) Reevaluation #2: labs reviewed, creatinine 1.32, increased from prior, was 1.16 GFR 49, down from 6/9/24, was 58. Suspect prerenal due to decreased perfusion 2/2 anemia. BNP 1270, within normal limits for age 0802/15/24 14:00 02/15/24 14:08 02/17/24 14:48 (Modesta Francis) Medical Decision Making <Boom Richard - Last Filed: 02/15/24 12:29> - Lab Data Result diagrams: 02/17/24 04:47 02/16/24 12:03 <Modesta Francis - Last Filed: 02/17/24 14:50> - Medical Decision Making I completed the quick note portion of this chart signed Boom Richard PA-C (Boom Richard) Was pt. sent in by a medical professional or institution (, ROSALINDA, DIRECTOR OF WOMEN'S SERVICES, urgent care, hospital, or assisted...) When possible be specific @ -Yes, patient was sent in by his facility examiner Dr. Posada Did you speak to anyone other than the patient for history (EMS, parent, family, police, friend...)? What history was obtained from this source @ -Spoke with patient's son who assisted in providing history Did you review nursing and triage notes (agree or disagree)? Why? @Reviewed triage note, stating patient was sent from Dr. Cordova's office with short of breath unable to catch his breath, skin color pale unable with swelling in hands and feet no retractions no chest pain vital signs on arrival 97.7 F oral temp, heart rate 73, respiratory rate 20, blood pressure 113/57, pulse ox 85% on room air Were old charts reviewed (outside hosp., previous admission, EMS record, old EKG, old radiological studies, urgent care reports/EKG's, assisted records)? Report findings @ Reviewed discharge summary from patient's recent hospital stay on 12/24/2023, patient was in the hospital for L2-L4 decompression and fusion. Additionally reviewed hospital visit from 12/16/2023 patient presented for complaints of left- sided chest pain. Echocardiogram done on 11/23/2023 showed an EF of 45 to 50% Differential Diagnosis (chest pain, altered mental status, abdominal pain women, abdominal pain men, vaginal bleeding, weakness, fever, dyspnea, syncope, headache, dizziness, GI bleed, back pain, seizure, CVA, palpatations, mental health, musculoskeletal)? @ -Differential Dyspnea: ACS, arrhythmia, tamponade, asthma, COPD, pneumonia, pneumothorax, pulmonary effusion, anemia, neuromuscular, this is not meant to be an all-inclusive list. EKG interpreted by me (3pts min.). @ -EKG interpreted by me Atrial fibrillation Rate 78 bpm QT/QTc 415/448 ms Left axis deviation right Bundle branch block X-rays interpreted by me (1pt min.). @Reviewed chest x-ray, borderline cardiomegaly, slight pulmonary vascular congestion, read by radiologist as no acute cardiopulmonary disease CT interpreted by me (1pt min.). @ -[None done] U/S interpreted by me (1pt. min.). @ -[None done] What testing was considered but not performed or refused? (CT, X-rays, U/S, labs)? Why? @ -[None] What meds were considered but not given or refused? Why? @ -[None] Did you discuss the management of the patient with other professionals (professionals i.e. , PA, DIRECTOR OF WOMEN'S SERVICES, lab, RT, psych nurse, psychologist social, corporate security manager, teacher, juvenile correctional officer, complex case manager)? Give summary @ -[No] Was smoking cessation discussed for >3mins.? @ -[No] Was critical care preformed (if so, how long)? @ -[No] Were there social determinants of health that impacted care today? How? (Homelessness, low income, unemployed, alcoholism, drug addiction, tr ansportation, low edu. Level, literacy, decrease access to med. care, fdc, rehab)? @ -[No] Was there de-escalation of care discussed even if they declined (Discuss DNR or withdrawal of care, Hospice)? DNR status @ -[No] What co-morbidities impacted this encounter? (DM, HTN, Smoking, COPD, CAD, Canc er, CVA, ARF, Chemo, Hep., AIDS, mental health diagnosis, sleep apnea, morbid obesity)? @ -[None] Was patient admitted / discharged? Hospital course, mention meds given and route, prescriptions, significant lab abnormalities, going to OR and other pertinent info. @ -[hospital course] Patient is an 83-year-old gentleman past medical history CAD presenting today for shortness of breath at the direction of Dr. Cordova, his facility examiner. On assessment patient is mildly dyspneic, no excess or muscle use. Pale, swelling, 3+ up to the thighs. Crackles in lung bases bilaterally. Concern for CHF exacerbation predominantly. Reviewed patient's most recent kidney function, back in December was GFR 58. Ordered 40 mg IV Lasix. Discussed with [facility] physician's group, kindly accepts for admission Undiagnosed new problem with uncertain prognosis? @ -[No] Drug Therapy requiring intensive monitoring for toxicity (Heparin, Nitro, Insulin, Cardizem)? @ -[No] Were any procedures done? @ -[No] Diagnosis/symptom? @ -[default] Acute, or Chronic, or Acute on Chronic? @ -[default] Uncomplicated (without systemic symptoms) or Complicated (systemic symptoms)? @ -[default] Side effects of treatment? @ -[No] Exacerbation, Progression, or Severe Exacerbation? @ -[No] Poses a threat to life or bodily function? How? (Chest pain, [place], [place], pneumonia, PE, COPD, DKA, ARF, appy, cholecystitis, CVA, Diverticulitis, Homicidal, Suicidal, threat to staff... and all critical care pts) @ -[No] (,Modesta) - Lab Data Lab Results 02/15/24 02/15/24 02/15/24 Range/Units 13:00 13:00 13:00 WBC 5.6 (3.8-10.6) k/uL RBC 1.99 L (4.30-5.90) m/uL Hgb 6.4 L* D (13.0-17.5) gm/dL Hct 20.8 L (39.0-53.0) % MCV 104.2 H (80.0-100.0) fL MCH 32.3 (25.0-35.0) pg MCHC 31.0 (31.0-37.0) g/dL RDW 17.2 H (11.5-15.5) % Plt Count 256 (150-450) k/uL MPV 8.0 Neutrophils % 77 % Lymphocytes % 11 % Monocytes % 7 % Eosinophils % 4 % Basophils % 0 % Neutrophils # 4.3 (1.3-7.7) k/uL Lymphocytes # 0.6 L (1.0-4.8) k/uL Monocytes # 0.4 (0-1.0) k/uL Eosinophils # 0.2 (0-0.7) k/uL Basophils # 0.0 (0-0.2) k/uL Hypochromasia Marked Anisocytosis Slight Macrocytosis Moderate PT 11.7 (10.0-12.5) sec INR 1.1 (<1.2) APTT 28.8 (22.0-30.0) sec Sodium 139 (137-145) mmol/L Potassium 4.2 (3.5-5.1) mmol/L Chloride 112 H (98-107) mmol/L Carbon Dioxide 21 L (22-30) mmol/L Anion Gap 6 mmol/L BUN 51 H (9-20) mg/dL Creatinine 1.32 H (0.66-1.25) mg/dL Est GFR (CKD-EPI)AfAm 57 (>60 ml/min/1.73 sqM) Est GFR (CKD-EPI)NonAf 49 (>60 ml/min/1.73 sqM) Glucose 84 (74-99) mg/dL Calcium 9.0 (8.4-10.2) mg/dL Magnesium 1.9 (1.6-2.3) mg/dL Total Bilirubin 0.4 (0.2-1.3) mg/dL AST 22 (17-59) U/L ALT 15 (4-49) U/L Alkaline Phosphatase 75 (38-126) U/L Troponin I (0.000-0.034) ng/mL NT-Pro-B Natriuret Pep 1270 pg/mL Total Protein 5.6 L (6.3-8.2) g/dL Albumin 3.3 L (3.5-5.0) g/dL Blood Type Blood Type Recheck Bld Type Recheck Status Antibody Screen Crossmatch Spec Expiration Date 02/15/24 02/15/24 Range/Units 13:00 14:08 WBC (3.8-10.6) k/uL RBC (4.30-5.90) m/uL Hgb (13.0-17.5) gm/dL Hct (39.0-53.0) % MCV (80.0-100.0) fL MCH (25.0-35.0) pg MCHC (31.0-37.0) g/dL RDW (11.5-15.5) % Plt Count (150-450) k/uL MPV Neutrophils % % Lymphocytes % % Monocytes % % Eosinophils % % Basophils % % Neutrophils # (1.3-7.7) k/uL Lymphocytes # (1.0-4.8) k/uL Monocytes # (0-1.0) k/uL Eosinophils # (0-0.7) k/uL Basophils # (0-0.2) k/uL Hypochromasia Anisocytosis Macrocytosis PT (10.0-12.5) sec INR (<1.2) APTT (22.0-30.0) sec Sodium (137-145) mmol/L Potassium (3.5-5.1) mmol/L Chloride (98-107) mmol/L Carbon Dioxide (22-30) mmol/L Anion Gap mmol/L BUN (9-20) mg/dL Creatinine (0.66-1.25) mg/dL Est GFR (CKD-EPI)AfAm (>60 ml/min/1.73 sqM) Est GFR (CKD-EPI)NonAf (>60 ml/min/1.73 sqM) Glucose (74-99) mg/dL Calcium (8.4-10.2) mg/dL Magnesium (1.6-2.3) mg/dL Total Bilirubin (0.2-1.3) mg/dL AST (17-59) U/L ALT (4-49) U/L Alkaline Phosphatase (38-126) U/L Troponin I <0.012 (0.000-0.034) ng/mL NT-Pro-B Natriuret Pep pg/mL Total Protein (6.3-8.2) g/dL Albumin (3.5-5.0) g/dL Blood Type O Positive Blood Type Recheck O Pos Bld Type Recheck Status No Antibody Screen NEGATIVE Crossmatch See Detail Spec Expiration Date 02/18/2024 - 2307 Disposition <Boom Richard - Last Filed: 02/15/24 12:29> <Modesta Francis - Last Filed: 02/17/24 14:50> Clinical Impression: Congestive heart failure, Symptomatic anemia Disposition: ADMITTED IP TO THIS HOSP
[2024-02-15] MEDS: FUROSEMIDE 10 MG/ML 4 ML VIAL IV STA ×2 (13:07→17:23)
[2024-02-15 13:22] LABS: INR 1.1 (<1.2); Partial Thromboplastin Time 28.8 sec (22.0-30.0); Prothrombin Time 11.7 sec (10.0-12.5)
[2024-02-15 13:28] LABS: Anisocytosis Slight; Basophils % (A) 0 %; Eosinophils # (A) 0.2 k/uL (0-0.7); Eosinophils % (A) 4 %; HCT 20.8 % (39.0-53.0); Hypochromasia Marked; Lymphocytes # (A) 0.6 k/uL (1.0-4.8); Lymphocytes % (A) 11 %; MCH 32.3 pg (25.0-35.0); MCV 104.2 fL (80.0-100.0); Macrocytosis Moderate; Monocytes # (A) 0.4 k/uL (0-1.0); Monocytes % (A) 7 %; Neutrophils # (A) 4.3 k/uL (1.3-7.7); Neutrophils % (A) 77 %; Platelet Count 256 k/uL (150-450); RBC 1.99 m/uL (4.30-5.90); RDW 17.2 % (11.5-15.5); WBC 5.6 k/uL (3.8-10.6)
[2024-02-15 13:30] LABS: HGB 6.4 gm/dL (13.0-17.5)
[2024-02-15 13:41] LABS: ALT 15 U/L (4-49); AST 22 U/L (17-59); African American GFR (CKD) 57 (>60 ml/min/1.73 sqM); Albumin 3.3 g/dL (3.5-5.0); Alkaline Phosphatase 75 U/L (38-126); Anion Gap 6 mmol/L; Blood Urea Nitrogen 51 mg/dL (9-20); Carbon Dioxide 21 mmol/L (22-30); Chloride 112 mmol/L (98-107); Glucose 84 mg/dL (74-99); Magnesium 1.9 mg/dL (1.6-2.3); Non-African American GFR(CKD) 49 (>60 ml/min/1.73 sqM); Potassium 4.2 mmol/L (3.5-5.1); Sodium 139 mmol/L (137-145); Total Bilirubin 0.4 mg/dL (0.2-1.3); Total Protein 5.6 g/dL (6.3-8.2)
[2024-02-15 13:44] LABS: NT-Pro-B-Type Natriuretic Pept 1270 pg/mL
--- NOTE | 2024-02-15 13:46 | XR ---
EXAMINATION TYPE: XR chest 2V DATE OF EXAM: 02/15/2024 COMPARISON: 12/16/2023 HISTORY: Shortness of breath TECHNIQUE: Frontal and lateral views of the chest are obtained. FINDINGS: Scattered senescent parenchymal changes noted. Hyperinflation compatible with COPD. No evidence for infiltrate. No evidence for atelectasis. Heart size is stable. Mediastinal structures are stable and grossly unremarkable. No evidence for hilar prominence. Degenerative changes dorsal spine. IMPRESSION: 1. No evidence for acute pulmonary disease.
[2024-02-15] MEDS: PANTOPRAZOLE 40 MG/10 ML VIAL IVP ONE ×2 (14:13)
[2024-02-15] MEDS ORDERED: NALOXONE 0.4 MG/ML 1 ML VIAL IV PRN (15:28)
[2024-02-15] MEDS ORDERED: ACETAMINOPHEN TAB 325 MG TAB PO PRN (15:28)
[2024-02-15] MEDS ORDERED: polyethylene glycoL 3350 17 GM POWD.PACK PO PRN (15:30)
[2024-02-15] MEDS ORDERED: CYCLOBENZAPRINE 5 MG TAB PO PRN (15:30)
[2024-02-15] MEDS ORDERED: SENNOSIDES 8.6 MG TAB PO PRN (15:30)
[2024-02-15] MEDS ORDERED: DEXTROSE 50% SYRINGE 50 ML IVP PRN ×2 (15:53)
[2024-02-15 16:57] LABS: Glucose,Whole Blood 89 mg/dL (70-110)
[2024-02-15] MEDS: INSULIN ASPART (NovoLOG) 100 UNIT/ML VIAL SQ SCH (17:02)
--- NOTE | 2024-02-15 17:21 | P.HPIM ---
History of Present Illness H&P Date: 02/15/24 History of Presenting Illness: Patient is a very pleasant 83-year-old male with a past medical history of CAD status post stenting x 2, chronic systolic heart failure with a EF of 45%, chronic atrial fibrillation on anticoagulation with Eliquis, hypertension, hyperlipidemia, type II yyi-sqbpjgb-clncqbqhw diabetes mellitus, chronic lower back pain with implanted morphine pain pump, and chronic kidney disease stage IIIa. Patient presented to the emergency department chief complaint of exertional shortness of breath, generalized weakness and fatigue, and bilateral lower extremity edema. Patient reports that over the past month he has been experiencing increased bilateral lower extremity edema, fatigue, orthopnea, and exertional shortness of breath. In addition patient reports black tarry stools x 3 months, but reports he was told this was secondary to his medications (patient on oral iron supplements).. He denies having any fevers, chills, di aphoresis, headache, lightheadedness, dizziness, chest pain or palpitations, productive cough or sinus congestion, abdominal pain or discomfort, difficulties with or changes in his urinary function, or experiencing any numbness/tingling/weakness in his extremities. 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 Cordova in the office today patient states when Dr. Cordova evaluated him he sent him to the emergency department secondary to concerns of CHF exacerbation. Upon arrival to our facility, patient underwent evaluation in the emergency department. Vital signs upon arrival show blood pressure 113/57, heart rate 73, respiratory rate 20, temp 97.7 F, and SpO2 of 85% on room air increasing to 98% on 2 L of supplemental oxygen via nasal cannula. EKG was completed showing atrial fibrillation with a controlled ventricular rate of 78 bpm. Chest X-ray completed negative for acute cardiopulmonary process. Labs completed and reviewed. CBC showing acute on chronic blood loss anemia with hemoglobin of 6.4 MCV of 104.2 and normal WBC of 5.6 and platelet count of 256,000. Coagulation profile normal findings. BMP showing non-anion gap metabolic acidosis with chloride of 112, bicarb of 21, and anion gap of 6 with elevated renal function with BUN of 51, creatinine of 1.32 and GFR 49 which appears at baseline. Magnesium 1.9. Liver profile showing no significant abnormalities. Troponin was negative at less than 0.012. proBNP was 1270. Albumin 3.3. Patient being transfused with 1 unit PRBCs and provided with IV Lasix. He is being admitted under our services with consultation to cardiology and general surgery. Review of systems: Pertinent positives and negatives as discussed in HPI, a complete review of systems was performed and all other systems are negative. Physical exam: Vital signs reviewed and stable. General: Nontoxic, no distress and appears stated age. Derm: Skin warm and dry, normal coloration for ethnicity. Head: Atraumatic, normocephalic and symmetric. Eyes: EOMs intact, no lid lag, and anicteric sclera Mouth: no lip lesions, mucus membranes moist Cardiovascular: Irregularly irregular with soft systolic murmur, positive posterior tibial pulses bilaterally, and cap refill < 2 seconds. Lungs: Respirations even, regular, and unlabored on 2 L O2. Lungs diminished otherwise no rhonchi, no rales, no wheezing, and no accessory muscle usage. Abdominal: soft, nontender to palpation, no guarding, no appreciable o rganomegaly Ext: ROM intact. No gross muscle atrophy, 2+ pitting bilateral lower extremity edema extending up into knees, no contractures Neuro: Speech clear, face symmetrical and CN II-XII grossly intact with no noted focal neuro deficits Psych: Alert and oriented to person, place, time, and situation. Appropriate and pleasant affect. Assessment and Plan of Care: Acute blood loss anemia on anemia of chronic disease, suspect GI bleed secondary to reports of black tarry stool -Consult general surgery, appreciate recommendation -Patient receiving 1 unit PRBCs, will monitor hemoglobin levels every 6 hours following and can infuse as needed for hemoglobin less than 7. -Order placed for an additional dose of Lasix 40 mg IVP status post completion of transfusion, monitor for signs of worsening fluid overload. -Protonix 40 mg IVP twice daily. -Diet per general surgery team -SCDs for DVT prophylaxis. -Iron profile was added to blood in the lab that was drawn prior to blood transfusion administration, pending these results patient to continue oral iron supplementation with ferrous sulfate 325 mg twice daily Acute on chronic systolic heart failure exacerbation Chronic atrial fibrillation CAD status post stenting Hypertension Hyperlipidemia -Cardiology consulted, appreciate recommendations -Telemetry monitoring -Daily weights and Close monitoring of I's and O's -Lasix 40 mg IVP every 12 hours -Hold aspirin and Eliquis secondary to GI bleed. Patient to continue remaining cardiac medication regimen with atorvastatin 80 mg nightly and metoprolol 25 mg daily. -Continued close monitoring of electrolytes while diuresing. Egx-azgzckx-vuhmpkyxw diabetes mellitus Hold Actos and glipizide and place patient on glycemic protocol with NovoLog sliding scale. Chronic lower back pain with implanted morphine pain pump Patient to continue use of personal pump. CKD stage IIIa -Renal function stable and at baseline. Data and Imaging reviewed: As stated above in HPI The patient is admitted with an anticipated greater than 2 midnight stay for evaluation of acute blood loss anemia and acute on chronic systolic heart failure exacerbation CODE STATUS: Full Code DVT prophylaxis: YOSEF germainkandace and SCDs Anticipated discharge date: Pending clinical course Anticipated discharge place: Pending clinical course Patient was seen independently by Nurse Practitioner. This document was prepared using [employer] dictation software. Please allow for errors in tree feller while rare they do occur. . Ajit Badillo NP rendered care for this patient independently, reviewed the findings and plan as documented in the note above. I did not physically speak with or examine the patient on this date. Past Medical History Past Medical History: Atrial Fibrillation, Coronary Artery Disease (CAD), Chest Pain / Angina, CVA/TIA, Diabetes Mellitus, Eye Disorder, GERD/Reflux, Hyp erlipidemia, Hypertension, Myocardial Infarction ([place]), Osteoarthritis (OA), Renal Disease Additional Past Medical History / Comment(s): low back pain that radiates to legs.,(has morphine pump), tinnitus, hx of head injury, TIA, aneurysm left groin, glaucoma and macular degeneration, [place]- has tubes in his ears, frequent diarrhea, chronic kidney disease. recent adm. to [facility] for new onset atrial fib. Last Myocardial Infarction Date:: 1990 History of Any Multi-Drug Resistant Organisms: MRSA Date of last positivie culture/infection: 1993 MDRO Source:: incisional after back sx Past Surgical History: Back Surgery, Heart Catheterization With Stent Additional Past Surgical History / Comment(s): Back Surgery x5 ([place]), pain pump placed x3 colonoscopy., multiple tubes in ears. has 2 heart stents Past Anesthesia/Blood Transfusion Reactions: No Reported Reaction Additional Past Anesthesia/Blood Transfusion Reaction / Comment(s): . Date of Last Stent Placement:: 2020 Past Psychological History: No Psychological Hx Reported Smoking Status: Former smoker Past Alcohol Use History: None Reported Past Drug Use History: None Reported - Past Family History Father Family Medical History: Cancer Brother(s) Family Medical History: Cancer Medications and Allergies Home Medications Medication Instructions Recorded Confirmed Type Latanoprost/Pf [Latanoprost 0.005% 1 drop BOTH EYES HS@199904/04/19 02/15/24 History Eye Drop] Atorvastatin [Lipitor] 80 mg PO HS@199907/13/20 02/15/24 History Tamsulosin [Flomax] 0.4 mg PO HS@199904/24/22 02/15/24 History Brimonidine Tartrate [Alphagan P 1 drop BOTH EYES BID@799,199911/22/23 02/15/24 History 0.15% Ophth Soln] Pioglitazone [Actos] 67.5 mg PO DAILY@79911/22/23 02/15/24 History Timolol 0.5% Ophth Soln [Timoptic 1 drop BOTH EYES BID@799,199911/22/23 02/15/24 History 0.5% Ophth Soln] glipiZIDE XL [Glucotrol XL] 2.5 mg PO DAILY@79911/22/23 02/15/24 History Nitroglycerin Sl Tabs [Nitrostat] 0.4 mg SUBLINGUAL Q5M PRN tab 12/24/23 02/15/24 Rx Apixaban [Eliquis] 5 mg PO BID@0800,199902/15/24 02/15/24 History Aspirin 81 mg PO DAILY@0800 02/15/24 02/15/24 History Cyclobenzaprine [Flexeril] 2.5 mg PO TID PRN 02/15/24 02/15/24 History Ferrous Sulfate [Iron (65 MG 325 mg PO BID@0800,1800 02/15/24 02/15/24 History Elemental)] Gabapentin 300 mg PO TID@0800,1399,199902/15/24 02/15/24 History HYDROcodone/APAP 10-325MG [[place] 1 tab PO Q6HR PRN 02/15/24 02/15/24 History 10-325] Metoprolol Tartrate [Lopressor] 25 mg PO DAILY@0800 02/15/24 02/15/24 History Patient Own Pump 0 bag 02/15/24 History Sennosides [Senokot] 8.6 mg PO DAILY PRN 02/15/24 02/15/24 History Sennosides/Docusate Sodium [Senna 1 tab PO DAILY PRN 02/15/24 02/15/24 History Plus 8.6-50 mg Tablet] Vit C/E/Zn/Coppr/Lutein/Zeaxan 1 cap PO BID@0800,2000 02/15/24 02/15/24 History [Preservision Areds 2 Softgel] polyethylene glycoL 3350 [Miralax] 17 gm PO DAILY PRN 02/15/24 02/15/24 History Allergies Allergy/AdvReac Type Severity Reaction Status Date / Time hydromorphone [From Dilaudid] AdvReac CONFUSION, Verified 02/15/24 14:36 HALLUCINATIONS Physical Exam Vitals: Vital Signs Temp Pulse Resp BP Pulse Ox 02/15/24 15:15 97.1 F L 84 16 104/55 98 02/15/24 15:00 97.1 F L 82 16 99/66 02/15/24 12:43 97.7 F 73 20 113/57 85 L Intake and Output 02/15/24 02/15/24 02/15/24 06:59 14:59 22:59 Intake Total 0 Balance 0 Intake: Blood Product 0 Unit 0 Other: Weight 90.718 kg Results CBC & Chem 7: 02/15/24 13:00 02/15/24 13:00 Labs: Abnormal Lab Results - Last 24 Hours (Table) 02/15/24 02/15/24 02/15/24 Range/Units 13:00 13:00 14:08 RBC 1.99 L (4.30-5.90) m/uL Hgb 6.4 L* D (13.0-17.5) gm/dL Hct 20.8 L (39.0-53.0) % MCV 104.2 H (80.0-100.0) fL RDW 17.2 H (11.5-15.5) % Lymphocytes # 0.6 L (1.0-4.8) k/uL Chloride 112 H (98-107) mmol/L Carbon Dioxide 21 L (22-30) mmol/L BUN 51 H (9-20) mg/dL Creatinine 1.32 H (0.66-1.25) mg/dL Total Protein 5.6 L (6.3-8.2) g/dL Albumin 3.3 L (3.5-5.0) g/dL Crossmatch See Detail
[2024-02-15 21:23] LABS: Glucose,Whole Blood 119 mg/dL (70-110)
[2024-02-15] MEDS: PANTOPRAZOLE 40 MG/10 ML VIAL IV SCH (21:56)
[2024-02-15] MEDS: TAMSULOSIN 0.4 MG CAP.ER.24H PO SCH (21:56)
[2024-02-15] MEDS: GABAPENTIN 300 MG CAP PO SCH (21:56)
[2024-02-15] MEDS: ATORVASTATIN 80 MG TAB PO SCH (21:56)
[2024-02-15] MEDS: FERROUS SULFATE 325 MG TAB PO SCH (21:56)
[2024-02-15 23:16] LABS: Anisocytosis Slight; Basophils % (A) 0 %; Eosinophils # (A) 0.2 k/uL (0-0.7); Eosinophils % (A) 4 %; HCT 25.2 % (39.0-53.0); Hypochromasia Moderate; Lymphocytes # (A) 0.6 k/uL (1.0-4.8); Lymphocytes % (A) 14 %; MCH 32.9 pg (25.0-35.0); MCHC 33.1 g/dL (31.0-37.0); MCV 99.4 fL (80.0-100.0); Macrocytosis Slight; Mean Platelet Volume 7.8; Monocytes # (A) 0.3 k/uL (0-1.0); Monocytes % (A) 8 %; Neutrophils # (A) 3.1 k/uL (1.3-7.7); Neutrophils % (A) 73 %; Platelet Count 213 k/uL (150-450); Poikilocytosis Slight; RBC 2.54 m/uL (4.30-5.90); RDW 17.6 % (11.5-15.5); WBC 4.2 k/uL (3.8-10.6)
[2024-02-15] MEDS: HYDROcodone/APAP 10-325MG 1 EACH TAB PO PRN (23:33)
[2024-02-15] MEDS: LATANOPROST 0.005% OPHTH DROPS 2.5 ML BTL BOTH EYES SCH (23:34)
[2024-02-15] MEDS: TIMOLOL 0.5% OPHTH DROPS 5 ML BTL BOTH EYES SCH (23:34)
[2024-02-16 00:11] LABS: HGB 8.4 gm/dL (13.0-17.5)
[2024-02-16] MEDS: BRIMONIDINE TARTRATE 0.2% DROPS 5 ML BTL BOTH EYES SCH (00:22)
[2024-02-16 02:24] LABS: % Iron Saturation 35.39 (15.00-50.00)
[2024-02-16] MEDS: METOPROLOL TARTRATE 25 MG TAB PO SCH (08:25)
[2024-02-16] MEDS: FUROSEMIDE 10 MG/ML 4 ML VIAL IV SCH (08:30)
[2024-02-16] MEDS ORDERED: PANTOPRAZOLE 40 MG/10 ML VIAL IV SCH (09:00)
[2024-02-16 10:31] LABS: Glucose,Whole Blood 120 mg/dL (70-110)
[2024-02-16 12:23] LABS: Glucose,Whole Blood 193 mg/dL (70-110)
[2024-02-16 12:30] LABS: Anisocytosis Slight; Basophils % (A) 1 %; Eosinophils # (A) 0.2 k/uL (0-0.7); Eosinophils % (A) 5 %; HCT 26.1 % (39.0-53.0); HGB 8.5 gm/dL (13.0-17.5); Hypochromasia Moderate; Lymphocytes # (A) 0.5 k/uL (1.0-4.8); Lymphocytes % (A) 13 %; MCH 32.5 pg (25.0-35.0); MCHC 32.5 g/dL (31.0-37.0); MCV 99.9 fL (80.0-100.0); Macrocytosis Slight; Mean Platelet Volume 8.2; Monocytes # (A) 0.3 k/uL (0-1.0); Monocytes % (A) 8 %; Neutrophils # (A) 2.9 k/uL (1.3-7.7); Neutrophils % (A) 71 %; Platelet Count 220 k/uL (150-450); Poikilocytosis Slight; RBC 2.61 m/uL (4.30-5.90); RDW 17.6 % (11.5-15.5); WBC 4.1 k/uL (3.8-10.6)
[2024-02-16 12:37] LABS: INR 1.1 (<1.2); Prothrombin Time 11.5 sec (10.0-12.5)
[2024-02-16 12:41] LABS: ALT 15 U/L (4-49); AST 21 U/L (17-59); African American GFR (CKD) 60 (>60 ml/min/1.73 sqM); Alkaline Phosphatase 65 U/L (38-126); Anion Gap 4 mmol/L; Blood Urea Nitrogen 42 mg/dL (9-20); Calcium 8.9 mg/dL (8.4-10.2); Carbon Dioxide 29 mmol/L (22-30); Chloride 105 mmol/L (98-107); Glucose 166 mg/dL (74-99); Magnesium 1.9 mg/dL (1.6-2.3); Non-African American GFR(CKD) 52 (>60 ml/min/1.73 sqM); Potassium 3.9 mmol/L (3.5-5.1); Sodium 138 mmol/L (137-145); Total Bilirubin 0.5 mg/dL (0.2-1.3); Total Protein 5.2 g/dL (6.3-8.2)
[2024-02-16] MEDS: ASPIRIN 81 MG PO SCH (12:58)
--- NOTE | 2024-02-16 15:29 | P.PN ---
Subjective Progress Note Date: 02/16/24 Patient reports he is feeling better after receiving blood. He says that he is peeing a lot, and feels that his fluid is coming off. Gen: In NAD, non-toxic HEENT: normocephalic, atraumatic, hearing acuity is intant, mucous membranes moist CVS: perfusing all extremities well, bilateral 1+ pitting edema, Respiratory: symmetric chest expansion, no accessory muscle use, GI: soft, NTTP, ND, : no suprapubic tenderness, no CVA tenderness MSK/Derm: no rashes, cyanosis Neuro: CN II-XII intact, no motor weakness, Psych: cooperative, euthymic mood, judgment and insight is intact Hospital course: Patient is a very pleasant 83-year-old male with a past medical history of CAD status post stenting x 2, chronic systolic heart failure with a EF of 45%, chronic atrial fibrillation on anticoagulation with Eliquis, hypertension, hyperlipidemia, type II yul-qgpnlpw-arydeqbzj diabetes mellitus, chronic lower back pain with implanted morphine pain pump, and chronic kidney disease stage IIIa. Patient presented to the emergency department chief complaint of exertional shortness of breath, generalized weakness and fatigue, and bilateral lower extremity edema. Patient reports that over the past month he has been experiencing increased bilateral lower extremity edema, fatigue, orthopnea, and exertional shortness of breath. In addition patient reports black tarry stools x 3 months, but reports he was told this was secondary to his medications (patient on oral iron supplements).. He denies having any fevers, chills, diaphoresis, headache, lightheadedness, dizziness, chest pain or palpitations, productive cough or sinus congestion, abdominal pain or discomfort, difficulties with or changes in his urinary function, or experiencing any numbness/tingling/weakness in his extremities. 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 Cordova in the of [facility] today patient states when Dr. Cordova evaluated him he sent him to the emergency department secondary to concerns of CHF exacerbation. Upon arrival to our facility, patient underwent evaluation in the emergency department. Vital signs upon arrival show blood pressure 113/57, heart rate 73, respiratory rate 20, temp 97.7 F, and SpO2 of 85% on room air increasing to 98% on 2 L of supplemental oxygen via nasal cannula. EKG was completed showing atrial fibrillation with a controlled ventricular rate of 78 bpm. Chest X-ray completed negative for acute cardiopulmonary process. Labs completed and reviewed. CBC showing acute on chronic blood loss anemia with hemoglobin of 6.4 MCV of 104.2 and normal WBC of 5.6 and platelet count of 256,000. Coagulation profile normal findings. BMP showing non-anion gap metabolic acidosis with chloride of 112, bicarb of 21, and anion gap of 6 with elevated renal function with BUN of 51, creatinine of 1.32 and GFR 49 which appears at baseline. Ma gnesium 1.9. Liver profile showing no significant abnormalities. Troponin was negative at less than 0.012. proBNP was 1270. Albumin 3.3. Patient being transfused with 1 unit PRBCs and provided with IV Lasix. He is being admitted under our services with consultation to cardiology and general surgery. Assessment and Plan of Care: Acute blood loss anemia on anemia of chronic disease, suspect GI bleed secondary to reports of black tarry stool -Consult general surgery, appreciate recommendation -Patient received 1 unit PRBCs,. -Protonix 40 mg IVP twice daily. -Diet per general surgery team, discussed with them, continue to monitor CBC and transfuse as needed, no endoscopic intervention planned at this time -SCDs for DVT prophylaxis. -Iron profile was added to blood in the lab that was drawn prior to blood transfusion administration, pending these results patient to continue oral iron supplementation with ferrous sulfate 325 mg twice daily Acute on chronic systolic heart failure exacerbation Chronic atrial fibrillation CAD status post stenting Hypertension Hyperlipidemia -Cardiology consulted, appreciate recommendations -Telemetry monitoring -Daily weights and Close monitoring of I's and O's -Lasix 40 mg IVP every 12 hours -Hold aspirin and Eliquis secondary to GI bleed. Patient to continue remaining cardiac medication regimen with atorvastatin 80 mg nightly and metoprolol 25 mg daily. -Continued close monitoring of electrolytes while diuresing. Vwv-ggxhwfz-xusktqoou diabetes mellitus Hold Actos and glipizide and place patient on glycemic protocol with NovoLog sliding scale. Chronic lower back pain with implanted morphine pain pump Patient to continue use of personal pump. CKD stage IIIa -Renal function stable and at baseline. Data and Imaging reviewed: As stated above in HPI The patient is admitted with an anticipated greater than 2 midnight stay for evaluation of acute blood loss anemia and acute on chronic systolic heart failure exacerbation CODE STATUS: Full Code DVT prophylaxis: YOSEF holly and SCDs Anticipated discharge date: Pending clinical course Anticipated discharge place: Pending clinical course Objective - Vital Signs Vital signs: Vital Signs Temp 97.8 F 02/16/24 07:08 Pulse 70 02/16/24 11:17 Resp 18 02/16/24 11:17 BP 106/52 02/16/24 11:17 Pulse Ox 97 02/16/24 11:17 FiO2 Intake & Output 02/15/24 02/16/24 02/16/24 18:59 06:59 18:59 Intake Total 310 310 Output Total 2350 Balance 310 310 -2350 Weight 90.718 kg Intake: Blood Product 310 310 Rc As-1 Unit 0 310 [id number] Rc As-1 Unit 310 [id number] Output: Urine 2350 - Labs CBC & Chem 7: 02/16/24 12:03 02/16/24 12:03 Labs: Abnormal Lab Results - Last 24 Hours (Table) 02/15/24 02/15/24 02/15/24 Range/Units 14:08 21:21 22:42 RBC 2.54 L (4.30-5.90) m/uL Hgb 8.4 L D (13.0-17.5) gm/dL Hct 25.2 L (39.0-53.0) % RDW 17.6 H (11.5-15.5) % Lymphocytes # 0.6 L (1.0-4.8) k/uL BUN (9-20) mg/dL Creatinine (0.66-1.25) mg/dL Glucose (74-99) mg/dL POC Glucose (mg/dL) 119 H (70-110) mg/dL Total Protein (6.3-8.2) g/dL Albumin (3.5-5.0) g/dL Crossmatch See Detail 02/16/24 02/16/24 02/16/24 Range/Units 07:27 12:03 12:03 RBC 2.61 L (4.30-5.90) m/uL Hgb 8.5 L (13.0-17.5) gm/dL Hct 26.1 L (39.0-53.0) % RDW 17.6 H (11.5-15.5) % Lymphocytes # 0.5 L (1.0-4.8) k/uL BUN 42 H (9-20) mg/dL Creatinine 1.26 H (0.66-1.25) mg/dL Glucose 166 H (74-99) mg/dL POC Glucose (mg/dL) 120 H (70-110) mg/dL Total Protein 5.2 L (6.3-8.2) g/dL Albumin 3.0 L (3.5-5.0) g/dL Crossmatch 02/16/24 Range/Units 12:17 RBC (4.30-5.90) m/uL Hgb (13.0-17.5) gm/dL Hct (39.0-53.0) % RDW (11.5-15.5) % Lymphocytes # (1.0-4.8) k/uL BUN (9-20) mg/dL Creatinine (0.66-1.25) mg/dL Glucose (74-99) mg/dL POC Glucose (mg/dL) 193 H (70-110) mg/dL Total Protein (6.3-8.2) g/dL Albumin (3.5-5.0) g/dL Crossmatch
[2024-02-16 17:04] LABS: Glucose,Whole Blood 135 mg/dL (70-110)
--- NOTE | 2024-02-16 20:21 | P.GSCN ---
History of Present Illness History of present illness: Patient is a very pleasant 83-year-old male with a past medical history of CAD status post stenting x 2, chronic systolic heart failure with a EF of 45%, chronic atrial fibrillation on anticoagulation with Eliquis, hypertension, hyperlipidemia, type II cuv-cqrnnpi-xczyioudu diabetes mellitus, chronic lower back pain with implanted morphine pain pump, and chronic kidney disease stage IIIa. Patient presented to the emergency department chief complaint of exertional shortness of breath, generalized weakness and fatigue, and bilateral lower extremity edema. Review of Systems All systems: negative Past Medical History Past Medical History: Atrial Fibrillation, Coronary Artery Disease (CAD), Chest Pain / Angina, CVA/TIA, Diabetes Mellitus, Eye Disorder, GERD/Reflux, Hyperlipidemia, Hypertension, Myocardial Infarction ([place]), Osteoarthritis (OA), Renal Disease Additional Past Medical History / Comment(s): low back pain that radiates to legs.,(has morphine pump), tinnitus, hx of head injury, TIA, aneurysm left groin, glaucoma and macular degeneration, [place]- has tubes in his ears, frequent diarrhea, chronic kidney disease. recent adm. to [facility] for new onset atrial fib. Last Myocardial Infarction Date:: 1990 History of Any Multi-Drug Resistant Organisms: MRSA Year Discovered:: 1993 MDRO Source:: incisional after back sx Past Surgical History: Back Surgery, Heart Catheterization With Stent Additional Past Surgical History / Comment(s): Back Surgery x5 ([facility]), pain pump placed x3 colonoscopy., multiple tubes in ears. has 2 heart stents Past Anesthesia/Blood Transfusion Reactions: No Reported Reaction Additional Past Anesthesia/Blood Transfusion Reaction / Comm: . Date of Last Stent Placement:: 2020 Past Psychological History: No Psychological Hx Reported Smoking Status: Former smoker Past Alcohol Use History: None Reported Past Drug Use History: None Reported - Past Family History Father Family Medical History: Cancer Brother(s) Family Medical History: Cancer Medications and Allergies Home Medications Medication Instructions Recorded Confirmed Type Latanoprost/Pf [Latanoprost 0.005% 1 drop BOTH EYES HS@199904/04/19 02/15/24 History Eye Drop] Atorvastatin [Lipitor] 80 mg PO HS@199907/13/20 02/15/24 History Tamsulosin [Flomax] 0.4 mg PO HS@199904/24/22 02/15/24 History Brimonidine Tartrate [Alphagan P 1 drop BOTH EYES BID@0800,199911/22/23 02/15/24 History 0.15% Ophth Soln] Pioglitazone [Actos] 67.5 mg PO DAILY@79911/22/23 02/15/24 History Timolol 0.5% Ophth Soln [Timoptic 1 drop BOTH EYES BID@799,199911/22/23 02/15/24 History 0.5% Ophth Soln] glipiZIDE XL [Glucotrol XL] 2.5 mg PO DAILY@79911/22/23 02/15/24 History Nitroglycerin Sl Tabs [Nitrostat] 0.4 mg SUBLINGUAL Q5M PRN tab 12/24/23 02/15/24 Rx Apixaban [Eliquis] 5 mg PO BID@799,199902/15/24 02/15/24 History Aspirin 81 mg PO DAILY@79902/15/24 02/15/24 History Cyclobenzaprine [Flexeril] 2.5 mg PO TID PRN 02/15/24 02/15/24 History Ferrous Sulfate [Iron (65 MG 325 mg PO BID@0800,1800 02/15/24 02/15/24 History Elemental)] Gabapentin 300 mg PO TID@0800,1399,199902/15/24 02/15/24 History HYDROcodone/APAP 10-325MG [[place] 1 tab PO Q6HR PRN 02/15/24 02/15/24 History 10-325] Metoprolol Tartrate [Lopressor] 25 mg PO DAILY@79902/15/24 02/15/24 History Patient Own Pump 0 bag 02/15/24 History Sennosides [Senokot] 8.6 mg PO DAILY PRN 02/15/24 02/15/24 History Sennosides/Docusate Sodium [Senna 1 tab PO DAILY PRN 02/15/24 02/15/24 History Plus 8.6-50 mg Tablet] Vit C/E/Zn/Coppr/Lutein/Zeaxan 1 cap PO BID@0800,199902/15/24 02/15/24 History [Preservision Areds 2 Softgel] polyethylene glycoL 3350 [Miralax] 17 gm PO DAILY PRN 02/15/24 02/15/24 History Allergies Allergy/AdvReac Type Severity Reaction Status Date / Time hydromorphone [From Dilaudid] AdvReac CONFUSION, Verified 02/15/24 14:36 HALLUCINATIONS Surgical - Exam Osteopathic Statement: *. No significant issues noted on an osteopathic structural exam other than those noted in the History and Physical/Consult. Vital Signs Temp Pulse Resp BP Pulse Ox 97.7 F 73 20 113/57 85 L 02/15/24 12:43 02/15/24 12:43 02/15/24 12:43 02/15/24 12:43 02/15/24 12:43 Results - Labs 02/16/24 12:03 02/16/24 12:03 Abnormal Lab Results - Last 24 Hours (Table) 02/15/24 02/15/24 02/16/24 Range/Units 21:21 22:42 07:27 RBC 2.54 L (4.30-5.90) m/uL Hgb 8.4 L D (13.0-17.5) gm/dL Hct 25.2 L (39.0-53.0) % RDW 17.6 H (11.5-15.5) % Lymphocytes # 0.6 L (1.0-4.8) k/uL BUN (9-20) mg/dL Creatinine (0.66-1.25) mg/dL Glucose (74-99) mg/dL POC Glucose (mg/dL) 119 H 120 H (70-110) mg/dL Total Protein (6.3-8.2) g/dL Albumin (3.5-5.0) g/dL 02/16/24 02/16/24 02/16/24 Range/Units 12:03 12:03 12:17 RBC 2.61 L (4.30-5.90) m/uL Hgb 8.5 L (13.0-17.5) gm/dL Hct 26.1 L (39.0-53.0) % RDW 17.6 H (11.5-15.5) % Lymphocytes # 0.5 L (1.0-4.8) k/uL BUN 42 H (9-20) mg/dL Creatinine 1.26 H (0.66-1.25) mg/dL Glucose 166 H (74-99) mg/dL POC Glucose (mg/dL) 193 H (70-110) mg/dL Total Protein 5.2 L (6.3-8.2) g/dL Albumin 3.0 L (3.5-5.0) g/dL 02/16/24 Range/Units 17:02 RBC (4.30-5.90) m/uL Hgb (13.0-17.5) gm/dL Hct (39.0-53.0) % RDW (11.5-15.5) % Lymphocytes # (1.0-4.8) k/uL BUN (9-20) mg/dL Creatinine (0.66-1.25) mg/dL Glucose (74-99) mg/dL POC Glucose (mg/dL) 135 H (70-110) mg/dL Total Protein (6.3-8.2) g/dL Albumin (3.5-5.0) g/dL Diabetes panel 02/16/24 Range/Units 12:03 Sodium 138 (137-145) mmol/L Potassium 3.9 (3.5-5.1) mmol/L Chloride 105 (98-107) mmol/L Carbon Dioxide 29 (22-30) mmol/L BUN 42 H (9-20) mg/dL Creatinine 1.26 H (0.66-1.25) mg/dL Glucose 166 H (74-99) mg/dL Calcium 8.9 (8.4-10.2) mg/dL AST 21 (17-59) U/L ALT 15 (4-49) U/L Alkaline Phosphatase 65 (38-126) U/L Total Protein 5.2 L (6.3-8.2) g/dL Albumin 3.0 L (3.5-5.0) g/dL Calcium panel 02/16/24 Range/Units 12:03 Calcium 8.9 (8.4-10.2) mg/dL Albumin 3.0 L (3.5-5.0) g/dL Pituitary panel 02/16/24 Range/Units 12:03 Sodium 138 (137-145) mmol/L Potassium 3.9 (3.5-5.1) mmol/L Chloride 105 (98-107) mmol/L Carbon Dioxide 29 (22-30) mmol/L BUN 42 H (9-20) mg/dL Creatinine 1.26 H (0.66-1.25) mg/dL Glucose 166 H (74-99) mg/dL Calcium 8.9 (8.4-10.2) mg/dL Adrenal panel 02/16/24 Range/Units 12:03 Sodium 138 (137-145) mmol/L Potassium 3.9 (3.5-5.1) mmol/L Chloride 105 (98-107) mmol/L Carbon Dioxide 29 (22-30) mmol/L BUN 42 H (9-20) mg/dL Creatinine 1.26 H (0.66-1.25) mg/dL Glucose 166 H (74-99) mg/dL Calcium 8.9 (8.4-10.2) mg/dL Total Bilirubin 0.5 (0.2-1.3) mg/dL AST 21 (17-59) U/L ALT 15 (4-49) U/L Alkaline Phosphatase 65 (38-126) U/L Total Protein 5.2 L (6.3-8.2) g/dL Albumin 3.0 L (3.5-5.0) g/dL Assessment and Plan Assessment: 83 yo male w/ suspected GI bleed given history, suspected upper GI bleed given description of tarry stools -tarry stools are becoming less frequently -observe hgb q12 -no intervention at this time -may need endoscopy at a later date Time with Patient: Less than 30
[2024-02-16 21:55] LABS: Glucose,Whole Blood 117 mg/dL (70-110)
[2024-02-17 07:41] LABS: Glucose,Whole Blood 151 mg/dL (70-110)
--- NOTE | 2024-02-17 09:15 | P.PN ---
Subjective Progress Note Date: 02/17/24 Patient has no new complaints today. Patient is feeling much better, no further dyspnea. Hemoglobin has been stable. Today's lab is pending however. Gen: In NAD, non-toxic HEENT: normocephalic, atraumatic, hearing acuity is intant, mucous membranes moist CVS: perfusing all extremities well, bilateral 1+ pitting edema, Respiratory: symmetric chest expansion, no accessory muscle use, GI: soft, NTTP, ND, : no suprapubic tenderness, no CVA tenderness MSK/Derm: no rashes, cyanosis Neuro: CN II-XII intact, no motor weakness, Psych: cooperative, euthymic mood, judgment and insight is intact Hospital course: Patient is a very pleasant 83-year-old male with a past medical history of CAD status post stenting x 2, chronic systolic heart failure with a EF of 45%, chronic atrial fibrillation on anticoagulation with Eliquis, hypertension, hyperlipidemia, type II [id number]-gjrvvkagt diabetes mellitus, chronic lower back pain with implanted morphine pain pump, and chronic kidney disease stage IIIa. Patient presented to the emergency department chief complaint of exertional shortness of breath, generalized weakness and fatigue, and bilateral lower extremity edema. Patient reports that over the past month he has been experiencing increased bilateral lower extremity edema, fatigue, orthopnea, and exertional shortness of breath. In addition patient reports black tarry stools x 3 months, but reports he was told this was secondary to his medications (patient on oral iron supplements).. He denies having any fevers, chills, diaphoresis, headache, lightheadedness, dizziness, chest pain or palpitations, productive cough or sinus congestion, abdominal pain or discomfort, difficulties with or changes in his urinary function, or experiencing any numbness/tingling/weakness in his extremities. Patient reports he scheduled an appointment with his rn community health and was evaluated by Dr. Cordova in the office today patient states when Dr. Cordova evaluated him he sent him to the emergency department secondary to concerns of CHF exacerbation. Upon arrival to our facility, patient underwent evaluation in the emergency department. Vital signs upon arrival show blood pressure 113/57, heart rate 73, respiratory rate 20, temp 97.7 F, and SpO2 of 85% on room air increasing to 98% on 2 L of supplemental oxygen via nasal cannula. EKG was completed showing atrial fibrillation with a controlled ventricular rate of 78 bpm. Chest X-ray completed negative for acute cardiopulmonary process. Labs completed and reviewed. CBC showing acute on chronic blood loss anemia with hemoglobin of 6.4 MCV of 104.2 and normal WBC of 5.6 and platelet count of 256,000. Coagulation profile normal findings. BMP showing non-anion gap metabolic acidosis with chloride of 112, bicarb of 21, and anion gap of 6 with elevated renal function with BUN of 51, creatinine of 1.32 and GFR 49 which appears at baseline. Magnesium 1.9. Liver profile showing no significant abnormalities. Troponin was negative at less than 0.012. proBNP was 1270. Albumin 3.3. Patient being transfused with 1 unit PRBCs and provided with IV Lasix. He is being admitted under our services with consultation to cardiology and general surgery. Assessment and Plan of Care: Acute blood loss anemia on anemia of chronic disease, suspect GI bleed secondary to reports of black tarry stool -Consult general surgery, appreciate recommendation -Patient received 1 unit PRBCs,. -Protonix 40 mg IVP twice daily. -Diet per general surgery team, discussed with them, continue to monitor CBC and transfuse as needed, no endoscopic intervention planned at this time -SCDs for DVT prophylaxis. -Iron profile was added to blood in the lab that was drawn prior to blood transfusion administration, pending these results patient to continue oral iron supplementation with ferrous sulfate 325 mg twice daily Acute on chronic systolic heart failure exacerbation Chronic atrial fibrillation CAD status post stenting Hypertension Hyperlipidemia -Cardiology consulted, appreciate recommendations -Telemetry monitoring -Daily weights and Close monitoring of I's and O's -Lasix 40 mg IVP every 12 hours -Hold aspirin and Eliquis secondary to GI bleed. Patient to continue remaining cardiac medication regimen with atorvastatin 80 mg nightly and metoprolol 25 mg daily. -Continued close monitoring of electrolytes while diuresing. Yzw-pndrofw-etmuxpoul diabetes mellitus Hold Actos and glipizide and place patient on glycemic protocol with NovoLog sliding scale. Chronic lower back pain with implanted morphine pain pump Patient to continue use of personal pump. CKD stage IIIa -Renal function stable and at baseline. Data and Imaging reviewed: As stated above in HPI The patient is admitted with an anticipated greater than 2 midnight stay for evaluation of acute blood loss anemia and acute on chronic systolic heart failure exacerbation CODE STATUS: Full Code DVT prophylaxis: YOSEF holly and SCDs Anticipated discharge date: Pending clinical course Anticipated discharge place: Pending clinical course Objective - Vital Signs Vital signs: Vital Signs Temp 97.9 F 02/17/24 07:42 Pulse 83 02/17/24 07:42 Resp 16 02/17/24 07:42 BP 132/59 02/17/24 07:42 Pulse Ox 97 02/17/24 07:42 FiO2 Intake & Output 02/16/24 02/17/24 02/17/24 18:59 06:59 18:59 Intake Total 400 Output Total 3850 400 400 Balance -3450 -400 -400 Weight 69.5 kg Intake: Oral 400 Output: Urine 3850 400 400 Other: Voiding Method Urinal Urinal - Labs CBC & Chem 7: 02/16/24 12:03 02/16/24 12:03 Labs: Abnormal Lab Results - Last 24 Hours (Table) 02/16/24 02/16/24 02/16/24 Range/Units 07:27 12:03 12:03 RBC 2.61 L (4.30-5.90) m/uL Hgb 8.5 L (13.0-17.5) gm/dL Hct 26.1 L (39.0-53.0) % RDW 17.6 H (11.5-15.5) % Lymphocytes # 0.5 L (1.0-4.8) k/uL BUN 42 H (9-20) mg/dL Creatinine 1.26 H (0.66-1.25) mg/dL Glucose 166 H (74-99) mg/dL POC Glucose (mg/dL) 120 H (70-110) mg/dL Total Protein 5.2 L (6.3-8.2) g/dL Albumin 3.0 L (3.5-5.0) g/dL 02/16/24 02/16/24 02/16/24 Range/Units 12:17 17:02 21:53 RBC (4.30-5.90) m/uL Hgb (13.0-17.5) gm/dL Hct (39.0-53.0) % RDW (11.5-15.5) % Lymphocytes # (1.0-4.8) k/uL BUN (9-20) mg/dL Creatinine (0.66-1.25) mg/dL Glucose (74-99) mg/dL POC Glucose (mg/dL) 193 H 135 H 117 H (70-110) mg/dL Total Protein (6.3-8.2) g/dL Albumin (3.5-5.0) g/dL 02/17/24 Range/Units 07:40 RBC (4.30-5.90) m/uL Hgb (13.0-17.5) gm/dL Hct (39.0-53.0) % RDW (11.5-15.5) % Lymphocytes # (1.0-4.8) k/uL BUN (9-20) mg/dL Creatinine (0.66-1.25) mg/dL Glucose (74-99) mg/dL POC Glucose (mg/dL) 151 H (70-110) mg/dL Total Protein (6.3-8.2) g/dL Albumin (3.5-5.0) g/dL
[2024-02-17 09:34] LABS: Basophils # (A) 0.04 X 10*3/uL (0.00-0.10); Basophils % (A) 0.8 %; Eosinophils # (A) 0.17 X 10*3/uL (0.04-0.35); Eosinophils % (A) 3.3 %; HGB 8.1 g/dL (13.0-17.0); Lymphocytes # (A) 0.53 X 10*3/uL (0.90-5.00); Lymphocytes % (A) 10.4 %; MCH 32.1 pg (27.0-32.0); MCHC 31.2 g/dL (32.0-37.0); MCV 103.2 FL (80.0-97.0); Mean Platelet Volume 11.1 FL (9.5-12.2); Monocytes # (A) 0.62 X 10*3/uL (0.20-1.00); Monocytes % (A) 12.1 %; NRBC Per 100 WBC 0 X 10*3/uL (0.00-0.01); Neutrophils # (A) 3.74 X 10*3/uL (1.80-7.70); Platelet Count 196 X 10*3/uL (140-440); RBC 2.52 X 10*6/uL (4.40-5.60); RDW 19.1 % (11.5-14.5); WBC 5.12 X 10*3/uL (4.50-10.00)
--- NOTE | 2024-02-17 09:49 | P.PN ---
Subjective Progress Note Date: 02/17/24 Principal diagnosis: GI bleed Patient doing well today. Denies abdominal pain. No hematemesis. Patient denies stool overnight. Hemoglobin stable. Objective - Vital Signs Vital signs: Vital Signs Temp 97.9 F 02/17/24 07:42 Pulse 83 02/17/24 07:42 Resp 16 02/17/24 07:42 BP 132/59 02/17/24 07:42 Pulse Ox 97 02/17/24 07:42 FiO2 Intake & Output 02/16/24 02/17/24 02/17/24 18:59 06:59 18:59 Intake Total 400 Output Total 3850 400 400 Balance -3450 -400 -400 Weight 69.5 kg Intake: Oral 400 Output: Urine 3850 400 400 Other: Voiding Method Urinal Urinal - Exam Abdomen: Soft, nontender, nondistended - Labs CBC & Chem 7: 02/17/24 04:47 02/16/24 12:03 Labs: Abnormal Lab Results - Last 24 Hours (Table) 02/16/24 02/16/24 02/16/24 Range/Units 07:27 12:03 12:03 RBC 2.61 L (4.30-5.90) m/uL Hgb 8.5 L (13.0-17.5) gm/dL Hct 26.1 L (39.0-53.0) % MCV (80.0-97.0) FL MCH (27.0-32.0) pg MCHC (32.0-37.0) g/dL RDW 17.6 H (11.5-15.5) % Lymphocytes # 0.5 L (1.0-4.8) k/uL BUN 42 H (9-20) mg/dL Creatinine 1.26 H (0.66-1.25) mg/dL Glucose 166 H (74-99) mg/dL POC Glucose (mg/dL) 120 H (70-110) mg/dL Total Protein 5.2 L (6.3-8.2) g/dL Albumin 3.0 L (3.5-5.0) g/dL 02/16/24 02/16/24 02/16/24 Range/Units 12:17 17:02 21:53 RBC (4.30-5.90) m/uL Hgb (13.0-17.5) gm/dL Hct (39.0-53.0) % MCV (80.0-97.0) FL MCH (27.0-32.0) pg MCHC (32.0-37.0) g/dL RDW (11.5-15.5) % Lymphocytes # (1.0-4.8) k/uL BUN (9-20) mg/dL Creatinine (0.66-1.25) mg/dL Glucose (74-99) mg/dL POC Glucose (mg/dL) 193 H 135 H 117 H (70-110) mg/dL Total Protein (6.3-8.2) g/dL Albumin (3.5-5.0) g/dL 02/17/24 02/17/24 Range/Units 04:47 07:40 RBC 2.52 L (4.30-5.90) m/uL Hgb 8.1 L (13.0-17.5) gm/dL Hct 26.0 L (39.0-53.0) % MCV 103.2 H (80.0-97.0) FL MCH 32.1 H (27.0-32.0) pg MCHC 31.2 L (32.0-37.0) g/dL RDW 19.1 H (11.5-15.5) % Lymphocytes # 0.53 L (1.0-4.8) k/uL BUN (9-20) mg/dL Creatinine (0.66-1.25) mg/dL Glucose (74-99) mg/dL POC Glucose (mg/dL) 151 H (70-110) mg/dL Total Protein (6.3-8.2) g/dL Albumin (3.5-5.0) g/dL Assessment and Plan (1) Upper GI bleed Narrative/Plan: 83-year-old male with upper GI bleed. Patient on blood thinners at home. No antiacids at home. Discussed options with the patient and also spoke with his son Ryne by phone. They are not interested in endoscopy which I think is reasonable given the patient's advanced age and comorbidities. Instead we will treat conservatively with holding anticoagulation, daily antiacid therapy. Continue regular diet. Anticipate discharge tomorrow if hemoglobin stable. Current Visit: Yes Status: Acute Code(s): K92.2 - GASTROINTESTINAL HEMORRHAGE, UNSPECIFIED SNOMED Code(s): 76059351
[2024-02-17 12:16] LABS: Glucose,Whole Blood 149 mg/dL (70-110)
[2024-02-17] MEDS: DAPAGLIFLOZIN PROPANEDIOL 10 MG TABLET PO SCH (12:36)
[2024-02-17] MEDS: SPIRONOLACTONE 25 MG TAB PO SCH (12:36)
--- NOTE | 2024-02-17 13:44 | P.CRDCN ---
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 He presented with exertional shortness of breath increased fatigue and bilateral lower extremity edema. He was evaluated by Dr. Cordova on outpatient basis w here there was concern of possible CHF exacerbation. On admission his chest x-ray showed mild increased interstitial marking, hemoglobin of 6.4, MCV of 104, platelets 256, NT-proBNP 1200, troponin was negative, ECG shows atrial fibrillation rate controlled REVIEW OF SYSTEMS 14 point review of system is negative except what is mentioned above in HPI. PHYSICAL EXAMINATION Vital signs reviewed. Head: Normocephalic. Eyes: Sclerae nonicteric. Neck: Brisk carotid upstroke, mildly elevated jugular venous distention. Lungs: Diminished breath sounds, poor respiratory effort, mild crackles audible Heart: Irregularly irregular, mild systolic murmur audible Abdomen: Soft nontender, positive bowel sounds. Extremities: 1+ edema bilateral lower extremity, Neuro: Alert, oritented, no focal deficits. Detailed neuro exam was not performed. ASSESSMENT Acute blood loss anemia and anemia of chronic disease. Suspect GI bleeding CAD s/p PCI Persistent atrial fibrillation, [id number] 5 HFmrEF, mild volume overload Essential hypertension Dyslipidemia Type 2 diabetes Chronic back pain CKD stage III PLAN Discontinue IV Lasix. Start torsemide 10 mg daily add Aldactone 25 mg daily and Farxiga 10 mg daily Hold anticoagulation for atrial fibrillation. Continue aspirin 81 mg daily Continue statin Continue beta-amy Had recent echo which showed EF of 40 to 45%. Workup for the cause of anemia, keep him globin more than 7 Recommend outpatient left atrial appendage occlusion procedure. Ronnie Reyes MD, FACC, RPVI Thank you for allowing [facility] to participate in this patient's care. Feel free to reach out in case of any followup questions. Past Medical History Past Medical History: Atrial Fibrillation, Coronary Artery Disease (CAD), Chest Pain / Angina, CVA/TIA, Diabetes Mellitus, Eye Disorder, GERD/Reflux, Hyperlip idemia, Hypertension, Myocardial Infarction (AR), Osteoarthritis (OA), Renal Disease Additional Past Medical History / Comment(s): low back pain that radiates to legs.,(has morphine pump), tinnitus, hx of head injury, TIA, aneurysm left groin, glaucoma and macular degeneration, PAIUTE-SHOSHONE- has tubes in his ears, frequent diarrhea, chronic kidney disease. Last Myocardial Infarction Date:: 1990 History of Any Multi-Drug Resistant Organisms: MRSA Date of last positivie culture/infection: 1993 MDRO Source:: incisional after back sx Past Surgical History: Back Surgery, Heart Catheterization With Stent Additional Past Surgical History / Comment(s): Back Surgery x5 ([facility]), pain pump placed x3 colonoscopy., multiple tubes in ears. has 2 heart stents. Patient states he had back surgery at [facility] in December. Past Anesthesia/Blood Transfusion Reactions: No Reported Reaction Additional Past Anesthesia/Blood Transfusion Reaction / Comment(s): . Date of Last Stent Placement:: 2020 Past Psychological History: No Psychological Hx Reported Additional Psychological History / Comment(s): . Smoking Status: Former smoker Past Alcohol Use History: None Reported Additional Past Alcohol Use History / Comment(s): quit smoking 1990, smoked 3ppd Past Drug Use History: None Reported - Past Family History Father Family Medical History: Cancer Brother(s) Family Medical History: Cancer Medications and Allergies Home Medications Medication Instructions Recorded Confirmed Type Latanoprost/Pf [Latanoprost 0.005% 1 drop BOTH EYES HS@199904/04/19 02/15/24 History Eye Drop] Atorvastatin [Lipitor] 80 mg PO HS@199907/13/20 02/15/24 History Tamsulosin [Flomax] 0.4 mg PO HS@199904/24/22 02/15/24 History Brimonidine Tartrate [Alphagan P 1 drop BOTH EYES BID@11/22/23 02/15/24 History 0.15% Ophth Soln] Pioglitazone [Actos] 67.5 mg PO DAILY@79911/22/23 02/15/24 History Timolol 0.5% Ophth Soln [Timoptic 1 drop BOTH EYES BID@11/22/2302/14 History 0.5% Ophth Soln] glipiZIDE XL [Glucotrol XL] 2.5 mg PO DAILY@79911/22/23 02/15/24 History Nitroglycerin Sl Tabs [Nitrostat] 0.4 mg SUBLINGUAL Q5M PRN tab 12/24/23 02/15/24 Rx Apixaban [Eliquis] 5 mg PO BID@0800,199902/15/24 02/15/24 History Aspirin 81 mg PO DAILY@0800 02/15/24 02/15/24 History Cyclobenzaprine [Flexeril] 2.5 mg PO TID PRN 02/15/24 02/15/24 History Ferrous Sulfate [Iron (65 MG 325 mg PO BID@0800,179902/15/24 02/15/24 History Elemental)] Gabapentin 300 mg PO TID@0800,1400,199902/15/24 02/15/24 History HYDROcodone/APAP 10-325MG [[place] 1 tab PO Q6HR PRN 02/15/24 02/15/24 History 10-325] Metoprolol Tartrate [Lopressor] 25 mg PO DAILY@0800 02/15/24 02/15/24 History Patient Own Pump 0 bag 02/15/24 History Sennosides [Senokot] 8.6 mg PO DAILY PRN 02/15/24 02/15/24 History Sennosides/Docusate Sodium [Senna 1 tab PO DAILY PRN 02/15/24 02/15/24 History Plus 8.6-50 mg Tablet] Vit C/E/Zn/Coppr/Lutein/Zeaxan 1 cap PO BID@0800,199902/15/24 02/15/24 History [Preservision Areds 2 Softgel] polyethylene glycoL 3350 [Miralax] 17 gm PO DAILY PRN 02/15/24 02/15/24 History Omeprazole [PriLOSEC] 20 mg PO AC-BRKFST #90 cap 02/17/24 Rx Allergies Allergy/AdvReac Type Severity Reaction Status Date / Time hydromorphone [From Dilaudid] AdvReac CONFUSION, Verified 02/15/24 14:36 HALLUCINATIONS Physical Exam Vitals: Vital Signs Temp Pulse Pulse Resp BP BP Pulse Ox 02/17/24 12:16 98.0 F 61 15 116/63 95 02/17/24 07:42 97.9 F 83 16 132/59 97 02/16/24 19:30 19 L 60 H 112/62 98 02/16/24 18:38 53 L 16 104/64 98 02/16/24 16:00 58 L 16 85/49 99 Intake and Output 02/16/24 02/17/24 02/17/24 22:59 06:59 14:59 Intake Total 400 Output Total 1500 400 400 Balance -1100 -400 -400 Intake: Oral 400 Output: Urine 1500 400 400 Other: Voiding Method Urinal Urinal Weight 69.5 kg Results 02/17/24 04:47 02/16/24 12:03 CBC 02/17/24 Range/Units 04:47 WBC 5.12 (4.50-10.00) X 10*3/uL RBC 2.52 L (4.40-5.60) X 10*6/uL Hgb 8.1 L (13.0-17.0) g/dL Hct 26.0 L (39.6-50.0) % Plt Count 196 (140-440) X 10*3/uL Current Medications Generic Name Dose Route Start Last Admin Trade Name Freq PRN Reason Stop Dose Admin Acetaminophen 650 mg 02/15/24 15:28 Acetaminophen Tab 325 Mg Tab PO Q6HR PRN Mild Pain or Fever > 100.5 Hydrocodone Bitart/Acetaminophen 1 each 02/15/24 15:30 02/15/24 23:33 Hydrocodone/Apap 10-325mg 1 Each Tab PO 1 each Q6HR PRN Administration Pain Aspirin 81 mg 02/16/24 13:00 02/17/24 08:53 Aspirin 81 Mg PO 81 mg DAILY MICHELLE Administration Atorvastatin Calcium 80 mg 02/15/24 20:00 02/16/24 22:24 Atorvastatin 80 Mg Tab PO 80 mg HS@1999 [facility] Administration Brimonidine Tartrate 1 drops 02/15/24 20:00 02/17/24 08:52 Brimonidine Tartrate 0.2% Drops 5 Ml Btl BOTH EYES 1 drops BID@ [facility] Administration Cyclobenzaprine HCl 2.5 mg 02/15/24 15:30 Cyclobenzaprine 5 Mg Tab PO TID PRN Muscle Spasm Dapagliflozin 10 mg 02/17/24 12:30 02/17/24 12:42 Dapagliflozin Propanediol 10 Mg Tablet PO Not Given DAILY [facility] Dextrose/Water 25 ml 02/15/24 15:53 Dextrose 50% Syringe 50 Ml IVP PER PROTOCOL PRN Hypoglycemia Protocol Dextrose/Water 50 ml 02/15/24 15:53 Dextrose 50% Syringe 50 Ml IVP PER PROTOCOL PRN Hypoglycemia Protocol Ferrous Sulfate 325 mg 02/15/24 18:00 02/17/24 08:52 Ferrous Sulfate 325 Mg Tab PO 325 mg BID@0800,1800 MICHELLE Administration Gabapentin 300 mg 02/15/24 20:00 02/17/24 08:52 Gabapentin 300 Mg Cap PO 300 mg TID@0800,1400,1999 [facility] Administration Insulin Aspart 0 unit 02/15/24 17:30 02/17/24 12:30 Insulin Aspart (Novolog) 100 Unit/Ml Vial SQ Not Given ACHS [facility] Protocol Latanoprost 1 drops 02/15/24 20:00 02/16/24 22:35 Latanoprost 0.005% Ophth Drops 2.5 Ml Btl BOTH EYES 1 drops HS@1999 [facility] Administration Metoprolol Tartrate 25 mg 02/17/24 21:00 Metoprolol Tartrate 25 Mg Tab PO BID [facility] Naloxone HCl 0.2 mg 02/15/24 15:28 Naloxone 0.4 Mg/Ml 1 Ml Vial IV Q2M PRN Opioid Reversal Pantoprazole Sodium 40 mg 02/15/24 21:00 02/17/24 08:53 Pantoprazole 40 Mg/10 Ml Vial IV 40 mg BID [facility] Administration Polyethylene Glycol 17 gm 02/15/24 15:30 Polyethylene Glycol 3350 17 Gm Powd.Pack PO DAILY PRN Constipation Senna 8.6 mg 02/15/24 15:30 Sennosides 8.6 Mg Tab PO DAILY PRN Constipation Spironolactone 25 mg 02/17/24 12:15 02/17/24 12:42 Spironolactone 25 Mg Tab PO Not Given DAILY [facility] Tamsulosin HCl 0.4 mg 02/15/24 20:00 02/16/24 22:23 Tamsulosin 0.4 Mg Cap.Er.24h PO 0.4 mg HS@1999 [facility] Administration Timolol Maleate 1 drops 02/15/24 20:00 02/17/24 08:53 Timolol 0.5% Ophth Drops 5 Ml Btl BOTH EYES 1 drops BID@799,1999 [facility] Administration Torsemide 10 mg 02/18/24 09:00 Torsemide 20 Mg Tab PO DAILY [facility] Intake and Output 02/16/24 02/17/24 02/17/24 22:59 06:59 14:59 Intake Total 400 Output Total 1500 400 400 Balance -1100 -400 -400 Intake: Oral 400 Output: Urine 1500 400 400 Other: Voiding Method Urinal Urinal Weight 69.5 kg 02/17/24 04:47 02/16/24 12:03
[2024-02-17 17:22] LABS: Glucose,Whole Blood 202 mg/dL (70-110)
[2024-02-17 19:25] LABS: Anisocytosis Slight; HCT 27.7 % (39.0-53.0); Hypochromasia Moderate; MCH 32.4 pg (25.0-35.0); MCHC 32.4 g/dL (31.0-37.0); Macrocytosis Slight; Mean Platelet Volume 8.1; Platelet Count 258 k/uL (150-450); RBC 2.77 m/uL (4.30-5.90); RDW 17.4 % (11.5-15.5); WBC 5.1 k/uL (3.8-10.6)
[2024-02-17 20:33] LABS: Glucose,Whole Blood 160 mg/dL (70-110)
[2024-02-17] MEDS: METOPROLOL TARTRATE 25 MG TAB PO SCH (20:41)
[2024-02-17] MEDS ORDERED: ALPRAZolam 0.25 MG TAB PO PRN (20:55)
[2024-02-18 07:02] LABS: Glucose,Whole Blood 143 mg/dL (70-110)
[2024-02-18 07:29] VITALS: BP 114/62; PULSE 85; RESP 15; TEMP 97.9
[2024-02-18] MEDS ORDERED: TORSEMIDE 20 MG TAB PO SCH (09:00)
[2024-02-18 11:51] LABS: Glucose,Whole Blood 203 mg/dL (70-110)
[2024-02-18 17:02] LABS: Glucose,Whole Blood 117 mg/dL (70-110)
[2024-02-18 20:27] LABS: Glucose,Whole Blood 173 mg/dL (70-110)
[2024-02-19 06:54] LABS: Glucose,Whole Blood 136 mg/dL (70-110)
[2024-02-19 12:45] LABS: Glucose,Whole Blood 154 mg/dL (70-110)
== END 2024-02-19 17:17 | disposition home or self-care (01) | DRG 291 ==
LOC: EC 12:21 → 3SCARD 15:28 → 5NMEDONC 02-16 11:24
PROVIDERS: ADMIT Student in an Organized Health Care Education/Training Program; ATTEND Student in an Organized Health Care Education/Training Program
DX: I13.0 Hypertensive heart and chronic kidney disease with heart failure and stage 1 through stage 4 chronic kidney disease, or unspecified chronic kidney disease (principal); I50.23 Acute on chronic systolic (congestive) heart failure; K92.2 Gastrointestinal hemorrhage, unspecified; D62 Acute posthemorrhagic anemia; E87.20 Acidosis, unspecified; I48.19 Other persistent atrial fibrillation; H91.90 Unspecified hearing loss, unspecified ear; I25.10 Atherosclerotic heart disease of native coronary artery without angina pectoris; E78.5 Hyperlipidemia, unspecified; E11.22 Type 2 diabetes mellitus with diabetic chronic kidney disease; D63.1 Anemia in chronic kidney disease; Z95.5 Presence of coronary angioplasty implant and graft; N18.31 Chronic kidney disease, stage 3a; G89.29 Other chronic pain; Z79.82 Long term (current) use of aspirin; Z79.899 Other long term (current) drug therapy; Z79.84 Long term (current) use of oral hypoglycemic drugs; Z79.01 Long term (current) use of anticoagulants; Z88.5 Allergy status to narcotic agent; Z87.891 Personal history of nicotine dependence; Z87.828 Personal history of other (healed) physical injury and trauma; Z86.73 Personal history of transient ischemic attack (TIA), and cerebral infarction without residual deficits; I25.2 Old myocardial infarction
CPT/HCPCS: 36415; 36430; 71046; 80053; 83036; 83540; 83550; 83735; 83880; 84484; 85025; 85027; 85610; 85730; 86850; 86900; 86901; 86920; 93005; 96374; 96375; 96376; 99285

== ENCOUNTER → 2024-02-28 | Day surgery (SDC) | payer OTHER, MEDICARE, BC ==
[~2024-02-28] MED LIST changes: +BUPIVACAINE 8.1-40 MG/ML, 31-60 ML SYRINGE MC ONE; +BUPIVACAINE UP TO 8 MG/ML, 31-60 ML SYRINGE MC ONE; -LACTATED RINGERS 1,000 ML IV SCH; +MORPHINE FOR ANAZAO - PER 10 MG MISCELLANE ONE
== END ==
LOC: ORPAIN 10:56
PROVIDERS: ATTEND Pain Medicine Interventional Pain Medicine
DX: Z53.8 Procedure and treatment not carried out for other reasons (principal)
CPT/HCPCS: 62367

== ENCOUNTER → 2024-03-11 | Outpatient (CLI) | payer OTHER, MEDICARE, BC ==
--- NOTE | 2024-03-11 12:02 | P.PN ---
Subjective Patient has come to pain clinic for follow-up visit. Skin ulceration over the pain pump has almost completely healed. Today after interrogation of the pain pump it shows about 16 mL of medication left in the pump. About 3 months ago the pump was filled with 40 mL of medications. Patient can continue at least 1 month with current rate. Will continue the pump at same rate and order new refill from the pharmacy. Discussed in detail with the patient and his son about the treatment plan. They understand and all questions were answered.
== END ==
LOC: PNWHC3 10:56
PROVIDERS: ATTEND Specialist
DX: M51.36 Other intervertebral disc degeneration, lumbar region (principal); Z88.5 Allergy status to narcotic agent; Z87.891 Personal history of nicotine dependence
CPT/HCPCS: 99211

== ENCOUNTER → 2024-03-27 | Day surgery (SDC) | payer BC, MEDICARE, OTHER ==
[2024-03-25 13:54] VITALS: BMI 27.3
[2024-03-27 11:37] VITALS: BP 99/60; PULSE 67; RESP 16; TEMP 96.5
[2024-03-27 11:38] LABS: Glucose,Whole Blood 125 mg/dL (70-110)
--- NOTE | 2024-03-27 11:58 | P.PCN ---
Date of Procedure: 03/27/24 Procedure(s) Performed: Description of Procedure: Preoperative diagnosis:1- Lumbar post laminectomy, and chronic pain syndrome 2- Status post intrathecal pump for chronic pain management Postoperative diagnosis: 1-Lumbar post laminectomy, and chronic pain syndrome 2- Status post intrathecal pump for chronic pain management, and 3 months duration from the previous refill PROCEDURES: 1. Intrathecal pump analysis. 2. Intrathecal pump reprogramming. 3. Intrathecal pump refill ANESTHESIA: None. EBL: None. COMPLICATIONS: None. IV FLUIDS: None. PROCEDURE INDICATION: Patient is well known to pain clinic for management of intrathecal pump for chronic pain management. Patient denied any side effects with the medications. Rated his pain is 3-4 out of 10 in severity. On examination lower extremity muscle strength normal, no clonus. Patient came here for pump refill. PROCEDURE DESCRIPTION: The patient was seen and identified in the preoperative area. Risks, benefits, complications, and alternatives were discussed with the patient. The patient agreed to proceed with the procedure. Intrathecal pump was analyzed and displayed the following information: Type: SynchroMed Type II B Medication: Morphine 3 mg /ml infusion at 0. 699 mg/day Bupivacaine 2 MG per mL infusion at 0.466 MG per day Pump Volume: 40 ml [place] Volume: 12.5 ml PTM: Disabled At this time, the area of the intrathecal pump was exposed, prepped with ChloraPrep x3 , and draped in the usual sterile fashion. After which, the [employer] template was used to identify the area of the skin overlying the refill port. After which, a 22-gauge [place] needle attached to an extension tubing, which was clamped, attached to a syringe and inserted through the skin into the refill port. At that point, 13 mL of clear fluid was aspirated. The tubing was reclamped. This was discarded. A new medication was then identified from pharmacy, . This was then attached to a filter, which was primed and subsequently injected into the pump in increments with intermittent aspiration to ensure placement into the intrathecal pump. At this point, the pump was reprogrammed. The dose was adjusted: None. Type: SynchroMed Type II B Medication: Morphine 3 mg /ml infusion at 0.699 mg/day Bupivacaine 2 MG per mL infusion at 0.466 MG per day Pump Volume: 40 ml [place] Volume: 40 ml PTM: Disabled The patient tolerated the procedure well and was sent home from the discharge area once meeting discharge criteria. Plan: The patient will follow up for further management and pump refills. he had an infection at the location of the pump area, which is being managed with the wound center, the infection is clearing and healed very well
== END ==
LOC: ORPAIN 11:12
PROVIDERS: ATTEND Specialist
DX: M96.1 Postlaminectomy syndrome, not elsewhere classified (principal); G89.4 Chronic pain syndrome; Z79.01 Long term (current) use of anticoagulants; Z79.899 Other long term (current) drug therapy
CPT/HCPCS: 62370

== ENCOUNTER → 2024-08-07 | Outpatient (CLI) | payer OTHER, MEDICARE, BC ==
[2024-08-07 11:36] VITALS: BP 143/68; PULSE 66; RESP 16
--- NOTE | 2024-08-07 13:11 | P.PN ---
Subjective Progress Note Date: 08/07/24 This is a follow-up visit for this 83 years old male with a history of chronic and severe low back pain, patient had intrathecal pain pump therapy for several years, and currently patient under hospice care, it was very difficult for the patient's family to bring the patient to the clinic for pump refill, asking for different alternative, make it easier for them to manage patient's pain and also they do not have to bring the patient to the clinic to fill out the pump, is very difficult to ambulate, he ambulates using a walker, he has decreased muscle strength, for this reason I discussed with the patient's son and with the patient also the option of disabling the pump completely, and we will start the patient on fentanyl patch, and the intrathecal pain pump analyzed showed that the patient currently on intrathecal therapy morphine sulfate the concentration is 3 mg/mL, and bupivacaine 2 mg/mL, patient receiving a daily dose of morphine 0.699 mg/day, bupivacaine 0.46 mg/day, patient had residual volume 9 mL, today after we interrogated the pump we did shot down the pain pump, and patient will be started on Duragesic patch 25 mcg/day and replacement for the intrathecal pain pump, patient will continue his medication Flexeril 2.5 mg 3 times daily and [place] 10/325 every 6 hours as needed, and Neurontin 300 mg 3 times daily Objective - Vital Signs Vital signs: Vital Signs Temp Pulse 66 08/07/24 11:32 Resp 16 08/07/24 11:32 BP 143/68 08/07/24 11:32 Pulse Ox 92 L 08/07/24 11:32 FiO2 Intake & Output 08/06/24 08/07/24 08/07/24 18:59 06:59 18:59 Weight 91.172 kg
== END ==
LOC: PNWHC3 10:50
PROVIDERS: ATTEND Specialist
DX: M54.50 Low back pain, unspecified (principal); G89.29 Other chronic pain; Z79.899 Other long term (current) drug therapy; Z88.5 Allergy status to narcotic agent; Z87.891 Personal history of nicotine dependence
CPT/HCPCS: 99211